=== PATIENT | female | born 1950 | race Caucasian/White ===

== ENCOUNTER → 2016-12-02 | Outpatient (CLI) | payer OTHER ==
[~2016-12-02] MED LIST: B-COTAB53 PO; DESI25TA PO; ESCI10TA17 PO; GLIM4TAB2 PO; LORA-741 PO; MILK175T PO; MULTTAB58 PO; POLYSOL4 OP; SITA50TA3 PO; SYSTANE EYE DROP OPB
== END ==
LOC: C.LABCC 08:35
PROVIDERS: ATTEND Internal Medicine
DX: M81.0 Age-related osteoporosis without current pathological fracture (principal)

== ENCOUNTER 2018-03-25 12:35 | Emergency (ER) | payer OTHER ==
[~2018-03-25] VITALS: Ht 154.9 cm; Wt 70.0 kg
[~2018-03-25 12:35] MED LIST changes: -SYSTANE EYE DROP OPB
[2018-03-25 12:38] VITALS: TEMP 36.7; Ht 154.9 cm; Wt 70.0 kg
[2018-03-25 12:55] VITALS: O2SAT 97
[2018-03-25] MEDS ORDERED: SODIUM CHLORIDE 0.9% 500ML 500 ML IV STA (12:57)
[2018-03-25] MEDS ORDERED: ALBUT/IPRATROP 3MG/0.5MG NEB 3 ML VIAL INH STA (12:57)
[2018-03-25] MEDS ORDERED: KETOROLAC TROMETHAMINE 30 MG/ML VIAL IV STA (12:57)
--- NOTE | 2018-03-25 13:02 | EMERGENCY ROOM VISIT NOTE ---
History Report prepared by Sindhu: Darinel Wong Under the Supervision of: Dr. James Linares M.D. First contact with patient: 12:52 Chief Complaint: CHEST PAIN Stated Complaint: CHEST PAIN, TIGHTNESS IN CHEST-NOT FEELING WELL History of Present Illness The patient is a 67 year old female who presents to the Emergency Room with complaints of waxing and waning chest pain that began 2 days ago. She states that the symptoms came on when she was about to go to bed and noticed tightness across her chest. She states that she ate apple slices before going to bed. She states that the symptoms do not feel similar to GERD. She states that she does not have a history of GERD. She states that she feels the chest pain right now in the ER. Patient adds that she has tightness around her throat. She adds that she has shortness of breath with exertion and coughing. Patient states that the chest pain "keeps her up her night". She states that she is not coughing right now in the ED. Patient states that she has a history of similar symptoms after falling down steps. Patient adds that she had coughing and sinus problems 2 weeks ago. Pertinent past medical history includes a stroke and a left bundle branch block. Patient states that deficits following the stroke include the left -side of her body being weaker than the right. Patient denies a history of heart attacks. She denies a history of blood clots in her legs or lungs. Patient denies taking blood thinners. She states that she does take Aspirin. Patient denies nausea and vomiting. Patient adds that she is not a smoker. Source of History: patient Onset: 2 days ago Position: chest Timing: waxes/wanes Modifying Factors (Relieving): other (None) Associated Symptoms: + SOB, No nausea, No vomiting Note: Patient has throat tightness. Review of Systems See HPI for pertinent positives and negatives. A total of ten systems were reviewed and were otherwise negative. Past Medical & Surgical Medical Problems: (1) Anxiety (2) Depression (3) Diabetes mellitus, type II (4) Dyslipidemia (5) Hepatitis C, chronic Surgical Problems: (1) H/O cataract removal with insertion of prosthetic lens (2) History of back surgery (3) History of cholecystectomy (4) History of hysterectomy (5) History of tubal ligation Family History Diabetes mellitus FH: heart disease FHx: cancer FHx: gallbladder disease Hypertension Kidney disease Kidney stones Social History Smoking Status: Never Smoker Marital Status: Occupation Status: retired Current/Historical Medications Scheduled Aspirin (Aspirin Ec), 81 MG PO DAILY B-Complex W/ Folic Acid (B Complex), 1 TAB PO DAILY Desipramine Hcl (Norpramin), 25 MG PO QPM Escitalopram (Lexapro), 30 MG PO DAILY Glimepiride (Glimepiride), 4 MG PO DAILY Lorazepam (Ativan), 1 MG PO QPM Milk Thistle (Silybum Marianum (Milk Thistle Extract), 175 MG PO MONTHLY Polyethylene Glycol-Propylene (Systane), 1 DROPS OP TID Sitagliptin (Januvia), 50 MG PO DAILY Scheduled PRN Famotidine (Pepcid), 20 MG PO BID PRN for GI Upset Allergies Coded Allergies: Clarithromycin (Verified Allergy, Mild, 03/25/18) Acetaminophen (Verified Allergy, Unknown, 03/25/18) Amitriptyline (Verified Allergy, Unknown, 03/25/18) Clavulanic Acid (Verified Allergy, Unknown, FROM AUGMENTIN, 03/25/18) Morphine (Unverified Allergy, Unknown, hives, 03/25/18) Oxycodone (Verified Allergy, Unknown, 03/25/18) Penicillins (Verified Allergy, Unknown, FROM AUGMENTIN, 03/25/18) Cephalosporins (Verified Adverse Reaction, Unknown, CEFTIN--GI UPSET, 03/25) Physical Exam Vital Signs Date Time Temp Pulse Resp B/P (MAP) Pulse Ox O2 Delivery O2 Flow Rate FiO2 03/25/18 16:38 78 15 145/57 97 03/25/18 15:28 75 18 140/72 Room Air 03/25/18 14:21 78 19 129/53 95 Room Air 03/25/18 13:34 74 18 114/60 95 Room Air 03/25/18 13:31 75 13 130/46 94 Room Air 03/25/18 12:55 97 Room Air 03/25/18 12:54 96 Room Air 03/25/18 12:54 76 03/25/18 12:51 77 18 142/53 94 Room Air 03/25/18 12:38 36.7 94 20 99/59 96 Room Air Physical Exam GENERAL: Awake, alert, fatigue-appearing, in no distress HENT: Normocephalic, atraumatic. Oropharynx unremarkable other than dry mucous membranes. EYES: Normal conjunctiva. Sclera non-icteric. NECK: Supple. No nuchal rigidity. FROM. No JVD. RESPIRATORY: Clear to auscultation. CARDIAC: Regular rate, normal rhythm. Extremities warm and well perfused. Pulses equal. ABDOMEN: Soft, non-distended. No tenderness to palpation. No rebound or guarding. No masses. RECTAL: Deferred. MUSCULOSKELETAL: Mild reproducible chest wall tenderness. The back is symmetrical on inspection without obvious abnormality. There is no CVA tenderness to palpation. No joint edema. LOWER EXTREMITIES: Calves are equal size bilaterally and non-tender. No edema. No discoloration. NEURO: Normal sensorium. No sensory or motor deficits noted. SKIN: No rash or jaundice noted. Medical Decision & Procedures ER Provider Diagnostic Interpretation: Radiology results as stated below per my review and radiologist interpretation: CHEST ONE VIEW PORTABLE HISTORY: Atypical CHEST PAIN COMPARISON: Chest 11/26/2016. FINDINGS: The lungs are clear. Cardiac silhouette is normal in size. No pleural effusions. No pneumothorax. IMPRESSION: No acute process. Electronically signed by: Eugene Antoine M.D. 03/25/2018 1:47 PM Laboratory Results 03/25/18 12:55 Red Blood Count 4.75, Mean Corpuscular Volume 83.4, Mean Corpuscular Hemoglobin 27.4, Mean Corpuscular Hemoglobin Concent 32.8, Mean Platelet Volume 9.6, Neutrophils (%) (Auto) 71.8, Lymphocytes (%) (Auto) 19.2, Monocytes (%) (Auto) 7.0, Eosinophils (%) (Auto) 1.6, Basophils (%) (Auto) 0.2, Neutrophils # (Auto) 4.54, Lymphocytes # (Auto) 1.21, Monocytes # (Auto) 0.44, Eosinophils # (Auto) 0.10, Basophils # (Auto) 0.01 03/25/18 12:55 Test 03/25/18 12:55 03/25/18 15:03 White Blood Count 6.31 K/uL (4.8-10.8) Red Blood Count 4.75 M/uL (4.2-5.4) Hemoglobin 13.0 g/dL (12.0-16.0) Hematocrit 39.6 % (37-47) Mean Corpuscular Volume 83.4 fL (80-100) Mean Corpuscular Hemoglobin 27.4 pg (25-34) Mean Corpuscular Hemoglobin Concent 32.8 g/dl (32-36) Platelet Count 175 K/uL (130-400) Mean Platelet Volume 9.6 fL (7.4-10.4) Neutrophils (%) (Auto) 71.8 % Lymphocytes (%) (Auto) 19.2 % Monocytes (%) (Auto) 7.0 % Eosinophils (%) (Auto) 1.6 % Basophils (%) (Auto) 0.2 % Neutrophils # (Auto) 4.54 K/uL (1.4-6.5) Lymphocytes # (Auto) 1.21 K/uL (1.2-3.4) Monocytes # (Auto) 0.44 K/uL (0.11-0.59) Eosinophils # (Auto) 0.10 K/uL (0-0.5) Basophils # (Auto) 0.01 K/uL (0-0.2) RDW Standard Deviation 41.4 fL (36.4-46.3) RDW Coefficient of Variation 13.7 % (11.5-14.5) Immature Granulocyte % (Auto) 0.2 % Immature Granulocyte # (Auto) 0.01 K/uL (0.00-0.02) Anion Gap 6.0 mmol/L (3-11) Est Creatinine Clear Calc Drug Dose 54.6 ml/min Estimated GFR () 78.8 Estimated GFR (Non- 68.0 BUN/Creatinine Ratio 22.7 (10-20) Calcium Level 8.8 mg/dl (8.5-10.1) Magnesium Level 2.2 mg/dl (1.8-2.4) Total Bilirubin 0.5 mg/dl (0.2-1) Direct Bilirubin 0.2 mg/dl (0-0.2) Aspartate Amino Transf (AST/SGOT) 22 U/L (15-37) Alanine Aminotransferase (ALT/SGPT) 29 U/L (12-78) Alkaline Phosphatase 82 U/L (45-117) Pro-B-Type Natriuretic Peptide 139 pg/ml (0-900) Total Protein 8.2 gm/dl (6.4-8.2) Albumin 3.9 gm/dl (3.4-5.0) Lipase 133 U/L (73-393) Troponin I < 0.015 ng/ml (0-0.045) Laboratory results reviewed by me Medications Administered Medications (Trade) Dose Ordered Sig/Edgardo Route Start Time Stop Time Status Last Admin Dose Admin Sodium Chloride 500 ml @ 999 mls/hr Q31M STAT IV 03/25/18 12:57 03/25/18 13:27 DC 03/25/18 13:08 999 MLS/HR Ketorolac Tromethamine (Toradol Inj) 15 mg NOW STAT IV 03/25/18 12:57 03/25/18 13:02 DC 03/25/18 13:09 15 MG Albuterol/ Ipratropium (Duoneb) 3 ml NOW STAT INH 03/25/18 12:57 03/25/18 13:02 DC 03/25/18 13:09 3 ML Famotidine (Pepcid Tab) 20 mg NOW ONCE PO 03/25/18 14:30 03/25/18 14:31 DC 03/25/18 14:36 20 MG Lidocaine HCl (Viscous Lidocaine 2% Soln) 20 ml STK-MED ONCE .ROUTE 03/25/18 14:33 03/25/18 14:34 DC 03/25/18 14:36 10 ML Al Hydroxide/Mg Hydroxide (Maalox Susp) 30 ml STK-MED ONCE .ROUTE 03/25/18 14:34 03/25/18 14:35 DC 03/25/18 14:36 30 ML ECG Per My Interpretation Indication: chest pain Rate (beats per minute): 83 Rhythm: normal sinus Findings: LBBB, no acute ischemic change, other (No sgarbossa present) Comparison ECG Date: 04/22/2017 Change: no significant change ED Course 1253: The patient was evaluated in room C1B. A complete history and physical exam was performed. 1423: I reassessed the patient. She states that she is feeling better. 1532: I reevaluated the patient. Discussed results and discharge instructions. She verbalized understanding and agreement. The patient is ready for discharge. Medical Decision I reviewed the patient's past medical history, medications, and the nursing notes as described above. Differential diagnosis: Etiologies such as cardiac ischemia, aortic dissection, pulmonary embolism, pneumonia, pneumothorax, musculoskeletal, infections, pericarditis, myocarditis , esophageal rupture, gastrointestinal, as well as others were entertained. The patient is a 67-year-old woman who presents emergency department with constant chest pain that gets worse slightly better over the past 2 days in the setting of cough and congestion per hpi. On arrival the patient is no acute distress, afebrile stable vital signs. EKG demonstrates the patient's chronic/ baseline left bundle branch block with no Sgarbossa criteria. Chest x-ray negative. Labs unremarkable including WBC within normal limits. Initial troponin negative in the setting of constant symptoms. However, given the patient's history of left bundle branch block for additional certainty detla 2 hour troponin was sent and was again negative. patient feeling improved after IV fluid hydration, Toradol, albuterol. However she still also reported some mild fullness in her throat which subsequently resolved after GI cocktail and Pepcid. Thus, given the patient's improvement in the setting of reassuring cardiac workup, unlikely to be cardiac etiology at this time. Symptoms possibly related to chest wall inflammation/gastritis in the setting of the patient's recent URI symptoms. Plan for PCP follow-up. Findings and plan for follow-up reviewed with patient. Patient agreeable and d/c'd per discharge instructions. Medication Reconcilliation Current Medication List: was personally reviewed by me Blood Pressure Screening Patient's blood pressure: Elevated blood pressure Blood pressure disposition: Elevated BP felt to be situational Impression Primary Impression: Substernal precordial chest pain Scribe Attestation The scribe's documentation has been prepared under my direction and personally reviewed by me in its entirety. I confirm that the note above accurately reflects all work, treatment, procedures, and medical decision making performed by me. Departure Information Dispostion Home / Self-Care Prescriptions Famotidine (PEPCID) 20 Mg Tab 20 MG PO BID Y for GI Upset for 7 Days, #14 TAB Prov: James Linares M.D. 03/25/18 Referrals Chaitanya Quinones D.O. (PCP) Forms Call Back Authorization, HOME CARE DOCUMENTATION FORM, IMPORTANT VISIT INFORMATION Patient Instructions ED Chest Pain Atypical Unkn Cause, ED Chest Pain Costochondritis, ED Gastritis, My [facility] Additional Instructions Please follow up with your primary care physician in the next 1-3 days for re- evaluation. The cause of your symptoms is unclear at this time. However, may be due to chest wall inflammation and strain as well as a possible gastritis related to your recent upper respiratory infection. Otherwise, your exam, EKG, chest xray, and lab results did not show signs of an emergent condition at this time. Acetaminophen for pain and fevers as needed. Pepcid and Tums as needed for GI upset and acid reduction. Continue your home inhaler. Drink plenty of fluids to ensure hydration. Return to the emergency department for worsening symptoms as described in the accompanying instructions.
[2018-03-25 13:07] LABS: BASO % 0.2 %; BASO ABS # 0.01 K/uL (0-0.2); EOS % 1.6 %; HEMATOCRIT 39.6 % (37-47); IG# 0.01 K/uL (0.00-0.02); LYMPH % 19.2 %; LYMPH ABS # 1.21 K/uL (1.2-3.4); MEAN CELL VOLUME 83.4 fL (80-100); MEAN CORPUSCULAR HEMOGLOBIN 27.4 pg (25-34); MEAN CORPUSCULAR HGB CONC 32.8 g/dl (32-36); MEAN PLATELET VOLUME 9.6 fL (7.4-10.4); MONO ABS # 0.44 K/uL (0.11-0.59); NEUT % 71.8 %; NEUT ABS # 4.54 K/uL (1.4-6.5); PLATELET COUNT 175 K/uL (130-400); RED CELL DISTRIBUTION WIDTH CV 13.7 % (11.5-14.5); RED CELL DISTRIBUTION WIDTH SD 41.4 fL (36.4-46.3); WHITE BLOOD COUNT 6.31 K/uL (4.8-10.8)
[2018-03-25] MEDS ORDERED: ATV/1 PO (13:15)
[2018-03-25] MEDS ORDERED: ASPI81TA28 PO (13:15)
[2018-03-25 13:25] LABS: ALBUMIN 3.9 gm/dl (3.4-5.0); ALT/SGPT 29 U/L (12-78); AST/SGOT 22 U/L (15-37); BLOOD UREA NITROGEN 20 mg/dl (7-18); CALCIUM 8.8 mg/dl (8.5-10.1); CARBON DIOXIDE 26 mmol/L (21-32); CREATININE 0.87 mg/dl (0.60-1.20); GLUCOSE 197 mg/dl (70-99); LIPASE 133 U/L (73-393); POTASSIUM 4.3 mmol/L (3.5-5.1); SODIUM 137 mmol/L (136-145)
[2018-03-25 13:30] LABS: ALKALINE PHOSPHATASE 82 U/L (45-117); TOTAL PROTEIN 8.2 gm/dl (6.4-8.2)
--- NOTE | 2018-03-25 13:48 | DIAGNOSTIC IMAGING REPORT ---
CHEST ONE VIEW PORTABLE HISTORY: Atypical CHEST PAIN COMPARISON: Chest 11/26/2016. FINDINGS: The lungs are clear. Cardiac silhouette is normal in size. No pleural effusions. No pneumothorax. IMPRESSION: No acute process. Electronically signed by: Eugene Antoine M.D. 03/25/2018 1:47 PM Dictated Date/Time: 03/25/2018 1:45 PM
[2018-03-25] MEDS ORDERED: GI COCKTAIL PO STA (14:25)
[2018-03-25] MEDS ORDERED: FAMOTIDINE 20 MG TAB PO ONE (14:30)
[2018-03-25] MEDS ORDERED: LIDOCAINE HCL 2% VISC SOLN 20 ML UDC ONE (14:33)
[2018-03-25] MEDS ORDERED: ALUMINUM/MAGNESIUM SUSP 30 ML UDC ONE (14:34)
[2018-03-25] MEDS ORDERED: FAMO20TA9 PO (16:06)
[2018-03-25 16:38] VITALS: BP 145/57; PULSE 78; O2SAT 97
== END 2018-03-25 16:35 | disposition home or self-care (01) ==
LOC: C.EDB 12:37 → C.EDC 16:35
DX: R07.2 Precordial pain (principal); F41.9 Anxiety disorder, unspecified; F32.9 Major depressive disorder, single episode, unspecified; E11.9 Type 2 diabetes mellitus without complications; E78.5 Hyperlipidemia, unspecified; B18.2 Chronic viral hepatitis C; Z79.82 Long term (current) use of aspirin; Z79.899 Other long term (current) drug therapy; Z88.5 Allergy status to narcotic agent; Z88.0 Allergy status to penicillin; Z88.1 Allergy status to other antibiotic agents; Z88.8 Allergy status to other drugs, medicaments and biological substances

== ENCOUNTER 2019-11-15 10:18 | Inpatient (IN) ==
--- OUTSIDE RECORDS SUMMARY | 2019-11-15 10:23 | External Medical Summary | Continuity of Care Document ---
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 , M .D. Start: 17-Feb-2017 Refills: 0 Desipramine HCl - 75 MG Oral Tablet; TAKE 1 TABLET DAILY DIRECTED. , M.D. Start: 17-Feb-2017 Refills: 0 Januvia 50 MG Oral Tablet , M.D. Refills: 0 Premarin 0.625 MG/GM Vaginal Cream; Appl y pea sized amount to fingertip apply to area as directed 2-3 nights per week. May use nightly for 1-2 weeks. RICH Carrizales Start: 17-Feb-2017 Quantity: 1 30 GM Tube Refills: 6 Systane 0.4-0.3 % Ophthalmic Solution; INSTILL 2 DROP Twice daily , M.D. Start: 17-Feb-2017 Refills: 0 B Complex Oral Tablet; TAKE 1 TABLET DAILY. , M.D. Start: 17-Feb-2017 Refills: 0 Milk Thistle 140 MG Oral Capsule; TAKE DIRECTED. , M.D. Start: 17-Feb-2017 Refills: 0 Glimepiride 4 MG Oral Tablet; TAKE 1 TABLET DAILY. , M.D. Start: 17-Feb-2017 Refills: 0 LORazepam 0.5 MG Oral Tablet; TAKE 1 TABLET AT BEDTIME. , M. D. Start: 17-Feb-2017 Refills: 0 Multi Vitamin Oral Tablet; TAKE 1 TABLET DAILY. , MJamesDJames Start: 17-Feb-2017 Refills: 0 Procedures History of Tubal Ligation Status: Comple madisyn History of Hysterectomy Status: Complete d History of Cholecystotomy Status: Comple madisyn History of Eye Surgery Status: Completed History of Back Surgery Status: Complete d History of Complete Colonoscopy Status: Completed History of Bladder Surgery Status: Compl eted Immunizations Immunizations not documented Family History aunt Family history of diabetes mellitus (V18.0) (Z83.3) Status: Active Brother Family history of hypertension (V17.49) (Z82.49) Status: Act yogesh Mother Family history of cardiac disorder (V17.49) (Z82.49) Status: Active Family history of rectal cancer (V16.0) (Z80.0) Status: Acti ve Social History - Smoking Status Never smoker Plan of Treatment Planned Observations Planned Goals not documented Results No Known Results Results not documented
--- NOTE | 2019-11-15 11:08 | Emergency Department Note ---
Entered by Nickolas Ulloa acting as a scribe for Ham Blake DO History of Present Illness General Chief complaint: Illness Stated complaint: ams Time Seen by Provider: 11/15/19 10:38 Source: patient History of Present Illness Provider complaint: Headache Onset (ago): hour(s) 7 Location: head Severity: similar to prior episodes Pain Consistency: + constant Maximum Pain Intensity: 5 Current Pain Intensity: 5 Relieved By: + none Associated symptoms: + nausea/vomiting (No vomiting) and + other (Visual disturbance, eye pain) The patient is a 69 year old female who presents to the Emergency Room with complaints of a constant headache that started upon waking up this morning about 7 hours ago. The patient rates the pain as a 5/10 in severity. The patient adds that shortly after waking up with the headache she started having visual disturbances which she explains as "squiggly lines". She also endorses intermittent pain to her left eye as well as left sided "shakiness" that has since resolved. The patient adds that she is slightly nauseated but denies any vomiting. The patient denies taking any medications for her headache but she did take her diabetes medication this morning. The patient has a history of TIA, per the family, and she has been having some trouble with her balance which she sees physical therapy for. The patient adds that she had a Doppler of her neck done a couple of years ago. Home Medications Home Medications Medication Instructions Recorded Confirmed Type aspirin 81 mg PO DAILY 09/06/18 11/15/19 History escitalopram oxalate 10 mg PO QAM 09/06/18 11/15/19 History escitalopram oxalate 20 mg PO QAM 09/06/18 11/15/19 History glimepiride 4 mg PO DAILY 09/06/18 11/15/19 History lorazepam 0.5 mg PO QPM 09/06/18 11/15/19 History milk thistle 175 mg PO BID 09/06/18 11/15/19 History vitamin B complex 1 tab PO DAILY 09/06/18 11/15/19 History coenzyme Q10 [CoQ-10] 100 mg PO DAILY 11/15/19 11/15/19 History linagliptin [Tradjenta] 5 mg PO DAILY 11/15/19 11/15/19 History Allergies Allergy/AdvReac Type Severity Reaction Status Date / Time clarithromycin Allergy Mild Verified 11/15/19 11:36 acetaminophen Allergy Unknown Verified 11/15/19 11:36 amitriptyline Allergy Unknown Verified 11/15/19 11:36 clavulanic acid Allergy Unknown FROM Verified 11/15/19 11:36 AUGMENTIN morphine Allergy Unknown hives Unverified 11/15/19 11:36 oxycodone Allergy Unknown Verified 11/15/19 11:36 Penicillins Allergy Unknown FROM Verified 11/15/19 11:36 AUGMENTIN Cephalosporins AdvReac Unknown CEFTIN--GI Verified 11/15/19 11:36 UPSET Past Med/Surg History Medical History Anxiety (Chronic) Depression (Chronic) Diabetes mellitus, type II (Chronic) Dyslipidemia (Chronic) Hepatitis C, chronic (Chronic) Surgical History H/O cataract removal with insertion of prosthetic lens (Resolved) History of back surgery (Resolved) History of cholecystectomy (Resolved) History of hysterectomy (Resolved) History of tubal ligation (Resolved) Social History Preferred Language: Lao Biztalk Administrator Required: No Beliefs That Will Affect Care: None Current Living Situation: Alone Other Information That Helps Us Care for You: No Feels Safe at Home: Yes Safety Concerns: Feels Safe At This Time Smoking Status: Never smoker Hx Alcohol Use: No Hx Substance Use: No Review of Systems See HPI for pertinent positives & negatives. and A total of 10 systems reviewed and were otherwise negative Physical Exam Vital Signs Vital Signs - 24 hr 11/15/19 10:25 11/15/19 11:27 11/15/19 12:31 Temperature 37.0 C Temperature Source Oral Pulse Rate 77 Pulse Rate [Apical] 73 72 Pulse Rate from SpO2 Sensor Pulse Rhythm Regular Pulse Rhythm [Apical] Regular Regular Pulse Strength Normal Respiratory Rate 17 17 17 Respiratory Effort / Characteristics Non-Labored Spontaneous Non-Labored Spontaneous Non-Labored Spontaneous Respiratory Depth Normal Normal Normal Respiratory Pattern Regular Regular Regular Blood Pressure 161/60 H Blood Pressure [Right Arm] 141/48 H 155/63 H Blood Pressure Mean 93 Blood Pressure Mean [Right Arm] 79 93 Pulse Oximetry 94 95 97 Oxygen Delivery Method Room Air Room Air Room Air Sepsis Recent Fever Within 48 Hours No Sepsis New/Unexplained Change in Mental Status No Sepsis Action Taken by Nursing No Action Required 11/15/19 13:30 11/15/19 14:00 11/15/19 14:01 Temperature Temperature Source Pulse Rate 77 73 Pulse Rate [Apical] 73 Pulse Rate from SpO2 Sensor 77 73 Pulse Rhythm Pulse Rhythm [Apical] Regular Pulse Strength Respiratory Rate 17 19 15 Respiratory Effort / Characteristics Non-Labored Spontaneous Respiratory Depth Normal Respiratory Pattern Regular Blood Pressure 123/59 L Blood Pressure [Right Arm] 131/58 L Blood Pressure Mean 81 Blood Pressure Mean [Right Arm] 82 Pulse Oximetry 94 92 94 Oxygen Delivery Method Room Air Sepsis Recent Fever Within 48 Hours Sepsis New/Unexplained Change in Mental Status Sepsis Action Taken by Nursing 11/15/19 14:30 11/15/19 14:31 11/15/19 15:00 Temperature Temperature Source Pulse Rate 78 77 75 Pulse Rate [Apical] Pulse Rate from SpO2 Sensor Pulse Rhythm Pulse Rhythm [Apical] Pulse Strength Respiratory Rate 18 14 24 Respiratory Effort / Characteristics Respiratory Depth Respiratory Pattern Blood Pressure 136/57 L 145/72 H Blood Pressure [Right Arm] Blood Pressure Mean 92 83 Blood Pressure Mean [Right Arm] Pulse Oximetry 95 Oxygen Delivery Method Sepsis Recent Fever Within 48 Hours Sepsis New/Unexplained Change in Mental Status Sepsis Action Taken by Nursing 11/15/19 15:01 Temperature Temperature Source Pulse Rate 75 Pulse Rate [Apical] Pulse Rate from SpO2 Sensor Pulse Rhythm Pulse Rhythm [Apical] Pulse Strength Respiratory Rate 17 Respiratory Effort / Characteristics Respiratory Depth Respiratory Pattern Blood Pressure Blood Pressure [Right Arm] Blood Pressure Mean Blood Pressure Mean [Right Arm] Pulse Oximetry Oxygen Delivery Method Sepsis Recent Fever Within 48 Hours Sepsis New/Unexplained Change in Mental Status Sepsis Action Taken by Nursing GENERAL: Patient is awake alert in no acute distress patient is resting comfortably and showing no signs of anxiety EYES: The conjunctivae are clear. The pupils are round and reactive. EARS, NOSE, MOUTH AND THROAT: The nose is without any evidence of any deformity. Mucous membranes are moist. Tongue is midline. NECK: The neck is nontender and supple. RESPIRATORY: Normal respiratory effort is noted there is no evidence of wheezing rhonchi or rales CARDIOVASCULAR: Regular rate and rhythm was noted to auscultation. A systolic murmur was suggested. GASTROINTESTINAL: The abdomen is soft. Abdomen is nontender. MUSCULOSKELETAL/EXTREMITIES: There is no evidence of gross deformity full range of motion is noted in the hips and shoulders. SKIN: There is no obvious evidence of any rash. There are no petechiae, pallor or cyanosis noted. NEUROLOGIC: Patient is awake alert and oriented x3 strength is symmetric patellar reflexes are 2+ bilaterally. There is no facial droop or drift. Course Course 1047: Past medical records reviewed. The patient was evaluated in room B04B, and a complete history and physical examination were performed. 1340: I reevaluated the patient and updated her on results. We discussed the treatment plan and she is agreeable. 1350: I spoke to Dr. Valerie Harris about the patient's case. He agreed to accept the patient for further evaluation. Consultations Consultation #1: I spoke to Dr. Valerie Harris about the patient's case. He agreed to accept the patient for further evaluation. Time: 13:50 Administered Medications Sodium Chloride (Nss 1000ml) 1,000 mls @ 50 mls/hr IV .Q20H STEFANO Stop: 12/15/19 10:59 Last Admin: 11/15/19 11:31 Dose: 50 mls/hr Documented by: [id number] Discontinued Medications Aspirin (Aspirin Chew) 81 mg PO ONE ONE Stop: 11/15/19 16:26 Last Admin: 11/15/19 17:03 Dose: 81 mg Documented by: [id number] Diphenhydramine HCl (Benadryl) 25 mg IV NOW STA Stop: 11/15/19 11:33 Last Admin: 11/15/19 11:36 Dose: 25 mg Documented by: [id number] Famotidine (Pepcid 20mg Iv Push) 20 mg in 5 mls @ 2.5 mls/min IV NOW STA Stop: 11/15/19 11:33 Last Admin: 11/15/19 11:36 Dose: 2.5 mls/min Documented by: [id number] Ceftriaxone Sodium (Rocephin) 1,000 mg in 50 mls @ 100 mls/hr IV NOW STA Stop: 11/15/19 12:11 Last Infusion: 11/15/19 13:51 Dose: 0 mls/hr Documented by: [id number] Admin: 11/15/19 12:25 Dose: 100 mls/hr Documented by: [id number] Ioversol (Optiray 320 125ml) 120 ml IV ONCE PRN PRN Reason: Interaction Checking Stop: 11/19/19 12:13 Last Admin: 11/15/19 12:15 Dose: 120 ml Documented by: [id number] Methylprednisolone (Solumedrol) 125 mg IV NOW STA Stop: 11/15/19 11:33 Last Admin: 11/15/19 11:36 Dose: 125 mg Documented by: [id number] Medical Decision Making Differential Diagnosis Differential Diagnosis includes but is not limited to dehydration, stroke, anemia, hypoglycemia, hyponatremia, hypernatremia, urinary tract infection, pneumonia, bronchitis, sepsis, gastroenteritis, additional abdominal pathology, metabolic abnormalities and infections. Medical Records Attestation: I reviewed the patient's medical records. Home Medications Current Medication List: was personally reviewed by me Laboratory Data Attestation: I reviewed the patient's lab results. Result diagrams: 11/15/19 11:05 11/15/19 11:05 Lab Results 11/15/19 11/15/19 11/15/19 Range/Units 11:00 11:05 11:05 WBC 8.05 (4.8-10.8) K/uL RBC 4.75 (4.2-5.4) M/uL Hgb 13.1 (12.0-16.0) g/dL Hct 40.0 (37-47) % MCV 84.2 (80-100) fL MCH 27.6 (25-34) pg MCHC 32.8 (32-36) g/dL RDW Std Deviation 43.0 (36.4-46.3) fL RDW Coeff of [place] 14.0 (11.5-14.5) % Plt Count 191 (130-400) K/uL MPV 10.4 (7.4-10.4) fL Immature Gran % (Auto) 0.1 % Neut % (Auto) 69.6 % Lymph % (Auto) 20.4 % [place] % (Auto) 8.1 % Eos % (Auto) 1.7 % Baso % (Auto) 0.1 % Immature Gran # (Auto) 0.01 (0.00-0.02) K/uL Neut # (Auto) 5.60 (1.4-6.5) K/uL Lymph # (Auto) 1.64 (1.2-3.4) K/uL [place] # (Auto) 0.65 H (0.11-0.59) K/uL Eos # (Auto) 0.14 (0-0.5) K/uL Baso # (Auto) 0.01 (0-0.2) K/uL PT 10.4 (9.0-12.0) Seconds INR 1.0 (0.9-1.1) APTT 24.1 (21.0-31.0) Seconds PTT Ratio 0.9 Sodium (136-145) mmol/L Potassium (3.5-5.1) mmol/L Chloride (98-107) mmol/L Carbon Dioxide (21-32) mmol/L Anion Gap (3-11) BUN (7-18) mg/dl Creatinine (0.6-1.2) mg/dl Est Cr Clr Drug Dosing ml/min Est GFR ( Amer) Est GFR (Non-Af Amer) BUN/Creatinine Ratio (10-20) Glucose (70-99) mg/dl POC Glucose (70-99) Calcium (8.5-10.1) mg/dl Magnesium (1.8-2.4) mg/dl Total Bilirubin (0.2-1) mg/dl AST (15-37) U/L ALT (12-78) U/L Alkaline Phosphatase (45-117) U/L Troponin I (0-0.045) ng/ml Total Protein (6.4-8.2) gm/dl Albumin (3.4-5.0) gm/dl Globulin (2.5-4.0) gm/dl Albumin/Globulin Ratio (0.9-2) Urine Color Yellow Urine Appearance Cloudy A (Clear) Urine pH 6.5 (4.5-7.5) Ur Specific [place] 1.014 (1.000-1.030) Urine Protein Negative (Negative) Urine Glucose (UA) Negative (Negative) Urine Ketones Negative (Negative) Urine Blood Negative (Negative) Urine Nitrite Negative (Negative) Urine Bilirubin Negative (Negative) Urine Urobilinogen Negative (Negative) Ur Leukocyte Esterase 1+ H (Negative) Urine WBC (Auto) >30 H (0-5) /hpf Urine RBC (Auto) 0-4 (0-4) /hpf U Hyaline Cast (Auto) 0 (0-5) /lpf U Epithel Cells (Auto) 5-10 H (0-5) /lpf Urine Bacteria (Auto) 4+ H (Negative) 11/15/19 11/15/19 Range/Units 11:05 11:17 WBC (4.8-10.8) K/uL RBC (4.2-5.4) M/uL Hgb (12.0-16.0) g/dL Hct (37-47) % MCV (80-100) fL MCH (25-34) pg MCHC (32-36) g/dL RDW Std Deviation (36.4-46.3) fL RDW Coeff of Farida (11.5-14.5) % Plt Count (130-400) K/uL MPV (7.4-10.4) fL Immature Gran % (Auto) % Neut % (Auto) % Lymph % (Auto) % [place] % (Auto) % Eos % (Auto) % Baso % (Auto) % Immature Gran # (Auto) (0.00-0.02) K/uL Neut # (Auto) (1.4-6.5) K/uL Lymph # (Auto) (1.2-3.4) K/uL [place] # (Auto) (0.11-0.59) K/uL Eos # (Auto) (0-0.5) K/uL Baso # (Auto) (0-0.2) K/uL PT (9.0-12.0) Seconds INR (0.9-1.1) APTT (21.0-31.0) Seconds PTT Ratio Sodium 138 (136-145) mmol/L Potassium 4.0 (3.5-5.1) mmol/L Chloride 107 (98-107) mmol/L Carbon Dioxide 28 (21-32) mmol/L Anion Gap 3.0 (3-11) BUN 20 H (7-18) mg/dl Creatinine 0.72 (0.6-1.2) mg/dl Est Cr Clr Drug Dosing 66.7 ml/min Est GFR ( Amer) 97.7 Est GFR (Non-Af Amer) 84.3 BUN/Creatinine Ratio 27.0 H (10-20) Glucose 137 H (70-99) mg/dl POC Glucose 129 H (70-99) Calcium 9.1 (8.5-10.1) mg/dl Magnesium 2.0 (1.8-2.4) mg/dl Total Bilirubin 0.4 (0.2-1) mg/dl AST 16 (15-37) U/L ALT 23 (12-78) U/L Alkaline Phosphatase 87 (45-117) U/L Troponin I < 0.015 (0-0.045) ng/ml Total Protein 7.8 (6.4-8.2) gm/dl Albumin 3.7 (3.4-5.0) gm/dl Globulin 4.1 H (2.5-4.0) gm/dl Albumin/Globulin Ratio 0.9 (0.9-2) Urine Color Urine Appearance (Clear) Urine pH (4.5-7.5) Ur Specific [place] (1.000-1.030) Urine Protein (Negative) Urine Glucose (UA) (Negative) Urine Ketones (Negative) Urine Blood (Negative) Urine Nitrite (Negative) Urine Bilirubin (Negative) Urine Urobilinogen (Negative) Ur Leukocyte Esterase (Negative) Urine WBC (Auto) (0-5) /hpf Urine RBC (Auto) (0-4) /hpf U Hyaline Cast (Auto) (0-5) /lpf U Epithel Cells (Auto) (0-5) /lpf Urine Bacteria (Auto) (Negative) Imaging Data Radiologist's Impression: Radiology results as stated below per my review and the radiologist's interpretation: XR chest 1V portable HISTORY: Headache. COMPARISON: Chest 03/25/2018. FINDINGS: The lungs are clear. Cardiac silhouette is normal in size. No pleural effusions. No pneumothorax. IMPRESSION: No acute process. ACT 112: Negative or not required by law. Electronically signed by: Eugene Antoine M.D. 11/15/2019 11:[address], HEAD & NECK CTA HISTORY: Stroke evaluation TECHNIQUE: Multiaxial CT images of the head were performed both before and after the intravenous administration of contrast to evaluate the major cerebral vessels. Multiaxial CT images of the neck were also performed following the intravenous administration of contrast to evaluate the major cervical vessels. Maximum intensity projection images were also obtained. A dose lowering technique was utilized adhering to the principles of ALARA. COMPARISON: Head CT 09/04/2018. FINDINGS: Head CT: There is no mass, hematoma, midline shift, or acute infarct. Periventricular white matter hypodensity favors microvascular ischemic change. This remains unchanged. The paranasal sinuses and mastoid air cells are clear. The calvarium and skull base are intact. Head CTA: Visualized intracranial internal carotid arteries, distal vertebral arteries, and basilar artery are widely patent. There is no significant stenosis, occlusion, or aneurysm seen within the bilateral ACAs, MCAs, or certified technician. The major dural venous sinuses are patent. 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 The left JOSEPH originates from the anterior communicating artery. Neck CTA: The aortic arch and proximal great vessels are widely patent. There is no significant stenosis, occlusion, or dissection identified within the bilateral common carotid, internal carotid, or vertebral arteries. Mild calcified plaque within the left common carotid artery and left carotid bifurcation without significant stenosis. IMPRESSION: 1. No acute intracranial abnormality. 2. No significant stenosis, occlusion, or aneurysm within the [place]. 3. No significant stenosis, occlusion, or dissection identified within the carotid or vertebral arteries. ACT 112: Negative or not required by law. Electronically signed by: Eugene Antoine M.D. 11/15/2019 12:35 PM ECG Data Attestation: I personally reviewed and interpreted this ECG as follows: Indication: + weakness Rate (beats per minute): 71 Rhythm: + normal sinus ECG Intervals/blocks: + Left bundle branch block ECG Findings: no PACs and no PVCs Comparison ECG Date: from (03/25/18) Change: no significant change Blood Pressure Blood Pressure Findings: Low blood pressure Blood Pressure Disposition: further management by hospitalist [facility] Narrative The patient is a 69-year-old female who presented to the emergency department with family members for neurologic symptoms. The patient complains of left- sided headache as well as left-sided shaking and weakness but also complained of visual problems with her left eye. The patient did not have any focal neurologic deficits on physical exam. Given her past medical history there was concern for a strokelike syndrome. Because of the patient's lack of physical exam findings initially she was not made a stroke alert. I discussed the patient's laboratory and radiographic studies with her. She does not appear to have any signs of large vessel occlusion or stroke on CT. Because of the patient's ongoing symptoms I did discuss her case with the on-call [facility] hospitalist group. They have agreed to evaluate the patient in the emergency department for further management and disposition. Impression & Plan Left-sided weakness, Headache, Visual disturbance, Acute UTI Discharge Plan Visit Data *Final* Discharge Date/Time: 11/15/19 15:42 Chief Complaint: Illness Stated Complaint: ams ED Provider: Ham Blake Discharge Problem: Left-sided weakness, Headache, Visual disturbance, Acute UTI Patient Disposition: Admitted As Inpatient Discharge Instructions Interventions: ED Discharge Assessment Last Done: 11/15/19 15:42 The scribe's documentation has been prepared under my direction and personally reviewed by me in its entirety. I confirm that the note above accurately reflects all work, treatment, procedures, and medical decision making performed by me.
--- NOTE | 2019-11-15 11:17 | XRay Report ---
XR chest 1V portable HISTORY: Headache. COMPARISON: Chest 03/25/2018. FINDINGS: The lungs are clear. Cardiac silhouette is normal in size. No pleural effusions. No pneumot horax. IMPRESSION: No acute process. ACT 112: Negative or not required by law. Electronically signed by: Eugene Antoine M.D. 11/15/2019 11:16 AM
[2019-11-15 11:26] LABS: Appearance Urine Cloudy (Clear); Bacteria Urine Automated 4+ (Negative); Bilirubin Urine Negative (Negative); Blood Urine Negative (Negative); Cast Urine Automated 0 /lpf (0-5); Color Urine Yellow; Glucose Urine UA Negative (Negative); Ketones Urine Negative (Negative); Leukocyte Esterase Urine 1+ (Negative); Nitrite Urine Negative (Negative); Protein Urine Negative (Negative); RBC Urine Automated 0-4 /hpf (0-4); Specific Gravity Urine 1.014 (1.000-1.030); Urobilinogen Urine Negative (Negative); WBC Urine Automated >30 /hpf (0-5); pH Urine 6.5 (4.5-7.5)
[2019-11-15 11:27] LABS: Basophils # (auto) 0.01 K/uL (0-0.2); Basophils % (auto) 0.1 %; Eosinophils # (auto) 0.14 K/uL (0-0.5); Eosinophils % (auto) 1.7 %; Hemoglobin 13.1 g/dL (12.0-16.0); Immature Granulocytes # (auto) 0.01 K/uL (0.00-0.02); Immature Granulocytes % (auto) 0.1 %; Lymphocytes # (auto) 1.64 K/uL (1.2-3.4); Lymphocytes % (auto) 20.4 %; Mean Corpuscular Hemoglobin 27.6 pg (25-34); Mean Corpuscular Hgb Conc 32.8 g/dL (32-36); Mean Corpuscular Volume 84.2 fL (80-100); Mean Platelet Volume 10.4 fL (7.4-10.4); Monocytes # (auto) 0.65 K/uL (0.11-0.59); Monocytes % (auto) 8.1 %; Neutrophils % (auto) 69.6 %; Platelet Count 191 K/uL (130-400); Red Blood Count 4.75 M/uL (4.2-5.4); White Blood Count 8.05 K/uL (4.8-10.8)
[2019-11-15] MEDS: SODIUM CHLORIDE 0.9% 1000ML 1,000 ML IV SCH (11:31)
[2019-11-15] MEDS ORDERED: methylPREDNISolone 125 MG/2 ML VIAL IV STA (11:32)
[2019-11-15] MEDS ORDERED: FAMOTIDINE 20MG IV PUSH 20 MG/5 ML SYR IV STA (11:32)
[2019-11-15] MEDS ORDERED: DiphenhydrAMINE HCL 50 MG/ML VIAL IV STA (11:32)
[2019-11-15 11:38] LABS: Partial Thromboplastin Ratio 0.9; Partial Thromboplastin Time 24.1 Seconds (21.0-31.0); Prothrombin Time 10.4 Seconds (9.0-12.0)
[2019-11-15] MEDS ORDERED: cefTRIAXone SODIUM 1,000 MG/50 ML BAG IV STA (11:42)
[2019-11-15 11:43] LABS: Alanine Aminotransferase 23 U/L (12-78); Albumin Level 3.7 gm/dl (3.4-5.0); Aspartate Aminotransferase 16 U/L (15-37); Blood Urea Nitrogen 20 mg/dl (7-18); Calcium 9.1 mg/dl (8.5-10.1); Carbon Dioxide 28 mmol/L (21-32); Chloride 107 mmol/L (98-107); Creatinine Clr Calc Pharmacy 66.7 ml/min; Est GFR (African American) 97.7; Est GFR (Non-African American) 84.3; Glucose 137 mg/dl (70-99); Sodium 138 mmol/L (136-145)
[2019-11-15 11:48] LABS: Albumin Globulin Ratio 0.9 (0.9-2); Alkaline Phosphatase 87 U/L (45-117); Bilirubin,Total 0.4 mg/dl (0.2-1); Globulin 4.1 gm/dl (2.5-4.0); Total Protein 7.8 gm/dl (6.4-8.2); Troponin I < 0.015 ng/ml (0-0.045)
[2019-11-15] MEDS ORDERED: OPTIRAY 320 125ml IV PRN (12:14)
--- NOTE | 2019-11-15 12:36 | CT Scan Report ---
NONCONTRAST HEAD CT, HEAD & NECK CTA HISTORY: Stroke evaluation TECHNIQUE: Multiaxial CT images of the head were performed both before and after the intravenous admi nistration of contrast to evaluate the major cerebral vessels. Multiaxial CT images of the neck were also performed following the intravenous administration of contrast to evaluate the major cervical ve ssels. Maximum intensity projection images were also obtained. A dose lowering technique was utilized adhering to the principles of ALARA. COMPARISON: Head CT 09/04/2018. FINDINGS: Head CT: There is no mass, hematoma, midline shift, or acute infarct. Periventricular white matter hy podensity favors microvascular ischemic change. This remains unchanged. The paranasal sinuses and mas toid air cells are clear. The calvarium and skull base are intact. Head CTA: Visualized intracranial internal carotid arteries, distal vertebral arteries, and basilar artery are widely patent. There is no significant stenosis, occlusion, or aneurysm seen within the bi lateral ACAs, MCAs, or oss architect. The major dural venous sinuses are patent. 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 The left JOSEPH originates from the anterior communicating artery. Neck CTA: The aortic arch and proximal great vessels are widely patent. There is no significant sten osis, occlusion, or dissection identified within the bilateral common carotid, internal carotid, or v ertebral arteries. Mild calcified plaque within the left common carotid artery and left carotid bifur cation without significant stenosis. IMPRESSION: 1. No acute intracranial abnormality. 2. No significant stenosis, occlusion, or aneurysm within the [place]. 3. No significant stenosis, occlusion, or dissection identified within the carotid or vertebral arter ies. ACT 112: Negative or not required by law. Electronically signed by: Eugene Antoine M.D. 11/15/2019 12:35 PM
--- NOTE | 2019-11-15 12:36 | CT Scan Report ---
NONCONTRAST HEAD CT, HEAD & NECK CTA HISTORY: Stroke evaluation TECHNIQUE: Multiaxial CT images of the head were performed both before and after the intravenous admi nistration of contrast to evaluate the major cerebral vessels. Multiaxial CT images of the neck were also performed following the intravenous administration of contrast to evaluate the major cervical ve ssels. Maximum intensity projection images were also obtained. A dose lowering technique was utilized adhering to the principles of ALARA. COMPARISON: Head CT 09/04/2018. FINDINGS: Head CT: There is no mass, hematoma, midline shift, or acute infarct. Periventricular white matter hy podensity favors microvascular ischemic change. This remains unchanged. The paranasal sinuses and mas toid air cells are clear. The calvarium and skull base are intact. Head CTA: Visualized intracranial internal carotid arteries, distal vertebral arteries, and basilar artery are widely patent. There is no significant stenosis, occlusion, or aneurysm seen within the bi lateral ACAs, MCAs, or pairing machine operator. The major dural venous sinuses are patent. 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 The left JOSEPH originates from the anterior communicating artery. Neck CTA: The aortic arch and proximal great vessels are widely patent. There is no significant sten osis, occlusion, or dissection identified within the bilateral common carotid, internal carotid, or v ertebral arteries. Mild calcified plaque within the left common carotid artery and left carotid bifur cation without significant stenosis. IMPRESSION: 1. No acute intracranial abnormality. 2. No significant stenosis, occlusion, or aneurysm within the [place]. 3. No significant stenosis, occlusion, or dissection identified within the carotid or vertebral arter ies. ACT 112: Negative or not required by law. Electronically signed by: Eugene Antoine M.D. 11/15/2019 12:35 PM
--- NOTE | 2019-11-15 12:36 | CT Scan Report ---
NONCONTRAST HEAD CT, HEAD & NECK CTA HISTORY: Stroke evaluation TECHNIQUE: Multiaxial CT images of the head were performed both before and after the intravenous admi nistration of contrast to evaluate the major cerebral vessels. Multiaxial CT images of the neck were also performed following the intravenous administration of contrast to evaluate the major cervical ve ssels. Maximum intensity projection images were also obtained. A dose lowering technique was utilized adhering to the principles of ALARA. COMPARISON: Head CT 09/04/2018. FINDINGS: Head CT: There is no mass, hematoma, midline shift, or acute infarct. Periventricular white matter hy podensity favors microvascular ischemic change. This remains unchanged. The paranasal sinuses and mas toid air cells are clear. The calvarium and skull base are intact. Head CTA: Visualized intracranial internal carotid arteries, distal vertebral arteries, and basilar artery are widely patent. There is no significant stenosis, occlusion, or aneurysm seen within the bi lateral ACAs, MCAs, or chair car attendant. The major dural venous sinuses are patent. 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 The left JOSEPH originates from the anterior communicating artery. Neck CTA: The aortic arch and proximal great vessels are widely patent. There is no significant sten osis, occlusion, or dissection identified within the bilateral common carotid, internal carotid, or v ertebral arteries. Mild calcified plaque within the left common carotid artery and left carotid bifur cation without significant stenosis. IMPRESSION: 1. No acute intracranial abnormality. 2. No significant stenosis, occlusion, or aneurysm within the [place]. 3. No significant stenosis, occlusion, or dissection identified within the carotid or vertebral arter ies. ACT 112: Negative or not required by law. Electronically signed by: Eugene Antoine M.D. 11/15/2019 12:35 PM
--- NOTE | 2019-11-15 15:19 | History & Physical Report ---
Date of Service November 15, 2019 Assessment & Plan (1) Stroke-like symptom: Headache Present on admission with left side weakness associated with vision disturbance and headache. Possible related to headache But need to r/o acute CVA CT head and CTA neck and head showed no acute intracranial abnormality. No significant stenosis, occlusion, or aneurysm within the [place]. No significant stenosis, occlusion, or dissection identified within the carotid or vertebral arteries. Will give asa 81mg Will get a MRI of the brain PT/OT eval Fall precaution Continue neuro check Will get an echo to r/o cardiac shunt Will consult neuro Abnormal UA UA positive for leukocyte and bacteria Received Rocephin 1g IV in the ER Urine cx pending Will continue IV Rocephin for now If urine cx negative, will d/c abx Anxiety Continue Lexapro and Lorazepam Type 2DM Most recent Hba1c 6.6 on 09/03 Will hold glimeperide and trajenta Will place on novolog sliding scale Will monitor BS DVT px on Lovenox subq CODE Status FULL code History of Present Illness Chief Complaint: Stroke like Symptoms Primary Care Provider: Chaitanya Quinones DO 69 years old female with past medical history of type 2 diabetes, dyslipidemia, anxiety, history of hep C treated, CVA presented to the ER with left side weakness associated with vision disturbance and headache. Patient said that symptoms started on Thursday while she has been having severe headache with vision change. Patient said she feels like there is a something floating in her Left eye. Patient said that she does have weakness in the left side due to previous stroke but in the past 2 days the weakness seems to get worse. She said that she feels weak and her gait is unsteady. Patient said that she does feel dizzy when she tries to stand. She said that she had history of vertigo in the past. She said that headache is constant and seems to get worse today. patient said th at she was supposed to be on aspirin 81mg but she has not been taking it for the past few days because it was sent to the wrong pharmacy. Both daughters at bedside said that patient has multiple episode of UTI in the past but patient said that she can tell when she does have UTI. She said that she has increased urinary frequency but no dysuria. She does not sure about the urine color because she is taking medication that changed the color of her urine. She denies any chest pain, palpitation, dizziness, fever, nausea and vomiting. CT head done in the ER showed no acute intracranial finding. Allergies Allergy/AdvReac Type Severity Reaction Status Date / Time clarithromycin Allergy Mild Verified 11/15/19 11:36 acetaminophen Allergy Unknown Verified 11/15/19 11:36 amitriptyline Allergy Unknown Verified 11/15/19 11:36 clavulanic acid Allergy Unknown FROM Verified 11/15/19 11:36 AUGMENTIN morphine Allergy Unknown hives Unverified 11/15/19 11:36 oxycodone Allergy Unknown Verified 11/15/19 11:36 Penicillins Allergy Unknown FROM Verified 11/15/19 11:36 AUGMENTIN Cephalosporins AdvReac Unknown CEFTIN--GI Verified 11/15/19 11:36 UPSET Home Medications Home Medications Medication Instructions Recorded Confirmed Type aspirin 81 mg PO DAILY 09/06/18 11/15/19 History escitalopram oxalate 10 mg PO QAM 09/06/18 11/15/19 History escitalopram oxalate 20 mg PO QAM 09/06/18 11/15/19 History glimepiride 4 mg PO DAILY 09/06/18 11/15/19 History lorazepam 0.5 mg PO QPM 09/06/18 11/15/19 History milk thistle 175 mg PO BID 09/06/18 11/15/19 History vitamin B complex 1 tab PO DAILY 09/06/18 11/15/19 History coenzyme Q10 [CoQ-10] 100 mg PO DAILY 11/15/19 11/15/19 History linagliptin [Tradjenta] 5 mg PO DAILY 11/15/19 11/15/19 History Past Med/Surg History Medical History Anxiety (Chronic) Depression (Chronic) Diabetes mellitus, type II (Chronic) Dyslipidemia (Chronic) Hepatitis C, chronic (Chronic) Surgical History H/O cataract removal with insertion of prosthetic lens (Resolved) History of back surgery (Resolved) History of cholecystectomy (Resolved) History of hysterectomy (Resolved) History of tubal ligation (Resolved) Social History Preferred Language: [place] Communication Ability: Effective Cna Instructor Required: No Beliefs That Will Affect Care: None Current Living Situation: Alone Other Information That Helps Us Care for You: No Feels Safe at Home: Yes Safety Concerns: Feels Safe At This Time Smoking Status: Never smoker Hx Alcohol Use: No Hx Substance Use: No Review of Systems Review of Systems: All systems reviewed & are unremarkable except as noted in HPI & below Physical Exam Physical Exam: General- No acute distress Head- atraumatic Eyes- PERRL, Tenderness in Left eyes during EOM to the left ENT- oropharynx clear Neck- supple, no JVD Lungs- clear to auscultation Heart- regular rhythm; +murmur Abdomen- normal bowel sounds, soft, nontender Extremities- no calf tenderness Neuro- alert, oriented x 3; PERRL, no facial palsy; no dysarthria, motor 4/5 in the left side Skin- warm & dry Results & Data Vital Signs (Past 12 Hours) Vital Signs Temp Pulse Pulse Resp BP BP Pulse Ox 11/15/19 14:31 77 14 11/15/19 14:30 78 18 136/57 L 95 11/15/19 14:01 73 15 94 11/15/19 14:00 77 19 123/59 L 92 11/15/19 13:30 73 17 131/58 L 94 11/15/19 12:31 72 17 155/63 H 97 11/15/19 11:27 73 17 141/48 H 95 11/15/19 10:25 37.0 C 77 17 161/60 H 94 Diagnostic Findings XR chest 1V portable HISTORY: Headache. COMPARISON: Chest 03/25/2018. FINDINGS: The lungs are clear. Cardiac silhouette is normal in size. No pleural effusions. No pneumothorax. IMPRESSION: No acute process. ACT 112: Negative or not required by law. Electronically signed by: Eugene Antoine M.D. 11/15/2019 11:16 AM Dictated: 11/15/19 1115 Transcribed: 11/15/[address], HEAD & NECK CTA HISTORY: Stroke evaluation TECHNIQUE: Multiaxial CT images of the head were performed both before and after the intravenous administration of contrast to evaluate the major cerebral vessels. Multiaxial CT images of the neck were also performed following the intravenous administration of contrast to evaluate the major cervical vessels. Maximum intensity projection images were also obtained. A dose lowering technique was utilized adhering to the principles of ALARA. COMPARISON: Head CT 09/04/2018. FINDINGS: Head CT: There is no mass, hematoma, midline shift, or acute infarct. Periventricular white matter hypodensity favors microvascular ischemic change. This remains unchanged. The paranasal sinuses and mastoid air cells are clear. The calvarium and skull base are intact. Head CTA: Visualized intracranial internal carotid arteries, distal vertebral arteries, and basilar artery are widely patent. There is no significant s tenosis, occlusion, or aneurysm seen within the bilateral ACAs, MCAs, or line helper. The major dural venous sinuses are patent. 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 The left JOSEPH originates from the anterior communicating artery. Neck CTA: The aortic arch and proximal great vessels are widely patent. There is no significant stenosis, occlusion, or dissection identified within the bilateral common carotid, internal carotid, or vertebral arteries. Mild calcified plaque within the left common carotid artery and left carotid bifurcation without significant stenosis. IMPRESSION: 1. No acute intracranial abnormality. 2. No significant stenosis, occlusion, or aneurysm within the [place]. 3. No significant stenosis, occlusion, or dissection identified within the carotid or vertebral arteries. ACT 112: Negative or not required by law. Electronically signed by: Eugene Antoine M.D. 11/15/2019 12:35 PM Dictated: 11/15/19 1226 Transcribed: 11/15/[address], HEAD & NECK CTA HISTORY: Stroke evaluation TECHNIQUE: Multiaxial CT images of the head were performed both before and after the intravenous administration of contrast to evaluate the major cerebral vessels. Multiaxial CT images of the neck were also performed following the intravenous administration of contrast to evaluate the major cervical vessels. Maximum intensity projection images were also obtained. A dose lowering technique was utilized adhering to the principles of ALARA. COMPARISON: Head CT 09/04/2018. FINDINGS: Head CT: There is no mass, hematoma, midline shift, or acute infarct. Periventricular white matter hypodensity favors microvascular ischemic change. This remains unchanged. The paranasal sinuses and mastoid air cells are clear. The calvarium and skull base are intact. Head CTA: Visualized intracranial internal carotid arteries, distal vertebral arteries, and basilar artery are widely patent. There is no significant stenosis, occlusion, or aneurysm seen within the bilateral ACAs, MCAs, or line helper. The major dural venous sinuses are patent. 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 The left JOSEHP originates from the anterior communicating artery. Neck CTA: The aortic arch and proximal great vessels are widely patent. There is no significant stenosis, occlusion, or dissection identified within the bilateral common carotid, internal carotid, or vertebral arteries. Mild calcified plaque within the left common carotid artery and left carotid bifurcation without significant stenosis. IMPRESSION: 1. No acute intracranial abnormality. 2. No significant stenosis, occlusion, or aneurysm within the [place]. 3. No significant stenosis, occlusion, or dissection identified within the carotid or vertebral arteries. ACT 112: Negative or not required by law. Electronically signed by: Eugene Antoine M.D. 11/15/2019 12:35 PM Dictated: 11/15/19 1226 Transcribed: 11/15/[address], HEAD & NECK CTA HISTORY: Stroke evaluation TECHNIQUE: Multiaxial CT images of the head were performed both before and after the intravenous administration of contrast to evaluate the major cerebral v essels. Multiaxial CT images of the neck were also performed following the intravenous administration of contrast to evaluate the major cervical vessels. Maximum intensity projection images were also obtained. A dose lowering technique was utilized adhering to the principles of ALARA. COMPARISON: Head CT 09/04/2018. FINDINGS: Head CT: There is no mass, hematoma, midline shift, or acute infarct. Periventricular white matter hypodensity favors microvascular ischemic change. This remains unchanged. The paranasal sinuses and mastoid air cells are clear. The calvarium and skull base are intact. Head CTA: Visualized intracranial internal carotid arteries, distal vertebral arteries, and basilar artery are widely patent. There is no significant stenosis, occlusion, or aneurysm seen within the bilateral ACAs, MCAs, or line helper. The major dural venous sinuses are patent. 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 The left JOSEPH originates from the anterior communicating artery. Neck CTA: The aortic arch and proximal great vessels are widely patent. There is no significant stenosis, occlusion, or dissection identified within the bilateral common carotid, internal carotid, or vertebral arteries. Mild calcified plaque within the left common carotid artery and left carotid bifurcation without significant stenosis.
[2019-11-15] MEDS ORDERED: PHARMACIST DISCHARGE MED REC CONSULT PRN (16:00)
[2019-11-15] MEDS ORDERED: ASPIRIN 81 MG CHEW PO ONE (16:25)
[2019-11-15] MEDS ORDERED: DEXTROSE 50% 50 ML SYRINGE IV PRN (16:30)
[2019-11-15] MEDS ORDERED: GLUCOSE 40% GEL 15 GM TUBE PO PRN (16:30)
[2019-11-15] MEDS ORDERED: GLUCOSE 10 TABS/TUBE PO PRN (16:30)
[2019-11-15] MEDS ORDERED: GLUCAGON FOR INJ 1 MG VIAL SQ PRN (16:30)
[2019-11-15] MEDS ORDERED: CARBOHYDRATES FOR HYPOGLYCEMIA PO PRN (16:30)
--- NOTE | 2019-11-15 17:58 | Magnetic Resonance Report ---
MR brain wo con HISTORY: 69 years-old Female stroke like symptoms acute headache with strokelike symptoms COMPARISON: CT head, CTA head neck of same day, brain MRI 04/15/2016 TECHNIQUE: Multiplanar multisequence MRI of the brain was obtained without the use of IV contrast. FINDINGS: Tool And Gauge Inspector localizer images demonstrate no gross extracranial abnormality. There is no restricted diffusio n to suggest acute or subacute infarction. Midline structures including the corpus callosum, brainste m, optic chiasm, pituitary and pineal glands appear unremarkable on the sagittal T1 series. No cerebe llar tonsillar herniation. Degenerative changes are noted about the imaged cervical spine. Heterogene ous appearance of the calvarial bone marrow suggests underlying bony demineralization. Mild age-relat ed involutional changes. Moderate scattered T2/FLAIR hyperintensities about the white matter are sugg estive of chronic microvascular ischemic disease, stable from the 2016 exam. No acute intracranial he morrhage, midline shift, abnormal extra axial collection, hydrocephalus or intracranial mass identifi ed. Major flow voids at the level of the skull base appear patent. Mastoid air cells are clear. 9 mm focu s of polypoid mucosal thickening involves the medial wall left maxillary sinus. Mild mucosal thickeni ng of the nasal turbinates and ethmoid air cells with bilateral kevin bullosa. Prior bilateral catar act repair. The soft tissues are unremarkable. IMPRESSION: 1. No acute intracranial abnormality, specifically there is no acute or subacute infarct. 2. Mild age-related involutional changes with moderate T2/FLAIR hyperintensities about the white [place] er suggestive of chronic microvascular ischemic disease. ACT 112: Negative or not required by law. The above report was generated using voice recognition software. It may contain grammatical, syntax o r spelling errors. Electronically signed by: Donald Cooney M.D. 11/15/2019 5:57 PM
[2019-11-15] MEDS: INSULIN ASPART 100 UNITS/ML 3 ML PEN SC SCH ×3 (18:43→22:01)
[2019-11-15] MEDS: LORazepam 0.5 MG TAB PO SCH (21:27)
[2019-11-15] MEDS ORDERED: INSULIN GLARGINE SOLOSTAR 100 UNITS/ML 3 ML PEN SC STA (21:43)
[2019-11-16] MEDS ORDERED: IBUPROFEN 200 MG TAB PO STA (00:31)
[2019-11-16 06:25] LABS: Basophils # (auto) 0.01 K/uL (0-0.2); Basophils % (auto) 0.1 %; Hematocrit (blood only) 36.7 % (37-47); Hemoglobin 12.1 g/dL (12.0-16.0); Immature Granulocytes # (auto) 0.02 K/uL (0.00-0.02); Immature Granulocytes % (auto) 0.2 %; Lymphocytes # (auto) 1.37 K/uL (1.2-3.4); Lymphocytes % (auto) 14.1 %; Mean Corpuscular Hemoglobin 27.3 pg (25-34); Mean Corpuscular Volume 82.8 fL (80-100); Mean Platelet Volume 10.8 fL (7.4-10.4); Monocytes # (auto) 0.68 K/uL (0.11-0.59); Neutrophils # (auto) 7.62 K/uL (1.4-6.5); Neutrophils % (auto) 78.6 %; Platelet Count 170 K/uL (130-400); RDW Coefficient of Variation 13.8 % (11.5-14.5); RDW Standard Deviation 41.8 fL (36.4-46.3); Red Blood Count 4.43 M/uL (4.2-5.4)
[2019-11-16] MEDS: SODIUM CHLORIDE 0.9% 1000ML 1,000 ML IV SCH (06:25)
[2019-11-16 06:58] LABS: BUN Creatinine Ratio 22.5 (10-20); Calcium 9.1 mg/dl (8.5-10.1); Creatinine Clr Calc Pharmacy 63.5 ml/min; Est GFR (African American) 92.9; Est GFR (Non-African American) 80.2; Potassium 4.3 mmol/L (3.5-5.1)
[2019-11-16] MEDS: ESCITALOPRAM OXALATE 20 MG TAB PO SCH (07:34)
[2019-11-16] MEDS: ESCITALOPRAM OXALATE 10 MG TAB PO SCH (07:34)
[2019-11-16] MEDS: ENOXAPARIN INJ 40 MG/0.4 ML SYR SQ SCH (07:34)
[2019-11-16] MEDS: INSULIN ASPART 100 UNITS/ML 3 ML PEN SC SCH ×4 (07:36→21:03)
--- NOTE | 2019-11-16 08:26 | Hospitalist Progress Note ---
Date of Service November 16, 2019 Assessment & Plan (1) Weakness: L sided weakness which is a known deficit from prior stroke, now made worse from acute infection in urine. Somewhat improved today. Cont PT/OT. No evidence of stroke on brain MRI, CTA head/neck or CT head. Echo pending. PT/OT evaluation pending. (2) UTI (urinary tract infection): Rocephin empirically pending culture results. (3) Headache around the eyes: associated with visual phenomena. No h/o migraines. She does have a h/o macular degeneration and had an eye surgery for this. May need to see an photographic aide regarding visual phenomena. Supportive care for frontal headache. (4) Diabetes mellitus, type II: Novolog/glargine. Glucose at goal. (5) Depression: Cont home Lexapro (6) DVT prophylaxis: Lovenox Full Code Dispo-plan for home when medically stable. Pending PT/OT evaluation. Izzy Oates DO 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 Review of Systems Review of Systems: All systems reviewed & are unremarkable except as noted in HPI & below Physical Exam Physical Exam: CONSTITUTIONAL: WNWD, vitals as above, generally well- appearing EYES: EOMI bilaterally, PERRL, normal conjunctivae, no scleral icterus ENT: MMM RESPIRATORY: clear to auscultation bilaterally, no crackles, rales or wheezes, normal respiratory effort CARDIOVASCULAR: regular rate and rhythm, S1 and 2 heard without murmurs, gallops or rubs, no JVD, no peripheral edema GASTROINTESTINAL: normal bowel sounds, soft, nontender, nondistended MUSCULOSKELETAL: strength 5/5 throughout, head is normocephalic and atraumatic SKIN: warm and dry NEUROLOGIC: CN 2-12 intact, no sensory deficit, normal cognition, normal speech, some noted tremor in left hand and leg with movement. PSYCHIATRIC: alert cooperative and oriented to person, place and time. Results & Data Vital Signs (Past 12 Hours) Vital Signs Temp Pulse Resp BP BP Pulse Ox 11/16/19 03:34 36.7 C 74 16 112/46 L 95 11/15/19 23:09 36.9 C 77 16 129/44 L 95 Laboratory Results Short CBC 11/15/19 11/16/19 Range/Units 11:05 05:59 WBC 8.05 9.70 (4.8-10.8) K/uL Hgb 13.1 12.1 (12.0-16.0) g/dL Hct 40.0 36.7 L (37-47) % Plt Count 191 170 (130-400) K/uL BMP 11/15/19 11/16/19 11:05 05:59 Sodium 138 140 Potassium 4.0 4.3 Chloride 107 107 Carbon Dioxide 28 28 BUN 20 H 17 Creatinine 0.72 0.75 Glucose 137 H 198 H Calcium 9.1 9.1 Cardiac Enzymes 11/15/19 Range/Units 11:05 Troponin I < 0.015 (0-0.045) ng/ml Liver Function 11/15/19 Range/Units 11:05 Total Bilirubin 0.4 (0.2-1) mg/dl AST 16 (15-37) U/L ALT 23 (12-78) U/L Alkaline Phosphatase 87 (45-117) U/L Albumin 3.7 (3.4-5.0) gm/dl Urine 11/15/19 Range/Units 11:00 Urine Color Yellow Urine Appearance Cloudy A (Clear) Urine pH 6.5 (4.5-7.5) Ur Specific [place] 1.014 (1.000-1.030) Urine Protein Negative (Negative) Urine Glucose (UA) Negative (Negative) Medications Administered Current Inpatient Medications Aspirin (Ecotrin Ectab) 81 mg PO DAILY [facility] Stop: 12/16/19 08:59 Dextrose (Dextrose 50%) 25 - 50 ml IV UD PRN; Protocol PRN Reason: Hypoglycemia Protocol Stop: 12/15/19 16:29 Enoxaparin Sodium (Lovenox) 40 mg SQ QAM STEFANO Stop: 12/16/19 08:59 Last Admin: 11/16/19 07:34 Dose: 40 mg Documented by: Escitalopram Oxalate (Lexapro Tab) 10 mg PO QAM STEFANO Stop: 12/16/19 08:59 Last Admin: 11/16/19 07:34 Dose: 10 mg Documented by: Escitalopram Oxalate (Lexapro Tab) 20 mg PO QAM [facility] Stop: 12/16/19 08:59 Last Admin: 11/16/19 07:34 Dose: 20 mg Documented by: Glucagon (Glucagen) 1 mg SQ UD PRN; Protocol PRN Reason: Hypoglycemia Protocol Stop: 12/15/19 16:29 Glucose (Dex4 Glucose) 4 - 8 tabs PO UD PRN; Protocol PRN Reason: Hypoglycemia Protocol Stop: 12/15/19 16:29 Glucose (Glucose 40%) 15 - 30 gm PO UD PRN; Protocol PRN Reason: Hypoglycemia Protocol Stop: 12/15/19 16:29 Sodium Chloride (Nss 1000ml) 1,000 mls @ 50 mls/hr IV .Q20H STEFANO Stop: 12/15/19 10:59 Last Admin: 11/16/19 06:25 Dose: 50 mls/hr Documented by: Ceftriaxone Sodium 1,000 mg/ (Dextrose) 50 mls @ 100 mls/hr IV Q24H STEFANO; Protocol Stop: 11/21/19 11:59 Insulin Aspart (Novolog Flexpen) 0 units SC ACHS STEFANO Stop: 12/15/19 21:59 Last Admin: 11/16/19 07:36 Dose: 6 units Documented by: Insulin Glargine (Lantus Solostar Pen) 10 units SQ HS STEFANO Stop: 12/16/19 20:59 Lorazepam (Ativan) 0.5 mg PO QPM STEFANO Stop: 12/15/19 20:59 Last Admin: 11/15/19 21:27 Dose: 0.5 mg Documented by: Miscellaneous (Carbohydrates For Hypoglycemia) 15 - 30 gm PO UD PRN PRN Reason: Hypoglycemia Protocol Stop: 12/15/19 16:29 Miscellaneous Information (Pharmacist Discharge Med Rec Consult) 1 ea N/A UD PRN PRN Reason: Consult Stop: 12/15/19 15:59
[2019-11-16] MEDS ORDERED: NON-FORMULARY MEDICATION (Coenzyme Q10 [Coq-10] 100 MG) PO SCH (09:00)
[2019-11-16] MEDS: ASPIRIN 81 MG ECTAB PO SCH (09:55)
[2019-11-16] MEDS ORDERED: cefTRIAXone SODIUM 1,000 MG in DEXTROSE 5% 50 ML IV SCH (12:00)
--- NOTE | 2019-11-16 14:30 | Communication Note ---
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
[2019-11-16] MEDS ORDERED: INSULIN GLARGINE SOLOSTAR 100 UNITS/ML 3 ML PEN SQ SCH (21:00)
[2019-11-16] MEDS: LORazepam 0.5 MG TAB PO SCH (21:06)
[2019-11-17 05:51] LABS: Basophils # (auto) 0.01 K/uL (0-0.2); Basophils % (auto) 0.2 %; Eosinophils # (auto) 0.17 K/uL (0-0.5); Eosinophils % (auto) 2.9 %; Hematocrit (blood only) 37.4 % (37-47); Hemoglobin 12.2 g/dL (12.0-16.0); Immature Granulocytes # (auto) 0.01 K/uL (0.00-0.02); Immature Granulocytes % (auto) 0.2 %; Lymphocytes # (auto) 1.66 K/uL (1.2-3.4); Lymphocytes % (auto) 28.4 %; Mean Corpuscular Hemoglobin 27.1 pg (25-34); Mean Corpuscular Hgb Conc 32.6 g/dL (32-36); Mean Corpuscular Volume 83.1 fL (80-100); Mean Platelet Volume 10.3 fL (7.4-10.4); Monocytes % (auto) 10.3 %; Platelet Count 156 K/uL (130-400); RDW Coefficient of Variation 14.1 % (11.5-14.5); RDW Standard Deviation 42.9 fL (36.4-46.3); White Blood Count 5.85 K/uL (4.8-10.8)
[2019-11-17 05:53] LABS: Estimated Average Glucose 157 mg/dl; Hemoglobin A1C 7.1 % (4.5-5.6)
[2019-11-17 06:17] LABS: BUN Creatinine Ratio 33.8 (10-20); Calcium 8.8 mg/dl (8.5-10.1); Creatinine Clr Calc Pharmacy 62.8 ml/min; Est GFR (African American) 91.5; Est GFR (Non-African American) 78.9; Potassium 4.3 mmol/L (3.5-5.1)
--- NOTE | 2019-11-17 07:59 | Consultation Report ---
DATE OF CONSULTATION: 11/16/2019 CONSULTATION FOR: Dr. Oates. HISTORY OF PRESENT ILLNESS: Abigail is 69 years old who is a patient of Dr. 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 She over the past several months has had an overall decline in her status. The [id number] left-sided weakness and tremulousness seemingly according to family members has gotten progressively worse and she has had more episodes of confusion, and has had, according to her, episodic visual phenomenon of positive type characterized as "wavy lines" in her vision that occur, last about an hour or two, perhaps several hours, and then clear up and the frequency is hard to really establish. She usually gets some head pain with these, but denies ever having migraines in the past nor does there apparently a strong family history for migraines either. Yesterday, she had a head pressure/pain syndrome associated with the wavy lines, but on this occasion, her left face became a little heavier, the left arm got weaker and there may have been some paresthesias. She was brought into the hospital where a CT of the head and CTA of the head and neck showed nothing acute, and a subsequent MRI scan had shown only the old small vessel changes consistent with prior small CVAs and nothing acute has been seen. She has had an echocardiogram, but the result is not yet available and in the course of the workup was found to have an abnormal urinalysis and has received some antibiotics and overall now feels better. The headaches are gone. The visual issues have ceased and the left-sided heaviness is getting close to her old baseline, but she still has intermittent tremulousness of the hand when outstretched and occasionally the leg. It is hard to know how long these have been present, how frequently they occur, but she really denies that they last very long and has never had any involvement of her face or alteration of consciousness during these periods of time when the left arm and leg are "shaking." She does suffer from chronic anxiety, is on Lexapro and lorazepam, and apparently was recently seen by Dr. Quinones, was told that some of her symptoms were reminiscent of prolonged menopause. Other problems include type 2 diabetes mellitus with elevated hemoglobin A1c. She has been switched over to a sliding scale insulin during this hospitalization. She otherwise has had fairly good health allowing for her general frailty, the old left hemiparesis, the diabetes and the problems that her family has noted with cognitive impairment over the past several months seemingly getting worse. ALLERGIES: SHE HAS ALLERGIES TO CLARITHROMYCIN, ACETAMINOPHEN, AMITRIPTYLINE, CLAVULANIC ACID, MORPHINE, OXYCODONE,AND CEPHALOSPORINS. HOME MEDICATIONS: Include 81 mg of aspirin, Celexa, glimepiride, lorazepam, milk thistle, vitamin B complex, Coenzyme Q10 and Tradjenta. PAST SURGICAL HISTORY: She has no significant surgical history. SOCIAL HISTORY: Reveals her to be a nonsmoker, nonconsumer of ethanol. She currently lives alone. I believe, she is . REVIEW OF SYSTEMS: Systems review from the patient indicates generalized malaise and left-sided tremor, but from the family indicates some cognitive decline of uncertain duration, probably over the past 6 months to a year, which is beginning to be concerning to them. She has also had some issues with macular degeneration and sees ophthalmology. She attributes some of these visual flashes to issues with her retina, but many of the aspects of them sound almost migrainous. She denies a history of headaches prior to several months ago when the headaches and visual disturbances came on. She denies any other issues referable to head, eyes, ears, nose, and throat, cardiovascular, pulmonary, gastrointestinal, genitourinary, musculoskeletal, dermatologic, hematologic or endocrinologic systems. PHYSICAL EXAMINATION: VITAL SIGNS: On admission revealed a blood pressure of 136/57, respirations 18, pulse was 78 and she was afebrile. GENERAL: She was a frail-appearing woman who was alert and cooperative and did not appear to be in any acute distress. HEENT: There were no abnormal findings on examination of head, eyes, ears, nose and throat. NECK: Supple. There were no carotid bruits. Thyroid was of normal size and consistency. LUNGS: Clear. HEART: Had a regular rhythm. No murmurs were appreciated. ABDOMEN: Soft and nontender. EXTREMITIES: Revealed no clubbing, cyanosis or edema and good peripheral pulses. NEUROLOGIC: Today, neurologically she is alert, largely cooperative, a little difficult as a historian, has no overt memory deficits, but I really did not go in for a formal mini-mental status exam today. She appeared to be a little anxious. Eye movements were full. Visual pena were full. Facial motility and strength were normal. Facial sensation was normal. There was a slight repetitive tremor of the left hand and leg when eyes were closed and the arms were extended and there may have been a minor drift to the left arm, slightly diminished facility of rapid repetitive motions with the left arm and left leg and reflex testing showed some increased reflex activity on the left with an equivocal an toe sign on the left whereas reflexes were normal on the right and no toe signs or Inez signs were seen. Strength testing was actually reasonably good allowing for little upper motor neuron fatigable weakness. Sensory examination was intact to vibration, light touch, and temperature. Imaging studies again have not shown very much other than some white matter changes in the hemispheres, none of which appear to be acute in nature, nothing on diffusion imaging to suggest a recent infarct and there is really very little obvious brain atrophy or nothing that is out of keeping for a woman of her age, which might correlate with the cognitive impairments that the family describes. Angiographic studies have been unremarkable and an echocardiogram is pending. Frankly, I think some of this sounds like migraine activity but she really denies vehemently ever having had migraines and she does have a history of vascular disease in the past with left hemiparesis. She does apparently have a urinary tract infection and treatment thus far with ceftriaxone has seemingly helped her overall symptoms and the headache is gone, so I wonder if this was not a toxic headache and some mild exacerbation of her underlying old left hemiparesis due to the effects of the urinary tract infection. I am not sure we are ever going to really know what is going on here. While I doubt that the movements represent seizure activity, we are going to get an EEG tomorrow to be sure there is no intermittent slowing or spike activity overlying the right hemisphere and I think she is probably going to be discharged on antibiotics and we will take a look at her in the clinic in about a month, have her keep a record of her headaches, and consider doing some more formal neuropsychological assessment as the family is quite concerned about her cognitive decline and we really do not have the facilities to adequately test this in depth in the hospital. I discussed these plans with Dr. Oates and will be back tomorrow to take a look at her and review the echocardiogram and anything else it might have developed overnight. I would be curious to see how she does with a night in the hospital. If she does demonstrate "sundowning behavior," then we may have evidence that there is more significant underlying cognitive impairment at baseline and it is obvious too on my exam today. INGRID
[2019-11-17] MEDS ORDERED: SULFAMETHOXAZOLE/TRIMETHOPRIM DS 800/160MG TAB PO SCH (09:00)
[2019-11-17] MEDS: ESCITALOPRAM OXALATE 10 MG TAB PO SCH (09:38)
[2019-11-17] MEDS: ESCITALOPRAM OXALATE 20 MG TAB PO SCH (09:38)
[2019-11-17] MEDS: ASPIRIN 81 MG ECTAB PO SCH (09:38)
[2019-11-17] MEDS: INSULIN ASPART 100 UNITS/ML 3 ML PEN SC SCH ×2 (09:39→11:46)
[2019-11-17] MEDS: ENOXAPARIN INJ 40 MG/0.4 ML SYR SQ SCH (14:41)
--- NOTE | 2019-11-17 14:55 | Electroencephalogram ---
EEG Procedure Note Date of Service November 17, 2019 Start / End Times Start Time: 39 End Time: 0759 Referring Physician Sohail Nunez MD History Periodic abnormal involuntary movements left arm and leg question seizures Home Medication List Home Medications Medication Instructions Recorded Confirmed Type aspirin 81 mg PO DAILY 09/06/18 11/15/19 History escitalopram oxalate 10 mg PO QAM 09/06/18 11/15/19 History escitalopram oxalate 20 mg PO QAM 09/06/18 11/15/19 History glimepiride 4 mg PO DAILY 09/06/18 11/15/19 History lorazepam 0.5 mg PO QPM 09/06/18 11/15/19 History milk thistle 175 mg PO BID 09/06/18 11/15/19 History vitamin B complex 1 tab PO DAILY 09/06/18 11/15/19 History coenzyme Q10 [CoQ-10] 100 mg PO DAILY 11/15/19 11/15/19 History linagliptin [Tradjenta] 5 mg PO DAILY 11/15/19 11/15/19 History Inpatient Medication List Aspirin (Ecotrin Ectab) 81 mg PO DAILY [facility] Stop: 12/16/19 08:59 Last Admin: 11/17/19 09:38 Dose: 81 mg Documented by: [id number] Admin: 11/16/19 09:55 Dose: 81 mg Documented by: [id number] Enoxaparin Sodium (Lovenox) 40 mg SQ QAM [facility] Stop: 12/16/19 08:59 Last Admin: 11/17/19 14:41 Dose: Not Given Documented by: [id number] Admin: 11/16/19 07:34 Dose: 40 mg Documented by: [id number] Escitalopram [facility] ([facility]ro Tab) [facility] Stop: 12/16/19 08:59 Last Admin: 11/17/19 09:38 Dose: 10 mg Documented by: [id number] Admin: 11/16/19 07:34 Dose: 10 mg Documented by: [id number] Escitalopram Oxalate (Lexapro Tab) 20 mg PO QAM [facility] Stop: 12/16/19 08:59 Last Admin: 11/17/19 09:38 Dose: 20 mg Documented by: [id number] Admin: 11/16/19 07:34 Dose: 20 mg Documented by: [id number] Insulin Aspart (Novolog Flexpen) 0 units SC [facility] Stop: 12/15/19 21:59 Last Admin: 11/17/19 11:46 Dose: 6 units Documented by: [id number] Cosigned by: [id number] Admin: 11/17/19 09:39 Dose: 4 units Documented by: [id number] Cosigned by: [id number] Admin: 11/16/19 21:03 Dose: Not Given Documented by: [id number] Cosigned by: [id number] Admin: 11/16/19 17:12 Dose: 3 units Documented by: [id number] Cosigned by: [id number] Admin: 11/16/19 13:20 Dose: 1 units Documented by: [id number] Cosigned by: [id number] Admin: 11/16/19 07:36 Dose: 6 units Documented by: [id number] Cosigned by: [id number] Admin: 11/15/19 22:01 Dose: 4 units Documented by: [id number] Cosigned by: [id number] Insulin Glargine (Lantus Solostar Pen) 10 units SQ HS [facility] Stop: 12/16/19 20:59 Last Admin: 11/16/19 21:02 Dose: 10 units Documented by: [id number] Cosigned by: [id number] Lorazepam (Ativan) 0.5 mg PO QPM [facility] Stop: 12/15/19 20:59 Last Admin: 11/16/19 21:06 Dose: 0.5 mg Documented by: [id number] Admin: 11/15/19 21:27 Dose: 0.5 mg Documented by: [id number] Trimethoprim/Sulfamethoxazole (Septra Ds 800/160mg Tab) 1 tab PO Q12 [facility] Stop: 11/20/19 08:59 Last Admin: 11/17/19 09:38 Dose: 1 tab Documented by: [id number] Discontinued Medications Aspirin (Aspirin Chew) 81 mg PO ONE ONE Stop: 11/15/19 16:26 Last Admin: 11/15/19 17:03 Dose: 81 mg Documented by: [id number] Diphenhydramine HCl (Benadryl) 25 mg IV NOW STA Stop: 11/15/19 11:33 Last Admin: 11/15/19 11:36 Dose: 25 mg Documented by: [id number] Sodium Chloride (Nss 1000ml) 1,000 mls @ 50 mls/hr IV .Q20H [facility] Stop: 12/15/19 10:59 Last Infusion: 11/16/19 13:35 Dose: 0 mls/hr Documented by: [id number] Admin: 11/16/19 06:25 Dose: 50 mls/hr Documented by: [id number] Infusion: 11/16/19 06:25 Dose: 50 mls/hr Documented by: [id number] Admin: 11/15/19 11:31 Dose: 50 mls/hr Documented by: [id number] Famotidine (Pepcid 20mg Iv Push) 20 mg in 5 mls @ 2.5 mls/min IV NOW STA Stop: 11/15/19 11:33 Last Admin: 11/15/19 11:36 Dose: 2.5 mls/min Documented by: [id number] Ceftriaxone Sodium (Rocephin) 1,000 mg in 50 mls @ 100 mls/hr IV NOW STA Stop: 11/15/19 12:11 Last Infusion: 11/15/19 13:51 Dose: 0 mls/hr Documented by: [id number] Admin: 11/15/19 12:25 Dose: 100 mls/hr Documented by: [id number] Ceftriaxone Sodium 1,000 mg/ (Dextrose) 50 mls @ 100 mls/hr IV Q24H [facility]; Protocol Stop: 11/21/19 11:59 Last Infusion: 11/16/19 13:49 Dose: 0 mls/hr Documented by: [id number] Admin: 11/16/19 13:19 Dose: 100 mls/hr Documented by: [id number] Ibuprofen (Advil) 200 mg PO NOW STA Stop: 11/16/19 00:32 Last Admin: 11/16/19 01:08 Dose: 200 mg Documented by: [id number] Insulin Aspart (Novolog Flexpen) 0 units SC [facility] Stop: 12/15/19 16:29 Last Admin: 11/15/19 21:25 Dose: 3 units Documented by: [id number] Cosigned by: [id number] Admin: 11/15/19 18:43 Dose: 3 units Documented by: [id number] Cosigned by: [id number] Insulin Glargine (Lantus Solostar Pen) 20 units SC NOW STA Stop: 11/15/19 21:44 Last Admin: 11/15/19 22:01 Dose: 20 units Documented by: [id number] Cosigned by: [id number] Ioversol (Optiray 320 125ml) 120 ml IV ONCE PRN PRN Reason: Interaction Checking Stop: 11/19/19 12:13 Last Admin: 11/15/19 12:15 Dose: 120 ml Documented by: [id number] Methylprednisolone (Solumedrol) 125 mg IV NOW STA Stop: 11/15/19 11:33 Last Admin: 11/15/19 11:36 Dose: 125 mg Documented by: [id number] Description This is a 21 electrode EEG with a single channel dedicated to limited EKG. The electrodes were placed in accordance with the International 10-20 system. This EEG was done as a bedside recording is of excellent technical quality with fewer no muscle movement artifacts. Photic stimulation is performed. A video analysis of patient movement and behavior is obtained. Drowsiness and light sleep were not recorded During wakefulness there is evidence for normal-appearing background rhythm in the alpha range of up to 9 to 10 Hz and maximum frequency of up to 30 V a maximum amplitude. This is maximum posterior head regions and bilaterally symmetrical. Modest amplitude mid frequency theta activity is seen in a symmetrical fashion over the central regions. Beta activity is seen bifrontally. Photic stimulation provokes a modest driving response without a photo myogenic and photoparoxysmal component. At no time during waking tracing is evidence for potentially epileptogenic activity in the form polyspike and spike-wave burst, focal sharp waves or focal spikes Interpretation Is a normal EEG during wakefulness without evidence for a focal or generalized encephalopathy without evidence for potentially epileptogenic activity Clinical Correlation This is a normal study does not indicate evidence for a focal or generalized encephalopathy or potentially epileptogenic activity but the absence of the latter does not absolutely exclude a seizure disorder and clinical correlation is required Sohail Nunez MD
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
--- NOTE | 2019-11-17 16:35 | Communication Note ---
Date of Service: November 17, 2019 Abigail looks remarkably better today she is active alert oriented pleasant has a minimal left hemiparesis occasional tremor the left arm and leg and her e chocardiographic study and EEG are both normal She denies any cognitive impairment issues and 1 of her associates is in the room is now back tracking a little bit on how long the cognitive impairment may have been present and thinks it is more of an acute process perhaps correlating with the underlying urinary tract infection rather than a pre-existing or slowly progressive issue that was implied on my first interview yesterday I think she could be seen in our office in about a month and we can review that and how long the potential cognitive issues have been present and decide then whether or not to proceed with neuropsych testing or to simply follow her along on a yearly basis. She was being seen by RICH Rainey and I saw her only to do an EMG several years ago which showed evidence for an old S1 radiculopathy and it looks as though she was never in the hospital for the strokelike symptoms and that the diagnosis was made on the basis of a delayed MRI performed well after the onset of symptoms and showing small vessel changes deep in the basal ganglia and thalamic areas 1 of which could have caused the left [id number] and episodic abnormal involuntary movements We certainly have nothing to suggest cortical involvement and nothing on EEG to suggest a focal seizure disorder and I certainly would not recommend anti- convulsant therapy in this setting I reviewed this with Izzy Oates and the patient is going to be discharged today on appropriate antibiotics with follow-up with her primary care and with us as outlined above Sohail Nunez MD
== END 2019-11-17 17:36 | disposition home health service (06) | DRG 690 ==
LOC: ED 10:18 → 2S 10:18 → SUATTDRO 15:17 → 2S 15:42 → 2E 18:11

== ENCOUNTER 2020-08-09 14:39 | Inpatient (IN) ==
--- NOTE | 2020-08-09 14:55 | Emergency Department Note ---
Impression & Plan TIA (transient ischemic attack), Anxiety ED Provider Note NAME: BISI JETER AGE: 69 SEX: F : 1950 ARRIVES VIA: Walk-In INFORMANT: Patient, ED PROVIDER(S): Henrik Hinds MD Chief Complaint: Weakness HPI: Patient does present with concern for some weakness on the left side. The patient states that this started around 1 PM. The patient states and describes it as a heaviness. Patient denies any fevers, chills. The patient has had some mild shortness of breath with exertion. Patient does complain of worsening anxiety. There is a lot of family stress additionally as the patient had been told that she may or may not be able to make decisions for herself and may need to be placed in a fpc. Patient does not use any alcohol or tobacco. The patient denies any cough, abdominal pain, nausea vomiting. The patient has had decreased appetite and sleep. Patient states that her symptoms have been persistent but may be slightly improved compared to when they began. The patient did take her morning medications. The patient does take such take Ativan at nighttime for sleep which does take the edge off. ROS: See HPI for pertinent positives and negatives. A total of 10 systems were revi ewed and otherwise negative. Past medical history: See below Surgical history: See below Social history: See below Physical Exam: GENERAL: Mild distress, anxious in appearance. EYE EXAM: Normal conjunctiva. PERRL, no anisocoria and EOM's grossly intact w/o pain. NECK: Supple, no nuchal rigidity, no adenopathy, non-tender. No signs of meningismus. LUNGS: Clear to auscultation. Normal chest wall mechanics. HEART: NSR, no MRG. ABDOMEN: Abdomen soft, non-tender, normo-active bowel sounds, no masses, no rebound or guarding. BACK: No CVA TTP. SKIN: No rashes and no bruising. UPPER EXTREMITIES: Upper extremities are grossly normal. LOWER EXTREMITIES: Grossly normal, no edema. NEURO EXAM: A&O x3, cranial nerves II-XII grossly intact, normal speech, moves all 4 extremities on command w/o issue. Good [id number] possible left upper extremity drift compared to the right, no sensory deficits. Differential diagnoses: Infection, dehydration, metabolic abnormality, hypo/hyperglycemia, electrolyte disturbance, anemia, hypoxia, cardiac sources, intracerebral event, toxicologic, neurologic, as well as other pathologies. Course: Patient was seen and evaluated the bedside. Full history physical exam was performed. EKG: Indication: Weakness Normal sinus rhythm, rate of 93, wide QRS axis, normal axis, left frontal branch block pattern. Imaging Studies: Radiology results as stated below per my review in the radiologist's interpretation: HEAD & NECK CTA HISTORY: Stroke symptoms. Stroke evaluation TECHNIQUE: Multiaxial CT images of the head were performed following the intrave nous administration of contrast to evaluate the major cerebral vessels. Multiaxial CT images of the neck were also performed following the intravenous administration of contrast to evaluate the major cervical vessels. Maximum intensity projection images were also obtained. A dose lowering technique was utilized adhering to the principles of ALARA. COMPARISON: Head and neck CTA 11/15/2019. FINDINGS: There is no mass, hematoma, midline shift, or acute infarct. Visualized intracranial internal carotid arteries, distal vertebral arteries, and basilar artery are widely patent. There is no significant stenosis, occlusion, or aneurysm seen within the bilateral ACAs, MCAs, or shagger. 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 This remains unchanged. The left JOSEPH originates from the anterior trachea artery. The aortic arch and proximal great vessels are widely patent. There is no significant stenosis, occlusion, or dissection identified within the bilateral common carotid, internal carotid, or vertebral arteries. Mild calcified plaque within the left common carotid artery and left carotid bifurcation. IMPRESSION: 1. No significant stenosis, occlusion, or aneurysm within the [place]. 2. No significant stenosis, occlusion, or dissection identified within the carotid or vertebral arteries. ACT 112: Negative or not required by law. Electronically signed by: Eugene Antoine M.D. 08/09/2020 4:29 PM Dictated: 08/09/20 1622 Transcribed: 08/09/[address] head/brain wo con CLINICAL HISTORY: 69 years-old Female with Stroke evaluation . Acute strokelike symptoms TECHNIQUE: Multiple axial CT images of the head were obtained without contrast. A dose lowering technique was utilized adhering to the principles of ALARA. CT DOSE: 1016.50 mGy.cm COMPARISON: CTA head neck of same day, head CT] MRI 11/15/2019 FINDINGS: No acute intracranial hemorrhage, midline shift, intracranial mass, hydrocephalus, territorial ischemia or abnormal extra-axial collection. Mild age-related involutional changes. Patchy white matter hypodensities suggest chronic microvascular ischemic disease. The calvarium is intact. Trace mastoid effusions. Rightward bowing and spurring of the nasal septum. Hyperostosis frontalis internal. The soft tissues and orbits are unremarkable. IMPRESSION: No acute intracranial abnormality. ACT 112: Negative or not required by law. The above report was generated using voice recognition software. It may contain grammatical, syntax or spelling errors. Electronically signed by: Donald Cooney M.D. 08/09/2020 4:27 PM Dictated: 08/09/201624 Transcribed: 08/09/201624 Cardiac monitoring: An order was placed for continuous cardiac monitoring. The monitor shows a rate of 100 with sinus rhythm. MDM: Patient was seen due to concern for some left-sided heaviness and some difficulty with speech. The patient did have blood work which is unremarkable. Patient does have mild low bicarb and slight anion gap but this is likely due to the patient's hyperventilation and anxiety. Troponin is not detectable. Patient CT angiography's of the head and neck unremarkable with negative CT of the head. I did speak the on-call hospitalist the patient was ordered to the rest of the full dose aspirin provided the patient passed dysphagia screen. Patient was admitted to the medicine service under Dr. Alvarez. MRI was ordered. Past Med/Surg History Medical History (Updated 08/09/20 @ 19:07 by RICH Edgar) Anxiety Depression Diabetes mellitus, type II Dyslipidemia Hepatitis C, chronic History of CVA (cerebrovascular accident) Surgical History H/O cataract removal with insertion of prosthetic lens History of back surgery History of cholecystectomy History of hysterectomy History of tubal ligation Family History Father Pancreatic cancer Social History Smoking Status: Never smoker Hx Alcohol Use: No Hx Substance Use: No Preferred Language: Estonian Communication Ability: Effective Quality Compliance Manager Required: No Beliefs That Will Affect Care: None Current Living Situation: Alone Feels Safe at Home: Yes Safety Concerns: Feels Safe At This Time Assistive Devices: Denture - Upper, Glasses and Walker Allergies Allergies Allergy/AdvReac Type Severity Reaction Status Date / Time Iodinated Contrast Media Allergy Severe HEAD TO Verified 08/09/20 16:06 TOE HIVES morphine Allergy Severe hives Verified 08/09/20 16:02 oxycodone Allergy Intermediate Hives Verified 08/09/20 16:02 clavulanic acid Allergy Unknown FROM Verified 08/09/20 16:02 AUGMENTIN Penicillins Allergy Unknown FROM Verified 08/09/20 16:02 AUGMENTIN amitriptyline AdvReac Severe INCREASES Verified 08/09/20 16:02 HEART RATE clarithromycin AdvReac Intermediate LIGHT Verified 08/09/20 16:02 HEADED, FAINTY FEELING acetaminophen AdvReac Unknown NOT ABLE Verified 08/09/20 16:02 TO TAKE DUE TO HX HEPATITIS Cephalosporins AdvReac Unknown CEFTIN--GI Verified 08/09/20 16:02 UPSET Home Meds Home Medications Medication Instructions Recorded Confirmed aspirin 81 mg PO DAILY 09/06/18 08/09/20 escitalopram oxalate 5 mg PO QAM 09/06/18 08/09/20 escitalopram oxalate 20 mg PO QAM 09/06/18 08/09/20 glimepiride 4 mg PO DAILY 09/06/18 08/09/20 lorazepam 0.5 mg PO QPM PRN 09/06/18 08/09/20 milk thistle 175 mg PO 3XWK 09/06/18 08/09/20 vitamin B complex 1 tab PO .OCCASIONALLY 09/06/18 08/09/20 Tradjenta 5 mg PO DAILY 11/15/19 08/09/20 coenzyme Q10 [CoQ-10] 100 mg PO DAILY 11/15/19 08/09/20 naproxen sodium [Aleve] 220 mg PO DIRECTED PRN 08/09/20 08/09/20 polyethylene glycol 3350 [Miralax] 17 g PO DAILY 08/09/20 08/09/20 Results & Data (ED) Vital Signs Vital Signs - 24 hr 08/09/20 14:42 08/09/20 16:21 08/09/20 17:04 Temperature 36.4 C L Temperature Source Oral Pulse Rate 100 H Pulse Rate [Apical] 76 72 Pulse Rhythm [Apical] Regular Regular Pulse Strength [Apical] Normal Normal Respiratory Rate 16 20 20 Respiratory Effort / Characteristics Non-Labored Spontaneous Non-Labored Spontaneous Respiratory Depth Normal Normal Respiratory Pattern Regular Regular Blood Pressure 147/68 H Blood Pressure [Right Arm] 140/59 L 129/58 L Blood Pressure Mean 94 Blood Pressure Mean [Right Arm] 86 81 Blood Pressure Position [Right Arm] Lying Lying Pulse Oximetry 96 97 97 Oxygen Delivery Method Room Air Nasal Cannula Nasal Cannula Oxygen Flow Rate 2 2 Sepsis Recent Fever Within 48 Hours No Sepsis New/Unexplained Change in Mental Status N/A Sepsis Action Taken by Nursing No Action Required Home Medications Current Medication List: was personally reviewed by me Laboratory Data Attestation: I reviewed the patient's lab results. Result diagrams: 08/09/20 15:14 08/09/20 15:14 Lab Results 08/09/20 08/09/20 08/09/20 Range/Units 15:14 15:14 15:14 WBC 7.12 (4.8-10.8) K/uL RBC 4.97 (4.2-5.4) M/uL Hgb 13.8 (12.0-16.0) g/dL Hct 40.2 (37-47) % MCV 80.9 (80-100) fL MCH 27.8 (25-34) pg MCHC 34.3 (32-36) g/dL RDW Std Deviation 39.9 (36.4-46.3) fL RDW Coeff of [place] 13.4 (11.5-14.5) % Plt Count 206 (130-400) K/uL MPV 10.4 (7.4-10.4) fL Immature Gran % (Auto) 0.1 % Neut % (Auto) 65.0 % Lymph % (Auto) 25.8 % [place] % (Auto) 7.6 % Eos % (Auto) 1.4 % Baso % (Auto) 0.1 % Neut # (Auto) 4.62 (1.4-6.5) K/uL Lymph # (Auto) 1.84 (1.2-3.4) K/uL [place] # (Auto) 0.54 (0.11-0.59) K/uL Eos # (Auto) 0.10 (0-0.5) K/uL Baso # (Auto) 0.01 (0-0.2) K/uL Immature Gran # (Auto) 0.01 (0.00-0.02) K/uL PT 11.0 (9.0-12.0) Seconds INR 1.0 (0.9-1.1) APTT 24.9 (21.0-31.0) Seconds PTT Ratio 0.9 Sodium 139 (136-145) mmol/L Potassium 3.7 (3.5-5.1) mmol/L Chloride 106 (98-107) mmol/L Carbon Dioxide 20 L (21-32) mmol/L Anion Gap 13.0 H (3-11) BUN 19 H (7-18) mg/dl Creatinine 0.97 (0.6-1.2) mg/dl Est Cr Clr Drug Dosing 45.9 ml/min Est GFR ( Amer) 68.1 Est GFR (Non-Af Amer) 58.8 BUN/Creatinine Ratio 19.3 (10-20) Glucose 173 H (70-99) mg/dl Calcium 10.0 (8.5-10.1) mg/dl Magnesium 2.1 (1.8-2.4) mg/dl Total Bilirubin 0.6 (0.2-1) mg/dl AST 25 (15-37) U/L ALT 34 (12-78) U/L Alkaline Phosphatase 77 (45-117) U/L Troponin I < 0.015 (0-0.045) ng/ml Total Protein 8.2 (6.4-8.2) gm/dl Albumin 3.9 (3.4-5.0) gm/dl Globulin 4.3 H (2.5-4.0) gm/dl Albumin/Globulin Ratio 0.9 (0.9-2) Administered Medications Discontinued Medications Aspirin (Aspirin Chew 324 Mg) 243 mg PO NOW STA Stop: 08/09/20 17:24 Last Admin: 08/09/20 18:14 Dose: 243 mg Documented by: [id number] Diphenhydramine HCl (Diphenhydramine Hcl 50 Mg/Ml Vial) 12.5 mg IV NOW STA Stop: 08/09/20 15:46 Last Admin: 08/09/20 15:51 Dose: 12.5 mg Documented by: [id number] Lorazepam (Ativan) 1 mg in 2 mls @ 2 mls/min IV NOW STA Stop: 08/09/20 15:21 Last Admin: 08/09/20 15:27 Dose: 2 mls/min Documented by: [id number] Ioversol (Optiray 320 125ml) 119 ml IV ONCE ONE Stop: 08/09/20 16:10 Last Admin: 08/09/20 16:10 Dose: 119 ml Documented by: [id number] Methylprednisolone (Methylprednisolone 40 Mg/Ml Vial) 40 mg IV NOW STA Stop: 08/09/20 15:45 Last Admin: 08/09/20 15:50 Dose: 40 mg Documented by: [id number] Discharge Plan Visit Data Chief Complaint: Stroke/CVA Symptoms Stated Complaint: STROKE LIKE SYMPTOMS, HX HEART PROBLEMS ED Provider: Henrik Hinds Discharge Problem: TIA (transient ischemic attack), Anxiety Patient Disposition: Admitted As Inpatient Discharge Instructions Interventions: ED Discharge Assessment Last Done: 08/09/20 18:50
[2020-08-09] MEDS ORDERED: LORazepam 1 MG/2 ML VIAL IV STA (15:20)
[2020-08-09 15:39] LABS: Alanine Aminotransferase 34 U/L (12-78); Albumin Level 3.9 gm/dl (3.4-5.0); Aspartate Aminotransferase 25 U/L (15-37); BUN Creatinine Ratio 19.3 (10-20); Blood Urea Nitrogen 19 mg/dl (7-18); Carbon Dioxide 20 mmol/L (21-32); Chloride 106 mmol/L (98-107); Creatinine Clr Calc Pharmacy 45.9 ml/min; Est GFR (African American) 68.1; Est GFR (Non-African American) 58.8; Glucose 173 mg/dl (70-99); Magnesium 2.1 mg/dl (1.8-2.4); Potassium 3.7 mmol/L (3.5-5.1); Sodium 139 mmol/L (136-145)
[2020-08-09 15:42] LABS: Basophils # (auto) 0.01 K/uL (0-0.2); Basophils % (auto) 0.1 %; Eosinophils % (auto) 1.4 %; Hematocrit (blood only) 40.2 % (37-47); Hemoglobin 13.8 g/dL (12.0-16.0); Immature Granulocytes # (auto) 0.01 K/uL (0.00-0.02); Immature Granulocytes % (auto) 0.1 %; Lymphocytes # (auto) 1.84 K/uL (1.2-3.4); Lymphocytes % (auto) 25.8 %; Mean Corpuscular Hemoglobin 27.8 pg (25-34); Mean Corpuscular Hgb Conc 34.3 g/dL (32-36); Mean Corpuscular Volume 80.9 fL (80-100); Mean Platelet Volume 10.4 fL (7.4-10.4); Monocytes # (auto) 0.54 K/uL (0.11-0.59); Monocytes % (auto) 7.6 %; Neutrophils # (auto) 4.62 K/uL (1.4-6.5); Partial Thromboplastin Ratio 0.9; Partial Thromboplastin Time 24.9 Seconds (21.0-31.0); Platelet Count 206 K/uL (130-400); RDW Coefficient of Variation 13.4 % (11.5-14.5); RDW Standard Deviation 39.9 fL (36.4-46.3); Red Blood Count 4.97 M/uL (4.2-5.4); White Blood Count 7.12 K/uL (4.8-10.8)
[2020-08-09 15:44] LABS: Albumin Globulin Ratio 0.9 (0.9-2); Alkaline Phosphatase 77 U/L (45-117); Bilirubin,Total 0.6 mg/dl (0.2-1); Globulin 4.3 gm/dl (2.5-4.0); Total Protein 8.2 gm/dl (6.4-8.2); Troponin I < 0.015 ng/ml (0-0.045)
[2020-08-09] MEDS ORDERED: DiphenhydrAMINE HCL 50 MG/ML VIAL IV STA (15:45)
[2020-08-09] MEDS ORDERED: OPTIRAY 320 125ml IV ONE (16:09)
--- NOTE | 2020-08-09 16:28 | CT Scan Report ---
CT head/brain wo con CLINICAL HISTORY: 69 years-old Female with Stroke evaluation . Acute strokelike symptoms TECHNIQUE: Multiple axial CT images of the head were obtained without contrast. A dose lowering tech nique was utilized adhering to the principles of ALARA. CT DOSE: 1016.50 mGy.cm COMPARISON: CTA head neck of same day, head CT] MRI 11/15/2019 FINDINGS: No acute intracranial hemorrhage, midline shift, intracranial mass, hydrocephalus, territorial ischem ia or abnormal extra-axial collection. Mild age-related involutional changes. Patchy white matter hyp odensities suggest chronic microvascular ischemic disease. The calvarium is intact. Trace mastoid effusions. Rightward bowing and spurring of the nasal septum. Hyperostosis frontalis internal. The soft tissues and orbits are unremarkable. IMPRESSION: No acute intracranial abnormality. ACT 112: Negative or not required by law. The above report was generated using voice recognition software. It may contain grammatical, syntax o r spelling errors. Electronically signed by: Donald Cooney M.D. 08/09/2020 4:27 PM
--- NOTE | 2020-08-09 16:30 | CT Scan Report ---
HEAD & NECK CTA HISTORY: Stroke symptoms. Stroke evaluation TECHNIQUE: Multiaxial CT images of the head were performed following the intravenous administration o f contrast to evaluate the major cerebral vessels. Multiaxial CT images of the neck were also perform ed following the intravenous administration of contrast to evaluate the major cervical vessels. Maxim um intensity projection images were also obtained. A dose lowering technique was utilized adhering to the principles of ALARA. COMPARISON: Head and neck CTA 11/15/2019. FINDINGS: There is no mass, hematoma, midline shift, or acute infarct. Visualized intracranial internal carotid arteries, distal vertebral arteries, and basilar artery are widely patent. There is no significant s tenosis, occlusion, or aneurysm seen within the bilateral ACAs, MCAs, or resident athletic trainer. 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 This remains unchanged. The left JOSEPH originates from the anteri or trachea artery. The aortic arch and proximal great vessels are widely patent. There is no significant stenosis, occ lusion, or dissection identified within the bilateral common carotid, internal carotid, or vertebral arteries. Mild calcified plaque within the left common carotid artery and left carotid bifurcation. IMPRESSION: 1. No significant stenosis, occlusion, or aneurysm within the [place]. 2. No significant stenosis, occlusion, or dissection identified within the carotid or vertebral arter ies. ACT 112: Negative or not required by law. Electronically signed by: Eugene Antoine M.D. 08/09/2020 4:29 PM
--- NOTE | 2020-08-09 16:30 | CT Scan Report ---
HEAD & NECK CTA HISTORY: Stroke symptoms. Stroke evaluation TECHNIQUE: Multiaxial CT images of the head were performed following the intravenous administration o f contrast to evaluate the major cerebral vessels. Multiaxial CT images of the neck were also perform ed following the intravenous administration of contrast to evaluate the major cervical vessels. Maxim um intensity projection images were also obtained. A dose lowering technique was utilized adhering to the principles of ALARA. COMPARISON: Head and neck CTA 11/15/2019. FINDINGS: There is no mass, hematoma, midline shift, or acute infarct. Visualized intracranial internal carotid arteries, distal vertebral arteries, and basilar artery are widely patent. There is no significant s tenosis, occlusion, or aneurysm seen within the bilateral ACAs, MCAs, or radio frequency engineer. 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 This remains unchanged. The left JOSEPH originates from the anteri or trachea artery. The aortic arch and proximal great vessels are widely patent. There is no significant stenosis, occ lusion, or dissection identified within the bilateral common carotid, internal carotid, or vertebral arteries. Mild calcified plaque within the left common carotid artery and left carotid bifurcation. IMPRESSION: 1. No significant stenosis, occlusion, or aneurysm within the [place]. 2. No significant stenosis, occlusion, or dissection identified within the carotid or vertebral arter ies. ACT 112: Negative or not required by law. Electronically signed by: Eugene Antoine M.D. 08/09/2020 4:29 PM
[2020-08-09] MEDS ORDERED: ASPIRIN CHEW 324 MG PO STA (17:23)
--- NOTE | 2020-08-09 18:04 | History & Physical Report ---
Date of Service August 09, 2020 Assessment & Plan (1) Left-sided weakness: (2) History of CVA (cerebrovascular accident): -Admit to [facility] with telemetry -Patient presenting from home with reports of shortness of breath, jaw pain, left-sided weakness/heaviness -History of prior CVA with residual mild left-sided weakness -In the ED, head CT, head CTA, neck CTA all unremarkable -Patient currently reporting left-sided heaviness however exam unremarkable -Received aspirin 243 mg since patient already took 81 mg at home this morning -Neurochecks -Brain MRI -Neurology consult, input appreciated (3) Shortness of breath: (4) Jaw pain: -Shortness of breath resolved after receiving IV lorazepam in the ED -Further jaw pain -EKG shows an unchanged left bundle branch block, initial troponin negative -Continue cycle cardiac enzymes, check resting echo -? If symptoms are anxiety induced (5) Diabetes mellitus, type II: -Hgb A1c 6.07/2020 -Hold oral agents and utilize NovoLog per protocol while hospitalized (6) Anxiety: -Continue escitalopram -Patient reports difficulty setting up an appointment with outpatient psychiatrist. Will consult psychiatry for further recommendations/establishment of care. (7) DVT prophylaxis: SQ Lovenox History of Present Illness Chief Complaint: left arm and leg heaviness Primary Care Provider: Chaitanya Quinones DO 69 year old female with PMH CVA w/ chronic left sided weakness, HCV S/P treatment, DM type II, and other problems listed below who presents the ED for evaluation of left-sided weakness and heaviness. This morning, patient's caregiver noted that patient was very short of breath with exertion, which is unusual for her. She was then taken to a routine GI appointment. While walking into the building, patient reported that her left side felt very heavy and she began dragging her left leg. She also had left jaw pain, decreased responsiveness, and some slurred speech. Caregiver reports that the symptoms were still present after the appointment, so patient was brought to the ED for further evaluation. Patient notes being under a large amount of stress recently due to a recent move and family problems. Patient reports she otherwise been feeling well recently. Denies any other recent illness, fevers, chills. Reports she has been struggling with constipation and started taking MiraLAX yesterday. No abdominal pain, nausea, vomiting, diarrhea. Denies lightheadedness, dizziness, diaphoresis, syncopal events. Denies urinary symptoms. In the ED, head CT, head and neck CTAs are unremarkable. Labs are unremarkable as well. Patient is hemodynamically stable. She received aspirin 243 mg (patient took 81 mg this morning). Allergies Allergy/AdvReac Type Severity Reaction Status Date / Time Iodinated Contrast Media Allergy Severe HEAD TO Verified 08/09/20 16:06 TOE HIVES morphine Allergy Severe hives Verified 08/09/20 16:02 oxycodone Allergy Intermediate Hives Verified 08/09/20 16:02 clavulanic acid Allergy Unknown FROM Verified 08/09/20 16:02 AUGMENTIN Penicillins Allergy Unknown FROM Verified 08/09/20 16:02 AUGMENTIN amitriptyline AdvReac Severe INCREASES Verified 08/09/20 16:02 HEART RATE clarithromycin AdvReac Intermediate LIGHT Verified 08/09/20 16:02 HEADED, FAINTY FEELING acetaminophen AdvReac Unknown NOT ABLE Verified 08/09/20 16:02 TO TAKE DUE TO HX HEPATITIS Cephalosporins AdvReac Unknown CEFTIN--GI Verified 08/09/20 16:02 UPSET Home Medications Home Medications Medication Instructions Recorded Confirmed Type aspirin 81 mg PO DAILY 09/06/18 08/09/20 History escitalopram oxalate 5 mg PO QAM 09/06/18 08/09/20 History escitalopram oxalate 20 mg PO QAM 09/06/18 08/09/20 History glimepiride 4 mg PO DAILY 09/06/18 08/09/20 History lorazepam 0.5 mg PO QPM PRN 09/06/18 08/09/20 History milk thistle 175 mg PO 3XWK 09/06/18 08/09/20 History vitamin B complex 1 tab PO .OCCASIONALLY 09/06/18 08/09/20 History Tradjenta 5 mg PO DAILY 11/15/19 08/09/20 History coenzyme Q10 [CoQ-10] 100 mg PO DAILY 11/15/19 08/09/20 History naproxen sodium [Aleve] 220 mg PO DIRECTED PRN 08/09/20 08/09/20 History polyethylene glycol 3350 [Miralax] 17 g PO DAILY 08/09/20 08/09/20 History Past Med/Surg History Medical History (Updated 08/09/20 @ 19:07 by RICH Edgar) Anxiety Depression Diabetes mellitus, type II Dyslipidemia Hepatitis C, chronic History of CVA (cerebrovascular accident) Surgical History H/O cataract removal with insertion of prosthetic lens History of back surgery History of cholecystectomy History of hysterectomy History of tubal ligation Family History Father Pancreatic cancer Social History Smoking Status: Never smoker Hx Alcohol Use: No Hx Substance Use: No Preferred Language: Senegalese Communication Ability: Effective Territory Service Representative Required: No Beliefs That Will Affect Care: None Current Living Situation: Alone Feels Safe at Home: Yes Safety Concerns: Feels Safe At This Time Assistive Devices: Denture - Upper, Glasses and Walker Review of Systems Review of Systems: ROS per HPI, all other systems reviewed and negative Physical Exam Physical Exam: Please refer to Dr. Alvarez's addendum for physical exam. Results & Data Results & Data ([facility]) Vital Signs (Past 12 Hours) Vital Signs Temp Pulse Pulse Resp BP BP Pulse Ox 08/09/20 17:04 72 20 129/58 L 97 08/09/20 16:21 76 20 140/59 L 97 08/09/20 14:42 36.4 C L 100 H 16 147/68 H 96 Laboratory Results Short CBC 08/09/20 Range/Units 15:14 WBC 7.12 (4.8-10.8) K/uL Hgb 13.8 (12.0-16.0) g/dL Hct 40.2 (37-47) % Plt Count 206 (130-400) K/uL BMP 08/09/20 15:14 Sodium 139 Potassium 3.7 Chloride 106 Carbon Dioxide 20 L BUN 19 H Creatinine 0.97 Glucose 173 H Calcium 10.0 Cardiac Enzymes 08/09/20 Range/Units 15:14 Troponin I < 0.015 (0-0.045) ng/ml Liver Function 08/09/20 Range/Units 15:14 Total Bilirubin 0.6 (0.2-1) mg/dl AST 25 (15-37) U/L ALT 34 (12-78) U/L Alkaline Phosphatase 77 (45-117) U/L Albumin 3.9 (3.4-5.0) gm/dl Diagnostic Findings HEAD CT IMPRESSION: No acute intracranial abnormality. HEAD AND NECK CTA IMPRESSION: 1. No significant stenosis, occlusion, or aneurysm within the [place]. 2. No significant stenosis, occlusion, or dissection identified within the carotid or vertebral arteries. Code Status & VTE Plan Code Status Patient is a full code as per my discussion with her. VTE Prophylaxis Plan VTE Prophylaxis will be ordered: Yes Supervising Physician Co-Signing Physician Notes Patient was seen and examined by me, care coordinated with Jaclyn Moses PA-C. Please see her note above for further details. 69-year-old female with history of diabetes mellitus, dyslipidemia, hep C, anxiety/depression, who presents with left arm and leg weakness, and left jaw discomfort. Patient presents with her caregiver Daisy and her daughter. Per patient and caregiver, patient was doing quite well, this morning she was walking with a walker and did not have any issues however she then went for her GI appointment and reportedly was dragging her leg. Then again after her appointment she was more weak, had weakness in her left side and also was short of breath, and so she came to the ED for further evaluation of possible stroke. Caregiver and daughter also report that patient has been under a lot of stress, especially due to her family and recent move of the patient. They report that patient has been trying to work with psychiatrist however she is only able to get a prescription but not psychotherapy. They do not have means to do telemedicine and are inquiring about psychotherapy near her home. Currently patient is lying in bed in no acute distress. She denies any fevers chills, chest pain, shortness of breath, abdominal pain, nausea or vomiting. She reports having heaviness in her left leg and left arm, jaw is currently not bothering her. However on physical exam she has full strength in all her extremities/in all major muscle groups. She has no sensory loss. Her speech is fluent. Lungs are clear to auscultation bilaterally, without any wheezing rhonchi or crackles. EOMI, PERRL, no facial asymmetry noted. Heart sounds regular, there is soft murmur noted. Abdomen is soft, nontender nondistended, with positive bowel sounds. Gait was not assessed. Skin is warm dry, well- perfused, no significant lesions or rashes noted. In the ED CT head, CTA head and neck was obtained and unremarkable. EKG showed left bundle branch, unchanged from previous. Urine sample was obtained however urine analysis is still pending. Will obtain MRI brain, and will consult with neurology. Will await urinalysis/urine culture. Will monitor on telemetry. Will repeat troponin. Will consult with psychiatry for anxiety/depression and psychotherapy needs. MD Di
[2020-08-09] MEDS ORDERED: INFLUENZA ADMINISTRATION CHARGE ONE (18:36)
[2020-08-09] MEDS ORDERED: INFLUENZA VACCINE HIGH DOSE 65+ 0.5 ML SYR IM ONE (18:36)
--- NOTE | 2020-08-09 19:13 | Magnetic Resonance Report ---
MR brain wo con HISTORY: 69 years-old Female L sided heaviness acute strokelike symptoms COMPARISON: CTA head neck of same day, brain MRI 11/15/2019 TECHNIQUE: Multiplanar multisequence MRI of the brain was obtained without the use of IV contrast. FINDINGS: Social Work Administrator localizer images demonstrate no gross extracranial abnormality. No restricted diffusion to sugg est acute or subacute infarct. The midline structures including the corpus callosum, brainstem, optic chiasm, pituitary and pineal glands appear unremarkable on the sagittal T1 series. No cerebellar ton sillar herniation. Degenerative changes of the imaged cervical spine. Age-related involutional changes. Moderate T2/FLAIR hyperintensities throughout the white matter rede monstrated. Study is mildly motion degraded. No acute intracranial hemorrhage, midline shift, abnorma l extra-axial collection, hydrocephalus or intracranial mass. Prior bilateral lens replacement. Bilat eral kevin bullosa. Mild polypoid mucosal thickening of the left maxillary sinus. Clear mastoid air cells. Cerebral venous sinuses and major arterial flow voids appear patent. IMPRESSION: 1. No acute intracranial abnormality, specifically there is no evidence of acute or subacute infarct. 2. Age-related involutional changes with moderate chronic microvascular ischemic disease. ACT 112: Negative or not required by law. The above report was generated using voice recognition software. It may contain grammatical, syntax o r spelling errors. Electronically signed by: Donald Cooney M.D. 08/09/2020 7:12 PM
[2020-08-09] MEDS ORDERED: GLUCOSE 10 TABS/TUBE PO PRN (19:32)
[2020-08-09] MEDS ORDERED: PHARMACIST DISCHARGE MED REC CONSULT PRN (19:32)
[2020-08-09] MEDS ORDERED: DEXTROSE 50% 50 ML SYRINGE IV PRN (19:32)
[2020-08-09] MEDS ORDERED: CARBOHYDRATES FOR HYPOGLYCEMIA PO PRN (19:32)
[2020-08-09] MEDS ORDERED: GLUCAGON FOR INJ 1 MG VIAL SQ PRN (19:32)
[2020-08-09] MEDS ORDERED: GLUCOSE 40% GEL 15 GM TUBE PO PRN (19:32)
[2020-08-09 19:53] LABS: Appearance Urine Cloudy (Clear); Bacteria Urine Automated 4+ (Negative); Bilirubin Urine Negative (Negative); Blood Urine Negative (Negative); Color Urine Yellow; Epithelial Cell Urine Auto >30 /lpf (0-5); Glucose Urine UA Negative (Negative); Ketones Urine Trace (Negative); Leukocyte Esterase Urine 3+ (Negative); Nitrite Urine Positive (Negative); Protein Urine Negative (Negative); RBC Urine Automated 0-4 /hpf (0-4); Specific Gravity Urine 1.012 (1.000-1.030); Urobilinogen Urine Negative (Negative); WBC Urine Automated >30 /hpf (0-5)
[2020-08-09] MEDS: ENOXAPARIN INJ 40 MG/0.4 ML SYR SQ SCH (20:30)
[2020-08-09] MEDS: INSULIN ASPART 100 UNITS/ML 3 ML PEN SC SCH (20:32)
[2020-08-09] MEDS: cefTRIAXone SODIUM 1,000 MG in DEXTROSE 5% 50 ML IV SCH (22:13)
[2020-08-10 03:03] LABS: Eosinophils # (auto) 0.01 K/uL (0-0.5); Eosinophils % (auto) 0.1 %; Hematocrit (blood only) 39.9 % (37-47); Hemoglobin 12.6 g/dL (12.0-16.0); Immature Granulocytes # (auto) 0.01 K/uL (0.00-0.02); Immature Granulocytes % (auto) 0.1 %; Lymphocytes # (auto) 1.18 K/uL (1.2-3.4); Lymphocytes % (auto) 16.9 %; Mean Corpuscular Hemoglobin 26.1 pg (25-34); Mean Corpuscular Hgb Conc 31.6 g/dL (32-36); Mean Corpuscular Volume 82.8 fL (80-100); Mean Platelet Volume 11.1 fL (7.4-10.4); Monocytes # (auto) 0.36 K/uL (0.11-0.59); Monocytes % (auto) 5.2 %; Neutrophils # (auto) 5.41 K/uL (1.4-6.5); Neutrophils % (auto) 77.7 %; Platelet Count 169 K/uL (130-400); RDW Coefficient of Variation 13.5 % (11.5-14.5); RDW Standard Deviation 40.8 fL (36.4-46.3); Red Blood Count 4.82 M/uL (4.2-5.4); White Blood Count 6.97 K/uL (4.8-10.8)
[2020-08-10 03:26] LABS: BUN Creatinine Ratio 26.1 (10-20); Blood Urea Nitrogen 19 mg/dl (7-18); Calcium 9.3 mg/dl (8.5-10.1); Carbon Dioxide 30 mmol/L (21-32); Chloride 107 mmol/L (98-107); Chol HDL Ratio 4; Cholesterol 167 mg/dl (0-200); Creatinine Clr Calc Pharmacy 60.8 ml/min; Est GFR (African American) 94.5; Est GFR (Non-African American) 81.5; Glucose 152 mg/dl (70-99); HDL Cholesterol 44 mg/dl; LDL Cholesterol Calculated 105 mg/dl; Potassium 4.4 mmol/L (3.5-5.1); Sodium 140 mmol/L (136-145); Triglycerides 90 mg/dl (0-150); Troponin I < 0.015 ng/ml (0-0.045); VLDL Cholesterol 18 mg/dl
[2020-08-10] MEDS: LORazepam 0.5 MG TAB PO PRN ×3 (04:51→22:52)
[2020-08-10 05:58] LABS: Estimated Average Glucose 151 mg/dl; Hemoglobin A1C 6.9 % (4.5-5.6)
[2020-08-10] MEDS: ASPIRIN 81 MG ECTAB PO SCH (07:57)
[2020-08-10] MEDS: ESCITALOPRAM OXALATE 10 MG TAB PO SCH (07:57)
[2020-08-10] MEDS: ESCITALOPRAM OXALATE 20 MG TAB PO SCH (07:58)
[2020-08-10] MEDS: POLYETHYLENE (MIRALAX) 17 GM PACK PO SCH (07:58)
[2020-08-10] MEDS: INSULIN ASPART 100 UNITS/ML 3 ML PEN SC SCH ×4 (08:00→21:09)
--- NOTE | 2020-08-10 12:59 | Electrocardiogram Report ---
Test Reason : Blood Pressure : / mmHG Vent. Rate : 093 BPM Atrial Rate : 093 BPM P-R Int : 146 ms QRS Dur : 122 ms QT Int : 410 ms P-R-T Axes : 025 009 099 degrees QTc Int : 509 ms Poor data quality, interpretation may be adversely affected Normal sinus rhythm Left bundle branch block Abnormal ECG When compared with ECG of 15-NOV-2019 11:18, No significant change was found Confirmed by Steven Vences ([id number]) on 08/10/2020 12:59:02 PM Referred By: REFERRED SELF Confirmed By:Steven Vences
[2020-08-10] MEDS: ATORVASTATIN 40 MG TAB PO SCH (14:33)
--- NOTE | 2020-08-10 16:29 | Hospitalist Progress Note ---
Date of Service August 10, 2020 Assessment & Plan (1) Left-sided weakness: (2) History of CVA (cerebrovascular accident): Stroke like symptoms DD: TIA H/O CVA --MRI Brain:No acute intracranial abnormality, specifically there is no evidence of acute or subacute infarct. Age-related involutional changes with moderate chronic microvascular ischemic disease. --Neck CTA:No significant stenosis, occlusion, or aneurysm within the [place]. No significant stenosis, occlusion, or dissection identified within the carotid or vertebral arteries. --Head CTA: No significant stenosis, occlusion, or aneurysm within the [place]. No significant stenosis, occlusion, or dissection identified within the carotid or vertebral arteries. --ECHO: Left ventricle cavity small. Moderate concentric LVH. Septal motion consistent with conduction abnormality. No regional wall motion abnormality. EF 60 to 65%. Grade 1 diastolic dysfunction. Mild aortic valve sclerosis. Trace aortic regurgitation. Trace tricuspid regurgitation. No evidence of ASD on echo done in November 2019. --Continue aspirin, Lipitor --Consult neurology --PT OT, speech eval --Continue Neuro Checks Urinary tract infection Urine culture: Gram-negative bacilli Continue Rocephin Day #2 (3) Shortness of breath: (4) Jaw pain: Shortness of breath resolved after receiving IV lorazepam in the ED Symptoms likely due to anxiety issues Cardiac Enzymes X 2: Negative ECHO showed no wall motion abnormality EKG: Nonspecific T wave abnormality, LBBB--chronic (5) Diabetes mellitus, type II: Hgb A1c 6.07/2020 Hold oral agents and utilize NovoLog per protocol while hospitalized (6) Anxiety: Continue escitalopram Remotely was consulted with Primary Psychiatry over phone (7) DVT prophylaxis: SQ Lovenox Admission and Anticipated Discharge Date Admission Date: August 10, 2020 Subjective Patient is seen and examined at bedside Left-sided weakness resolved States feeling anxious due to family issues Denies any new focal weakness Denies change in vision, speech problems, swallowing issues Also denies chest pain, shortness of breath, dysuria, hematuria Reports mild headache Family at bedside Offers no other complaints Review of Systems Review of Systems: All systems reviewed & are unremarkable except as noted in HPI & below Physical Exam Physical Exam: Physical Exam: Vitals signs as noted above General Appearance:Moderately built and nourished, no apparent distress Head: normocephalic, Atraumatic Eyes: normal inspection, EOMI Neck: supple, Trachea midline Respiratory/Chest: Normal breath sounds, CTA Cardiovascular: S1, S2, + murmur Abdomen/GI:Soft, Non tender, Bowel sounds present Extremities/Musculoskelatal:normal inspection, no edema Neurologic/Psych:AAOX3, grossly no focal neurological deficits Skin: normal color, warm Results & Data Results & Data ([facility]) Vital Signs (Past 12 Hours) Vital Signs Temp Pulse Pulse Resp BP Pulse Ox 08/10/20 15:16 36.4 C L 73 20 106/58 L 97 08/10/20 11:31 36.3 C L 64 18 152/63 H 99 08/10/20 08:02 36.5 C 70 19 126/66 99 08/10/20 08:00 65 08/10/20 04:37 36.4 C L 68 18 118/52 L 97 Laboratory Results Short CBC 08/10/20 Range/Units 02:53 WBC 6.97 (4.8-10.8) K/uL Hgb 12.6 (12.0-16.0) g/dL Hct 39.9 (37-47) % Plt Count 169 (130-400) K/uL BMP 08/10/20 02:53 Sodium 140 Potassium 4.4 D Chloride 107 Carbon Dioxide 30 BUN 19 H Creatinine 0.74 Glucose 152 H Calcium 9.3 Cardiac Enzymes 08/09/20 08/10/20 Range/Units 20:56 02:53 Troponin I < 0.015 < 0.015 (0-0.045) ng/ml Urine 08/09/20 Range/Units 16:02 Urine Color Yellow Urine Appearance Cloudy A (Clear) Urine pH 8.0 H (4.5-7.5) Ur Specific [place] 1.012 (1.000-1.030) Urine Protein Negative (Negative) Urine Glucose (UA) Negative (Negative)
--- NOTE | 2020-08-10 16:30 | Communication Note ---
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 She does have a history of diabetes depression anxiety dyslipidemia chronic hepatitis C back surgery, cholecystectomy and hysterectomy tubal ligation is a cataract removal bilaterally and has had no cerebrovascular disease. 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 I do not hear any bruits over the carotids and I do not hear any cardiac irregularities or hear a murmur. Extremities are free of peripheral edema and good peripheral pulses and there may be a minimal drift of the left upper extremity which I think is baseline for her some slight clumsiness left upper extremity and lower extremity rapid repetitive movements which according to both she and her caregiver are at baseline and I really do not see any clear-cut pathologic reflexes other than an equivocal toe sign on the left and strength in all muscle groups is normal and sensations intact to primary modalities with exception of little vibratory loss distally of her lower extremities Her systems review indicates no real new symptoms other than some anxiety shortness of breath and jaw pain yesterday and she has had no recent infections or at least is not aware of any fever sweats or chills she denies any dysuria frequency her only cardiovascular issues for potentially the jaw pain and shortness of breath and she has no other significant abdominal complaints musculoskeletal complaints or neurologic issues At this point I suspect this was an anxiety related event perhaps exacerbated by the effects of an underlying urinary tract infection with emergence or reemergence of old neurologic deficits All symptoms have cleared imaging studies are normal and I do not think we need to add any additional antiplatelet therapy at this time apparently she did not receive some more treatment for the bladder infection and if she does well I think she could be discharged home tomorrow with follow-up with her primary care physician I do not think neurology needs to see her on a regular basis at this point as we have no evidence that this was a completed stroke and certainly marginal evidence that this was even a TIA I am going to sign off the case at this point but will be happy to take another look at her tomorrow if things change overnight Sohail Nunez MD
[2020-08-10] MEDS: ENOXAPARIN INJ 40 MG/0.4 ML SYR SQ SCH (21:09)
[2020-08-10] MEDS: cefTRIAXone SODIUM 1,000 MG in DEXTROSE 5% 50 ML IV SCH (22:11)
[2020-08-11 06:17] LABS: Basophils # (auto) 0.01 K/uL (0-0.2); Basophils % (auto) 0.1 %; Eosinophils % (auto) 2.9 %; Hematocrit (blood only) 38.6 % (37-47); Hemoglobin 12.5 g/dL (12.0-16.0); Immature Granulocytes # (auto) 0.01 K/uL (0.00-0.02); Immature Granulocytes % (auto) 0.1 %; Lymphocytes # (auto) 2.12 K/uL (1.2-3.4); Lymphocytes % (auto) 30.6 %; Mean Corpuscular Hemoglobin 27.1 pg (25-34); Mean Corpuscular Hgb Conc 32.4 g/dL (32-36); Mean Corpuscular Volume 83.7 fL (80-100); Mean Platelet Volume 10.7 fL (7.4-10.4); Monocytes % (auto) 8.7 %; Neutrophils # (auto) 3.99 K/uL (1.4-6.5); Neutrophils % (auto) 57.6 %; Platelet Count 166 K/uL (130-400); RDW Coefficient of Variation 13.6 % (11.5-14.5); RDW Standard Deviation 41.5 fL (36.4-46.3); Red Blood Count 4.61 M/uL (4.2-5.4); White Blood Count 6.93 K/uL (4.8-10.8)
[2020-08-11 06:52] LABS: BUN Creatinine Ratio 28.9 (10-20); Creatinine Clr Calc Pharmacy 55.7 ml/min; Est GFR (Non-African American) 74.2; Potassium 4.2 mmol/L (3.5-5.1)
[2020-08-11] MEDS: ATORVASTATIN 40 MG TAB PO SCH (08:38)
[2020-08-11] MEDS: ESCITALOPRAM OXALATE 10 MG TAB PO SCH (08:38)
[2020-08-11] MEDS: ASPIRIN 81 MG ECTAB PO SCH (08:38)
[2020-08-11] MEDS: ESCITALOPRAM OXALATE 20 MG TAB PO SCH (08:40)
[2020-08-11] MEDS: INSULIN ASPART 100 UNITS/ML 3 ML PEN SC SCH ×4 (08:44→20:11)
[2020-08-11] MEDS: POLYETHYLENE (MIRALAX) 17 GM PACK PO SCH (08:45)
--- NOTE | 2020-08-11 16:18 | Hospitalist Progress Note ---
Date of Service August 11, 2020 Assessment & Plan (1) Left-sided weakness: (2) History of CVA (cerebrovascular accident): Stroke like symptoms Can not R/O TIA DD: Due to Anxiety/Infection H/O CVA --MRI Brain:No acute intracranial abnormality, specifically there is no evidence of acute or subacute infarct. Age-related involutional changes with moderate chronic microvascular ischemic disease. --Neck CTA:No significant stenosis, occlusion, or aneurysm within the [place]. No significant stenosis, occlusion, or dissection identified within the carotid or vertebral arteries. --Head CTA: No significant stenosis, occlusion, or aneurysm within the [place]. No significant stenosis, occlusion, or dissection identified within the carotid or vertebral arteries. --ECHO: Left ventricle cavity small. Moderate concentric LVH. Septal motion consistent with conduction abnormality. No regional wall motion abnormality. EF 60 to 65%. Grade 1 diastolic dysfunction. Mild aortic valve sclerosis. Trace aortic regurgitation. Trace tricuspid regurgitation. No evidence of ASD on echo done in November 2019. --Continue aspirin, Lipitor --Appreciate Neurology Input --PT OT, speech eval --Needs SNF placement --Plan to discharge to rehab facility when accepted Urinary tract infection Urine culture:E.Coli Continue Rocephin Day #3 (3) Shortness of breath: (4) Jaw pain: Shortness of breath resolved after receiving IV lorazepam in the ED Symptoms likely due to anxiety issues Cardiac Enzymes X 2: Negative ECHO showed no wall motion abnormality EKG: Nonspecific T wave abnormality, LBBB--chronic Resolved (5) Diabetes mellitus, type II: Hgb A1c 6.07/2020 Hold oral agents Utilize NovoLog per protocol while hospitalized (6) Anxiety: Continue escitalopram Remotely was consulted with Primary Psychiatry over phone Needs follow-up with psychiatry upon discharge (7) DVT prophylaxis: SQ Lovenox Disposition SNF when accepted Admission and Anticipated Discharge Date Admission Date: August 10, 2020 Subjective Patient is seen and examined at bedside States feeling better today Reports being anxious intermittently No recurrence of focal weakness Denies chest pain, shortness of breath, dysuria, hematuria Family at bedside Offers no other complaints Review of Systems Review of Systems: All systems reviewed & are unremarkable except as noted in HPI & below Physical Exam Physical Exam: Physical Exam: Vitals signs as noted above General Appearance:Moderately built and nourished, no apparent distress Head: normocephalic, Atraumatic Eyes: normal inspection, EOMI Neck: supple, Trachea midline Respiratory/Chest: Normal breath sounds, CTA Cardiovascular: S1, S2, + murmur Abdomen/GI:Soft, Non tender, Bowel sounds present Extremities/Musculoskelatal:normal inspection, no edema Neurologic/Psych:AAOX3, grossly no focal neurological deficits Skin: normal color, warm Results & Data Results & Data ([facility]) Vital Signs (Past 12 Hours) Vital Signs Temp Pulse Pulse Resp BP Pulse Ox 08/11/20 15:21 36.6 C 75 18 117/60 96 08/11/20 15:14 72 08/11/20 11:14 36.7 C 80 18 114/66 95 08/11/20 07:29 36.5 C 74 18 118/63 96 08/11/20 07:08 86 Laboratory Results Short CBC 08/11/20 Range/Units 06:02 WBC 6.93 (4.8-10.8) K/uL Hgb 12.5 (12.0-16.0) g/dL Hct 38.6 (37-47) % Plt Count 166 (130-400) K/uL BMP 08/11/20 06:02 Sodium 142 Potassium 4.2 Chloride 107 Carbon Dioxide 31 BUN 23 H Creatinine 0.80 Glucose 136 H Calcium 9.0
[2020-08-11] MEDS: ENOXAPARIN INJ 40 MG/0.4 ML SYR SQ SCH (20:11)
[2020-08-11] MEDS: cefTRIAXone SODIUM 1,000 MG in DEXTROSE 5% 50 ML IV SCH (21:20)
[2020-08-11] MEDS: LORazepam 0.5 MG TAB PO PRN (21:24)
--- NOTE | 2020-08-12 07:37 | Electrocardiogram Report ---
Test Reason : Blood Pressure : / mmHG Vent. Rate : 071 BPM Atrial Rate : 071 BPM P-R Int : 196 ms QRS Dur : 136 ms QT Int : 476 ms P-R-T Axes : 059 032 096 degrees QTc Int : 517 ms Normal sinus rhythm Left bundle branch block Abnormal ECG When compared with ECG of 09-AUG-2020 15:07, (unconfirmed) No significant change was found Confirmed by Steven Vences ([id number]) on 08/12/2020 7:37:27 AM Referred By: REFERRED SELF Confirmed By:Steven Vences
[2020-08-12 07:44] LABS: Basophils # (auto) 0.02 K/uL (0-0.2); Basophils % (auto) 0.3 %; Eosinophils # (auto) 0.25 K/uL (0-0.5); Eosinophils % (auto) 3.7 %; Hemoglobin 12.8 g/dL (12.0-16.0); Immature Granulocytes # (auto) 0.01 K/uL (0.00-0.02); Immature Granulocytes % (auto) 0.1 %; Lymphocytes # (auto) 1.98 K/uL (1.2-3.4); Lymphocytes % (auto) 29.1 %; Mean Corpuscular Hemoglobin 26.7 pg (25-34); Mean Corpuscular Hgb Conc 31.2 g/dL (32-36); Mean Corpuscular Volume 85.4 fL (80-100); Mean Platelet Volume 10.8 fL (7.4-10.4); Monocytes # (auto) 0.52 K/uL (0.11-0.59); Monocytes % (auto) 7.6 %; Neutrophils # (auto) 4.03 K/uL (1.4-6.5); Neutrophils % (auto) 59.2 %; Platelet Count 181 K/uL (130-400); RDW Coefficient of Variation 13.8 % (11.5-14.5); White Blood Count 6.81 K/uL (4.8-10.8)
[2020-08-12] MEDS: POLYETHYLENE (MIRALAX) 17 GM PACK PO SCH (07:59)
[2020-08-12 08:15] LABS: BUN Creatinine Ratio 25.9 (10-20); Calcium 9.8 mg/dl (8.5-10.1); Creatinine Clr Calc Pharmacy 62.9 ml/min; Est GFR (African American) 99.3; Est GFR (Non-African American) 85.7; Potassium 4.7 mmol/L (3.5-5.1)
--- NOTE | 2020-08-12 08:36 | Electrocardiogram Report ---
Test Reason : Blood Pressure : / mmHG Vent. Rate : 072 BPM Atrial Rate : 072 BPM P-R Int : 182 ms QRS Dur : 130 ms QT Int : 440 ms P-R-T Axes : 052 000 085 degrees QTc Int : 481 ms Normal sinus rhythm Left bundle branch block Abnormal ECG When compared with ECG of 10-AUG-2020 06:42, (unconfirmed) No significant change was found Confirmed by Steven Vences ([id number]) on 08/12/2020 8:35:55 AM Referred By: REFERRED SELF Confirmed By:Steven Vences
[2020-08-12] MEDS: INSULIN ASPART 100 UNITS/ML 3 ML PEN SC SCH ×4 (09:09→21:06)
[2020-08-12] MEDS: ESCITALOPRAM OXALATE 20 MG TAB PO SCH (09:10)
[2020-08-12] MEDS: ASPIRIN 81 MG ECTAB PO SCH (09:10)
[2020-08-12] MEDS: ESCITALOPRAM OXALATE 10 MG TAB PO SCH (09:11)
[2020-08-12] MEDS: ATORVASTATIN 40 MG TAB PO SCH (09:13)
[2020-08-12] MEDS: DOCUSATE SODIUM 100 MG CAP PO SCH ×2 (17:15→20:29)
--- NOTE | 2020-08-12 17:27 | Hospitalist Progress Note ---
Date of Service August 12, 2020 Assessment & Plan (1) Left-sided weakness: (2) History of CVA (cerebrovascular accident): Stroke like symptoms Can not R/O TIA DD: Due to Anxiety/Infection H/O CVA --MRI Brain:No acute intracranial abnormality, specifically there is no evidence of acute or subacute infarct. Age-related involutional changes with moderate chronic microvascular ischemic disease. --Neck CTA:No significant stenosis, occlusion, or aneurysm within the [place]. No significant stenosis, occlusion, or dissection identified within the carotid or vertebral arteries. --Head CTA: No significant stenosis, occlusion, or aneurysm within the [place]. No significant stenosis, occlusion, or dissection identified within the carotid or vertebral arteries. --ECHO: Left ventricle cavity small. Moderate concentric LVH. Septal motion consistent with conduction abnormality. No regional wall motion abnormality. EF 60 to 65%. Grade 1 diastolic dysfunction. Mild aortic valve sclerosis. Trace aortic regurgitation. Trace tricuspid regurgitation. No evidence of ASD on echo done in November 2019. --Continue aspirin, Lipitor --Appreciate Neurology Input --PT OT, speech eval --Waiting for Rehab placement Urinary tract infection Urine culture:E.Coli Continue Rocephin Day #4/5 (3) Shortness of breath: (4) Jaw pain: Shortness of breath resolved after receiving IV lorazepam in the ED Symptoms likely due to anxiety issues Cardiac Enzymes X 2: Negative ECHO showed no wall motion abnormality EKG: Nonspecific T wave abnormality, LBBB--chronic Resolved (5) Diabetes mellitus, type II: Hgb A1c 6.07/2020 Hold oral agents Continue ISS while hospitalized (6) Anxiety: Continue escitalopram Remotely was consulted with Primary Psychiatry over phone Needs follow-up with psychiatry upon discharge Mood is stable (7) DVT prophylaxis: SQ Lovenox Disposition Rehab when accepted Admission and Anticipated Discharge Date Admission Date: August 10, 2020 Subjective Patient is seen and examined at bedside Reports "I am moving better today " No new complaints Denies chest pain, shortness of breath, dysuria, hematuria Family at bedside Waiting for rehab placement Review of Systems Review of Systems: All systems reviewed & are unremarkable except as noted in HPI & below Physical Exam Physical Exam: Physical Exam: Vitals signs as noted above General Appearance:Moderately built and nourished, no apparent distress Head: normocephalic, Atraumatic Eyes: normal inspection, EOMI Neck: supple, Trachea midline Respiratory/Chest: Normal breath sounds, CTA Cardiovascular: S1, S2, + murmur Abdomen/GI:Soft, Non tender, Bowel sounds present Extremities/Musculoskelatal:normal inspection, no edema Neurologic/Psych:AAOX3, grossly no focal neurological deficits Skin: normal color, warm Results & Data Results & Data ([facility]) Vital Signs (Past 12 Hours) Vital Signs Temp Pulse Pulse Resp BP Pulse Ox 08/12/20 15:51 70 08/12/20 14:53 36.7 C 78 18 106/56 L 96 08/12/20 11:20 36.7 C 71 18 127/60 98 08/12/20 07:53 36.5 C 84 18 129/67 96 Laboratory Results Short CBC 08/12/20 Range/Units 06:58 WBC 6.81 (4.8-10.8) K/uL Hgb 12.8 (12.0-16.0) g/dL Hct 41.0 (37-47) % Plt Count 181 (130-400) K/uL BMP 08/12/20 06:58 Sodium 141 Potassium 4.7 Chloride 105 Carbon Dioxide 28 BUN 18 Creatinine 0.71 Glucose 136 H Calcium 9.8
[2020-08-12] MEDS: ENOXAPARIN INJ 40 MG/0.4 ML SYR SQ SCH (20:29)
[2020-08-12] MEDS: LORazepam 0.5 MG TAB PO PRN (20:29)
[2020-08-12] MEDS: cefTRIAXone SODIUM 1,000 MG in DEXTROSE 5% 50 ML IV SCH (21:07)
[2020-08-12] MEDS ORDERED: MELATONIN 3 MG TAB PO PRN (22:03)
[2020-08-13] MEDS: ASPIRIN 81 MG ECTAB PO SCH (08:19)
[2020-08-13] MEDS: ESCITALOPRAM OXALATE 20 MG TAB PO SCH (08:19)
[2020-08-13] MEDS: DOCUSATE SODIUM 100 MG CAP PO SCH (08:19)
[2020-08-13] MEDS: ESCITALOPRAM OXALATE 10 MG TAB PO SCH (08:19)
[2020-08-13] MEDS: ATORVASTATIN 40 MG TAB PO SCH (08:19)
[2020-08-13] MEDS: INSULIN ASPART 100 UNITS/ML 3 ML PEN SC SCH ×2 (08:21→11:57)
[2020-08-13] MEDS: POLYETHYLENE (MIRALAX) 17 GM PACK PO SCH (08:22)
[2020-08-13] MEDS ORDERED: cefTRIAXone SODIUM 1,000 MG in DEXTROSE 5% 50 ML IV SCH (11:00)
--- NOTE | 2020-08-13 13:36 | Hospitalist Progress Note ---
Date of Service August 13, 2020 Assessment & Plan (1) Left-sided weakness: (2) History of CVA (cerebrovascular accident): Stroke like symptoms Can not R/O TIA DD: Due to Anxiety/Infection H/O CVA --MRI Brain:No acute intracranial abnormality, specifically there is no evidence of acute or subacute infarct. Age-related involutional changes with moderate chronic microvascular ischemic disease. --Neck CTA:No significant stenosis, occlusion, or aneurysm within the [place]. No significant stenosis, occlusion, or dissection identified within the carotid or vertebral arteries. --Head CTA: No significant stenosis, occlusion, or aneurysm within the [place]. No significant stenosis, occlusion, or dissection identified within the carotid or vertebral arteries. --ECHO: Left ventricle cavity small. Moderate concentric LVH. Septal motion consistent with conduction abnormality. No regional wall motion abnormality. EF 60 to 65%. Grade 1 diastolic dysfunction. Mild aortic valve sclerosis. Trace aortic regurgitation. Trace tricuspid regurgitation. No evidence of ASD on echo done in November 2019. --Continue aspirin, Lipitor --Appreciate Neurology Input --PT OT, speech eval --Refuses Rehab placement --Prefers to be discharged home with home health services --Resolved Urinary tract infection Urine culture:E.Coli Continue Rocephin Day #5/ (3) Shortness of breath: (4) Jaw pain: Shortness of breath resolved after receiving IV lorazepam in the ED Symptoms likely due to anxiety issues Cardiac Enzymes X 2: Negative ECHO showed no wall motion abnormality EKG: Nonspecific T wave abnormality, LBBB--chronic Resolved (5) Diabetes mellitus, type II: Hgb A1c 6.07/2020 Hold oral agents Continue ISS while hospitalized (6) Anxiety: Continue escitalopram Remotely was consulted with Primary Psychiatry over phone Needs follow-up with psychiatry upon discharge Mood is stable (7) DVT prophylaxis: SQ Lovenox Disposition Home with Home Health Admission and Anticipated Discharge Date Admission Date: August 10, 2020 Subjective Patient is seen and examined at bedside Doing much better today Refuses to go to rehab facility Prefers to be discharged home with home health services No new complaints Family at bedside Denies chest pain, shortness of breath, dysuria, hematuria Review of Systems Review of Systems: All systems reviewed & are unremarkable except as noted in HPI & below Physical Exam Physical Exam: Physical Exam: Vitals signs as noted above General Appearance:Moderately built and nourished, no apparent distress Head: normocephalic, Atraumatic Eyes: normal inspection, EOMI Neck: supple, Trachea midline Respiratory/Chest: Normal breath sounds, CTA Cardiovascular: S1, S2, + murmur Abdomen/GI:Soft, Non tender, Bowel sounds present Extremities/Musculoskelatal:normal inspection, no edema Neurologic/Psych:AAOX3, grossly no focal neurological deficits Skin: normal color, warm Results & Data Results & Data ([facility]) Vital Signs (Past 12 Hours) Vital Signs Temp Pulse Pulse Resp BP Pulse Ox 08/13/20 11:26 36.6 C 75 20 127/70 95 08/13/20 08:08 36.4 C L 80 16 114/56 L 96 08/13/20 07:30 70 08/13/20 04:00 36.7 C 75 18 124/67 95
[2020-08-13] MEDS ORDERED: STROKE PATIENT DISCHARGE STA (13:44)
--- NOTE | 2020-08-13 13:45 | Discharge Summary ---
Date of Service August 13, 2020 Admission HPI Per Admitting Provider 69 year old female with PMH CVA w/ chronic left sided weakness, HCV S/P treatment, DM type II, and other problems listed below who presents the ED for evaluation of left-sided weakness and heaviness. This morning, patient's caregiver noted that patient was very short of breath with exertion, which is unusual for her. She was then taken to a routine GI appointment. While walking into the building, patient reported that her left side felt very heavy and she began dragging her left leg. She also had left jaw pain, decreased responsiveness, and some slurred speech. Caregiver reports that the symptoms were still present after the appointment, so patient was brought to the ED for further evaluation. Patient notes being under a large amount of stress recently due to a recent move and family problems. Patient reports she otherwise been feeling well recently. Denies any other recent illness, fevers, chills. Reports she has been struggling with constipation and started taking MiraLAX yesterday. No abdominal pain, nausea, vomiting, diarrhea. Denies lightheadedness, dizziness, diaphoresis, syncopal events. Denies urinary symptoms. In the ED, head CT, head and neck CTAs are unremarkable. Labs are unremarkable as well. Patient is hemodynamically stable. She received aspirin 243 mg (patient took 81 mg this morning). Admission Exam Per Admitting Provider physical exam she has full strength in all her extremities/in all major muscle groups. She has no sensory loss. Her speech is fluent. Lungs are clear to auscultation bilaterally, without any wheezing rhonchi or crackles. EOMI, PERRL, no facial asymmetry noted. Heart sounds regular, there is soft murmur noted. Abdomen is soft, nontender nondistended, with positive bowel sounds. Gait was not assessed. Skin is warm dry, well-perfused, no significant lesions or rashes noted. Principal Diagnosis Urinary tract infection Stroke like symptoms Discharge Data Allergies Allergy/AdvReac Type Severity Reaction Status Date / Time Iodinated Contrast Media Allergy Severe HEAD TO Verified 08/09/20 16:06 TOE HIVES morphine Allergy Severe hives Verified 08/09/20 16:02 oxycodone Allergy Intermediate Hives Verified 08/09/20 16:02 clavulanic acid Allergy Unknown FROM Verified 08/09/20 16:02 AUGMENTIN Penicillins Allergy Unknown FROM Verified 08/09/20 16:02 AUGMENTIN amitriptyline AdvReac Severe INCREASES Verified 08/09/20 16:02 HEART RATE clarithromycin AdvReac Intermediate LIGHT Verified 08/09/20 16:02 HEADED, FAINTY FEELING acetaminophen AdvReac Unknown NOT ABLE Verified 08/09/20 16:02 TO TAKE DUE TO HX HEPATITIS Cephalosporins AdvReac Unknown CEFTIN--GI Verified 08/09/20 16:02 UPSET Consultations 08/09/20 17:23 ED Decision to Admit Stat 08/09/20 19:32 Consult Case Management - Discharge Planning Routine Consult Neurology Routine Procedures Performed --MRI Brain:No acute intracranial abnormality, specifically there is no evidence of acute or subacute infarct. Age-related involutional changes with moderate chronic microvascular ischemic disease. --Neck CTA:No significant stenosis, occlusion, or aneurysm within the [place]. No significant stenosis, occlusion, or dissection identified within the carotid or vertebral arteries. --Head CTA: No significant stenosis, occlusion, or aneurysm within the [place]. No significant stenosis, occlusion, or dissection identified within the carotid or vertebral arteries. --ECHO: Left ventricle cavity small. Moderate concentric LVH. Septal motion consistent with conduction abnormality. No regional wall motion abnormality. EF 60 to 65%. Grade 1 diastolic dysfunction. Mild aortic valve sclerosis. Trace aortic regurgitation. Trace tricuspid regurgitation. No evidence of ASD on echo done in November 2019. Ordered Studies 08/09/20 15:21 CT angio head w con Stat CT angio neck with con Stat CT head/brain wo con Stat 08/09/20 17:23 MR brain wo con Stat Hospital Course (1) Left-sided weakness: (2) History of CVA (cerebrovascular accident): Stroke like symptoms Can not R/O TIA DD: Due to Anxiety/Infection H/O CVA --MRI Brain:No acute intracranial abnormality, specifically there is no evidence of acute or subacute infarct. Age-related involutional changes with moderate chronic microvascular ischemic disease. --Neck CTA:No significant stenosis, occlusion, or aneurysm within the [place]. No significant stenosis, occlusion, or dissection identified within the carotid or vertebral arteries. --Head CTA: No significant stenosis, occlusion, or aneurysm within the [place]. No significant stenosis, occlusion, or dissection identified within the carotid or vertebral arteries. --ECHO: Left ventricle cavity small. Moderate concentric LVH. Septal motion consistent with conduction abnormality. No regional wall motion abnormality. EF 60 to 65%. Grade 1 diastolic dysfunction. Mild aortic valve sclerosis. Trace aortic regurgitation. Trace tricuspid regurgitation. No evidence of ASD on echo done in November 2019. --Continue aspirin, Lipitor --Appreciate Neurology Input --PT OT, speech eval --Refuses Rehab placement --Prefers to be discharged home with home health services --Resolved Urinary tract infection Urine culture:E.Coli Continue Rocephin Day #5 (3) Shortness of breath: (4) Jaw pain: Shortness of breath resolved after receiving IV lorazepam in the ED Symptoms likely due to anxiety issues Cardiac Enzymes X 2: Negative ECHO showed no wall motion abnormality EKG: Nonspecific T wave abnormality, LBBB--chronic Resolved (5) Diabetes mellitus, type II: Hgb A1c 6.07/2020 Hold oral agents Continue ISS while hospitalized (6) Anxiety: Continue escitalopram Remotely was consulted with Primary Psychiatry over phone Needs follow-up with psychiatry upon discharge Mood is stable (7) DVT prophylaxis: SQ Lovenox Disposition Home with Home Health Total Time Total Time Spent Total Time Spent (In Minutes): 38 minutes Total Time Includes: Examination of the Patient, Discharge Planning, Medication Reconciliation, Communication With Other Providers and Other Discharge Plan Discharge Items Patient Disposition: Home - Home Health Services Reason For Visit: LEFT ARM WEAKNESS Discharge Diagnosis: Urinary tract infection Stroke like symptoms Activity: Resume your previous activity Exercise/Sports: Gradually increase as tolerated Non-emergency contact: Primary Care Provider Call non-emergency contact if: you have any medication questions, your symptoms worsen, your pain is not controlled, your pain is worsening, your pain is unusua l for you, your pain is concerning for you and you have a fever Follow-up/Referrals: Chaitanya Quinones DO [Primary Care Provider] - 08/20/20 11:20 am (Date & Time 08/20/2020 11:20 AM Provider Chaitanya Quinones DO Department General Internal Medicine [facility] ) Diet: Carb Consistent or DM2 and Heart Healthy Addtl Attending Provider Instructions: Follow up with your Primary Care Physician Dr. Quinones on 08/20/20 at 11:20 Am Seek immediate medical attention if your symptoms reoccur or worsen Risk Factors for Stroke: You can reduce your chances of stroke by working with your medical provider to adopt a healthy lifestyle. Some specific ways to lower your chance of stroke are: * If you are a smoker, now is the time to stop smoking cigarettes * If you are diabetic, improve the control of your blood sugars * Avoid excessive amounts of alcohol * Control high blood pressure * Lose weight if you are overweight * Be sure to lead an active lifestyle * Eat a healthy diet low in salt, cholesterol and fat You should know about other risk factors for stroke that you are unable to cont rol. These include: * Age 55 years or older * Male gender * Certain racial groups: , or / * Family History of Stroke, Mini stroke or Heart Attack * Sickle Cell Disease Follow Up: It is important for you to keep your follow up appointments with your medical provider. Who to Call and When: Medical Emergencies: Call 911 immediately if you experience any of the following warning signs and symptoms of Stroke: * Sudden numbness or weakness of the face, arm or leg, especially on one side of the body * Sudden confusion, trouble speaking or understanding * Sudden trouble seeing in one or both eyes * Sudden trouble walking, dizziness, loss of balance or coordination * Sudden severe headache with no cause Do not delay calling 911 if you experience any warning signs or symptoms of a stroke. Delay in seeking medical attention may affect what treatments can be given to you. . Pending Studies at Discharge: No Stand-Alone Forms: My [facility], Smoking Cessation Medications and DC Order Prescriptions: New atorvastatin 40 mg Tablet 40 mg PO QAM Qty: 30 RF: 0 docusate sodium 100 mg Capsule 100 mg PO BID PRN (Reason: Constipation) Qty: 60 RF: 0 Continued lorazepam 0.5 mg tablet 0.5 mg PO QPM PRN (Reason: Anxiety) RF: 0 glimepiride 4 mg tablet 4 mg PO DAILY RF: 0 escitalopram oxalate 10 mg tablet 5 mg PO QAM RF: 0 escitalopram oxalate 20 mg tablet 20 mg PO QAM RF: 0 milk thistle 175 mg Tablet 175 mg PO 3XWK RF: 0 aspirin 81 mg Tablet,Delayed Release (Dr/Ec) 81 mg PO DAILY RF: 0 vitamin B complex Tablet 1 tab PO .OCCASIONALLY RF: 0 naproxen sodium [Aleve] 220 mg Tablet 220 mg PO DIRECTED PRN (Reason: Pain) RF: 0 polyethylene glycol 3350 [Miralax] 17 gram Powder In Packet 17 g PO DAILY RF: 0 coenzyme Q10 [CoQ-10] 100 mg Capsule 100 mg PO DAILY RF: 0 Tradjenta 5 mg Tablet 5 mg PO DAILY RF: 0 Discharge Orders: Discharge Order (Routine); Ordered 08/13/20 Ordered By: Carter Parker Admission Data Admit Date/Time: 08/10/20 08:11 Attending Provider: Carter Parker Admit Provider: Benny Alvarez Primary Care Provider: Chaitanya Quinones Other Providers: Benny Alvarez ; Katherin García ; [facility] ; [facility] ; [facility] Other Interventions: Discharge Summary Assessment (RN) Last Done: 08/13/20 14:14
== END 2020-08-13 15:07 | disposition home health service (06) | DRG 69 ==
LOC: 2N 14:39 → ED 14:39 → SUATTDRO 17:42 → 2N 18:50

== ENCOUNTER 2020-11-02 11:32 | Inpatient (IN) ==
--- NOTE | 2020-11-02 11:29 | Emergency Department Note ---
Impression & Plan Stroke-like symptoms, Acute UTI ED Provider Note NAME: BISI JETER AGE: 70 SEX: F : 1950 ARRIVES VIA: Ambulance INFORMANT: Patient, ED PROVIDER(S): ED TEMP Chief Complaint: Strokelike symptoms HPI: Patient does present with concern for left sided deficits. The patient does have a prior history of TIA and stroke with similar symptoms in the past most recently being seen for the symptoms toward the end of July the patient did have a negative CT and CTA of the head and the neck. The patient di d have an MRI with chronic but no acute or subacute changes. The patient 45 minutes prior to a stroke alert initiation the patient did have worsening left- sided deficits which is appreciable for EMS. Reportedly the patient did have a fall with a head strike. The patient does take a baby aspirin but no LOC or vomiting. BSG was in the 130s with a heart rate of 110 and 96% on room air and no droop or speech issues. ROS: See HPI for pertinent positives and negatives. A total of 10 systems were reviewed and otherwise negative. Past medical history: See below Surgical history: See below Social history: See below Physical Exam: GENERAL: A mask. NAD, non-toxic. EYE EXAM: Normal conjunctiva. PERRL, no anisocoria and EOM's grossly intact w/o pain. NECK: Supple, no nuchal rigidity, no adenopathy, non-tender. No signs of meningismus. LUNGS: Clear to auscultation. Normal chest wall mechanics. HEART: NSR, no MRG. ABDOMEN: Abdomen soft, non-tender, normo-active bowel sounds, no masses, no rebound or guarding. BACK: No CVA TTP. SKIN: No rashes and no bruising. UPPER EXTREMITIES: Upper extremities are grossly normal. LOWER EXTREMITIES: Grossly normal, no edema. NEURO EXAM: A&O x3, cranial nerves II-XII grossly intact, normal speech, moves all 4 extremities with 4-5 strength in left upper and left lower extremity with 5 out of 5 strength in the right upper and right lower extremity. Differential diagnoses: Infection, dehydration, metabolic abnormality, hypo/hyperglycemia, electrolyte disturbance, anemia, hypoxia, cardiac sources, intracerebral event, toxicologic, neurologic, as well as other pathologies. Course: Patient was seen and evaluated the bedside. Full history physical exam was performed. EKG: Indication: Weakness Sinus with occasional PVCs, rate of 91, wide QRS, left bundle branch block pattern, T wave inversions high lateral leads, no obvious sgarbossa criteria. Imaging Studies: Radiology results as stated below per my review in the radiologist's interp retation: CT SCAN OF THE BRAIN WITHOUT IV CONTRAST CLINICAL HISTORY: Strokelike symptoms. Left-sided weakness. COMPARISON STUDY: CT of the brain dated 09/26/2020. TECHNIQUE: Unenhanced axial CT scan of the brain is performed from the vertex to the skull base. A dose lowering technique was utilized adhering to the principles of ALARA. CT DOSE: 537.48 mGy.cm FINDINGS: Brain parenchyma: There are age-related involutional changes noting mild to moderate subcortical and periventricular microangiopathic change. There is no hemorrhage, mass effect, or evidence of acute territorial ischemia by CT criteria. Chronic lacunar infarcts are present in the thalami. Anne-white matter differentiation is preserved. No extra-axial fluid collection is seen. Ventricles, sulci, cisterns: Prominent secondary to involutional change. Intracranial vasculature: There is atherosclerotic calcification of the cavernous carotid arteries. Calvarium: Unremarkable. Sinuses and mastoids: The visualized paranasal sinuses are clear. The mastoid air cells are well pneumatized. Orbits: The bony orbits are grossly intact. There are bilateral ocular lens implants. IMPRESSION: There is no hemorrhage, mass effect, or evidence of acute territorial ischemia by CT criteria. ACT 112: Negative or not required by law. Electronically signed by: Paulino May M.D. 11/02/2020 11:41 AM Dictated: 11/02/20 1138 Transcribed: 11/02/[address] ANGIOGRAM OF THE BRAIN; CT ANGIOGRAM OF THE NECK CLINICAL HISTORY: Left-sided weakness. COMPARISON STUDY: CT angiogram of the head and neck dated 08/09/2020. TECHNIQUE: Following the IV administration of 120 of Optiray 320, CT angiogram of the head and neck was performed from the aortic arch to the vertex. Images are reviewed in the axial, sagittal, and coronal planes. 3-D MIPS images are created and assessed. IV contrast was administered without complication. All measurements were calculated based on NASCET criteria. A dose lowering technique was utilized adhering to the principles of ALARA. CT DOSE: 450.07 mGy.cm FINDINGS: Brain parenchyma: The brain parenchyma is normal in appearance. There is no hemorrhage, mass effect, or evidence of acute territorial ischemia by CT criteria. There is no evidence of enhancing mass lesion on the angiogram phase images. The ventricles, sulci, and cisterns are normal in configuration. Anne- white matter differentiation is preserved. No extra-axial fluid collection is seen. Thoracic aorta: Visualized portions of the thoracic aorta are normal in caliber. The aortic arch demonstrates standard 3-vessel anatomy. Right carotid arterial system: The right common carotid artery is widely patent, as are the right internal and external carotid arteries. Minimal plaque seen in the carotid bulb. Left carotid arterial system: The left common carotid artery is widely patent, as are the left internal and external carotid arteries. Calcified plaque is noted in the carotid bulb. Vertebral arteries: The vertebral arteries are widely patent bilaterally and codominant. Subclavian arteries: Widely patent bilaterally. Intracranial vasculature: The internal carotid arteries are patent at the skull base, as are the anterior and middle cerebral arteries bilaterally. The left A1 segment is atretic. The vertebrobasilar system and posterior cerebral arteries are widely patent. The vertebral arteries are codominant. There is no aneurysm, high-grade stenosis, or focal vessel cut off seen throughout the intracranial circulation. Jugular veins: Patent bilaterally. Dural sinuses: Patent. Lung apices: Partially visualized upper lobe lung parenchyma appears clear. Soft tissues: The visualized pharyngeal soft tissues are normal in appearance noting angiographic phase technique. The oropharyngeal airway appears widely patent. The salivary and thyroid glands are normal in appearance. No cervical lymphadenopathy is seen. Skeletal structures: The skeletal structures are osteopenic. The calvarium appears intact. The cervical spine is maintained noting mild multilevel spondylosis. No lytic or blastic lesion is seen. Orbits: The bony orbits are intact. Orbital contents are normal as visualized noting bilateral ocular lens implants. Sinuses and mastoids: The paranasal sinuses are clear. The mastoid air cells are well pneumatized. IMPRESSION: 1. There is no hemorrhage, mass effect, or evidence of acute territorial ischemia by CT criteria noting angiographic phase technique. 2. Unremarkable CT angiograms of the head and neck. No change from recent prior studies. ACT 112: Negative or not required by law. Electronically signed by: Paulino May M.D. 11/02/2020 12:06 PM Dictated: 11/02/20 1154 Transcribed: 11/02/20 1154 Brain MRI WITHOUT CONTRAST HISTORY: Left-sided weakness. TECHNIQUE: Multiplanar multisequence MRI of the brain was performed without the use of contrast. COMPARISON STUDY: Head CT 11/02/2020. Brain MRI 08/09/2020. FINDINGS: There is no mass, hematoma, midline shift, or acute infarct. Small retention cyst within the left maxillary sinus, unchanged. The mastoid air cells are clear. The ventricles and sulci demonstrate mild age-related involutional changes. Scattered foci of T2 hyperintensity seen within the periventricular and subcortical white matter are nonspecific but suggestive of mild microvascular ischemic changes. The major vascular flow voids at the skull base are well- maintained. IMPRESSION: No significant change compared to the prior study. No acute intracranial abnormality. ACT 112: Negative or not required by law. Electronically signed by: Eugene Antoine M.D. 11/02/2020 2:01 PM Dictated: 11/02/20 1355 Transcribed: 11/02/20 135 Cardiac monitoring: An order was placed for continuous cardiac monitoring. The monitor shows a rate of 99 with sinus rhythm. MDM: Patient did present with strokelike symptoms. Code stroke was initiated and I did speak with Dr. Pham of telestroke at [facility]. Blood work is obtained along with CT the head and CT angiography of the head neck. Patient has normal white count H&H and platelet count. Patient's kidney function is unremarkable. Patient troponin is not detectable. Rapid Covid negative. Patient CT and CT angiography is negative. I did speak with Dr. Pham again he stated that she found it more difficult to find the true last known well and without she was actually having a change in symptoms. Given this no TPA at this time. She did recommend adding Plavix to her aspirin and a repeat MRI of the brain. This was ordered. The patient did pass her dysphagia screen and was ordered aspirin and Plavix. I did speak the on-call hospitalist and the patient was admitted to Dr. Padilla with [facility]. Urinalysis does show positive for bacteria whites leuks and nitrites. Antibiotics were ordered by the inpatient team. Critical Care: I have personally spent 37 minutes of critical care time in direct management of this patient. This includes bedside care, interpretation of diagnostic studies, and testing, discussion with consultants, patient, and family members, and other require inpatient management activities. This 37 minutes is in excess of all separately billable procedures. Past Med/Surg History Medical History Anxiety Depression Diabetes mellitus, type II Dyslipidemia Hepatitis C, chronic History of CVA (cerebrovascular accident) Surgical History H/O cataract removal with insertion of prosthetic lens History of back surgery History of cholecystectomy History of hysterectomy History of tubal ligation Family History Father Pancreatic cancer Social History Smoking Status: Never smoker Second Hand Exposure: No; Do You Dip or Chew Tobacco: No; Tobacco Cessation Education Requested by Patient: No Hx Alcohol Use: No Hx Substance Use: Yes Preferred Language: Malay Communication Ability: Effective Finished Goods Inspector Required: No Beliefs That Will Affect Care: None Current Living Situation: Alone Current Living Situation Comment: [facility] THE [facility] Other Information That Helps Us Care for You: No Feels Safe at Home: No Is there a partner from a previous relationship who is making you feel unsafe now?: No Any Concerns about Your Family Situation: No Would You Like to Speak to Someone About Your Situation: No Safety Concerns: Afraid for Self Assistive Devices: Denture - Upper, Glasses and Walker Allergies Allergies Allergy/AdvReac Type Severity Reaction Status Date / Time Iodinated Contrast Media Allergy Severe HEAD TO Verified 08/23/20 23:37 TOE HIVES morphine Allergy Severe hives Verified 08/23/20 23:37 oxycodone Allergy Intermediate Hives Verified 08/23/20 23:37 clavulanic acid Allergy Unknown FROM Verified 08/23/20 23:37 AUGMENTIN Penicillins Allergy Unknown FROM Verified 08/23/20 23:37 AUGMENTIN amitriptyline AdvReac Severe INCREASES Verified 08/23/20 23:37 HEART RATE clarithromycin AdvReac Intermediate LIGHT Verified 08/23/20 23:37 HEADED, FAINTY FEELING acetaminophen AdvReac Unknown NOT ABLE Verified 08/23/20 23:37 TO TAKE DUE TO HX HEPATITIS Cephalosporins AdvReac Unknown CEFTIN--GI Verified 08/23/20 23:37 UPSET Home Meds Home Medications Medication Instructions Recorded Confirmed aspirin 81 mg PO DAILY 09/06/18 11/02/20 lorazepam 0.5 mg PO BID 09/06/18 11/02/20 milk thistle 175 mg PO 3XWK 09/06/18 11/02/20 vitamin B complex 1 tab PO .OCCASIONALLY 09/06/18 11/02/20 Tradjenta 5 mg PO DAILY 11/15/19 11/02/20 coenzyme Q10 [CoQ-10] 100 mg PO DAILY 11/15/19 11/02/20 glipizide 10 mg PO DAILY 11/02/20 11/02/20 trazodone 50 mg PO HS 11/02/20 11/02/20 venlafaxine [Effexor XR] 75 mg PO DAILY 11/02/20 11/02/20 Previous Rx's Medication Instructions Recorded atorvastatin 40 mg PO QAM #30 tab 08/13/20 docusate sodium 100 mg PO BID PRN #60 cap 08/13/20 Results & Data (ED) Vital Signs Vital Signs - 24 hr 11/02/20 11:24 11/02/20 12:11 Temperature 36.8 C Temperature Source Oral Pulse Rate 96 H Respiratory Rate 20 Respiratory Effort / Characteristics Non-Labored Spontaneous Respiratory Depth Normal Respiratory Pattern Regular Blood Pressure 138/63 Blood Pressure Mean 88 Blood Pressure Position Lying Pulse Oximetry 98 98 Oxygen Delivery Method Room Air Room Air Sepsis Recent Fever Within 48 Hours No Sepsis New/Unexplained Change in Mental Status N/A Sepsis Action Taken by Nursing No Action Required Home Medications Current Medication List: was personally reviewed by me Laboratory Data Attestation: I reviewed the patient's lab results. Result diagrams: 11/02/20 11:54 11/02/20 11:54 Lab Results 11/02/20 11/02/20 11/02/20 Range/Units 11:54 11:54 11:54 WBC 6.19 (4.8-10.8) K/uL RBC 5.03 (4.2-5.4) M/uL Hgb 13.8 (12.0-16.0) g/dL Hct 41.9 (37-47) % MCV 83.3 (80-100) fL MCH 27.4 (25-34) pg MCHC 32.9 (32-36) g/dL RDW Std Deviation 41.3 (36.4-46.3) fL RDW Coeff of Farida 13.7 (11.5-14.5) % Plt Count 189 (130-400) K/uL MPV 10.5 H (7.4-10.4) fL Immature Gran % (Auto) 0.2 % Neut % (Auto) 72.8 % Lymph % (Auto) 18.4 % [place] % (Auto) 7.4 % Eos % (Auto) 1.0 % Baso % (Auto) 0.2 % Neut # (Auto) 4.51 (1.4-6.5) K/uL Lymph # (Auto) 1.14 L (1.2-3.4) K/uL [place] # (Auto) 0.46 (0.11-0.59) K/uL Eos # (Auto) 0.06 (0-0.5) K/uL Baso # (Auto) 0.01 (0-0.2) K/uL Immature Gran # (Auto) 0.01 (0.00-0.02) K/uL PT 11.7 (9.0-12.0) Seconds INR 1.1 (0.9-1.1) APTT 24.5 (21.0-31.0) Seconds PTT Ratio 0.9 Sodium 136 (136-145) mmol/L Potassium 3.8 (3.5-5.1) mmol/L Chloride 102 (98-107) mmol/L Carbon Dioxide 27 (21-32) mmol/L Anion Gap 6.0 (3-11) BUN 24 H (7-18) mg/dl Creatinine 0.73 (0.6-1.2) mg/dl Est Cr Clr Drug Dosing 60.8 ml/min Est GFR ( Amer) 95.4 Est GFR (Non-Af Amer) 82.3 BUN/Creatinine Ratio 32.2 H (10-20) Glucose 171 H (70-99) mg/dl Calcium 9.2 (8.5-10.1) mg/dl Magnesium 2.0 (1.8-2.4) mg/dl Total Bilirubin 0.6 (0.2-1) mg/dl AST 29 (15-37) U/L ALT 38 (12-78) U/L Alkaline Phosphatase 85 (45-117) U/L Troponin I < 0.015 (0-0.045) ng/ml Total Protein 7.6 (6.4-8.2) gm/dl Albumin 3.8 (3.4-5.0) gm/dl Globulin 3.8 (2.5-4.0) gm/dl Albumin/Globulin Ratio 1.0 (0.9-2) Urine Color Urine Appearance (Clear) Urine pH (4.5-7.5) Ur Specific [place] (1.000-1.030) Urine Protein (Negative) Urine Glucose (UA) (Negative) Urine Ketones (Negative) Urine Blood (Negative) Urine Nitrite (Negative) Urine Bilirubin (Negative) Urine Urobilinogen (Negative) Ur Leukocyte Esterase (Negative) Urine WBC (Auto) (0-5) /hpf Urine RBC (Auto) (0-4) /hpf U Hyaline Cast (Auto) (0-5) /lpf U Epithel Cells (Auto) (0-5) /lpf Urine Bacteria (Auto) (Negative) SARS-CoV-2 Ag (Rapid) (Negative) 11/02/20 11/02/20 Range/Units 12:30 13:02 WBC (4.8-10.8) K/uL RBC (4.2-5.4) M/uL Hgb (12.0-16.0) g/dL Hct (37-47) % MCV (80-100) fL MCH (25-34) pg MCHC (32-36) g/dL RDW Std Deviation (36.4-46.3) fL RDW Coeff of Farida (11.5-14.5) % Plt Count (130-400) K/uL MPV (7.4-10.4) fL Immature Gran % (Auto) % Neut % (Auto) % Lymph % (Auto) % [place] % (Auto) % Eos % (Auto) % Baso % (Auto) % Neut # (Auto) (1.4-6.5) K/uL Lymph # (Auto) (1.2-3.4) K/uL [place] # (Auto) (0.11-0.59) K/uL Eos # (Auto) (0-0.5) K/uL Baso # (Auto) (0-0.2) K/uL Immature Gran # (Auto) (0.00-0.02) K/uL PT (9.0-12.0) Seconds INR (0.9-1.1) APTT (21.0-31.0) Seconds PTT Ratio Sodium (136-145) mmol/L Potassium (3.5-5.1) mmol/L Chloride (98-107) mmol/L Carbon Dioxide (21-32) mmol/L Anion Gap (3-11) BUN (7-18) mg/dl Creatinine (0.6-1.2) mg/dl Est Cr Clr Drug Dosing ml/min Est GFR ( Amer) Est GFR (Non-Af Amer) BUN/Creatinine Ratio (10-20) Glucose (70-99) mg/dl Calcium (8.5-10.1) mg/dl Magnesium (1.8-2.4) mg/dl Total Bilirubin (0.2-1) mg/dl AST (15-37) U/L ALT (12-78) U/L Alkaline Phosphatase (45-117) U/L Troponin I (0-0.045) ng/ml Total Protein (6.4-8.2) gm/dl Albumin (3.4-5.0) gm/dl Globulin (2.5-4.0) gm/dl Albumin/Globulin Ratio (0.9-2) Urine Color Yellow Urine Appearance Cloudy A (Clear) Urine pH 7.0 (4.5-7.5) Ur Specific [place] > 1.045 H (1.000-1.030) Urine Protein Trace H (Negative) Urine Glucose (UA) Negative (Negative) Urine Ketones Trace H (Negative) Urine Blood Negative (Negative) Urine Nitrite Positive A (Negative) Urine Bilirubin Negative (Negative) Urine Urobilinogen Negative (Negative) Ur Leukocyte Esterase 2+ H (Negative) Urine WBC (Auto) >30 H (0-5) /hpf Urine RBC (Auto) 0-4 (0-4) /hpf U Hyaline Cast (Auto) 1-5 (0-5) /lpf U Epithel Cells (Auto) >30 H (0-5) /lpf Urine Bacteria (Auto) 4+ H (Negative) SARS-CoV-2 Ag (Rapid) Negative (Negative) Administered Medications Discontinued Medications Aspirin (Aspirin Chew 324 Mg) 81 mg PO NOW STA Stop: 11/02/20 12:25 Last Admin: 11/02/20 12:50 Dose: 81 mg Documented by: [id number] Clopidogrel Bisulfate (Clopidogrel Bisulfate 75 Mg Tab) 75 mg PO NOW ONE Stop: 11/02/20 12:25 Last Admin: 11/02/20 12:50 Dose: 75 mg Documented by: [id number] Diphenhydramine HCl (Diphenhydramine 50 Mg/Ml Vial) 25 mg IV NOW STA Stop: 11/02/20 11:36 Last Admin: 11/02/20 11:37 Dose: 25 mg Documented by: [id number] Ioversol (Optiray 320 125ml) 120 ml IV ONCE ONE Stop: 11/02/20 11:40 Last Admin: 11/02/20 11:40 Dose: 120 ml Documented by: [id number] Methylprednisolone (Methylprednisolone 125 Mg/2 Ml Vial) 60 mg IV NOW STA Stop: 11/02/20 11:36 Last Admin: 11/02/20 11:37 Dose: 60 mg Documented by: [id number] Discharge Plan Visit Data Chief Complaint: Stroke/CVA Symptoms ED Provider: Henrik Hinds Discharge Problem: Stroke-like symptoms, Acute UTI Patient Disposition: Admitted As Inpatient Discharge Instructions Interventions: ED Discharge Assessment Last Done: 11/02/20 14:57
[2020-11-02] MEDS ORDERED: diphenhydrAMINE 50 MG/ML VIAL IV STA (11:35)
[2020-11-02] MEDS ORDERED: methylPREDNISolone 125 MG/2 ML VIAL IV STA (11:35)
[2020-11-02] MEDS ORDERED: OPTIRAY 320 125ml IV ONE (11:39)
--- NOTE | 2020-11-02 11:42 | CT Scan Report ---
CT SCAN OF THE BRAIN WITHOUT IV CONTRAST CLINICAL HISTORY: Strokelike symptoms. Left-sided weakness. COMPARISON STUDY: CT of the brain dated 09/26/2020. TECHNIQUE: Unenhanced axial CT scan of the brain is performed from the vertex to the skull base. A do se lowering technique was utilized adhering to the principles of ALARA. CT DOSE: 537.48 mGy.cm FINDINGS: Brain parenchyma: There are age-related involutional changes noting mild to moderate subcortical and periventricular microangiopathic change. There is no hemorrhage, mass effect, or evidence of acute t erritorial ischemia by CT criteria. Chronic lacunar infarcts are present in the thalami. Anne-white m atter differentiation is preserved. No extra-axial fluid collection is seen. Ventricles, sulci, cisterns: Prominent secondary to involutional change. Intracranial vasculature: There is atherosclerotic calcification of the cavernous carotid arteries. Calvarium: Unremarkable. Sinuses and mastoids: The visualized paranasal sinuses are clear. The mastoid air cells are well pneu matized. Orbits: The bony orbits are grossly intact. There are bilateral ocular lens implants. IMPRESSION: There is no hemorrhage, mass effect, or evidence of acute territorial ischemia by CT flores byers. ACT 112: Negative or not required by law. Electronically signed by: Paulino May M.D. 11/02/2020 11:41 AM
--- NOTE | 2020-11-02 12:08 | CT Scan Report ---
CT ANGIOGRAM OF THE BRAIN; CT ANGIOGRAM OF THE NECK CLINICAL HISTORY: Left-sided weakness. COMPARISON STUDY: CT angiogram of the head and neck dated 08/09/2020. TECHNIQUE: Following the IV administration of 120 of Optiray 320, CT angiogram of the head and neck w as performed from the aortic arch to the vertex. Images are reviewed in the axial, sagittal, and natacha nal planes. 3-D MIPS images are created and assessed. IV contrast was administered without complicati on. All measurements were calculated based on NASCET criteria. A dose lowering technique was utilize d adhering to the principles of ALARA. CT DOSE: 450.07 mGy.cm FINDINGS: Brain parenchyma: The brain parenchyma is normal in appearance. There is no hemorrhage, mass effect, or evidence of acute territorial ischemia by CT criteria. There is no evidence of enhancing mass lesi on on the angiogram phase images. The ventricles, sulci, and cisterns are normal in configuration. Gr ay-white matter differentiation is preserved. No extra-axial fluid collection is seen. Thoracic aorta: Visualized portions of the thoracic aorta are normal in caliber. The aortic arch demo nstrates standard 3-vessel anatomy. Right carotid arterial system: The right common carotid artery is widely patent, as are the right int ernal and external carotid arteries. Minimal plaque seen in the carotid bulb. Left carotid arterial system: The left common carotid artery is widely patent, as are the left campus recruiting intern al and external carotid arteries. Calcified plaque is noted in the carotid bulb. Vertebral arteries: The vertebral arteries are widely patent bilaterally and codominant. Subclavian arteries: Widely patent bilaterally. Intracranial vasculature: The internal carotid arteries are patent at the skull base, as are the ante rior and middle cerebral arteries bilaterally. The left A1 segment is atretic. The vertebrobasilar sy stem and posterior cerebral arteries are widely patent. The vertebral arteries are codominant. There is no aneurysm, high-grade stenosis, or focal vessel cut off seen throughout the intracranial circula tion. Jugular veins: Patent bilaterally. Dural sinuses: Patent. Lung apices: Partially visualized upper lobe lung parenchyma appears clear. Soft tissues: The visualized pharyngeal soft tissues are normal in appearance noting angiographic pha se technique. The oropharyngeal airway appears widely patent. The salivary and thyroid glands are nor mal in appearance. No cervical lymphadenopathy is seen. Skeletal structures: The skeletal structures are osteopenic. The calvarium appears intact. The cervic al spine is maintained noting mild multilevel spondylosis. No lytic or blastic lesion is seen. Orbits: The bony orbits are intact. Orbital contents are normal as visualized noting bilateral ocular lens implants. Sinuses and mastoids: The paranasal sinuses are clear. The mastoid air cells are well pneumatized. IMPRESSION: 1. There is no hemorrhage, mass effect, or evidence of acute territorial ischemia by CT criteria noti ng angiographic phase technique. 2. Unremarkable CT angiograms of the head and neck. No change from recent prior studies. ACT 112: Negative or not required by law. Electronically signed by: Paulino May M.D. 11/02/2020 12:06 PM
[2020-11-02 12:09] LABS: Basophils # (auto) 0.01 K/uL (0-0.2); Basophils % (auto) 0.2 %; Eosinophils # (auto) 0.06 K/uL (0-0.5); Hematocrit (blood only) 41.9 % (37-47); Hemoglobin 13.8 g/dL (12.0-16.0); Immature Granulocytes # (auto) 0.01 K/uL (0.00-0.02); Immature Granulocytes % (auto) 0.2 %; Lymphocytes # (auto) 1.14 K/uL (1.2-3.4); Lymphocytes % (auto) 18.4 %; Mean Corpuscular Hemoglobin 27.4 pg (25-34); Mean Corpuscular Hgb Conc 32.9 g/dL (32-36); Mean Corpuscular Volume 83.3 fL (80-100); Mean Platelet Volume 10.5 fL (7.4-10.4); Monocytes # (auto) 0.46 K/uL (0.11-0.59); Monocytes % (auto) 7.4 %; Neutrophils # (auto) 4.51 K/uL (1.4-6.5); Neutrophils % (auto) 72.8 %; Platelet Count 189 K/uL (130-400); RDW Coefficient of Variation 13.7 % (11.5-14.5); RDW Standard Deviation 41.3 fL (36.4-46.3); Red Blood Count 5.03 M/uL (4.2-5.4); White Blood Count 6.19 K/uL (4.8-10.8)
[2020-11-02 12:20] LABS: INR 1.1 (0.9-1.1); Partial Thromboplastin Ratio 0.9; Partial Thromboplastin Time 24.5 Seconds (21.0-31.0); Prothrombin Time 11.7 Seconds (9.0-12.0)
[2020-11-02] MEDS ORDERED: CLOPIDOGREL BISULFATE 75 MG TAB PO ONE (12:24)
[2020-11-02] MEDS ORDERED: ASPIRIN CHEW 324 MG PO STA (12:24)
[2020-11-02 12:30] LABS: Alanine Aminotransferase 38 U/L (12-78); Albumin Level 3.8 gm/dl (3.4-5.0); Aspartate Aminotransferase 29 U/L (15-37); BUN Creatinine Ratio 32.2 (10-20); Blood Urea Nitrogen 24 mg/dl (7-18); Calcium 9.2 mg/dl (8.5-10.1); Carbon Dioxide 27 mmol/L (21-32); Chloride 102 mmol/L (98-107); Creatinine Clr Calc Pharmacy 60.8 ml/min; Est GFR (African American) 95.4; Est GFR (Non-African American) 82.3; Glucose 171 mg/dl (70-99); Potassium 3.8 mmol/L (3.5-5.1); Sodium 136 mmol/L (136-145)
[2020-11-02 12:34] LABS: Alkaline Phosphatase 85 U/L (45-117); Bilirubin,Total 0.6 mg/dl (0.2-1); Globulin 3.8 gm/dl (2.5-4.0); Total Protein 7.6 gm/dl (6.4-8.2); Troponin I < 0.015 ng/ml (0-0.045)
[2020-11-02 13:11] LABS: Appearance Urine Cloudy (Clear); Bacteria Urine Automated 4+ (Negative); Bilirubin Urine Negative (Negative); Blood Urine Negative (Negative); Color Urine Yellow; Epithelial Cell Urine Auto >30 /lpf (0-5); Glucose Urine UA Negative (Negative); Ketones Urine Trace (Negative); Leukocyte Esterase Urine 2+ (Negative); Nitrite Urine Positive (Negative); Protein Urine Trace (Negative); RBC Urine Automated 0-4 /hpf (0-4); Specific Gravity Urine > 1.045 (1.000-1.030); Urobilinogen Urine Negative (Negative); WBC Urine Automated >30 /hpf (0-5)
--- NOTE | 2020-11-02 14:02 | Magnetic Resonance Report ---
Brain MRI WITHOUT CONTRAST HISTORY: Left-sided weakness. TECHNIQUE: Multiplanar multisequence MRI of the brain was performed without the use of contrast. COMPARISON STUDY: Head CT 11/02/2020. Brain MRI 08/09/2020. FINDINGS: There is no mass, hematoma, midline shift, or acute infarct. Small retention cyst within th e left maxillary sinus, unchanged. The mastoid air cells are clear. The ventricles and sulci demonstr ate mild age-related involutional changes. Scattered foci of T2 hyperintensity seen within the perive ntricular and subcortical white matter are nonspecific but suggestive of mild microvascular ischemic changes. The major vascular flow voids at the skull base are well-maintained. IMPRESSION: No significant change compared to the prior study. No acute intracranial abnormality. ACT 112: Negative or not required by law. Electronically signed by: Eugene Antoine M.D. 11/02/2020 2:01 PM
[2020-11-02] MEDS ORDERED: PHARMACIST DISCHARGE MED REC CONSULT PRN (15:22)
[2020-11-02] MEDS ORDERED: GLUCOSE 40% GEL 15 GM TUBE PO PRN (15:22)
[2020-11-02] MEDS ORDERED: GLUCOSE 10 TABS/TUBE PO PRN (15:22)
[2020-11-02] MEDS ORDERED: DEXTROSE 50% 50 ML SYRINGE IV PRN (15:22)
[2020-11-02] MEDS ORDERED: CARBOHYDRATES FOR HYPOGLYCEMIA PO PRN (15:22)
[2020-11-02] MEDS ORDERED: GLUCAGON FOR INJ 1 MG VIAL SQ PRN (15:22)
--- NOTE | 2020-11-02 15:41 | Neurology Consultation ---
Date of Consultation November 02, 2020 Assessment & Plan (1) TIA (transient ischemic attack): 1. MRI with no evidence of stroke 2. UTI - culture pending -treat to culture 3. trazodone - should be decreased to 25 mg x 2 days and then stop- may be increasing tremor 4. may need psychiatry involved for assistance 5. melatonin may be an option for night time sleep issues 6. once UTI is cleared and off trazodone- may try a low dose Sinemet to help with tremor 7. continue aspirin 81 mg no need to add Plavix at this time 8. will continue to follow Supervising Physician Co-Signing Physician Notes I have seen and discussed above patient with Dr Sohail Nunez, neurology I have seen Abigail in the past specifically almost a year ago when she presented to the hospital with migrainous-like event and was noted to have tremor of the left arm and leg and a mild left hemiparesis and prior to that she had been seen in our office by RICH Rainey for cognitive issues and for a left hemiparesis and intermittent tremor She has some depression anxiety and insomnia and was recently in a psychiatric institution where many of her chronic medications were changed. Her longstanding benzodiazepines were reduced, her serotonin reuptake inhibitors were changed and trazodone was added for sleep She states that after about a week on the trazodone her tremor of the left arm and leg became more evident and that since that time there has been various manipulation of the medications without any change in the tremor of the left arm and leg and in fact a neurologic consultation was requested though she is not sure where this was going to be obtained She is now in the hospital for increasing tremor confusion has a urinary tract infection and examination frankly looks a little like a left hemiparkinsonism with a mixed intentional and resting 4 to 6 cps tremor, increased tone in the left arm and to a lesser degree left leg with some cogwheeling yet she has pretty normal facial expressions and at most a mild bradykinetic appearance MRI scans are shown no evidence for a new CVA and only the old white matter changes and she does have a history of having a deep right basal ganglia event and at 1 point I wondered if she did not have a vascular parkinsonism At this point we will go suggest the trazodone be stopped or least tapered off as the history suggests this agent was responsible for increasing the tremor although the mechanism would be a little difficult to explain, treat urinary tract infection and to reassess her neurologic status. Her primary complaint is insomnia and is not clear to me whether she just cannot sleep or the tremor is keeping her awake. We may end up treating this woman with some dopamine but would like to see what happens once we stop the trazodone and treat the bladder infection as the last time the her bladder infection was treated in November her entire demeanor improved almost overnight and the tremor became minimal to the point that on an outpatient visit with Katherin Pritchard PA-C the tremor was a minor issue Admittedly this could have increased over the course of the year but without a history we really can only make this assumption like to take a look at her again tomorrow we will follow her through the weekend Sohail Nunez MD History of Present Illness Reason for Consultation: TIA symptoms Requesting Physician: José Miguel Padilla MD Attending Physician: José Miguel Padilla MD History of Present Illness She presents to ED with caregiver due to concern for increasing anxiety. She had some recent changes to her Lexapro going from 30-25 now back up to 30 in the last week. She is now having issues with decreased sleep and poor appetite. In the ED she voice she wanted to but has no prior history of self-harm does not any access to guns or weapons and the patient denies a current plan. She is afraid to live on her own and recently move to a new apartment. She had issues with standing and was falling to the right. She was seen in our office in the past for the tremor in the left arm and leg. It has been unclear if this tremor is parkinson's tremor. denies CP, SOB, abdominal pain, one sided weakness, numbness tingling Allergies Allergy/AdvReac Type Severity Reaction Status Date / Time Iodinated Contrast Media Allergy Severe HEAD TO Verified 08/23/20 23:37 TOE HIVES morphine Allergy Severe hives Verified 08/23/20 23:37 oxycodone Allergy Intermediate Hives Verified 08/23/20 23:37 clavulanic acid Allergy Unknown FROM Verified 08/23/20 23:37 AUGMENTIN Penicillins Allergy Unknown FROM Verified 08/23/20 23:37 AUGMENTIN amitriptyline AdvReac Severe INCREASES Verified 08/23/20 23:37 HEART RATE clarithromycin AdvReac Intermediate LIGHT Verified 08/23/20 23:37 HEADED, FAINTY FEELING acetaminophen AdvReac Unknown NOT ABLE Verified 08/23/20 23:37 TO TAKE DUE TO HX HEPATITIS Cephalosporins AdvReac Unknown CEFTIN--GI Verified 08/23/20 23:37 UPSET Home Medications Medication Instructions Recorded Confirmed Type aspirin 81 mg PO DAILY 09/06/18 11/02/20 History lorazepam 0.5 mg PO BID 09/06/18 11/02/20 History milk thistle 175 mg PO 3XWK 09/06/18 11/02/20 History vitamin B complex 1 tab PO .OCCASIONALLY 09/06/18 11/02/20 History Tradjenta 5 mg PO DAILY 11/15/19 11/02/20 History coenzyme Q10 [CoQ-10] 100 mg PO DAILY 11/15/19 11/02/20 History atorvastatin 40 mg PO QAM #30 tab 08/13/20 11/02/20 Rx docusate sodium 100 mg PO BID PRN #60 cap 08/13/20 11/02/20 Rx glipizide 10 mg PO DAILY 11/02/20 11/02/20 History trazodone 50 mg PO HS 11/02/20 11/02/20 History venlafaxine [Effexor XR] 75 mg PO DAILY 11/02/20 11/02/20 History Patient History Medical History Anxiety Depression Diabetes mellitus, type II Dyslipidemia Hepatitis C, chronic History of CVA (cerebrovascular accident) Surgical History H/O cataract removal with insertion of prosthetic lens History of back surgery History of cholecystectomy History of hysterectomy History of tubal ligation Family History Father Pancreatic cancer Social History Smoking Status: Never smoker Second Hand Exposure: No; Do You Dip or Chew Tobacco: No; Tobacco Cessation Education Requested by Patient: No Hx Alcohol Use: No Hx Substance Use: Yes Preferred Language: Malagasy Communication Ability: Effective Residence Supervisor Required: No Beliefs That Will Affect Care: None Current Living Situation: Alone Current Living Situation Comment: [facility] Other Information That Helps Us Care for You: No Feels Safe at Home: No Is there a partner from a previous relationship who is making you feel unsafe now?: No Any Concerns about Your Family Situation: No Wou ld You Like to Speak to Someone About Your Situation: No Safety Concerns: Afraid for Self Assistive Devices: Denture - Upper, Glasses and Walker Review of Systems Review of Systems: All systems reviewed & are unremarkable except as noted in HPI & below and All systems reviewed & are unremarkable except as noted in Subjective Physical Exam Physical Exam: Physical Exam: Constitutional: appearance nourished, healthy and normal Ears, Nose, Mouth and Throat: mucous membranes moist, no injection and skin normal, eyes normal Cardiovascular: normal S-1 and S-2 and regular rate and rhythm Respiratory: clear to auscultation (CTA) and no rales, rhonchi or wheeze Musculoskeletal: no peripheral edema and good distal pulses Skin: no stigmata of neurocutaneous disease noted and normal and intact Eyes: extraocular muscles intact (EOMI) , good eye blink NEUROLOGIC EXAMINATION: Mental status: Alert and interactive Oriented to full date and location Oriented to person Speech fluent with no evidence of aphasia Cranial Nerves facial symmetry Reflexes: Deep tendon reflexes were symmetrical and graded 2/5. Sensory: light cool touch Gait/Stance: Posture lying in bed Motor: Negative for pronator drift of out stretched arms with eyes closed. left sided reaching and resting tremor, of left arm and leg, left hand/arm rigidity Strength: hand sap fico architect biceps triceps 5/5 bilaterally hip flex plantar flex ext 5/5 bilaterally Results & Data ([facility]) Vital Signs (Past 12 Hours) Vital Signs Temp Pulse Resp BP Pulse Ox 11/02/20 12:11 36.8 C 96 H 20 138/63 98 11/02/20 11:24 98 Laboratory Results Abnormal lab results 11/02/20 11/02/20 11/02/20 Range/Units 11:54 11:54 12:30 MPV 10.5 H (7.4-10.4) fL Lymph # (Auto) 1.14 L (1.2-3.4) K/uL BUN 24 H (7-18) mg/dl BUN/Creatinine Ratio 32.2 H (10-20) Glucose 171 H (70-99) mg/dl Urine Appearance Cloudy A (Clear) Ur Specific [place] > 1.045 H (1.000-1.030) Urine Protein Trace H (Negative) Urine Ketones Trace H (Negative) Urine Nitrite Positive A (Negative) Ur Leukocyte Esterase 2+ H (Negative) Urine WBC (Auto) >30 H (0-5) /hpf U Epithel Cells (Auto) >30 H (0-5) /lpf Urine Bacteria (Auto) 4+ H (Negative) Diagnostic Findings CT head/neck-here is no hemorrhage, mass effect, or evidence of acute territorial ischemia by CT criteria noting angiographic phase technique. Unremarkable CT angiograms of the head and neck. No change from recent prior studies. MRI brain-No significant change compared to the prior study. No acute intracranial abnormality.
[2020-11-02] MEDS: cefTRIAXone SODIUM 1,000 MG in DEXTROSE 5% 50 ML IV SCH (17:19)
[2020-11-02] MEDS: ENOXAPARIN INJ 40 MG/0.4 ML SYR SQ SCH (17:25)
[2020-11-02] MEDS: INSULIN ASPART 100 UNITS/ML 3 ML PEN SC SCH ×2 (17:27→20:39)
--- NOTE | 2020-11-02 20:23 | History & Physical Report ---
Date of Service November 02, 2020 Assessment & Plan (1) Tremor: -Admit to telemetry -Patient presenting from home after fall and increased left-sided weakness. Also has had increasing left-sided tremor over the past couple of weeks. -Patient was recently admitted to inpatient psychiatric unit at [facility] for worsening depression and anxiety. Lexapro and Ativan were discontinued, Effexor was titrated to 75 mg, and trazodone was increased to 50 mg HS. Ativan resumed on 10/24 however patient reports minimal improvement in tremor. -Stroke alert called in the ED. Tele neuro recommends DAPT. Head CT, head and neck CTA, brain MRI unremarkable for acute findings. -Symptoms likely secondary to multiple recent psychiatric medication changes and/or UTI -Neurology consulted -does not recommend Plavix at this time, continue aspirin. Titrate trazodone to 25 mg nightly x 2 days, then d/c. Consider adding Sinemet once UTI treated and trazodone discontinued. -PT/OT -Recommend close follow-up with outpatient psychiatrist Dr. Harvey (2) Acute UTI: -UA suggest UTI -Not appear septic -Start ceftriaxone based upon previous sensitivities (3) Diabetes mellitus, type II: -Hgb A1c 6.8 09/2020 -Hold oral agents -NovoLog per protocol while hospitalized (4) Anxiety: (5) Depression: -Recent medication changes as above -Will need close outpatient follow-up with Dr. Harvey (6) History of CVA (cerebrovascular accident): -Chronic left-sided weakness -Continue aspirin and statin (7) DVT prophylaxis: -SQ Lovenox Admission and Anticipated Discharge Date Admission Date: November 02, 2020 History of Present Illness Chief Complaint: Fall, left-sided weakness Primary Care Provider: Chaitanya Quinones DO 70-year-old female with PMH DM type II, history of CVA, anxiety, depression, and other problems listed below who presents the ED for evaluation of left-sided weakness and fall. Patient reports that she was sitting in her chair when someone was knocking on her door. When she went to stand up, patient reports that her left leg felt very weak and she subsequently fell to the ground. No loss of consciousness. She then pressed her heart alert button for help. Patient was recently admitted to inpatient psychiatric unit at [facility] for worsening depression and anxiety. Lexapro and Ativan were discontinued, Effexor was titrated to 75 mg, and trazodone was increased to 50 mg HS. Since being home, patient notes increased tremors over the past couple of weeks. Ativan was resumed on 10/24 however patient reports minimal improvement in tremor. Patient denies lightheadedness, dizziness, diaphoresis, syncopal event. No chest pain or shortness of breath. No abdominal pain, nausea, vomiting, diarrhea. Denies fevers and chills. No urinary symptoms, however patient reports completing a home urine test that was positive. When asked why the patient completed this test, she states " because I get urine infections often without symptoms". In the ED, stroke alert was called. Telemetry neuro recommended DAPT. Head CT, head and neck CTA unremarkable for acute findings. UA suggest UTI. Patient was given Plavix 75 mg in the ED. Patient is hemodynamically stable. Allergies Allergy/AdvReac Type Severity Reaction Status Date / Time Iodinated Contrast Media Allergy Severe HEAD TO Verified 08/23/20 23:37 TOE HIVES morphine Allergy Severe hives Verified 08/23/20 23:37 oxycodone Allergy Intermediate Hives Verified 08/23/20 23:37 clavulanic acid Allergy Unknown FROM Verified 08/23/20 23:37 AUGMENTIN Penicillins Allergy Unknown FROM Verified 08/23/20 23:37 AUGMENTIN amitriptyline AdvReac Severe INCREASES Verified 08/23/20 23:37 HEART RATE clarithromycin AdvReac Intermediate LIGHT Verified 08/23/20 23:37 HEADED, FAINTY FEELING acetaminophen AdvReac Unknown NOT ABLE Verified 08/23/20 23:37 TO TAKE DUE TO HX HEPATITIS Cephalosporins AdvReac Unknown CEFTIN--GI Verified 08/23/20 23:37 UPSET Home Medications Medication Instructions Recorded Confirmed Type aspirin 81 mg PO DAILY 09/06/18 11/02/20 History lorazepam 0.5 mg PO BID 09/06/18 11/02/20 History milk thistle 175 mg PO 3XWK 09/06/18 11/02/20 History vitamin B complex 1 tab PO .OCCASIONALLY 09/06/18 11/02/20 History Tradjenta 5 mg PO DAILY 11/15/19 11/02/20 History coenzyme Q10 [CoQ-10] 100 mg PO DAILY 11/15/19 11/02/20 History atorvastatin 40 mg PO QAM #30 tab 08/13/20 11/02/20 Rx docusate sodium 100 mg PO BID PRN #60 cap 08/13/20 11/02/20 Rx glipizide 10 mg PO DAILY 11/02/20 11/02/20 History trazodone 50 mg PO HS 11/02/20 11/02/20 History venlafaxine [Effexor XR] 75 mg PO DAILY 11/02/20 11/02/20 History Past Med/Surg History Medical History (Updated 11/02/20 @ 20:33 by RICH Edgar) Anxiety Depression Diabetes mellitus, type II Dyslipidemia Hepatitis C, chronic History of CVA (cerebrovascular accident) LBBB (left bundle branch block) Surgical History H/O cataract removal with insertion of prosthetic lens History of back surgery History of cholecystectomy History of hysterectomy History of tubal ligation Family History Father Pancreatic cancer Social History Smoking Status: Never smoker Second Hand Exposure: No; Do You Dip or Chew Tobacco: No; Tobacco Cessation Education Requested by Patient: No Hx Alcohol Use: No Hx Substance Use: Yes Preferred Language: Danish Communication Ability: Effective Yarn Dry Room Worker Required: No Beliefs That Will Affect Care: None marital status: Current Living Situation: Alone Current Living Situation Comment: [facility] THE DAY Other Information That Helps Us Care for You: No Feels Safe at Home: No Is there a partner from a previous relationship who is making you feel unsafe now?: No Any Concerns about Your Family Situation: No Would You Like to Speak to Someone About Your Situation: No Safety Concerns: Afraid for Self Assistive Devices: Glasses Review of Systems Review of Systems: ROS per HPI, all other systems reviewed and negative Physical Exam Constitutional: WD/WN, vitals as above Eyes: PERRL, conjunctivae normal, anicteric sclerae ENMT: external ear and nose normal, oropharynx normal Respiratory: normal respiratory effort, lungs clear to auscultation Cardiovascular: Rate/Rhythm: regular rate and regular rhythm Vessels: normal peripheral pulses Extremities: no edema Gastrointestinal (Abdomen): normal bowel sounds, soft, nontender, no hepatosplenomegaly Musculoskeletal: Extremities: no cyanosis and no clubbing Left-sided weakness 3-4/5 Skin: no rashes, warm and dry Neurologic: PERRL, EOMI, accommodation nl, no face palsy, no dysarthria Motor/Sensory: + tremor (left sided) Coordination: + abnormal [id number] test (some difficulty on left secondary to tremor) and + abnormal yfgs-uc-inpy test (some difficulty on left secondary to tremor) Psychiatric: A+Ox3, euthymic affect Results & Data Results & Data ([facility]) Vital Signs (Past 12 Hours) Vital Signs Temp Pulse Pulse Resp BP BP Pulse Ox 11/02/20 15:57 36.7 C 99 H 18 137/67 95 11/02/20 15:28 36.8 C 103 H 20 143/78 H 97 11/02/20 12:11 36.8 C 96 H 20 138/63 98 11/02/20 11:24 98 Laboratory Results Short CBC 11/02/20 Range/Units 11:54 WBC 6.19 (4.8-10.8) K/uL Hgb 13.8 (12.0-16.0) g/dL Hct 41.9 (37-47) % Plt Count 189 (130-400) K/uL BMP 11/02/20 11:54 Sodium 136 Potassium 3.8 Chloride 102 Carbon Dioxide 27 BUN 24 H Creatinine 0.73 Glucose 171 H Calcium 9.2 Cardiac Enzymes 11/02/20 Range/Units 11:54 Troponin I < 0.015 (0-0.045) ng/ml Liver Function 11/02/20 Range/Units 11:54 Total Bilirubin 0.6 (0.2-1) mg/dl AST 29 (15-37) U/L ALT 38 (12-78) U/L Alkaline Phosphatase 85 (45-117) U/L Albumin 3.8 (3.4-5.0) gm/dl Urine 11/02/20 Range/Units 12:30 Urine Color Yellow Urine Appearance Cloudy A (Clear) Urine pH 7.0 (4.5-7.5) Ur Specific [place] > 1.045 H (1.000-1.030) Urine Protein Trace H (Negative) Urine Glucose (UA) Negative (Negative) Diagnostic Findings BRAIN MRI IMPRESSION: No significant change compared to the prior study. No acute intracranial abnormality. HEAD AND NECK CTA IMPRESSION: 1. There is no hemorrhage, mass effect, or evidence of acute territorial ischemia by CT criteria noting angiographic phase technique. 2. Unremarkable CT angiograms of the head and neck. No change from recent prior studies. HEAD CT IMPRESSION: There is no hemorrhage, mass effect, or evidence of acute territorial ischemia by CT criteria. Code Status & VTE Plan Code Status Patient is a full code as per my discussion with her. VTE Prophylaxis Plan VTE Prophylaxis will be ordered: Yes Supervising Physician Co-Signing Physician Notes Pt was seen and examined. Agreed with Jaclyn VILLANUEVA exam, assessment and plan. 70-year-old female with PMH DM type II, history of CVA, anxiety, depression presented to the ER with Left sided weakness and fall. Pt said that today while standing up to walk to answer her door, her left leg felt very weak and she fell to the ground. She said that she did not lose consciousness because she was aware of her surrounding. Pt was recently discharged from inpatient psych for depression and anxiety. She said that she has been having alot of tremors as well. Patient denies lightheadedness, dizziness, diaphoresis, syncopal event, chest pain or shortness of breath. Stroke alert was called and no TAP was administered since her symptoms improved. CT head showed no acute intracranial abnormality. MRI done showed No significant change compared to the prior study. No acute intracranial abnormality. Her stroke like symptoms migh be related to UTI vs psych medication. Neuro consulted and recommended to decrease Trazodone and possible discontinue due to worsening tremors. Case discussed with neuro that recommended to continue asa and statin for now and no need for plavix. UA positive for nitrite, Leukocytes and bacteria. Will start on IV Rocephin. Follow up urine cx. Fall precaution. Continue monitor closely in tele. MD Valerie (1) Depression Depression Type: unspecified Qualified Code(s): F32.9 - Major depressive disorder, single episode, unspecified
[2020-11-02] MEDS: traZODone HCL 50 MG TAB PO SCH (20:39)
[2020-11-02] MEDS: LORazepam 0.5 MG TAB PO SCH (20:39)
[2020-11-02] MEDS ORDERED: traZODone HCL 50 MG TAB PO SCH (21:00)
[2020-11-03] MEDS: MELATONIN 3 MG TAB PO PRN ×2 (00:52→23:35)
--- NOTE | 2020-11-03 06:25 | Electrocardiogram Report ---
Test Reason : Blood Pressure : / mmHG Vent. Rate : 091 BPM Atrial Rate : 091 BPM P-R Int : 144 ms QRS Dur : 132 ms QT Int : 420 ms P-R-T Axes : 022 -12 099 degrees QTc Int : 516 ms Sinus rhythm with occasional Premature ventricular complexes Left bundle branch block Abnormal ECG When compared with ECG of 23-AUG-2020 23:40, Premature ventricular complexes are now Present Confirmed by Mikhail Alcazar ([id number]) on 11/03/2020 6:24:44 AM Referred By: REFERRED SELF Confirmed By:Mikhail Alcazar
[2020-11-03 08:07] LABS: Basophils # (auto) 0.01 K/uL (0-0.2); Basophils % (auto) 0.1 %; Eosinophils # (auto) 0.07 K/uL (0-0.5); Eosinophils % (auto) 0.6 %; Hematocrit (blood only) 44.2 % (37-47); Hemoglobin 14.4 g/dL (12.0-16.0); Immature Granulocytes # (auto) 0.02 K/uL (0.00-0.02); Immature Granulocytes % (auto) 0.2 %; Lymphocytes # (auto) 2.97 K/uL (1.2-3.4); Lymphocytes % (auto) 25.8 %; Mean Corpuscular Hemoglobin 27.2 pg (25-34); Mean Corpuscular Hgb Conc 32.6 g/dL (32-36); Mean Corpuscular Volume 83.6 fL (80-100); Mean Platelet Volume 10.7 fL (7.4-10.4); Monocytes % (auto) 9.6 %; Neutrophils # (auto) 7.32 K/uL (1.4-6.5); Neutrophils % (auto) 63.7 %; Platelet Count 214 K/uL (130-400); RDW Coefficient of Variation 13.5 % (11.5-14.5); RDW Standard Deviation 40.5 fL (36.4-46.3); Red Blood Count 5.29 M/uL (4.2-5.4); White Blood Count 11.49 K/uL (4.8-10.8)
[2020-11-03 08:35] LABS: BUN Creatinine Ratio 35.1 (10-20); Calcium 9.5 mg/dl (8.5-10.1); Est GFR (African American) 102.8; Est GFR (Non-African American) 88.7; Potassium 4.2 mmol/L (3.5-5.1)
[2020-11-03] MEDS ORDERED: CLOPIDOGREL BISULFATE 75 MG TAB PO SCH (09:00)
[2020-11-03] MEDS: INSULIN ASPART 100 UNITS/ML 3 ML PEN SC SCH ×4 (09:09→20:51)
[2020-11-03] MEDS: LORazepam 0.5 MG TAB PO SCH ×2 (09:09→20:51)
[2020-11-03] MEDS: VENLAFAXINE HCL XR 75 MG CAPXR PO SCH (09:11)
[2020-11-03] MEDS: ASPIRIN 81 MG ECTAB PO SCH (09:11)
[2020-11-03] MEDS: ATORVASTATIN 40 MG TAB PO SCH (09:12)
[2020-11-03 10:31] LABS: Estimated Average Glucose 157 mg/dl; Hemoglobin A1C 7.1 % (4.5-5.6)
--- NOTE | 2020-11-03 13:05 | Communication Note ---
Date of Service: November 03, 2020 Abiagil looks somewhat improved today but still has the resting and intentional pill-rolling tremor of the left hand and leg and still has a little cogwheeling but is improved from yesterday now that her trazodone dose was reduced and her bladder infection is being treated. 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 She insists it was not present until recently but frankly we saw this a year ago and office notes from Fide Quintanilla do document a left sided hemiparesis with tremulousness so I suspect this is been coming on for some time I do not think she had a TIA yesterday. I think she had a toxic induced worsening of her underlying movement disorder and hemiparesis and I do not think were justified in adding Plavix to her aspirin so we stopped this and certainly the MRI does not reveal any new areas of infarction and there is no clear source of emboli My recommendations would be to stop the trazodone, try some melatonin to induce sleep, and continue obviously treating a urinary tract infection. I am going to check back with her tomorrow. I am still considering initiating some low-dose Sinemet here if she gets back to a normal baseline with minimal tremor and is not functionally incapacitated I will hold off on starting Sinemet and see her on an outpatient basis You might want to have psychiatry review her medications and make any recommendations they have regarding treating her ongoing anxiety and depression. While some of this may have been related to the trazodone I think she also had a reduction in her chronic benzodiazepines and some of the sleep reemerging tremulousness may reflect their absence Sohail Nunez MD
[2020-11-03] MEDS: cefTRIAXone SODIUM 1,000 MG in DEXTROSE 5% 50 ML IV SCH (17:15)
[2020-11-03] MEDS: ENOXAPARIN INJ 40 MG/0.4 ML SYR SQ SCH (17:17)
--- NOTE | 2020-11-03 19:50 | Hospitalist Progress Note ---
Date of Service November 03, 2020 Assessment & Plan (1) Tremor: Brain MRI: No CVA Evaluated by neurologist Trazodone decreased to 25 mg x 2 days then stop PT and OT evaluation Follow-up with neurologist as an outpatient (2) Acute UTI: Recurrent -UA suggest UTI -Not appear septic Urine culture pending Continue ceftriaxone day #2 Family requesting outpatient follow-up with [facility] group urology service (3) Diabetes mellitus, type II: -Hgb A1c 6.8 09/2020 -Hold oral agents -NovoLog per protocol while hospitalized (4) Anxiety: (5) Depression: Mood stable -Will need close outpatient follow-up with Dr. Harvey (6) History of CVA (cerebrovascular accident): -Chronic left-sided weakness -Continue aspirin and statin (7) DVT prophylaxis: -SQ Lovenox Admission and Anticipated Discharge Date Admission Date: November 02, 2020 Subjective Follow-up for status post fall, left lower extremity weakness, left upper extremity tremors, etc. Seen sitting up in bed, having lunch Oriented X3 Not in distress Comfortable States left upper extremity tremors improving States left lower extremity weakness also improving Has mild suprapubic discomfort but no dysuria, denies incontinence, no fevers or chills No other symptoms Review of Systems Review of Systems: All systems reviewed & are unremarkable except as noted in Subjective Physical Exam Physical Exam: General- oriented x 3, not in distress, speaks in sentences with no effort or accessory muscle use Head- atraumatic Eyes- PERRL, EOMI, anicteric ENT- oropharynx clear Neck- supple, no JVD, no adenopathy, no thyromegaly; carotids +2/2, no bruits appreciated Lungs- clear to auscultation bilaterally, no rales/wheezes Heart- normal rate, regular rhythm; no murmur, no gallop, no rub appreciated Abdomen- normal bowel sounds, nondistended, soft, nontender, no masses or hepatosplenomegaly Extremities- no pretibial edema, no calf tenderness; peripheral pulses intact Neuro- alert, oriented x 3; CN 2-12 grossly intact; motor 5/5 bilaterally except left lower extremity 4/5;sensation 100% on all extremities; no other gross focal neurologic deficits Left upper extremity-mild tremors noted Skin- warm & dry Results & Data Results & Data ([facility]) Vital Signs (Past 12 Hours) Vital Signs Temp Pulse Pulse Resp BP Pulse Ox 11/03/20 16:00 89 11/03/20 12:00 36.8 C 74 16 142/60 H 94 11/03/20 08:31 36.8 C 74 18 140/69 99 11/03/20 08:00 80 Laboratory Results Laboratory Results - last 24 hr 11/03/20 11/03/20 11/03/20 07:15 07:15 07:15 WBC 11.49 H RBC 5.29 Hgb 14.4 Hct 44.2 MCV 83.6 MCH 27.2 MCHC 32.6 RDW Std Deviation 40.5 RDW Coeff of Farida 13.5 Plt Count 214 MPV 10.7 H Immature Gran % (Auto) 0.2 Neut % (Auto) 63.7 Lymph % (Auto) 25.8 [place] % (Auto) 9.6 Eos % (Auto) 0.6 Baso % (Auto) 0.1 Neut # (Auto) 7.32 H Lymph # (Auto) 2.97 [place] # (Auto) 1.10 H Eos # (Auto) 0.07 Baso # (Auto) 0.01 Immature Gran # (Auto) 0.02 Sodium 139 Potassium 4.2 Chloride 104 Carbon Dioxide 29 Anion Gap 6.0 BUN 23 H Creatinine 0.65 Est Cr Clr Drug Dosing 66.0 Est GFR ( Amer) 102.8 Est GFR (Non-Af Amer) 88.7 BUN/Creatinine Ratio 35.1 H Glucose 121 H POC Glucose Estimat Average Glucose 157 Hemoglobin A1c 7.1 H Calcium 9.5 Triglycerides 58 Cholesterol 89 LDL Cholesterol, Calc 40 VLDL Cholesterol, Calc 12 HDL Cholesterol 37 Cholesterol/HDL Ratio 2 11/03/20 11/03/20 11/03/20 07:50 12:01 16:43 WBC RBC Hgb Hct MCV MCH MCHC RDW Std Deviation RDW Coeff of Farida Plt Count MPV Immature Gran % (Auto) Neut % (Auto) Lymph % (Auto) [place] % (Auto) Eos % (Auto) Baso % (Auto) Neut # (Auto) Lymph # (Auto) [place] # (Auto) Eos # (Auto) Baso # (Auto) Immature Gran # (Auto) Sodium Potassium Chloride Carbon Dioxide Anion Gap BUN Creatinine Est Cr Clr Drug Dosing Est GFR ( Amer) Est GFR (Non-Af Amer) BUN/Creatinine Ratio Glucose POC Glucose 141 H 222 H 159 H Estimat Average Glucose Hemoglobin A1c Calcium Triglycerides Cholesterol LDL Cholesterol, Calc VLDL Cholesterol, Calc HDL Cholesterol Cholesterol/HDL Ratio (1) Depression Depression Type: unspecified Qualified Code(s): F32.9 - Major depressive disorder, single episode, unspecified
[2020-11-03] MEDS: traZODone HCL 50 MG TAB PO SCH (19:55)
[2020-11-04 06:47] LABS: Basophils # (auto) 0.02 K/uL (0-0.2); Basophils % (auto) 0.3 %; Eosinophils # (auto) 0.21 K/uL (0-0.5); Eosinophils % (auto) 2.8 %; Hematocrit (blood only) 39.7 % (37-47); Hemoglobin 13.1 g/dL (12.0-16.0); Immature Granulocytes # (auto) 0.01 K/uL (0.00-0.02); Immature Granulocytes % (auto) 0.1 %; Lymphocytes # (auto) 2.11 K/uL (1.2-3.4); Lymphocytes % (auto) 28.1 %; Mean Corpuscular Hemoglobin 27.6 pg (25-34); Mean Corpuscular Volume 83.6 fL (80-100); Monocytes # (auto) 0.76 K/uL (0.11-0.59); Monocytes % (auto) 10.1 %; Neutrophils # (auto) 4.41 K/uL (1.4-6.5); Neutrophils % (auto) 58.6 %; Platelet Count 203 K/uL (130-400); RDW Coefficient of Variation 13.7 % (11.5-14.5); RDW Standard Deviation 41.9 fL (36.4-46.3); Red Blood Count 4.75 M/uL (4.2-5.4); White Blood Count 7.52 K/uL (4.8-10.8)
[2020-11-04 07:28] LABS: BUN Creatinine Ratio 43.8 (10-20); Calcium 9.3 mg/dl (8.5-10.1); Creatinine Clr Calc Pharmacy 71.9 ml/min; Est GFR (African American) 106.1; Est GFR (Non-African American) 91.6; Potassium 3.9 mmol/L (3.5-5.1)
[2020-11-04] MEDS: INSULIN ASPART 100 UNITS/ML 3 ML PEN SC SCH ×4 (07:57→21:42)
[2020-11-04] MEDS: ASPIRIN 81 MG ECTAB PO SCH (08:00)
[2020-11-04] MEDS: VENLAFAXINE HCL XR 75 MG CAPXR PO SCH (08:00)
[2020-11-04] MEDS: ATORVASTATIN 40 MG TAB PO SCH (08:00)
[2020-11-04] MEDS: LORazepam 0.5 MG TAB PO SCH ×2 (08:01→21:42)
[2020-11-04] MEDS: POLYETHYLENE (MIRALAX) 17 GM PACK PO PRN (08:05)
--- NOTE | 2020-11-04 13:15 | Communication Note ---
Date of Service: November 04, 2020 Abigail has been transferred out of the unit to the regular floor, looks well, feels better, slept all night, and the tremor of the left arm and leg is reduced to what I think is probably his baseline but still has some parkinsonian features, the cogwheeling and rigidity seems less and apparently there is plans to potentially transfer to rehabilitation She is going to be off the trazodone and urinary tract infection is responding to treatment. She is going to be followed by psychiatry on an outpatient basis The exam still shows what I think is a mild hemiparkinsonism that could be vascular and may or may not respond to Sinemet and at this point not sure she really needs any medication and she is functioning close to her old baseline I am going to sign off the case but will suggest that she come back and see us in follow-up in about 4 to 6 weeks. She has seen Katherin Pritchard and myself in the past so I would suggest that we reevaluate her and decide about potentially an outpatient trial of very low-dose Sinemet Sohail Nunez MD
[2020-11-04] MEDS: ENOXAPARIN INJ 40 MG/0.4 ML SYR SQ SCH (16:54)
[2020-11-04] MEDS: cefTRIAXone SODIUM 1,000 MG in DEXTROSE 5% 50 ML IV SCH (16:54)
--- NOTE | 2020-11-04 20:29 | Hospitalist Progress Note ---
Date of Service November 04, 2020 Assessment & Plan (1) Tremor: Brain MRI: No CVA Evaluated by neurologist Trazodone decreased to 25 mg x 2 days then stop, d/c tomorrow PT and OT evaluation Follow-up with neurologist as an outpatient (2) Acute UTI: Recurrent -UA suggest UTI -Not appear septic Urine culture E coli Continue ceftriaxone day #3 Family requesting outpatient follow-up with [facility] urology service (3) Diabetes mellitus, type II: -Hgb A1c 6.8 09/2020 -Hold oral agents -NovoLog per protocol while hospitalized (4) Anxiety: (5) Depression: Mood stable -Will need close outpatient follow-up with Dr. Harvey (6) History of CVA (cerebrovascular accident): -Chronic left-sided weakness -Continue aspirin and statin (7) DVT prophylaxis: -SQ Lovenox Admission and Anticipated Discharge Date Admission Date: November 04, 2020 Subjective ff up for tremors, UTI seen resting in bed, comfortable states LUE tremors continues to improve leg weakness improving able to ambulate this AM with minimal LLE tremor no dysuria, chills, nausea no other symptoms Review of Systems Review of Systems: All systems reviewed & are unremarkable except as noted in Subjective Physical Exam Physical Exam: General- oriented x 3, not in distress, speaks in sentences with no effort or accessory muscle use Eyes- anicteric Neck- no JVD Lungs- clear BS BL Heart- normal rate, regular rhythm; no murmurs Abdomen- normal bowel sounds, nondistended, soft, nontender Extremities- RUE very mild tremors no pretibial edema, no calf tenderness Neuro- alert, oriented x 3; no new gross focal neurologic deficits Skin- warm & dry Results & Data Results & Data ([facility]) Vital Signs (Past 12 Hours) Vital Signs Temp Pulse Resp BP Pulse Ox 11/04/20 15:35 36.8 C 99 H 20 136/76 92 11/04/20 10:35 37.0 C 106 H 20 106/65 94 11/04/20 09:14 36.7 C 102 H 18 104/58 L 96 Laboratory Results Speech Therapy Interventions [facility] (Inpt) - Evaluation* Start: 11/02/20 15:22 Freq: ONCE Status: Active Protocol: Document 11/03/20 09:28 LAURI (Rec: 11/03/20 09:[id number]) [facility] - Evaluation Type of Evaluation Evaluation Completed Yes Rehab Assessment Type Speech/Language Eval [facility] Evaluation Type Productivity Report Report Orders received as part of stroke set. EMR reviewed. Pt . currently has no neurological deficits and passed the dysphagia screening . She is tolerating a regular diet. Neurology screen, [place], and NHISS are 0. Pt s chest x-ray, MRI and Head CT were negative. There is no indication that pt. would benefit from formal [facility] assessment. Pt. has been screened by Speech therapy 2 other times this year 11/16/2019 , and 08/10/2020 with the same symptoms. Plan/Recommendation Will Follow-up No Recommendations none at this time (1) Depression Depression Type: unspecified Qualified Code(s): F32.9 - Major depressive disorder, single episode, unspecified
[2020-11-04] MEDS: MELATONIN 3 MG TAB PO PRN (23:33)
[2020-11-05 07:43] LABS: Basophils # (auto) 0.01 K/uL (0-0.2); Basophils % (auto) 0.1 %; Eosinophils # (auto) 0.25 K/uL (0-0.5); Eosinophils % (auto) 2.8 %; Hematocrit (blood only) 41.3 % (37-47); Hemoglobin 13.4 g/dL (12.0-16.0); Immature Granulocytes # (auto) 0.02 K/uL (0.00-0.02); Immature Granulocytes % (auto) 0.2 %; Lymphocytes # (auto) 1.93 K/uL (1.2-3.4); Lymphocytes % (auto) 21.7 %; Mean Corpuscular Hemoglobin 27.3 pg (25-34); Mean Corpuscular Hgb Conc 32.4 g/dL (32-36); Mean Corpuscular Volume 84.1 fL (80-100); Mean Platelet Volume 11.3 fL (7.4-10.4); Monocytes % (auto) 10.1 %; Neutrophils % (auto) 65.1 %; Platelet Count 196 K/uL (130-400); RDW Coefficient of Variation 13.7 % (11.5-14.5); RDW Standard Deviation 41.9 fL (36.4-46.3); Red Blood Count 4.91 M/uL (4.2-5.4); White Blood Count 8.91 K/uL (4.8-10.8)
[2020-11-05] MEDS: POLYETHYLENE (MIRALAX) 17 GM PACK PO PRN (08:25)
[2020-11-05] MEDS: INSULIN ASPART 100 UNITS/ML 3 ML PEN SC SCH ×4 (08:27→20:48)
[2020-11-05] MEDS: LORazepam 0.5 MG TAB PO SCH ×2 (08:28→20:47)
[2020-11-05] MEDS: VENLAFAXINE HCL XR 75 MG CAPXR PO SCH (08:28)
[2020-11-05] MEDS: ATORVASTATIN 40 MG TAB PO SCH (08:28)
[2020-11-05] MEDS: ASPIRIN 81 MG ECTAB PO SCH (08:28)
[2020-11-05 08:35] LABS: BUN Creatinine Ratio 37.5 (10-20); Calcium 9.4 mg/dl (8.5-10.1); Creatinine Clr Calc Pharmacy 62.4 ml/min; Est GFR (African American) 101.3; Est GFR (Non-African American) 87.4; Potassium 4.6 mmol/L (3.5-5.1)
[2020-11-05] MEDS: ENOXAPARIN INJ 40 MG/0.4 ML SYR SQ SCH (15:59)
[2020-11-05] MEDS: cefTRIAXone SODIUM 1,000 MG in DEXTROSE 5% 50 ML IV SCH (15:59)
--- NOTE | 2020-11-05 18:02 | Hospitalist Progress Note ---
Date of Service November 05, 2020 Assessment & Plan (1) Tremor: Brain MRI: No CVA Evaluated by neurologist Trazodone decreased to 25 mg x 2 days then discontinued PT and OT evaluation: Recommending inpatient rehab Trazodone and Depakote level tomorrow per neurology recommendations Follow-up with neurologist as an outpatient (2) Acute UTI: Recurrent Urine culture E coli Continue ceftriaxone day #4 Family requesting outpatient follow-up with [facility] urology service (3) Diabetes mellitus, type II: -Hgb A1c 6.8 09/2020 -Hold oral agents -NovoLog per protocol while hospitalized (4) Anxiety: (5) Depression: Mood stable Continue Effexor -Will need close outpatient follow-up with Dr. Harvey (6) History of CVA (cerebrovascular accident): -Chronic left-sided weakness -Continue aspirin and statin (7) DVT prophylaxis: -SQ Lovenox Disposition Awaiting acceptance to [facility] Care discussed with patient and her daughter over the phone in detail and at length All questions were answered They understand, agreeable, comfortable with the plan of care Admission and Anticipated Discharge Date Admission Date: November 04, 2020 Subjective Follow-up for tremors, TIA, etc. Seen resting in bed, comfortable, no distress, sitting up Oriented x3, calm and cooperative, pleasant States she feels improving overall Still has some mild left upper extremity tremor [place] some mild weakness and tremor of the left lower extremity this morning when going to the commode Denies abdominal pain, nausea vomiting, dysuria, fevers or chills No other symptom She would like to transition to rehab to get stronger Review of Systems Review of Systems: All systems reviewed & are unremarkable except as noted in Subjective Physical Exam Physical Exam: General- oriented x 3, not in distress, speaks in sentences with no effort or accessory muscle use Eyes- anicteric Neck- no JVD Lungs- clear breath sounds bilaterally, no rales/wheezes Heart- normal rate, regular rhythm; no murmurs Abdomen- normal bowel sounds, nondistended, soft, nontender Extremities- no pretibial edema, no calf tenderness Mild right upper extremity tremor Neuro- alert, oriented x 3; no gross focal neurologic deficits Skin- warm & dry Results & Data Results & Data ([facility]) Vital Signs (Past 12 Hours) Vital Signs Temp Pulse Resp BP Pulse Ox 11/05/20 15:54 36.8 C 99 H 18 110/54 L 93 11/05/20 08:18 36.2 C L 105 H 14 147/77 H 94 Laboratory Results Laboratory Results - last 24 hr 11/04/20 11/05/20 11/05/20 20:03 07:20 07:20 WBC 8.91 RBC 4.91 Hgb 13.4 Hct 41.3 MCV 84.1 MCH 27.3 MCHC 32.4 RDW Std Deviation 41.9 RDW Coeff of Farida 13.7 Plt Count 196 MPV 11.3 H Immature Gran % (Auto) 0.2 Neut % (Auto) 65.1 Lymph % (Auto) 21.7 [place] % (Auto) 10.1 Eos % (Auto) 2.8 Baso % (Auto) 0.1 Neut # (Auto) 5.80 Lymph # (Auto) 1.93 [place] # (Auto) 0.90 H Eos # (Auto) 0.25 Baso # (Auto) 0.01 Immature Gran # (Auto) 0.02 Sodium 140 Potassium 4.6 D Chloride 105 Carbon Dioxide 30 Anion Gap 5.0 BUN 25 H Creatinine 0.68 Est Cr Clr Drug Dosing 62.4 Est GFR ( Amer) 101.3 Est GFR (Non-Af Amer) 87.4 BUN/Creatinine Ratio 37.5 H Glucose 159 H POC Glucose 163 H Calcium 9.4 11/05/20 11/05/20 11/05/20 08:13 12:24 17:30 WBC RBC Hgb Hct MCV MCH MCHC RDW Std Deviation RDW Coeff of Farida Plt Count MPV Immature Gran % (Auto) Neut % (Auto) Lymph % (Auto) [place] % (Auto) Eos % (Auto) Baso % (Auto) Neut # (Auto) Lymph # (Auto) [place] # (Auto) Eos # (Auto) Baso # (Auto) Immature Gran # (Auto) Sodium Potassium Chloride Carbon Dioxide Anion Gap BUN Creatinine Est Cr Clr Drug Dosing Est GFR ( Amer) Est GFR (Non-Af Amer) BUN/Creatinine Ratio Glucose POC Glucose 237 H 173 H 150 H Calcium (1) Depression Depression Type: unspecified Qualified Code(s): F32.9 - Major depressive disorder, single episode, unspecified
[2020-11-05] MEDS ORDERED: XOPENEX/ATROVENT 1.25mg/0.5MG NEB COMBO NEB PRN (21:54)
[2020-11-05] MEDS ORDERED: LEVALBUTEROL 1.25MG/0.5ML NEB INH PRN (22:00)
[2020-11-05] MEDS ORDERED: IPRATROPIUM BROMIDE NEB SOLN 0.02% 2.5 ML VIAL INH PRN (22:00)
[2020-11-06] MEDS: LORazepam 0.5 MG TAB PO SCH ×2 (08:01→20:50)
[2020-11-06] MEDS: POLYETHYLENE (MIRALAX) 17 GM PACK PO PRN (08:01)
[2020-11-06] MEDS: ATORVASTATIN 40 MG TAB PO SCH (08:02)
[2020-11-06] MEDS: VENLAFAXINE HCL XR 75 MG CAPXR PO SCH (08:02)
[2020-11-06] MEDS: ASPIRIN 81 MG ECTAB PO SCH (08:02)
--- NOTE | 2020-11-06 08:09 | XRay Report ---
XR chest 1V portable CLINICAL HISTORY: wheeze COMPARISON STUDY: 09/26/2020 FINDINGS: The cardiac and mediastinal contours are normal. There is no evidence of focal pulmonary co nsolidation. There is no evidence of failure. No pleural effusions are visualized.[ IMPRESSION: No active disease in the chest. ACT 112: Negative or not required by law. Electronically signed by: Juan Nj M.D. 11/06/2020 8:08 AM
[2020-11-06] MEDS: INSULIN ASPART 100 UNITS/ML 3 ML PEN SC SCH ×4 (08:50→20:50)
[2020-11-06] MEDS: ADVANCED PROBIOTIC 1250 MG CAPSULE PO SCH (10:36)
--- NOTE | 2020-11-06 13:11 | Hospitalist Progress Note ---
Date of Service November 06, 2020 Assessment & Plan (1) Tremor: Brain MRI: No CVA Evaluated by neurologist, and was felt to be secondary to trazodone Trazodone decreased to 25 mg x 2 days then discontinued PT and OT evaluation: Recommending inpatient rehab Trazodone and Depakote level tomorrow per neurology recommendations Follow-up with neurologist as an outpatient (2) Acute UTI: Recurrent Has had at least 4 UTI episodes in the past year per patient's daughter Urine culture E coli Continue ceftriaxone day #5, recommend to complete total of 10-day course of antibiotic for E. coli UTI, transition to cefdinir upon discharge Family requesting to set up outpatient follow-up with [facility] urology service soon (3) Diabetes mellitus, type II: -Hgb A1c 6.8 09/2020 -Hold oral agents -NovoLog per protocol while hospitalized (4) Anxiety: (5) Depression: Mood stable Continue Effexor, Ativan -Will need close outpatient follow-up with Dr. Harvey (6) History of CVA (cerebrovascular accident): -Chronic left-sided weakness -Continue aspirin and statin (7) DVT prophylaxis: -SQ Lovenox [facility] Care discussed with patient and her daughter over the phone in detail and at length All questions were answered They understand, agreeable, comfortable with the plan of care Admission and Anticipated Discharge Date Admission Date: November 04, 2020 Subjective Follow-up for tremors, UTI, etc. Seen resting in bed, comfortable, watching video in her smart phone Oriented x3, calm, cooperative, pleasant States she feels fine overall Minimal left upper extremity tremor Minimal weakness in the left lower extremity Denies abdominal pain, fevers or chills, nausea vomiting, dysuria No other symptom Review of Systems Review of Systems: All systems reviewed & are unremarkable except as noted in Subjective Physical Exam Physical Exam: General- oriented x 3, not in distress, speaks in sentences with no effort or accessory muscle use Eyes- anicteric Neck- no JVD Lungs- clear breath sounds bilaterally Heart- normal rate, regular rhythm; no murmurs Abdomen- normal bowel sounds, nondistended, soft, nontender Extremities- no pretibial edema, no calf tenderness Left upper extremity: Minimal tremor Left lower extremity: Essentially Neuro- alert, oriented x 3; no gross focal neurologic deficits Skin- warm & dry Results & Data Results & Data ([facility]) Vital Signs (Past 12 Hours) Vital Signs Temp Pulse Resp BP Pulse Ox 11/06/20 07:20 36.5 C 100 H 18 114/65 98 (1) Depression Depression Type: unspecified Qualified Code(s): F32.9 - Major depressive disorder, single episode, unspecified
[2020-11-06] MEDS: cefTRIAXone SODIUM 1,000 MG in DEXTROSE 5% 50 ML IV SCH (15:11)
[2020-11-06] MEDS: ENOXAPARIN INJ 40 MG/0.4 ML SYR SQ SCH (15:11)
[2020-11-06] MEDS: MELATONIN 3 MG TAB PO PRN (20:50)
[2020-11-07] MEDS: ADVANCED PROBIOTIC 1250 MG CAPSULE PO SCH (09:04)
[2020-11-07] MEDS: LORazepam 0.5 MG TAB PO SCH ×2 (09:04→21:54)
[2020-11-07] MEDS: VENLAFAXINE HCL XR 75 MG CAPXR PO SCH (09:05)
[2020-11-07] MEDS: ATORVASTATIN 40 MG TAB PO SCH (09:05)
[2020-11-07] MEDS: ASPIRIN 81 MG ECTAB PO SCH (09:05)
[2020-11-07] MEDS: INSULIN ASPART 100 UNITS/ML 3 ML PEN SC SCH ×4 (09:06→21:56)
[2020-11-07] MEDS: POLYETHYLENE (MIRALAX) 17 GM PACK PO PRN (15:19)
[2020-11-07] MEDS: ENOXAPARIN INJ 40 MG/0.4 ML SYR SQ SCH (15:32)
--- NOTE | 2020-11-07 17:02 | Hospitalist Progress Note ---
Date of Service November 07, 2020 Assessment & Plan (1) Tremor: ANXIETY ATTACK /PANIC DISORDER : symptoms are worse recently as she thinks her anxiety medications were changed at [facility] her tremor gets worse with anxiety -to the point she can not walk . on scheduled dose of Ativan 0.5 mg BID will order PRN Vistaril was on Trazodone -which is weaned off due to tremor Psych consult requested for medication adjustment pt follows with Dr Rivera in clinic Tremors : Possible medication induced-trazodone( Trazodone decreased to 25 mg x 2 days then discontinued ) /essential tremor symptoms worsened due to anxiety attacks ordered for PO Propranolol Appreciate input from neurology No evidence of stroke Brain MRI: No CVA PT and OT evaluation appreciated: Recommending inpatient rehab Follow-up with neurologist as an outpatient in 4-6 weeks (2) Acute UTI: Recurrent Has had at least 4 UTI episodes in the past year per patient's daughter Urine culture E coli changed to PO Abx outpatient follow-up with [facility] group urology service -on discharge (3) Diabetes mellitus, type II: -Hgb A1c 6.8 09/2020 -Hold oral agents -NovoLog per protocol while hospitalized (4) Anxiety: worsening of symptoms discussion as above (5) Depression: pt is anxious and glittery now on Effexor, Ativan-Psych consult requested Trazodone discontinued as outlined above -Will need close outpatient follow-up with Dr. Harvey (6) History of CVA (cerebrovascular accident): -Chronic left-sided weakness-parietal of brain, no evidence of any new ischemia or stroke -Continue aspirin and statin (7) DVT prophylaxis: -SQ Lovenox Disposition , insurance denial for acute rehab/[facility] health Referral made for skilled rehab Plan of care updated to Patient and Patient's daughter Lindsey over phone comfortable with Treatment plan , all questions answered Admission and Anticipated Discharge Date Admission Date: November 04, 2020 Subjective Follow-up for tremors, anxiety attack : pt reports of feeling very anxious , having panic attacks causing her tremors to get worse , which making her more anxious . she has been struggling with anxiety attacks and depression for long time was admitted at [facility] denies of any weakness or paresthesia , no difficulty in speech no headache or visual symptoms was talking on phone as i walked in worried about not able to function at home due to her anxiety and tremors Review of Systems Review of Systems: All systems reviewed & are unremarkable except as noted in HPI & below Constitutional: no fever and no chills Neurologic: + tremor(s); no gait abnormality, no unsteadiness, no numbness, no dizziness, no headache(s), no abnormal speech and no confusion Psychiatric: + anxiety and + panic attacks Physical Exam Constitutional: WD/WN, vitals as above Eyes: PERRL, conjunctivae normal, anicteric sclerae ENMT: external ear and nose normal, oropharynx normal Neck: trachea midline, no thyromegaly Respiratory: normal respiratory effort, lungs clear to auscultation Cardiovascular: RRR, no murmur, no edema Gastrointestinal (Abdomen): normal bowel sounds, soft, nontender, no hepatosplenomegaly Musculoskeletal: no cyanosis or clubbing, extremities motor strength 5/5 Skin: no rashes, warm and dry Neurologic: PERRL, EOMI, accommodation nl, no face palsy, no dysarthria Psychiatric: Orientation: alert and oriented x 3 Motor Behavior: + tremor Speech: normal rate/rhythm/volume of speech Affect: + anxious affect Mood: + anxious mood Thought Process: goal directed thought process Suicidal Thoughts: denies suicidal thoughts Homicidal Thoughts: denies homicidal thoughts Insight: good insight Judgement: good judgement Results & Data Results & Data ([facility]) Vital Signs (Past 12 Hours) Vital Signs Temp Pulse Resp BP Pulse Ox 11/07/20 15:30 36.7 C 100 H 16 125/66 95 11/07/20 07:30 36.3 C L 95 H 18 126/65 96 (1) Depression Depression Type: unspecified Qualified Code(s): F32.9 - Major depressive disorder, single episode, unspecified
[2020-11-07] MEDS ORDERED: LORazepam 0.5 MG TAB PO PRN (19:10)
[2020-11-07] MEDS: PROPRANOLOL HCL 10 MG TAB PO SCH (21:54)
[2020-11-07] MEDS: CEFDINIR 300 MG CAP PO SCH (21:54)
[2020-11-07] MEDS: MELATONIN 3 MG TAB PO PRN (23:36)
[2020-11-08] MEDS: LORazepam 0.5 MG TAB PO SCH (08:50)
[2020-11-08] MEDS: INSULIN ASPART 100 UNITS/ML 3 ML PEN SC SCH ×4 (08:50→21:17)
[2020-11-08] MEDS: CEFDINIR 300 MG CAP PO SCH ×2 (08:51→20:40)
[2020-11-08] MEDS: PROPRANOLOL HCL 10 MG TAB PO SCH ×2 (08:51→20:40)
[2020-11-08] MEDS: ATORVASTATIN 40 MG TAB PO SCH (08:52)
[2020-11-08] MEDS: ASPIRIN 81 MG ECTAB PO SCH (08:52)
[2020-11-08] MEDS: VENLAFAXINE HCL XR 75 MG CAPXR PO SCH (08:52)
[2020-11-08] MEDS: ADVANCED PROBIOTIC 1250 MG CAPSULE PO SCH (08:52)
--- NOTE | 2020-11-08 09:06 | Psychiatric Consultation ---
Date of Consultation November 08, 2020 Impression / Recommendations Impression Dr. Gregoria Snow was directly involved in review and discussion of the patient's case and participated in medical decision making regarding treatment recommendations. RECOMMENDATIONS: 11/08 - Psychiatric consultation requested to evaluate patient for anxiety/panic attacks. Case management documentation also suggests patient will require [employer] for referral to rehab facilities due to recent psychiatric hospitalization at [facility]. Pt does provide what seems to be a reliable history of recent medication adjustments. - Records requested and reviewed from [facility] (admitted 09/26/2020 - 10/04/2020); we have also requested records from her outpatient psychiatrist, Dr. Harvey, as it does appear she has had recent medication adjustments which will need clarified. Pt states she sees a counselor through [facility], but has been looking for a more consistent outpatient therapist. Depending on the holiday and timeline of discharge, we can attempt to assist with referrals for this if possible. - PDMP queried: pt last filled #40 tablets (20 day supply) of 0.5mg lorazepam on 10/24/2020. Refills of the medication had been consistent each month, though no clear indication of misuse/abuse, though use appears to be chronic and patient may not tolerate abrupt discontinuation of the medication. Would, however, consider converting lorazepam to longer-acting clonazepam 0.25mg BID scheduled to target anxiety and assist with interrupted sleep patterns. If 0.25mg dose is insufficient for anxiety titration could be considered; however, consideration should be taken for risk of falls, confusion, sedation, and abuse/misuse potential. Ideally, this medication would be tapered to discontinuation but based on patient's long history of use it would be recommended that these steps to be taken gradually on an outpatient basis. - Pt can be continued to venlafaxine 75mg daily. It does seem that she may have been more activated on 150mg dosing, but states this improved somewhat when dose was reduced back to 75mg. If acute anxiety, activation, or sleep concerns continue - would encourage consideration of switching to duloxetine as primary m edication to target mood and anxiety (hopefully with less activating properties and therefore less contribution to worsen anxiety). Pt to follow-up with Dr. Harvey for continued outpatient psychiatric medication management, and we can fax our consult documentation for coordination of care. - Based on today's assessment patient appears psychiatrically appropriate for management in the inpatient rehab/SNF/PCH setting. She is denying SI/HI, SIB, hallucinations, or other acute psychiatric symptoms. No indication at this time that inpatient psychiatric treatment is necessary. We appreciate the opportunity to participate in the care of this patient. Please reach out to our service with any additional questions or updates. Risk Factors Assessment Do You Have Access To A Gun?: No Psych History Identifying Data 70-year-old female admitted medically on 11/02/2020 after presenting to the ED with recent fall and left-sided weakness. Neurology consulted due to stroke- alert in ED; however no evidence of acute CVA. There was reported concern for UTI as well as recent psychiatric medication adjustments. Psychiatric consultation was requested to evaluate patient for anxiety. Chief Complaint "Well, my [id number] was helping me out for a while, but I lost my evening science and operations officer. Now I'm really worried about being alone at night." History of Present Illness 70-year-old female admitted medically on 11/02/2020 after presenting to the ED with recent fall and left-sided weakness. Neurology consulted due to stroke- alert in ED. Symptoms felt to be related to either TIA, UTI, or recent psychiatric medication adjustments. Neurology recommended taper and discontinuation of trazodone and consideration of Sinemet once trazodone was discontinued and UTI had cleared. Psychiatric consultation was requested by our hospitalist team at this point in the pateint's stay due to acute anxiety and panic attacks. Case management documentation also suggests the patient will be a [employer] for referrals to rehab/SNF/PCH facility due to recent admission to [facility] for psychiatric treatment from 09/26/2020 - 10/04/2020. Pt was cooperative with psychiatric assessment. She admits that she had been struggling with many stressors since 07/2020, including: moving into a new apartment, [id number] no longer able to assist with care, isolation related to COVID-19, and political stressors. Pt states her anxiety is heightened in the evenings, when her caregiver leaves and she is at home alone. Pt reports a fear of falling and being alone, which is likely also contributing to difficulty sleeping. Pt states that she recalls struggling with anxiety as a child, but reports "July was the first time in over 20 years that the anxiety came back." Pt denies symptoms of panic attacks, but rather consistently elevated anxiety level in the evenings. The patient does seem to be a somewhat reliable historian with regard to recent medication adjustments. She states she was discharged from [facility] on 15mg of Lexapro and 75mg of Effexor, as well as Ativan as needed for anxiety. The patient states she continued to notice improvements after leaving the psychiatric facility, but changes that were made in the outpatient setting reportedly were not tolerated. Pt states that her Effexor was increased to 150mg and "my Ativan was taken away altogether." She reports a marked increase in anxiety at that time. It does appear that her Effexor was again reduced to 75mg. Pt admits to intermittent hopelessness as well as feeling as though she is a burden on her family. Pt states "my supports are losing patience with me and don't want to help, but I'm scared to take care of myself." Pt states she would ultimately like to return home to her handicap- accessible apartment, but feels she will require additional supports in order to feel safe with that discharge plan. Pt denies any safety issues outside of this concern. She denies SI/HI, hallucinations, or other acute mood symptoms. She does wish to establish services with a regular therapist, but states she has been having phone calls with a counselor through [facility]. Pt also recently started seeing Dr. Harvey after her discharge from [facility]. Pt denied other needs or concerns at this time. Records were requested and discharge summary was received from [facility], summarized below: Admission date - 09/26/2020; Discharge date - 10/04/2020 Discharge Diagnoses: - Major depressive disorder, recurrent, severe, without psychotic features - Generalized anxiety disorder - Posttraumatic stress disorder, in remission - Urinary tract infection, resolved - Multiple medical problems: CVA, hepatitis C in remission, hx of TIA, spinal stenosis, s/p multiple surgeries Psychotropic medications on discharge: - Trazodone 50mg tab - 0.5 tabs qHS for insomnia - Effexor 75mg cap - 1 cap PO daily - Lexapro 10mg tab - 1.5mg tab daily - to be tapered by outpatient psychiatrist - Lorazepam 0.5mg tab - 2 tab PO TID prn anxiety x 7 days - Lorazepam 0.5mg tab - 1 ttab PO BID prn anxiety x 30 days - Melatonin 3mg tab - 0.5mg qHS prn insomnia Treatment Summary: Pt was admitted voluntarily on a 201 for worsening depression and anxiety, brought to [facility] ED by daughter after making "suicidal statements and passive wishes." Pt recently had a CVA requiring her to quit her job, receive waiver services, and require 24-7 in-home caregivers. She also reported increased tension with family supports and feeling she is a burden to her family. At admission, patient was prescribed escitalopram 30mg daily, lorazepam 0.5mg qHS, and melatonin 5.5mg qHS prn insomnia. She was also di agnosed with a UTI. Pt's escitalopram was tapered to dose of 15mg and venlafaxine was initiated as a cross-taper, titrated to 75mg by time of discharge. Pt was ordered additional doses of lorazepam to target acute anxiety as needed, as it was reported she was having breakthrough anxiety and was unable to perform her ADLs. Significant improvement was reported with these medication adjustments, but sleep issues continued. Pt was started on 25mg of trazodone at for these concerns. OT/PT evals and follow-ups were completed to address left-sided weakness after CVA. Aftercare was set up with Dr. Harvey for follow up after discharge. Pt had reported improvement in anxiety and depression at time of discharge. Past Psychiatric History Current Psychiatric Diagnosis: reported diagnoses of depression and anxiety Outpatient Services: Psychiatrist - Dr. Harvey - [facility] (Pt had previously been working with Dr. Hartley; there are also prescriptions sent as recently as 08/2020 by [facility] psychiatrist, Dr. Rebollar.) [facility] (patient states she has been looking for a regular therapist) Previous Psych Admissions: [facility]: 09/26/2020 - 10/04/2020 for worsening depression and anxiety. Pt states she was hospitalized medically at age 16 for "a nervous breakdown", but states "before [facility] I was never institutionalized" Do You Have Access To A Gun?: No History of Previous Suicide Attempt: No Past Medication Trials: 1. Lexapro 2. Ativan 3. Effexor 4. Trazodone 5. Melatonin Allergies Allergy/AdvReac Type Severity Reaction Status Date / Time Iodinated Contrast Media Allergy Severe HEAD TO Verified 08/23/20 23:37 TOE HIVES morphine Allergy Severe hives Verified 08/23/20 23:37 oxycodone Allergy Intermediate Hives Verified 08/23/20 23:37 clavulanic acid Allergy Unknown FROM Verified 08/23/20 23:37 AUGMENTIN Penicillins Allergy Unknown FROM Verified 08/23/20 23:37 AUGMENTIN amitriptyline AdvReac Severe INCREASES Verified 08/23/20 23:37 HEART RATE clarithromycin AdvReac Intermediate LIGHT Verified 08/23/20 23:37 HEADED, FAINTY FEELING acetaminophen AdvReac Unknown NOT ABLE Verified 08/23/20 23:37 TO TAKE DUE TO HX HEPATITIS Cephalosporins AdvReac Unknown CEFTIN--GI Verified 08/23/20 23:37 UPSET Home Medications Medication Instructions Recorded Confirmed Type aspirin 81 mg PO DAILY 09/06/18 11/02/20 History lorazepam 0.5 mg PO BID PRN 09/06/18 11/02/20 History milk thistle 175 mg PO [id number] 09/06/18 11/02/20 History vitamin B complex 1 tab PO .OCCASIONALLY 09/06/18 11/02/20 History Tradjenta 5 mg PO DAILY 11/15/19 11/02/20 History coenzyme Q10 [CoQ-10] 100 mg PO DAILY 11/15/19 11/02/20 History atorvastatin 40 mg PO QAM #30 tab 08/13/20 11/02/20 Rx docusate sodium 100 mg PO BID PRN #60 cap 08/13/20 11/02/20 Rx glipizide 10 mg PO DAILY 11/02/20 11/02/20 History trazodone 50 mg PO HS 11/02/20 11/02/20 History venlafaxine [Effexor XR] 75 mg PO DAILY 11/02/20 11/02/20 History Family History Pt reports daughter with depression, and sister/nieces with anxiety. Pt states alcoholism is prevalent on her mother's side of the family. She also acknowledges that her brother attempted suicide. Substance Abuse History Denies significant alcohol or tobacco use. Denies use of illicit substances. Personal History Living Arrangements: Apartment (handicap accessible appartment, with support from family ) Highest Grade Completed: High School Graduate Employment Status: Retired Marital Status: Number Of Children: 3 adult children Beliefs That Will Affect Care: Yazidi (Sikh) History of Legal Problems: Denied Psychological Trauma History Comment: Denied; though [facility] records report a diagnosis of "Posttraumatic stress disorder, in remission" Patient History Medical History Anxiety Depression Diabetes mellitus, type II Dyslipidemia Hepatitis C, chronic History of CVA (cerebrovascular accident) LBBB (left bundle branch block) Surgical History H/O cataract removal with insertion of prosthetic lens History of back surgery History of cholecystectomy History of hysterectomy History of tubal ligation Family History Father Pancreatic cancer Social History Smoking Status: Never smoker Second Hand Exposure: No; Do You Dip or Chew Tobacco: No; Tobacco Cessation Education Requested by Patient: No Hx Alcohol Use: No Hx Substance Use: Yes Preferred Language: Telugu Communication Ability: Effective Nuclear Radiation Engineer Required: No Beliefs That Will Affect Care: Yazidi (Sikh) marital status: Current Living Situation: Alone Current Living Situation Comment: [facility]UR[facility] THE DAY Other Information That Helps Us Care for You: No Feels Safe at Home: No Is there a partner from a previous relationship who is making you feel unsafe now?: No Any Concerns about Your Family Situation: No Would You Like to Speak to Someone About Your Situation: No Safety Concerns: Afraid for Self Assistive Devices: Walker Physical Exam Psychiatric: Orientation: alert, oriented x 3 and cooperative (pleasant, and seems to be a decent historian) Apperance: appropriately dressed, appropriately groomed and appeared stated age Thin-appearing elderly female, laying in bed appearing anxious but in no acute distress. The patient is appropriately dressed for setting, wearing a hospital gown. She appears appropriately groomed, with curly cespedes hair only mildly unkempt from laying in bed. Pt wears corrective lenses. Level of hygiene appears adequate. Eye Contact: good eye contact Motor Behavior: + tremor patient observed while laying in bed Speech: normal rate/rhythm/volume of speech Affect: + depressed affect, + anxious affect and mood congruent with affect Mood: + dep ressed mood and + anxious mood Thought Process: goal directed thought process and clear/coherent thought process Thought Content: reality based without delusions, + hopelessness (intermittently, states this is situational) and + loneliness; no worthlessness Suicidal Thoughts: denies suicidal thoughts, denies suicidal plan and denies suicidal intent Homicidal Thoughts: denies homicidal thoughts Hallucinations: no auditory hallucinations and no visual hallucinations Cognition: recent memory grossly intact, attention grossly intact and language grossly intact Estimated Intelligence: consistent with education level Insight: + fair insight Judgement: + fair judgement Vital Signs (Past 24 Hours): Last Vital Signs Temp 36.5 C 11/08/20 07:41 Pulse 92 H 11/08/20 07:41 Resp 16 11/08/20 07:41 BP 118/60 11/08/20 07:41 Pulse Ox 95 11/08/20 07:41 Review of Systems Constitutional: reported dizziness this morning, now resolved Cardiovascular: denied Respiratory: denied Gastrointestinal: reported nausea this morning, now resolved Neurological: denied Psychiatric: denies symptoms other than stated above Total of at least 10 systems reviewed, pertinent positives as above and in HPI. Results & Data (PSY) Medications Administered Aspirin (Aspirin 81 Mg Ectab) 81 mg PO DAILY STEFANO Stop: 12/03/20 08:59 Last Admin: 11/07/20 09:05 Dose: 81 mg Documented by: [id number] Admin: 11/06/20 08:02 Dose: 81 mg Documented by: [id number] Admin: 11/05/20 08:28 Dose: 81 mg Documented by: [id number] Admin: 11/04/20 08:00 Dose: 81 mg Documented by: [id number] Admin: 11/03/20 09:11 Dose: 81 mg Documented by: [id number] Atorvastatin Calcium (Atorvastatin 40 Mg Tab) 40 mg PO QAM STEFANO Stop: 12/03/20 08:59 Last Admin: 11/07/20 09:05 Dose: 40 mg Documented by: [id number] Admin: 11/06/20 08:02 Dose: 40 mg Documented by: [id number] Admin: 11/05/20 08:28 Dose: 40 mg Documented by: [id number] Admin: 11/04/20 08:00 Dose: 40 mg Documented by: [id number] Admin: 11/03/20 09:12 Dose: 40 mg Documented by: [id number] Cefdinir (Cefdinir 300 Mg Cap) 300 mg PO BID STEFANO Stop: 11/17/20 20:59 Last Admin: 11/07/20 21:54 Dose: 300 mg Documented by: [id number] Enoxaparin Sodium (Enoxaparin Inj 40 Mg/0.4 Ml Syr) 40 mg SQ Q24H [facility] Stop: 12/02/20 15:59 Last Admin: 11/07/20 15:32 Dose: 40 mg Documented by: [id number] Admin: 11/06/20 15:11 Dose: 40 mg Documented by: [id number] Admin: 11/05/20 15:59 Dose: 40 mg Documented by: [id number] Admin: 11/04/20 16:54 Dose: 40 mg Documented by: [id number] Admin: 11/03/20 17:17 Dose: 40 mg Documented by: [id number] Admin: 11/02/20 17:25 Dose: 40 mg Documented by: [id number] Insulin Aspart (Insulin Aspart 100 Units/Ml 3 Ml Pen) 0 units SC ACHS STEFANO Stop: 12/02/20 16:29 Last Admin: 11/07/20 21:56 Dose: 3 units Documented by: [id number] Cosigned by: [id number] Admin: 11/07/20 17:56 Dose: 3 units Documented by: [id number] Cosigned by: [id number] Admin: 11/07/20 13:05 Dose: 4 units Documented by: [id number] Cosigned by: [id number] Admin: 11/07/20 09:06 Dose: 5 units Documented by: [id number] Cosigned by: [id number] Admin: 11/06/20 20:50 Dose: 2 units Documented by: [id number] Cosigned by: [id number] Admin: 11/06/20 18:18 Dose: 6 units Documented by: [id number] Cosigned by: [id number] Admin: 11/06/20 12:54 Dose: 7 units Documented by: [id number] Cosigned by: [id number] Admin: 11/06/20 08:50 Dose: 4 units Documented by: [id number] Cosigned by: [id number] Admin: 11/05/20 20:48 Dose: 4 units Documented by: [id number] Cosigned by: [id number] Admin: 11/05/20 18:04 Dose: 4 units Documented by: [id number] Cosigned by: [id number] Admin: 11/05/20 12:43 Dose: 4 units Documented by: [id number] Cosigned by: [id number] Admin: 11/05/20 08:27 Dose: 6 units Documented by: [id number] Cosigned by: [id number] Admin: 11/04/20 21:42 Dose: 1 units Documented by: [id number] Cosigned by: [id number] Admin: 11/04/20 16:54 Dose: 9 units Documented by: [id number] Cosigned by: [id number] Admin: 11/04/20 11:49 Dose: 7 units Documented by: [id number] Cosigned by: [id number] Admin: 11/04/20 07:57 Dose: 4 units Documented by: [id number] Cosigned by: [id number] Admin: 11/03/20 20:51 Dose: 3 units Documented by: [id number] Cosigned by: [id number] Admin: 11/03/20 17:15 Dose: 5 units Documented by: [id number] Cosigned by: [id number] Admin: 11/03/20 12:24 Dose: 5 units Documented by: [id number] Cosigned by: [id number] Admin: 11/03/20 09:09 Dose: 2 units Documented by: [id number] Cosigned by: [id number] Admin: 11/02/20 20:39 Dose: 4 units Documented by: [id number] Cosigned by: [id number] Admin: 11/02/20 17:27 Dose: 3 units Documented by: [id number] Cosigned by: [id number] Lactobacillus Acidoph/Casei/Rhamnos (Advanced Probiotic 1250 Mg Capsule) 2 cap PO DAILY STEFANO Stop: 12/06/20 09:59 Last Admin: 11/07/20 09:04 Dose: 2 cap Documented by: [id number] Admin: 11/06/20 10:36 Dose: 2 cap Documented by: [id number] Lorazepam (Lorazepam 0.5 Mg Tab) 0.5 mg PO BID STEFANO Stop: 12/02/20 20:59 Last Admin: 11/07/20 21:54 Dose: 0.5 mg Documented by: [id number] Admin: 11/07/20 09:04 Dose: 0.5 mg Documented by: [id number] Admin: 11/06/20 20:50 Dose: 0.5 mg Documented by: [id number] Admin: 11/06/20 08:01 Dose: 0.5 mg Documented by: [id number] Admin: 11/05/20 20:47 Dose: 0.5 mg Documented by: [id number] Admin: 11/05/20 08:28 Dose: 0.5 mg Documented by: [id number] Admin: 11/04/20 21:42 Dose: 0.5 mg Documented by: [id number] Admin: 11/04/20 08:01 Dose: 0.5 mg Documented by: [id number] Admin: 11/03/20 20:51 Dose: 0.5 mg Documented by: [id number] Admin: 11/03/20 09:09 Dose: 0.5 mg Documented by: [id number] Admin: 11/02/20 20:39 Dose: 0.5 mg Documented by: [id number] Melatonin (Melatonin 3 Mg Tab) 3 mg PO HS PRN; Protocol PRN Reason: Sleep Stop: 12/03/20 00:43 Last Admin: 11/07/20 23:36 Dose: 3 mg Documented by: [id number] Polyethylene Glycol (Polyethylene (Miralax) 17 Gm Pack) 17 gm PO DAILY PRN PRN Reason: Constipation Stop: 12/03/20 18:40 Last Admin: 11/07/20 15:19 Dose: 17 gm Documented by: [id number] Admin: 11/06/20 08:01 Dose: 17 gm Documented by: [id number] Admin: 11/05/20 08:25 Dose: 17 gm Documented by: [id number] Admin: 11/04/20 08:05 Dose: 17 gm Documented by: [id number] Propranolol HCl (Propranolol Hcl 10 Mg Tab) 10 mg PO BID STEFANO Stop: 12/07/20 20:59 Last Admin: 11/07/20 21:54 Dose: 10 mg Documented by: [id number] Venlafaxine HCl (Venlafaxine Hcl Xr 75 Mg Capxr) 75 mg PO DAILY STEFANO Stop: 12/03/20 08:59 Last Admin: 11/07/20 09:05 Dose: 75 mg Documented by: [id number] Admin: 11/06/20 08:02 Dose: 75 mg Documented by: [id number] Admin: 11/05/20 08:28 Dose: 75 mg Documented by: [id number] Admin: 11/04/20 08:00 Dose: 75 mg Documented by: [id number] Admin: 11/03/20 09:11 Dose: 75 mg Documented by: [id number] Coding Level of Care Code 83409 U Intl Hosp Care Lvl 3
[2020-11-08] MEDS: ENOXAPARIN INJ 40 MG/0.4 ML SYR SQ SCH (15:51)
--- NOTE | 2020-11-08 18:09 | Hospitalist Progress Note ---
Date of Service November 08, 2020 Assessment & Plan (1) Tremor: ANXIETY ATTACK /PANIC DISORDER : symptoms are worse recently as she thinks her anxiety medications were changed at [facility] her tremor gets worse with anxiety -to the point she can not walk . on scheduled dose of Ativan 0.5 mg BID was on Trazodone -which is weaned off due to tremor Psych consult requested for medication adjustment -appreciate input. pt follows with Dr Rivera in clinic Tremors : Possible medication induced-trazodone( Trazodone decreased to 25 mg x 2 days then discontinued ) /essential tremor symptoms worsened due to anxiety attacks ordered for PO Propranolol -tremor has improved somewhat Appreciate input from neurology No evidence of stroke Brain MRI: No CVA PT and OT evaluation appreciated: Recommending inpatient rehab Follow-up with neurologist as an outpatient in 4-6 weeks (2) Acute UTI: Recurrent Has had at least 4 UTI episodes in the past year per patient's daughter Urine culture E coli changed to PO Abx outpatient follow-up with [facility] urology service -on discharge (3) Diabetes mellitus, type II: -Hgb A1c 6.8 09/2020 -Hold oral agents -NovoLog per protocol while hospitalized (4) Anxiety: worsening of symptoms discussion as above (5) Depression: pt is anxious and glittery now on Effexor, Ativan-Psych consult requested Trazodone discontinued as outlined above -Will need close outpatient follow-up with Dr. Harvey (6) History of CVA (cerebrovascular accident): -Chronic left-sided weakness-parietal of brain, no evidence of any new ischemia or stroke -Continue aspirin and statin (7) DVT prophylaxis: -SQ Lovenox Disposition , insurance denial for acute rehab/[facility] Referral made for skilled rehab Admission and Anticipated Discharge Date Admission Date: November 04, 2020 Subjective Follow-up for tremors, anxiety attack : Patient reports tremors has improved somewhat Still feels very anxious Feels much comfortable after discussing with her psychiatrist regarding her medication. No fever or chills, no headache no visual symptoms No cough no shortness of breath no dyspnea on exertion Review of Systems Review of Systems: All systems reviewed & are unremarkable except as noted in HPI & below Psychiatric: + anxiety Physical Exam Constitutional: WD/WN, vitals as above Eyes: PERRL, conjunctivae normal, anicteric sclerae ENMT: external ear and nose normal, oropharynx normal Neck: trachea midline, no thyromegaly Respiratory: normal respiratory effort, lungs clear to auscultation Cardiovascular: RRR, no murmur, no edema Gastrointestinal (Abdomen): normal bowel sounds, soft, nontender, no hepatosplenomegaly Musculoskeletal: no cyanosis or clubbing, extremities motor strength 5/5 Skin: no rashes, warm and dry Neurologic: PERRL, EOMI, accommodation nl, no face palsy, no dysarthria Psychiatric: Orientation: alert and oriented x 3 Motor Behavior: + tremor Speech: normal rate/rhythm/volume of speech Affect: + anxious affect Mood: + anxious mood Thought Process: goal directed thought process Suicidal Thoughts: denies suicidal thoughts Homicidal Thoughts: denies homicidal thoughts Insight: good insight Judgement: good judgement Results & Data Results & Data ([facility]) Vital Signs (Past 12 Hours) Vital Signs Temp Pulse Resp BP Pulse Ox 11/08/20 15:13 36.8 C 84 17 121/55 L 94 11/08/20 07:41 36.5 C 92 H 16 118/60 95 (1) Depression Depression Type: unspecified Qualified Code(s): F32.9 - Major depressive disorder, single episode, unspecified
[2020-11-08] MEDS: clonazePAM 0.25 MG TAB PO SCH (22:11)
[2020-11-08] MEDS: MELATONIN 3 MG TAB PO PRN (22:11)
[2020-11-09] MEDS: clonazePAM 0.25 MG TAB PO SCH ×2 (07:55→22:21)
[2020-11-09] MEDS: ADVANCED PROBIOTIC 1250 MG CAPSULE PO SCH (08:28)
[2020-11-09] MEDS: VENLAFAXINE HCL XR 75 MG CAPXR PO SCH (08:28)
[2020-11-09] MEDS: CEFDINIR 300 MG CAP PO SCH ×2 (08:28→20:46)
[2020-11-09] MEDS: ASPIRIN 81 MG ECTAB PO SCH (08:28)
[2020-11-09] MEDS: ATORVASTATIN 40 MG TAB PO SCH (08:28)
[2020-11-09] MEDS: PROPRANOLOL HCL 10 MG TAB PO SCH ×2 (08:29→20:46)
[2020-11-09] MEDS: INSULIN ASPART 100 UNITS/ML 3 ML PEN SC SCH ×4 (09:10→21:20)
[2020-11-09] MEDS ORDERED: LORazepam 0.5 MG TAB PO STA (11:13)
[2020-11-09] MEDS: ENOXAPARIN INJ 40 MG/0.4 ML SYR SQ SCH (16:24)
--- NOTE | 2020-11-09 17:25 | Hospitalist Progress Note ---
Date of Service November 09, 2020 Assessment & Plan (1) Tremor: ANXIETY ATTACK /PANIC DISORDER : pt follows with Dr Rivera in clinic Psychiatry consulted, appreciate input, guarded on a scheduled dose of clonazepam, Extra dose of Ativan 0.5 mg given this morning for panic attack. Continue on Effexor, Patient will continue to follow-up with her psychiatry in the clinic on discharge Tremors : Symptom has markedly improved Possible medication induced-trazodone( Trazodone decreased to 25 mg x 2 days then discontinued ) /essential tremor -symptoms worsened due to anxiety attacks Management of an anxiety disorder/panic attack attack as outlined above Started on the propanolol for essential tremor Appreciate input from neurology No evidence of stroke Brain MRI: No CVA Outpatient follow-up with neurologist in 4 to 6 weeks (2) Acute UTI: Recurrent Has had at least 4 UTI episodes in the past year per patient's daughter Urine culture E coli changed to PO Abx cefdinir outpatient follow-up with [facility] group urology service -on discharge (3) Diabetes mellitus, type II: -Hgb A1c 6.8 09/2020 -Hold oral agents be resumed on discharge -NovoLog per protocol while hospitalized (4) Anxiety: management as outlined above (5) Depression: On Effexor discontinued Appreciate input from psychiatry (6) History of CVA (cerebrovascular accident): -Chronic left-sided weakness-parietal of brain, no evidence of any new ischemia or stroke -Continue aspirin and statin (7) DVT prophylaxis: -SQ Lovenox Pain is encouraged to ambulate Disposition Active to be discharged home when medically stable And of care discussed with patient in detail, all questions answered Admission and Anticipated Discharge Date Admission Date: November 04, 2020 Subjective Follow-up for tremors, anxiety attack : Still having anxiety/panic attacks usually in the morning and in the evenings. Hand tremor has improved Patient reports of able to sleep through the night, Does not feel that she is back to her baseline yet. Review of Systems Review of Systems: All systems reviewed & are unremarkable except as noted in HPI & below Neurologic: no tremor(s) Physical Exam Constitutional: WD/WN, vitals as above Eyes: PERRL, conjunctivae normal, anicteric sclerae ENMT: external ear and nose normal, oropharynx normal Neck: trachea midline, no thyromegaly Respiratory: normal respiratory effort, lungs clear to auscultation Cardiovascular: RRR, no murmur, no edema Gastrointestinal (Abdomen): normal bowel sounds, soft, nontender, no hepatosplenomegaly Musculoskeletal: no cyanosis or clubbing, extremities motor strength 5/5 Skin: no rashes, warm and dry Neurologic: PERRL, EOMI, accommodation nl, no face palsy, no dysarthria Psychiatric: Orientation: alert and oriented x 3 Speech: normal rate/rhythm/volume of speech Results & Data [facility] Vital Signs (Past 12 Hours) Vital Signs Temp Pulse Resp BP Pulse Ox 11/09/20 15:07 36.7 C 80 16 112/64 98 11/09/20 06:49 37 C 75 16 125/55 L 96 (1) Depression Depression Type: unspecified Qualified Code(s): F32.9 - Major depressive disorder, single episode, unspecified
[2020-11-09] MEDS: MELATONIN 3 MG TAB PO PRN (22:21)
[2020-11-10] MEDS: PROPRANOLOL HCL 10 MG TAB PO SCH ×2 (09:12→20:26)
[2020-11-10] MEDS: VENLAFAXINE HCL XR 75 MG CAPXR PO SCH (09:12)
[2020-11-10] MEDS: CEFDINIR 300 MG CAP PO SCH ×2 (09:12→20:26)
[2020-11-10] MEDS: ATORVASTATIN 40 MG TAB PO SCH (09:13)
[2020-11-10] MEDS: ADVANCED PROBIOTIC 1250 MG CAPSULE PO SCH (09:13)
[2020-11-10] MEDS: ASPIRIN 81 MG ECTAB PO SCH (09:13)
[2020-11-10] MEDS: INSULIN ASPART 100 UNITS/ML 3 ML PEN SC SCH ×4 (09:17→21:11)
[2020-11-10] MEDS: clonazePAM 0.25 MG TAB PO SCH (09:20)
[2020-11-10] MEDS: LORazepam 0.5 MG TAB PO PRN ×2 (13:06→21:12)
[2020-11-10] MEDS: ENOXAPARIN INJ 40 MG/0.4 ML SYR SQ SCH (15:50)
--- NOTE | 2020-11-10 16:14 | Communication Note ---
Date of Service: November 10, 2020 Attending note: Patient continues to have panic attacks, anxiety episode in the morning. Given Ativan 0.5 mg Ordered scheduled 0.25 mg clonazepam twice daily by psychiatry Increase the dose to 0.5 mg twice daily Asked psychiatry to reevaluate patient for persistent anxiety attacks. Patient will stay in hospital till Thursday for refractory symptoms Irma Barros MD
--- NOTE | 2020-11-10 18:43 | Hospitalist Progress Note ---
Date of Service November 10, 2020 Assessment & Plan (1) Tremor: ANXIETY ATTACK /PANIC DISORDER : pt follows with Dr Rivera in clinic Psychiatry consulted, appreciate input, guarded on a scheduled dose of clonazepam, dose increased to 0.5 mg BId for ongoing anxiety /panic attack Continue on Effexor, Patient will continue to follow-up with her psychiatry in the clinic on discharge Tremors : Symptom has markedly improved Possible medication induced-trazodone( Trazodone decreased to 25 mg x 2 days then discontinued ) /essential tremor -symptoms worsened due to anxiety attacks Management of an anxiety disorder/panic attack attack as outlined above Started on the propanolol for essential tremor Appreciate input from neurology No evidence of stroke Brain MRI: No CVA Outpatient follow-up with neurologist in 4 to 6 weeks (2) Acute UTI: Recurrent Has had at least 4 UTI episodes in the past year per patient's daughter Urine culture E coli changed to PO Abx cefdinir outpatient follow-up with [facility] urology service -on discharge (3) Diabetes mellitus, type II: -Hgb A1c 6.8 09/2020 -Hold oral agents be resumed on discharge -NovoLog per protocol while hospitalized (4) Anxiety: management as outlined above (5) Depression: On Effexor discontinued Appreciate input from psychiatry (6) History of CVA (cerebrovascular accident): -Chronic left-sided weakness-parietal of brain, no evidence of any new ischemia or stroke -Continue aspirin and statin (7) DVT prophylaxis: -SQ Lovenox Pain is encouraged to ambulate Disposition to be determined PT eval in am to assess gait stability pt is very fearful about returning home alone she is approved for 08/06 care service , but has not got any caregivers yet if pt is denied for rehab , discussed option for personal senior living pt prefers to return back to her own home with care nurse rn support social service following And of care discussed with patient and her daughter Lindsey in detail, all questions answered Admission and Anticipated Discharge Date Admission Date: November 04, 2020 Subjective Follow-up for tremors, anxiety attack : having anxiety/panic attacks usually in the morning and in the evenings. Hand tremor has improved klonopin dose increased pt feels that she not back to her baseline yet. very tearful and anxious about returning back to home alone does not feel she will able to take care of her self and deal with panic attacks Review of Systems Psychiatric: as per Subjective / HPI and + anxiety Physical Exam Constitutional: WD/WN, vitals as above Eyes: PERRL, conjunctivae normal, anicteric sclerae ENMT: external ear and nose normal, oropharynx normal Neck: trachea midline, no thyromegaly Respiratory: normal respiratory effort, lungs clear to auscultation Cardiovascular: RRR, no murmur, no edema Gastrointestinal (Abdomen): normal bowel sounds, soft, nontender, no hepatosplenomegaly Musculoskeletal: no cyanosis or clubbing, extremities motor strength 5/5 Skin: no rashes, warm and dry Neurologic: PERRL, EOMI, accommodation nl, no face palsy, no dysarthria Psychiatric: Orientation: alert and oriented x 3 Motor Behavior: + tremor Speech: normal rate/rhythm/volume of speech Affect: + anxious affect Mood: + anxious mood Thought Process: goal directed thought process Suicidal Thoughts: denies suicidal thoughts Homicidal Thoughts: denies homicidal thoughts Insight: good insight Judgement: good judgement Results & Data Results & Data ([facility]) Vital Signs (Past 12 Hours) Vital Signs Temp Pulse Resp BP Pulse Ox 11/10/20 15:38 36.7 C 81 22 124/68 96 11/10/20 08:39 36.5 C 83 16 123/59 L 98 (1) Depression Depression Type: unspecified Qualified Code(s): F32.9 - Major depressive disorder, single episode, unspecified
[2020-11-10] MEDS: MELATONIN 3 MG TAB PO SCH (20:26)
[2020-11-10] MEDS: clonazePAM 0.5 MG TAB PO SCH (20:26)
[2020-11-11] MEDS: ADVANCED PROBIOTIC 1250 MG CAPSULE PO SCH (09:25)
[2020-11-11] MEDS: clonazePAM 0.5 MG TAB PO SCH ×2 (09:25→20:09)
[2020-11-11] MEDS: CEFDINIR 300 MG CAP PO SCH ×2 (09:26→20:09)
[2020-11-11] MEDS: VENLAFAXINE HCL XR 75 MG CAPXR PO SCH (09:26)
[2020-11-11] MEDS: PROPRANOLOL HCL 10 MG TAB PO SCH ×2 (09:26→20:09)
[2020-11-11] MEDS: ASPIRIN 81 MG ECTAB PO SCH (09:26)
[2020-11-11] MEDS: ATORVASTATIN 40 MG TAB PO SCH (09:26)
[2020-11-11] MEDS: INSULIN ASPART 100 UNITS/ML 3 ML PEN SC SCH ×4 (09:28→20:59)
[2020-11-11] MEDS ORDERED: IBUPROFEN 200 MG TAB PO PRN (09:57)
[2020-11-11] MEDS: LORazepam 0.5 MG TAB PO PRN ×2 (14:29→20:56)
[2020-11-11] MEDS: ENOXAPARIN INJ 40 MG/0.4 ML SYR SQ SCH (16:01)
--- NOTE | 2020-11-11 18:47 | Hospitalist Progress Note ---
Date of Service November 11, 2020 Assessment & Plan (1) Tremor: ANXIETY ATTACK /PANIC DISORDER : pt follows with Dr Rivera in clinic Psychiatry consulted, appreciate input, guarded on a scheduled dose of clonazepam, dose increased to 0.5 mg BId for ongoing anxiety /panic attack Continue on Effexor, Patient will continue to follow-up with her psychiatry in the clinic on discharge Tremors : Symptom has markedly improved Possible medication induced-trazodone( Trazodone decreased to 25 mg x 2 days then discontinued ) /essential tremor -symptoms worsened due to anxiety attacks Management of an anxiety disorder/panic attack attack as outlined above Started on the propanolol for essential tremor Appreciate input from neurology No evidence of stroke Brain MRI: No CVA Outpatient follow-up with neurologist in 4 to 6 weeks (2) Acute UTI: Recurrent Has had at least 4 UTI episodes in the past year per patient's daughter Urine culture E coli changed to PO Abx cefdinir outpatient follow-up with [facility] urology service -on discharge (3) Diabetes mellitus, type II: -Hgb A1c 6.8 09/2020 -Hold oral agents be resumed on discharge -NovoLog per protocol while hospitalized (4) Anxiety: management as outlined above (5) Depression: On Effexor discontinued Appreciate input from psychiatry (6) History of CVA (cerebrovascular accident): -Chronic left-sided weakness-parietal of brain, no evidence of any new ischemia or stroke -Continue aspirin and statin (7) DVT prophylaxis: -SQ Lovenox Pain is encouraged to ambulate Disposition to be determined PT eval in am to assess gait stability pt is very fearful about returning home alone she is approved for 08/06 care service , but has not got any caregivers yet if pt is denied for rehab , discussed option for personal long-term pt prefers to return back to her own home with critical care registered nurse support social service following And of care discussed with patient and her daughter Lindsey in detail, all questions answered Admission and Anticipated Discharge Date Admission Date: November 04, 2020 Subjective Follow-up for tremors, anxiety attack : cont anxiety/panic attacks usually in the morning and in the evenings. klonopin dose increased pt feels that she not back to her baseline yet. very tearful and anxious about returning back to home alone does not feel she will able to take care of her self and deal with panic attacks Physical Exam Constitutional: WD/WN, vitals as above Eyes: PERRL, conjunctivae normal, anicteric sclerae ENMT: external ear and nose normal, oropharynx normal Neck: trachea midline, no thyromegaly Respiratory: normal respiratory effort, lungs clear to auscultation Cardiovascular: RRR, no murmur, no edema Gastrointestinal (Abdomen): normal bowel sounds, soft, nontender, no hepatosplenomegaly Musculoskeletal: no cyanosis or clubbing, extremities motor strength 5/5 Skin: no rashes, warm and dry Neurologic: PERRL, EOMI, accommodation nl, no face palsy, no dysarthria Psychiatric: Orientation: alert and oriented x 3 Motor Behavior: + tremor Speech: normal rate/rhythm/volume of speech Affect: + anxious affect Mood: + anxious mood Thought Process: goal directed thought process Suicidal Thoughts: denies suicidal thoughts Homicidal Thoughts: denies homicidal thoughts Insight: good insight Judgement: good judgement Results & Data [facility] Vital Signs (Past 12 Hours) Vital Signs Temp Pulse Resp BP Pulse Ox 11/11/20 15:51 36.4 C L 73 16 121/71 11/11/20 07:42 36.5 C 77 16 116/71 95 (1) Depression Depression Type: unspecified Qualified Code(s): F32.9 - Major depressive disorder, single episode, unspecified
[2020-11-11] MEDS: MELATONIN 3 MG TAB PO SCH (20:09)
[2020-11-12] MEDS: ASPIRIN 81 MG ECTAB PO SCH (08:55)
[2020-11-12] MEDS: ADVANCED PROBIOTIC 1250 MG CAPSULE PO SCH (08:55)
[2020-11-12] MEDS: ATORVASTATIN 40 MG TAB PO SCH (08:56)
[2020-11-12] MEDS: CEFDINIR 300 MG CAP PO SCH ×2 (08:56→20:32)
[2020-11-12] MEDS: VENLAFAXINE HCL XR 75 MG CAPXR PO SCH (08:56)
[2020-11-12] MEDS: PROPRANOLOL HCL 10 MG TAB PO SCH ×2 (08:56→20:32)
[2020-11-12] MEDS: INSULIN ASPART 100 UNITS/ML 3 ML PEN SC SCH ×4 (08:58→21:28)
[2020-11-12] MEDS: clonazePAM 0.5 MG TAB PO SCH (09:04)
[2020-11-12] MEDS: LORazepam 0.5 MG TAB PO PRN (09:07)
[2020-11-12] MEDS ORDERED: NALOXONE HCL 0.4 MG/1 ML VIAL/CARP IV STA (11:58)
[2020-11-12] MEDS: ENOXAPARIN INJ 40 MG/0.4 ML SYR SQ SCH (16:24)
--- NOTE | 2020-11-12 18:34 | Hospitalist Progress Note ---
Date of Service November 12, 2020 Assessment & Plan (1) Tremor: ANXIETY ATTACK /PANIC DISORDER : noted to be over sedated today wakes up to voice , no distress ambulated to bathroom with walker and nursing assistance , no gait disturbance noted pt has been getting scheduled dose of Klonopin and in between PRN Lorazepam for panic attack d/ce PRN ativan Klonopin dose reduced to 0.25 mg BID pt follows with Dr Rivera in clinic Psychiatry consulted, appreciate input, Continue on Effexor, Patient will continue to follow-up with her psychiatry in the clinic on discharge Tremors : resolved , possible anxiety attack and medication induced - was on -trazodone( Trazodone decreased to 25 mg x 2 days then discontinued ) /essential tremor -symptoms worsened due to anxiety attacks Management of an anxiety disorder/panic attack attack as outlined above Started on the Propranolol for essential tremor Appreciate input from neurology No evidence of stroke Brain MRI: No CVA Outpatient follow-up with neurologist in 4 to 6 weeks (2) Acute UTI: Recurrent Has had at least 4 UTI episodes in the past year per patient's daughter Urine culture E coli changed to PO Abx cefdinir complete total 10 days tx outpatient follow-up with [facility] group urology service -on discharge (3) Diabetes mellitus, type II: -Hgb A1c 6.8 09/2020 -Hold oral agents be resumed on discharge -NovoLog per protocol while hospitalized (4) Anxiety: management as outlined above (5) Depression: On Effexor discontinued Appreciate input from psychiatry (6) History of CVA (cerebrovascular accident): -Chronic left-sided weakness-parietal of brain, no evidence of any new ischemia or stroke -Continue aspirin and statin (7) DVT prophylaxis: -SQ Lovenox Pain is encouraged to ambulate Disposition to be determined PT eval in am to assess gait stability pt is very fearful about returning home alone social service following -may need rehab pt was denied to go to [facility] /acute rehab by Her insurance approved for SNF plan of care discussed with patient and her daughter in detail, all questions answered Admission and Anticipated Discharge Date Admission Date: November 04, 2020 Subjective Follow-up for tremors, anxiety attack : pt was found very groggy today says she is having hard time to keep her eyes open no respiratory distress ordered to D/c Lorazepam Klonopin dose reduced to 0.25 mg BID , to hold if pt appears to be sedated no cough ,no SOB no fever or chills Review of Systems Review of Systems: All systems reviewed & are unremarkable except as noted in HPI & below sedated today Physical Exam Constitutional: WD/WN, vitals as above Eyes: PERRL, conjunctivae normal, anicteric sclerae ENMT: external ear and nose normal, oropharynx normal Neck: trachea midline, no thyromegaly Respiratory: normal respiratory effort, lungs clear to auscultation Cardiovascular: RRR, no murmur, no edema Gastrointestinal (Abdomen): normal bowel sounds, soft, nontender, no hepatosplenomegaly Musculoskeletal: no cyanosis or clubbing, extremities motor strength 5/5 Skin: no rashes, warm and dry Neurologic: PERRL, EOMI, accommodation nl, no face palsy, no dysarthria Psychiatric: Orientation: alert and oriented x 3 (groggy /) Results & Data Results & Data ([facility]) Vital Signs (Past 12 Hours) Vital Signs Temp Pulse Resp BP BP Pulse Ox 11/12/20 15:25 36.3 C L 68 16 106/51 L 94 11/12/20 07:22 36.5 C 75 16 108/51 L 94 (1) Depression Depression Type: unspecified Qualified Code(s): F32.9 - Major depressive disorder, single episode, unspecified
[2020-11-12] MEDS: MELATONIN 3 MG TAB PO SCH (20:32)
[2020-11-12] MEDS ORDERED: LORazepam 0.5 MG TAB PO STA (23:49)
[2020-11-13] MEDS: ATORVASTATIN 40 MG TAB PO SCH (09:07)
[2020-11-13] MEDS: ASPIRIN 81 MG ECTAB PO SCH (09:07)
[2020-11-13] MEDS: ADVANCED PROBIOTIC 1250 MG CAPSULE PO SCH (09:07)
[2020-11-13] MEDS: CEFDINIR 300 MG CAP PO SCH ×2 (09:08→22:03)
[2020-11-13] MEDS: VENLAFAXINE HCL XR 75 MG CAPXR PO SCH (09:08)
[2020-11-13] MEDS: PROPRANOLOL HCL 10 MG TAB PO SCH ×2 (09:08→22:04)
[2020-11-13] MEDS: INSULIN ASPART 100 UNITS/ML 3 ML PEN SC SCH ×4 (09:09→22:04)
[2020-11-13] MEDS: ENOXAPARIN INJ 40 MG/0.4 ML SYR SQ SCH (16:27)
--- NOTE | 2020-11-13 17:35 | Hospitalist Progress Note ---
Date of Service November 13, 2020 Assessment & Plan (1) Tremor: ANXIETY ATTACK /PANIC DISORDER : symptoms seems to be better controlled now no panic attack today , resumed Klonopin dose reduced to 0.25 mg BID to prevent oversedation pt follows with Dr Rivera in clinic Psychiatry consulted, appreciate input, Continue on Effexor, Patient will continue to follow-up with her psychiatry in the clinic on discharge Tremors : resolved , possible anxiety attack and medication induced - was on -trazodone( Trazodone decreased to 25 mg x 2 days then discontinued ) /essential tremor -symptoms worsened due to anxiety attacks Management of an anxiety disorder/panic attack attack as outlined above Started on the Propranolol for essential tremor Appreciate input from neurology No evidence of stroke Brain MRI: No CVA Outpatient follow-up with neurologist in 4 to 6 weeks (2) Acute UTI: Recurrent Has had at least 4 UTI episodes in the past year per patient's daughter Urine culture E coli changed to PO Abx cefdinir complete total 10 days tx outpatient follow-up with [facility] group urology service -on discharge (3) Diabetes mellitus, type II: -Hgb A1c 6.8 09/2020 -Hold oral agents be resumed on discharge -NovoLog per protocol while hospitalized (4) Anxiety: management as outlined above (5) Depression: On Effexor discontinued Appreciate input from psychiatry (6) History of CVA (cerebrovascular accident): -Chronic left-sided weakness-parietal of brain, no evidence of any new ischemia or stroke -Continue aspirin and statin (7) DVT prophylaxis: -SQ Lovenox Pain is encouraged to ambulate Disposition social service following -may need rehab pt was denied to go to [facility] /acute rehab by Her insurance approved for SNF -willing to go to [facility] for rehab plan of care discussed with patient and her daughter in detail, all questions answered Admission and Anticipated Discharge Date Admission Date: November 04, 2020 Subjective Follow-up for tremors, anxiety attack : awake and alert offers no complain wiling to go to [facility] for rehab Physical Exam Constitutional: WD/WN, vitals as above Eyes: PERRL, conjunctivae normal, anicteric sclerae ENMT: external ear and nose normal, oropharynx normal Neck: trachea midline, no thyromegaly Respiratory: normal respiratory effort, lungs clear to auscultation Cardiovascular: RRR, no murmur, no edema Gastrointestinal (Abdomen): normal bowel sounds, soft, nontender, no hepatosplenomegaly Musculoskeletal: no cyanosis or clubbing, extremities motor strength 5/5 Skin: no rashes, warm and dry Neurologic: PERRL, EOMI, accommodation nl, no face palsy, no dysarthria Psychiatric: Orientation: alert and oriented x 3 (groggy /) Motor Behavior: + tremor Speech: normal rate/rhythm/volume of speech Affect: + anxious affect Mood: + anxious mood Thought Process: goal directed thought process Suicidal Thoughts: denies suicidal thoughts Homicidal Thoughts: denies homicidal thoughts Insight: good insight Judgement: good judgement Results & Data Results & Data ([facility]) Vital Signs (Past 12 Hours) Vital Signs Temp Pulse Resp BP BP Pulse Ox 11/13/20 16:13 36.7 C 75 16 129/66 95 11/13/20 08:16 36.4 C L 79 16 117/62 97 (1) Depression Depression Type: unspecified Qualified Code(s): F32.9 - Major depressive disorder, single episode, unspecified
[2020-11-13] MEDS: MELATONIN 3 MG TAB PO SCH (22:03)
[2020-11-13] MEDS: clonazePAM 0.25 MG TAB PO SCH (22:03)
[2020-11-14] MEDS: ASPIRIN 81 MG ECTAB PO SCH ×2 (09:16→09:17)
[2020-11-14] MEDS: ADVANCED PROBIOTIC 1250 MG CAPSULE PO SCH (09:18)
[2020-11-14] MEDS: ATORVASTATIN 40 MG TAB PO SCH (09:18)
[2020-11-14] MEDS: VENLAFAXINE HCL XR 75 MG CAPXR PO SCH (09:18)
[2020-11-14] MEDS: PROPRANOLOL HCL 10 MG TAB PO SCH ×2 (09:18→22:26)
[2020-11-14] MEDS: CEFDINIR 300 MG CAP PO SCH ×2 (09:18→21:49)
[2020-11-14] MEDS: INSULIN ASPART 100 UNITS/ML 3 ML PEN SC SCH ×4 (09:20→21:47)
[2020-11-14] MEDS: clonazePAM 0.25 MG TAB PO SCH ×2 (09:24→21:48)
[2020-11-14] MEDS: ENOXAPARIN INJ 40 MG/0.4 ML SYR SQ SCH (17:52)
--- NOTE | 2020-11-14 18:41 | Hospitalist Progress Note ---
Date of Service November 14, 2020 Assessment & Plan (1) Tremor: Brain MRI: No CVA Evaluated by neurologist, and was felt to be secondary to trazodone Trazodone decreased to 25 mg x 2 days then discontinued Continue Propranolol PT and OT evaluation: Recommending inpatient rehab Follow-up with neurologist as an outpatient in 4 to 6 weeks (2) Acute UTI: Hx of Recurrent UTI Has had at least 4 UTI episodes in the past year per patient's daughter Urine culture E coli received IV rocephinx 5days, then was transition to Cefdinir on 11/08 Will d/c abx since pt complete more than 10 days course Outpatient follow-up with [facility] urology service -on discharge (3) Diabetes mellitus, type II: -Hgb A1c 6.8 09/2020 -Hold oral agents be resumed on discharge -NovoLog per protocol while hospitalized (4) Anxiety: (5) Depression: Continue Klonopin 0.25 mg BID and Effexor Ativan discontinued Follows with Dr Rivera in clinic Patient will continue to follow-up with her psychiatry in the clinic on discharge (6) History of CVA (cerebrovascular accident): -Chronic left-sided weakness-parietal of brain, no evidence of any new ischemia or stroke -Continue aspirin and statin (7) DVT prophylaxis: -SQ Lovenox Pain is encouraged to ambulate Disposition Waiting for placement Admission and Anticipated Discharge Date Admission Date: November 04, 2020 Subjective Pt was seen and examined Lying in bed with no distress Pt said that she continues to have a difficulty to sleep Denies any chest pain, palpitation, dizziness and SOB Physical Exam Physical Exam: Constitutional: WD/WN, vitals as above Eyes: PERRL, conjunctivae normal, anicteric sclerae ENMT: external ear and nose normal, oropharynx normal Neck: trachea midline, no thyromegaly Respiratory: normal respiratory effort, lungs clear to auscultation Cardiovascular: RRR, no murmur, no edema Gastrointestinal: normal bowel sounds, soft, nontender, no hepatosplenomegaly Musculoskeletal: no cyanosis or clubbing, extremities motor strength 5/5 Skin: no rashes, warm and dry Neurologic: PERRL, EOMI, accommodation nl, no face palsy, no dysarthria Psychiatric: Orientation: alert and oriented x 3, +anxious Results & Data Results & Data ([place]) Vital Signs (Past 12 Hours) Vital Signs Temp Pulse Resp BP BP Pulse Ox 11/14/20 14:59 36.5 C 80 16 105/54 L 95 11/14/20 07:28 36.5 C 72 18 117/70 98 (1) Depression Depression Type: unspecified Qualified Code(s): F32.9 - Major depressive disorder, single episode, unspecified
[2020-11-14] MEDS: MELATONIN 3 MG TAB PO SCH (21:48)
[2020-11-15] MEDS: PROPRANOLOL HCL 10 MG TAB PO SCH (08:26)
[2020-11-15] MEDS: CEFDINIR 300 MG CAP PO SCH (08:26)
[2020-11-15] MEDS: ATORVASTATIN 40 MG TAB PO SCH (08:27)
[2020-11-15] MEDS: ADVANCED PROBIOTIC 1250 MG CAPSULE PO SCH (08:27)
[2020-11-15] MEDS: VENLAFAXINE HCL XR 75 MG CAPXR PO SCH (08:27)
[2020-11-15] MEDS: clonazePAM 0.25 MG TAB PO SCH (08:30)
[2020-11-15] MEDS: INSULIN ASPART 100 UNITS/ML 3 ML PEN SC SCH ×2 (08:52→13:05)
[2020-11-15] MEDS: ENOXAPARIN INJ 40 MG/0.4 ML SYR SQ SCH (15:58)
--- NOTE | 2020-11-16 09:26 | Discharge Summary ---
Date of Service November 15, 2021 Admission HPI Per Admitting Provider 70-year-old female with PMH DM type II, history of CVA, anxiety, depression, and other problems listed below who presents the ED for evaluation of left-sided weakness and fall. Patient reports that she was sitting in her chair when someone was knocking on her door. When she went to stand up, patient reports that her left leg felt very weak and she subsequently fell to the ground. No loss of consciousness. She then pressed her heart alert button for help. Patient was recently admitted to inpatient psychiatric unit at [facility] for worsening depression and anxiety. Lexapro and Ativan were discontinued, Effexor was titrated to 75 mg, and trazodone was increased to 50 mg HS. Since being home, patient notes increased tremors over the past couple of weeks. Ativan was resumed on 10/24 however patient reports minimal improvement in tremor. Patient denies lightheadedness, dizziness, diaphoresis, syncopal event. No chest pain or shortness of breath. No abdominal pain, nausea, vomiting, diarrhea. Denies fevers and chills. No urinary symptoms, however patient reports completing a home urine test that was positive. When asked why the patient completed this test, she states " because I get urine infections often without symptoms". In the ED, stroke alert was called. Telemetry neuro recommended DAPT. Head CT, head and neck CTA unremarkable for acute findings. UA suggest UTI. Patient was given Plavix 75 mg in the ED. Patient is hemodynamically stable. Admission Exam Per Admitting Provider Constitutional: WD/WN, vitals as above Eyes: PERRL, conjunctivae normal, anicteric sclerae ENMT: external ear and nose normal, oropharynx normal Respiratory: normal respiratory effort, lungs clear to auscultation Cardiovascular: regular rate and regular rhythm Vessels: normal peripheral pulses Extremities: no edema Gastrointestinal: normal bowel sounds, soft, nontender, no hepatosplenomegaly EXT: no cyanosis and no clubbing Left-sided weakness 3-4/5 Skin: no rashes, warm and dry Neurologic: PERRL, EOMI, accommodation nl, no face palsy, no dysarthria Motor/Sensory: + tremor (left sided) Coordination: + abnormal [id number] test (some difficulty on left secondary to tremor) and + abnormal ecgz-[id number] test (some difficulty on left secondary to tremor) Psychiatric: A+Ox3, euthymic affect Principal Diagnosis Tremor Acute UTI: Diabetes mellitus, type II: Anxiety: Depression: History of CVA (cerebrovascular accident): Discharge Exam Constitutional: WD/WN, vitals as above Eyes: PERRL, conjunctivae normal, anicteric sclerae ENMT: external ear and nose normal, oropharynx normal Neck: trachea midline, no thyromegaly Respiratory: normal respiratory effort, lungs clear to auscultation Cardiovascular: RRR, no murmur, no edema Gastrointestinal: normal bowel sounds, soft, nontender, no hepatosplenomegaly Musculoskeletal: no cyanosis or clubbing, extremities motor strength 5/5 Skin: no rashes, warm and dry Neurologic: PERRL, EOMI, accommodation nl, no face palsy, no dysarthria Psychiatric: Orientation: alert and oriented x 3, +anxious Discharge Data Allergies Allergy/AdvReac Type Severity Reaction Status Date / Time Iodinated Contrast Media Allergy Severe HEAD TO Verified 08/23/20 23:37 TOE HIVES morphine Allergy Severe hives Verified 08/23/20 23:37 oxycodone Allergy Intermediate Hives Verified 08/23/20 23:37 clavulanic acid Allergy Unknown FROM Verified 08/23/20 23:37 AUGMENTIN Penicillins Allergy Unknown FROM Verified 08/23/20 23:37 AUGMENTIN amitriptyline AdvReac Severe INCREASES Verified 08/23/20 23:37 HEART RATE clarithromycin AdvReac Intermediate LIGHT Verified 08/23/20 23:37 HEADED, FAINTY FEELING acetaminophen AdvReac Unknown NOT ABLE Verified 08/23/20 23:37 TO TAKE DUE TO HX HEPATITIS Cephalosporins AdvReac Unknown CEFTIN--GI Verified 08/23/20 23:37 UPSET Consultations 11/02/20 12:36 ED Decision to Admit Stat 11/07/20 00:37 Consult Case Management - Discharge Planning Routine 11/07/20 01:55 Consult Neurology Routine 11/07/20 19:09 Consult Psychiatry Routine Ordered Studies 11/02/20 11:27 CT angio head w con Stat CT angio neck with con Stat CT head/brain wo con Stat 11/02/20 13:14 MR brain wo con Routine XR chest 1V portable CLINICAL HISTORY: wheeze COMPARISON STUDY: 09/26/2020 FINDINGS: The cardiac and mediastinal contours are normal. There is no evidence of focal pulmonary consolidation. There is no evidence of failure. No pleural effusions are visualized.[ IMPRESSION: No active disease in the chest. ACT 112: Negative or not required by law. Electronically signed by: Juan Nj M.D. 11/06/2020 8:08 AM Dictated: 11/06/20 0808Transcribed: 11/06/20 0808 Brain MRI WITHOUT CONTRAST HISTORY: Left-sided weakness. TECHNIQUE: Multiplanar multisequence MRI of the brain was performed without the use of contrast. COMPARISON STUDY: Head CT 11/02/2020. Brain MRI 08/09/2020. FINDINGS: There is no mass, hematoma, midline shift, or acute infarct. Small retention cyst within the left maxillary sinus, unchanged. The mastoid air cells are clear. The ventricles and sulci demonstrate mild age-related involutional changes. Scattered foci of T2 hyperintensity seen within the periventricular and subcortical white matter are nonspecific but suggestive of mild microvascular ischemic changes. The major vascular flow voids at the skull base are well- maintained. IMPRESSION: No significant change compared to the prior study. No acute intracranial abnormality. ACT 112: Negative or not required by law. Electronically signed by: Eugene Antoine M.D. 11/02/2020 2:01 PM Dictated: 11/02/20 1355Transcribed: 11/02/[address] ANGIOGRAM OF THE BRAIN; CT ANGIOGRAM OF THE NECK CLINICAL HISTORY: Left-sided weakness. COMPARISON STUDY: CT angiogram of the head and neck dated 08/09/2020. TECHNIQUE: Following the IV administration of 120 of Optiray 320, CT angiogram of the head and neck was performed from the aortic arch to the vertex. Images are reviewed in the axial, sagittal, and coronal planes. 3-D MIPS images are created and assessed. IV contrast was administered without complication. All measurements were calculated based on NASCET criteria. A dose lowering technique was utilized adhering to the principles of ALARA. CT DOSE: 450.07 mGy.cm FINDINGS: Brain parenchyma: The brain parenchyma is normal in appearance. There is no hemorrhage, mass effect, or evidence of acute territorial ischemia by CT criteria. There is no evidence of enhancing mass lesion on the angiogram phase images. The ventricles, sulci, and cisterns are normal in configuration. Anne- white matter differentiation is preserved. No extra-axial fluid collection is seen. Thoracic aorta: Visualized portions of the thoracic aorta are normal in caliber. The aortic arch demonstrates standard 3-vessel anatomy. Right carotid arterial system: The right common carotid artery is widely patent, as are the right internal and external carotid arteries. Minimal plaque seen in the carotid bulb. Left carotid arterial system: The left common carotid artery is widely patent, as are the left internal and external carotid arteries. Calcified plaque is noted in the carotid bulb. Vertebral arteries: The vertebral arteries are widely patent bilaterally and codominant. Subclavian arteries: Widely patent bilaterally. Intracranial vasculature: The internal carotid arteries are patent at the skull base, as are the anterior and middle cerebral arteries bilaterally. The left A1 segment is atretic. The vertebrobasilar system and posterior cerebral arteries are widely patent. The vertebral arteries are codominant. There is no aneurysm, high-grade stenosis, or focal vessel cut off seen throughout the intracranial ci rculation. Jugular veins: Patent bilaterally. Dural sinuses: Patent. Lung apices: Partially visualized upper lobe lung parenchyma appears clear. Soft tissues: The visualized pharyngeal soft tissues are normal in appearance noting angiographic phase technique. The oropharyngeal airway appears widely patent. The salivary and thyroid glands are normal in appearance. No cervical lymphadenopathy is seen. Skeletal structures: The skeletal structures are osteopenic. The calvarium appears intact. The cervical spine is maintained noting mild multilevel spondylosis. No lytic or blastic lesion is seen. Orbits: The bony orbits are intact. Orbital contents are normal as visualized noting bilateral ocular lens implants. Sinuses and mastoids: The paranasal sinuses are clear. The mastoid air cells are well pneumatized. IMPRESSION: 1. There is no hemorrhage, mass effect, or evidence of acute territorial ischemia by CT criteria noting angiographic phase technique. 2. Unremarkable CT angiograms of the head and neck. No change from recent prior studies. ACT 112: Negative or not required by law. Electronically signed by: Paulino May M.D. 11/02/2020 12:06 PM Dictated: 11/02/20 1154Transcribed: 11/02/[address] ANGIOGRAM OF THE BRAIN; CT ANGIOGRAM OF THE NECK CLINICAL HISTORY: Left-sided weakness. COMPARISON STUDY: CT angiogram of the head and neck dated 08/09/2020. TECHNIQUE: Following the IV administration of 120 of Optiray 320, CT angiogram of the head and neck was performed from the aortic arch to the vertex. Images are reviewed in the axial, sagittal, and coronal planes. 3-D MIPS images are created and assessed. IV contrast was administered without complication. All measurements were calculated based on NASCET criteria. A dose lowering technique was utilized adhering to the principles of ALARA. CT DOSE: 450.07 mGy.cm FINDINGS: Brain parenchyma: The brain parenchyma is normal in appearance. There is no hemorrhage, mass effect, or evidence of acute territorial ischemia by CT criteria. There is no evidence of enhancing mass lesion on the angiogram phase images. The ventricles, sulci, and cisterns are normal in configuration. Anne- white matter differentiation is preserved. No extra-axial fluid collection is seen. Thoracic aorta: Visualized portions of the thoracic aorta are normal in caliber. The aortic arch demonstrates standard 3-vessel anatomy. Right carotid arterial system: The right common carotid artery is widely patent, as are the right internal and external carotid arteries. Minimal plaque seen in the carotid bulb. Left carotid arterial system: The left common carotid artery is widely patent, as are the left internal and external carotid arteries. Calcified plaque is noted in the carotid bulb. Vertebral arteries: The vertebral arteries are widely patent bilaterally and codominant. Subclavian arteries: Widely patent bilaterally. Intracranial vasculature: The internal carotid arteries are patent at the skull base, as are the anterior and middle cerebral arteries bilaterally. The left A1 segment is atretic. The vertebrobasilar system and posterior cerebral arteries are widely patent. The vertebral arteries are codominant. There is no aneurysm, high-grade stenosis, or focal vessel cut off seen throughout the intracranial circulation. Jugular veins: Patent bilaterally. Dural sinuses: Patent. Lung apices: Partially visualized upper lobe lung parenchyma appears clear. Soft tissues: The visualized pharyngeal soft tissues are normal in appearance noting angiographic phase technique. The oropharyngeal airway appears widely patent. The salivary and thyroid glands are normal in appearance. No cervical lymphadenopathy is seen. Skeletal structures: The skeletal structures are osteopenic. The calvarium appears intact. The cervical spine is maintained noting mild multilevel spondylosis. No lytic or blastic lesion is seen. Orbits: The bony orbits are intact. Orbital contents are normal as visualized noting bilateral ocular lens implants. Sinuses and mastoids: The paranasal sinuses are clear. The mastoid air cells are well pneumatized. IMPRESSION: 1. There is no hemorrhage, mass effect, or evidence of acute territorial ischemia by CT criteria noting angiographic phase technique. 2. Unremarkable CT angiograms of the head and neck. No change from recent prior studies. ACT 112: Negative or not required by law. Electronically signed by: Paulino May M.D. 11/02/2020 12:06 PM Dictated: 11/02/20 1154Transcribed: 11/02/[address] SCAN OF THE BRAIN WITHOUT IV CONTRAST CLINICAL HISTORY: Strokelike symptoms. Left-sided weakness. COMPARISON STUDY: CT of the brain dated 09/26/2020. TECHNIQUE: Unenhanced axial CT scan of the brain is performed from the vertex to the skull base. A dose lowering technique was utilized adhering to the principles of ALARA. CT DOSE: 537.48 mGy.cm FINDINGS: Brain parenchyma: There are age-related involutional changes noting mild to moderate subcortical and periventricular microangiopathic change. There is no hemorrhage, mass effect, or evidence of acute territorial ischemia by CT criteria. Chronic lacunar infarcts are present in the thalami. Anne-white matter differentiation is preserved. No extra-axial fluid collection is seen. Ventricles, sulci, cisterns: Prominent secondary to involutional change. Intracranial vasculature: There is atherosclerotic calcification of the cavernous carotid arteries. Calvarium: Unremarkable. Sinuses and mastoids: The visualized paranasal sinuses are clear. The mastoid air cells are well pneumatized. Orbits: The bony orbits are grossly intact. There are bilateral ocular lens implants. IMPRESSION: There is no hemorrhage, mass effect, or evidence of acute territorial ischemia by CT criteria. ACT 112: Negative or not required by law. Electronically signed by: Paulino May M.D. 11/02/2020 11:41 AM Dictated: 11/02/20 1138Transcribed: 11/02/20 1138 Hospital Course (1) Tremor: Brain MRI: No CVA Evaluated by neurologist, and was felt to be secondary to trazodone Trazodone decreased to 25 mg x 2 days then discontinued Continue Propranolol PT and OT evaluation: Recommending inpatient rehab Follow-up with neurologist as an outpatient in 4 to 6 weeks (2) Acute UTI: Hx of Recurrent UTI Has had at least 4 UTI episodes in the past year per patient's daughter Urine culture E coli received IV rocephinx 5days, then was transition to Cefdinir on 11/08 Will d/c abx since pt complete more than 10 days course Outpatient follow-up with [facility] physicians group urology service -on discharge (3) Diabetes mellitus, type II: -Hgb A1c 6.8 09/2020 -Hold oral agents be resumed on discharge -NovoLog per protocol while hospitalized (4) Anxiety: management as outlined above (5) Depression: Continue Klonopin 0.25 mg BID and Effexor Ativan discontinued Follows with Dr Rivera in clinic Patient will continue to follow-up with her psychiatry in the clinic on discharge (6) History of CVA (cerebrovascular accident): -Chronic left-sided weakness-parietal of brain, no evidence of any new ischemia or stroke -Continue aspirin and statin (7) DVT prophylaxis: -SQ Lovenox Pain is encouraged to ambulate Disposition Waiting for placement Total Time Total Time Spent Total Time Spent (In Minutes): 35 minutes Total Time Includes: Examination of the Patient, Discharge Planning, Medication Reconciliation, Communication With Other Providers and Other Discharge Plan Discharge Items Patient Disposition: Transfer [facility] Reason For Visit: TIA Discharge Diagnosis: Tremor Acute UTI: Diabetes mellitus, type II: Anxiety: Depression: History of CVA (cerebrovascular accident): Activity: Resume your previous activity Non-emergency contact: Primary Care Provider Call non-emergency contact if: you have any medication questions Follow-up/Referrals: Chaitanya Quinones DO [Primary Care Provider] - ( ) Diet: Carb Consistent or DM2 Addtl Attending Provider Instructions: Follow up with your primary care provider once discharge from [facility] Continue physical and occupational therapy Follow up with psychiatry Follow up with neurology in 4 to 6 weeks fall precaution Continue monitor your blood sugar and follow a healthy diabetes diet Pending Studies at Discharge: No Stand-Alone Forms: My [employer] Skilled Items Patient informed of condition?: Yes DNR: No Discharge Level of Care: Skilled Communicable Disease: Yes Discharge Prognosis: Stable Lines: None Urinary Catheter: No Medications and DC Order Prescriptions: New clonazepam 0.5 mg Tablet 0.25 mg PO BID Qty: 20 RF: 0 melatonin 3 mg Tablet 3 mg PO HS Qty: 30 RF: 0 propranolol 10 mg Tablet 10 mg PO BID 30 Days Qty: 60 RF: 0 polyethylene glycol 3350 [Miralax] 17 gram Powder In Packet 17 g PO DAILY PRN (Reason: constipation) Qty: 30 RF: 0 Continued milk thistle 175 mg Tablet 175 mg PO 3XWK RF: 0 aspirin 81 mg Tablet,Delayed Release (Dr/Ec) 81 mg PO DAILY RF: 0 vitamin B complex Tablet 1 tab PO .OCCASIONALLY RF: 0 atorvastatin 40 mg Tablet 40 mg PO QAM Qty: 30 RF: 0 docusate sodium 100 mg Capsule 100 mg PO BID PRN (Reason: Constipation) Qty: 60 RF: 0 venlafaxine [Effexor XR] 75 mg capsule,extended release 24hr 75 mg PO DAILY RF: 0 glipizide 10 mg tablet extended release 24hr 10 mg PO DAILY RF: 0 coenzyme Q10 [CoQ-10] 100 mg Capsule 100 mg PO DAILY RF: 0 Tradjenta 5 mg Tablet 5 mg PO DAILY RF: 0 Discontinued lorazepam 0.5 mg tablet 0.5 mg PO BID PRN (Reason: Anxiety) RF: 0 trazodone 50 mg tablet 50 mg PO HS RF: 0 Discharge Orders: Discharge Order (Routine); Ordered 11/15/20 Ordered By: José Miguel Miranda/Other Patient Handouts: Managing Type 2 Diabetes, 5 Steps for Eating Healthier Admission Data Admit Date/Time: 11/04/20 08:15 Attending Provider: José Miguel Padilla Admit Provider: José Miguel Padilla Primary Care Provider: Chaitanya Quinones Other Providers: [facility],Home Healthcare ; José Miguel Padilla ; [facility] ; Sohail Nunez ; Eliazar Asif ; [facility] ; Ana Lomeli ; Irma Barros Other Interventions: Discharge Summary Assessment (RN) Last Done: 11/15/20 16:01
== END 2020-11-15 16:24 | DRG 92 ==
LOC: 2S 11:32 → ED 11:32 → SUATTDRO 13:14 → 2S 14:57 → SUATTDRO 11-04 08:15 → 2N 11-04 10:27 → 3N 11-05 08:07

== ENCOUNTER 2020-11-27 12:48 | Inpatient (IN) ==
[2020-11-27] MEDS ORDERED: SODIUM CHLORIDE 0.9% 500 ML IV SCH (13:15)
--- NOTE | 2020-11-27 13:18 | Emergency Department Note ---
Impression & Plan Chest pain, Abdominal pain, Vomiting, Headache ED Provider Note NAME: BISI JETER AGE: 70 SEX: F : 1950 ARRIVES VIA: Ambulance INFORMANT: Patient, ED PROVIDER(S): Ham Blake DO CHIEF COMPLAINT: Altered mental status HPI: The patient is a 70-year-old female who presented to the emergency department with her family member for an evaluation of altered mental status. The patient was seen in our facility in the third week of October. At that time she was diagnosed with a urinary tract infection. She was treated with a proper course of antibiotics. At that time she also had a complete stroke work- up including neuro imaging. The patient was sent to a personal half-way for inpatient treatment prior to being discharged to home. She was discharged to home only within the last few days. Apparently today she had an episode where she started complaining of pain. She complained of chest pain lower abdominal pain difficulty urinating headache and appeared to be confused according to the family member. The symptoms appear to be waxing and waning. The patient does have some degree of underlying dementia however what ever was going on today appears to be significantly different from her baseline. According to the family member she has been very compliant with all of her outpatient medications. She had an EKG prior to arrival. She was not seen by her primary care physician recently. The patient has had no falls according to the family member. ROS: See above HPI for pertinent positives & negatives. A total of 10 systems reviewed and were otherwise negative. PAST MEDICAL HISTORY: See Below PAST SURGICAL HISTORY: See Below FAMILY HISTORY: See Below SOCIAL HISTORY: See Below HOME MEDICATIONS: See Below ALLERGIES: See Below VITALS: See Below PHYSICAL EXAMINATION: GENERAL: The patient is awake and alert. She is somewhat anxious appearing. EYES: The conjunctivae are clear. The pupils are round and reactive. EARS, NOSE, MOUTH AND THROAT: The nose is without any evidence of any deformity. NECK: The neck is nontender and supple. RESPIRATORY: Normal respiratory effort is noted there is no evidence of wheezing rhonchi or rales CARDIOVASCULAR: Regular rate and rhythm noted there no murmurs rubs or gallops normal S1 normal S2. GASTROINTESTINAL: The abdomen is soft and nondistended. There is significant suprapubic tenderness to palpation but no guarding rigidity. MUSCULOSKELETAL/EXTREMITIES: There is no evidence of gross deformity full range of motion is noted in the hips and shoulders. SKIN: Trace pedal edema was noted bilaterally. Skin was warm and dry. NEUROLOGIC: Patient is awake alert and oriented to person place and situation. The patient was confused of time. She was able to recognize her family member but it took significant time before she could remember the family members name. Strength was symmetric. There is no facial droop. MEDICAL DECISION MAKING: The patient is a 70-year-old female who has some underlying dementia who presented to the emergency department for an evaluation of multiple complaints. The patient appeared to have a headache and was also complaining of chest pain. She was also complaining of nausea and vomiting. She had some lower abdominal pain but her physical exam was not consistent with an acute surgical abdomen. I discussed the patient's laboratory and radiographic studies with her and her family. Given her underlying dementia it is very difficult to completely evaluate the patient. For this reason I [facility] have agreed to evaluate the patient in the emergency department for further management and disposition. Triage Nursing notes reviewed. Prior medical records reviewed Vital Signs: reviewed and remarkable low diastolic blood pressure. Differential diagnosis: Infection, hypoglycemia, electrolyte abnormalities, overdose, toxicologic, cardiac sources, intracerebral event, neurologic, trauma, as well as other pathologies. ER treatment provided: See below Diagnostics interpreted by me: ECG: EKG was obtained in the emergency department. My interpretation is normal sinus rhythm at 83 bpm. Frequent PVCs were noted. Left bundle branch block pattern was noted. There was lateral ST depressions appreciated. This was compared to a tracing from November 022019. No significant changes were noted. Cardiac Monitoring: An order was placed for continuous cardiac monitoring. The monitor shows a rate of 87 bpm with sinus rhythm. Laboratory studies: As stated above and show below. Imaging studies: See below Consultation(s): 1525: I discussed this case with Mariana who [facility] They will evaluate the patient in the emergency department. Past Med/Surg History Medical History Anxiety Depression Diabetes mellitus, type II Dyslipidemia Hepatitis C, chronic History of CVA (cerebrovascular accident) LBBB (left bundle branch block) Surgical History H/O cataract removal with insertion of prosthetic lens History of back surgery History of cholecystectomy History of hysterectomy History of tubal ligation Family History Father Pancreatic cancer Social History Smoking Status: Never smoker Second Hand Exposure: No; Hx Alcohol Use: No Hx Substance Use: Yes Preferred Language: Greenlandic Communication Ability: Effective Creative Guru Required: No Beliefs That Will Affect Care: Lutheran (U[employer]) marital status: Current Living Situation: Alone Current Living Situation Comment: [facility]UR[facility] THE DAY Feels Safe at Home: Yes Assistive Devices: Walker Allergies Allergies Allergy/AdvReac Type Severity Reaction Status Date / Time Iodinated Contrast Media Allergy Severe HEAD TO Verified 11/27/20 16:52 TOE HIVES morphine Allergy Severe hives Verified 11/27/20 16:52 oxycodone Allergy Intermediate Hives Verified 11/27/20 16:52 clavulanic acid Allergy Unknown FROM Verified 11/27/20 16:52 AUGMENTIN Penicillins Allergy Unknown FROM Verified 11/27/20 16:52 AUGMENTIN amitriptyline AdvReac Severe INCREASES Verified 11/27/20 16:52 HEART RATE clarithromycin AdvReac Intermediate LIGHT Verified 11/27/20 16:52 HEADED, FAINTY FEELING acetaminophen AdvReac Unknown NOT ABLE Verified 11/27/20 16:52 TO TAKE DUE TO HX HEPATITIS Cephalosporins AdvReac Unknown CEFTIN--GI Verified 11/27/20 16:52 UPSET Home Meds Home Medications Medication Instructions Recorded Confirmed aspirin 81 mg PO DAILY 09/06/18 11/27/20 milk thistle 175 mg PO 2XWK 09/06/18 11/27/20 vitamin B complex 1 tab PO .OCCASIONALLY 09/06/18 11/27/20 Tradjenta 5 mg PO DAILY 11/15/19 11/27/20 coenzyme Q10 [CoQ-10] 100 mg PO DAILY 11/15/19 11/27/20 glipizide 10 mg PO DAILY 11/02/20 11/27/20 venlafaxine [Effexor XR] 75 mg PO DAILY 11/02/20 11/27/20 atorvastatin 40 mg PO QPM 11/27/20 11/27/20 buspirone 5 mg PO BID 11/27/20 11/27/20 cholecalciferol (vitamin D3) 50 mcg PO Q OTHER DAY 11/27/20 11/27/20 [Vitamin D3] cranberry 400 mg PO Q OTHER DAY 11/27/20 11/27/20 lorazepam [Ativan] 0.5 mg PO BID PRN 11/27/20 11/27/20 venlafaxine [Effexor XR] 37.5 mg PO DAILY 11/27/20 11/27/20 Previous Rx's Medication Instructions Recorded docusate sodium 100 mg PO BID PRN #60 cap 08/13/20 melatonin 3 mg PO HS #30 tab 11/15/20 polyethylene glycol 3350 [Miralax] 17 g PO DAILY PRN #30 ea 11/15/20 propranolol 10 mg PO BID 30 Days #60 tab 11/15/20 Results & Data (ED) Vital Signs Vital Signs - 24 hr 11/27/20 13:00 11/27/20 13:04 11/27/20 13:42 Temperature 36.8 C Temperature Source Oral Pulse Rate 94 H 87 Pulse Rate from SpO2 Sensor 82 Respiratory Rate 18 15 Blood Pressure 148/87 H Blood Pressure Mean 107 Pulse Oximetry 95 94 98 Oxygen Delivery Method Room Air Room Air Sepsis Recent Fever Within 48 Hours No Sepsis New/Unexplained Change in Mental Status No Sepsis Action Taken by Nursing No Action Required 11/27/20 14:00 11/27/20 14:01 Temperature Temperature Source Pulse Rate 84 87 Pulse Rate from SpO2 Sensor 82 Respiratory Rate 20 22 Blood Pressure 132/53 L Blood Pressure Mean 88 Pulse Oximetry 96 Oxygen Delivery Method Sepsis Recent Fever Within 48 Hours Sepsis New/Unexplained Change in Mental Status Sepsis Action Taken by [facility] Medications Current Medication List: was personally reviewed by me Laboratory Data Attestation: I reviewed the patient's lab results. Result diagrams: 11/27/20 13:10 11/27/20 13:10 Lab Results 11/27/20 11/27/20 11/27/20 Range/Units 13:10 13:10 13:10 WBC 6.59 (4.8-10.8) K/uL RBC 4.64 (4.2-5.4) M/uL Hgb 12.9 (12.0-16.0) g/dL Hct 38.4 (37-47) % MCV 82.8 (80-100) fL MCH 27.8 (25-34) pg MCHC 33.6 (32-36) g/dL RDW Std Deviation 41.5 (36.4-46.3) fL RDW Coeff of Farida 13.7 (11.5-14.5) % Plt Count 185 (130-400) K/uL MPV 11.0 H (7.4-10.4) fL Immature Gran % (Auto) 0.2 % Neut % (Auto) 63.7 % Lymph % (Auto) 23.4 % Graham % (Auto) 10.8 % Eos % (Auto) 1.7 % Baso % (Auto) 0.2 % Neut # (Auto) 4.21 (1.4-6.5) K/uL Lymph # (Auto) 1.54 (1.2-3.4) K/uL Graham # (Auto) 0.71 H (0.11-0.59) K/uL Eos # (Auto) 0.11 (0-0.5) K/uL Baso # (Auto) 0.01 (0-0.2) K/uL Immature Gran # (Auto) 0.01 (0.00-0.02) K/uL ESR 11 (0-21) mm/hr PT 11.6 (9.0-12.0) Seconds INR 1.1 (0.9-1.1) APTT 23.1 (21.0-31.0) Seconds PTT Ratio 0.8 Sodium (136-145) mmol/L Potassium (3.5-5.1) mmol/L Chloride (98-107) mmol/L Carbon Dioxide (21-32) mmol/L Anion Gap (3-11) BUN (7-18) mg/dl Creatinine (0.6-1.2) mg/dl Est Cr Clr Drug Dosing ml/min Est GFR ( Amer) Est GFR (Non-Af Amer) BUN/Creatinine Ratio (10-20) Glucose (70-99) mg/dl Calcium (8.5-10.1) mg/dl Magnesium (1.8-2.4) mg/dl Total Bilirubin (0.2-1) mg/dl AST (15-37) U/L ALT (12-78) U/L Alkaline Phosphatase (45-117) U/L Troponin I (0-0.045) ng/ml C-Reactive Protein (0-0.29) mg/dl Total Protein (6.4-8.2) gm/dl Albumin (3.4-5.0) gm/dl Globulin (2.5-4.0) gm/dl Albumin/Globulin Ratio (0.9-2) TSH (0.300-4.500) uIu/ml Urine Color Urine Appearance (Clear) Urine pH (4.5-7.5) Ur Specific [place] (1.000-1.030) Urine Protein (Negative) Urine Glucose (UA) (Negative) Urine Ketones (Negative) Urine Blood (Negative) Urine Nitrite (Negative) Urine Bilirubin (Negative) Urine Urobilinogen (Negative) Ur Leukocyte Esterase (Negative) COVID-19 Eval Order SARS-CoV-2, RNA, NAAT (NEGATIVE) 11/27/20 11/27/20 11/27/20 Range/Units 13:10 14:00 15:42 WBC (4.8-10.8) K/uL RBC (4.2-5.4) M/uL Hgb (12.0-16.0) g/dL Hct (37-47) % MCV (80-100) fL MCH (25-34) pg MCHC (32-36) g/dL RDW Std Deviation (36.4-46.3) fL RDW Coeff of Farida (11.5-14.5) % Plt Count (130-400) K/uL MPV (7.4-10.4) fL Immature Gran % (Auto) % Neut % (Auto) % Lymph % (Auto) % Graham % (Auto) % Eos % (Auto) % Baso % (Auto) % Neut # (Auto) (1.4-6.5) K/uL Lymph # (Auto) (1.2-3.4) K/uL Graham # (Auto) (0.11-0.59) K/uL Eos # (Auto) (0-0.5) K/uL Baso # (Auto) (0-0.2) K/uL Immature Gran # (Auto) (0.00-0.02) K/uL ESR (0-21) mm/hr PT (9.0-12.0) Seconds INR (0.9-1.1) APTT (21.0-31.0) Seconds PTT Ratio Sodium 141 (136-145) mmol/L Potassium 4.2 (3.5-5.1) mmol/L Chloride 109 H (98-107) mmol/L Carbon Dioxide 26 (21-32) mmol/L Anion Gap 6.0 (3-11) BUN 16 (7-18) mg/dl Creatinine 0.50 L (0.6-1.2) mg/dl Est Cr Clr Drug Dosing 88.7 ml/min Est GFR ( Amer) 112.1 Est GFR (Non-Af Amer) 96.7 BUN/Creatinine Ratio 30.8 H (10-20) Glucose 166 H (70-99) mg/dl Calcium 9.5 (8.5-10.1) mg/dl Magnesium 2.0 (1.8-2.4) mg/dl Total Bilirubin 0.7 (0.2-1) mg/dl AST 26 (15-37) U/L ALT 44 (12-78) U/L Alkaline Phosphatase 86 (45-117) U/L Troponin I < 0.015 (0-0.045) ng/ml C-Reactive Protein < 0.29 (0-0.29) mg/dl Total Protein 6.9 (6.4-8.2) gm/dl Albumin 3.5 (3.4-5.0) gm/dl Globulin 3.4 (2.5-4.0) gm/dl Albumin/Globulin Ratio 1.0 (0.9-2) TSH 1.120 (0.300-4.500) uIu/ml Urine Color Yellow Urine Appearance Clear (Clear) Urine pH 6.5 (4.5-7.5) Ur Specific [place] 1.015 (1.000-1.030) Urine Protein Negative (Negative) Urine Glucose (UA) Negative (Negative) Urine Ketones Trace H (Negative) Urine Blood Negative (Negative) Urine Nitrite Negative (Negative) Urine Bilirubin Negative (Negative) Urine Urobilinogen Negative (Negative) Ur Leukocyte Esterase Negative (Negative) COVID-19 Eval Order Covid19 IDNow atMLAC SARS-CoV-2, RNA, NAAT (NEGATIVE) 11/27/20 Range/Units 15:42 WBC (4.8-10.8) K/uL RBC (4.2-5.4) M/uL Hgb (12.0-16.0) g/dL Hct (37-47) % MCV (80-100) fL MCH (25-34) pg MCHC (32-36) g/dL RDW Std Deviation (36.4-46.3) fL RDW Coeff of Farida (11.5-14.5) % Plt Count (130-400) K/uL MPV (7.4-10.4) fL Immature Gran % (Auto) % Neut % (Auto) % Lymph % (Auto) % Graham % (Auto) % Eos % (Auto) % Baso % (Auto) % Neut # (Auto) (1.4-6.5) K/uL Lymph # (Auto) (1.2-3.4) K/uL Graham # (Auto) (0.11-0.59) K/uL Eos # (Auto) (0-0.5) K/uL Baso # (Auto) (0-0.2) K/uL Immature Gran # (Auto) (0.00-0.02) K/uL ESR (0-21) mm/hr PT (9.0-12.0) Seconds INR (0.9-1.1) APTT (21.0-31.0) Seconds PTT Ratio Sodium (136-145) mmol/L Potassium (3.5-5.1) mmol/L Chloride (98-107) mmol/L Carbon Dioxide (21-32) mmol/L Anion Gap (3-11) BUN (7-18) mg/dl Creatinine (0.6-1.2) mg/dl Est Cr Clr Drug Dosing ml/min Est GFR ( Amer) Est GFR (Non-Af Amer) BUN/Creatinine Ratio (10-20) Glucose (70-99) mg/dl Calcium (8.5-10.1) mg/dl Magnesium (1.8-2.4) mg/dl Total Bilirubin (0.2-1) mg/dl AST (15-37) U/L ALT (12-78) U/L Alkaline Phosphatase (45-117) U/L Troponin I (0-0.045) ng/ml C-Reactive Protein (0-0.29) mg/dl Total Protein (6.4-8.2) gm/dl Albumin (3.4-5.0) gm/dl Globulin (2.5-4.0) gm/dl Albumin/Globulin Ratio (0.9-2) TSH (0.300-4.500) uIu/ml Urine Color Urine Appearance (Clear) Urine pH (4.5-7.5) Ur Specific [place] (1.000-1.030) Urine Protein (Negative) Urine Glucose (UA) (Negative) Urine Ketones (Negative) Urine Blood (Negative) Urine Nitrite (Negative) Urine Bilirubin (Negative) Urine Urobilinogen (Negative) Ur Leukocyte Esterase (Negative) COVID-19 Eval Order SARS-CoV-2, RNA, NAAT NEGATIVE (NEGATIVE) Administered Medications Discontinued Medications Sodium Chloride (Nss) 500 mls @ 999 mls/hr IV .Q31M STEFANO Stop: 11/27/20 13:45 Last Infusion: 11/27/20 14:11 Dose: 0 mls/hr Documented by: [id number] Admin: 11/27/20 13:40 Dose: 999 mls/hr Documented by: [id number] Promethazine HCl (Phenergan) 6.25 mg in 50.25 mls @ 201 mls/hr IV NOW STA Stop: 11/27/20 15:31 Last Infusion: 11/27/20 20:03 Dose: 0 mls/hr Documented by: [id number] Admin: 11/27/20 15:38 Dose: 201 mls/hr Documented by: [id number] Ketorolac Tromethamine (Ketorolac Tromethamine 10 Mg Tablet) 10 mg PO NOW STA Stop: 11/27/20 15:18 Last Admin: 11/27/20 15:38 Dose: 10 mg Documented by: [id number] Ondansetron HCl (Ondansetron Inj 2 Mg/Ml 2 Ml Vial) 4 mg IV NOW STA Stop: 11/27/20 14:51 Last Admin: 11/27/20 14:56 Dose: 4 mg Documented by: [id number] Imaging Data Radiologist's Impression: Patient: BISI JETER Admit Date: 11/27/20 MR#: [id number] Address1: [address] [place] [address] Acct ID:[id number] Address2: Date: 1950 [facility] Zip: [place] [address] Age: 70 Location: ED Sex: F Room/Bed: Att Phy: Diagnosis: ABDOMINAL PAIN Ella Phy: Chaitanya Quinones DO Service Date: 11/27/20 [facility] Phy: Interpreting Phy: Johnny Elizondo MD Admit Phy: Ordering Phy: Ham Blake DO cc: ~ CT OF THE HEAD WITHOUT CONTRAST CLINICAL HISTORY: Altered mental status. COMPARISON STUDY: Head CT, CTA of the head and MRI of the brain November 02, 2020. CT DOSE: 537.48 mGy.cm TECHNIQUE: Helical axial images of the head were obtained without IV contrast. Automated exposure control was utilized for the study. A dose lowering technique was utilized adhering to the principles of ALARA. FINDINGS: No acute intracranial hemorrhage, midline shift or mass effect is present. The ventricular system is unremarkable. White matter hypodensities are unchanged and suggest small vessel disease. The basal cisterns are patent. No extra-axial collections are present. There are no findings to suggest acute dural sinus thrombosis or acute territorial infarct. No significant calvarial abnormalities are present. Visualized portions of the sinuses and mastoid air cells are clear. IMPRESSION: No acute intracranial findings. ACT 112: Negative or not required by law. Electronically signed by: Johnny Elizondo M.D. 11/27/2020 1:42 PM Dictated: 11/27/201338 Transcribed: 11/27/201338 Patient: BISI JETER Admit Date: 11/27/20 MR#: [id number] Address1: [address] [place] [address] Acct ID:[id number] Address2: Date: 1950 [facility] Zip: [place] [address] Age: 70 Location: ED Sex: F Room/Bed: Att Phy: Diagnosis: ABDOMINAL PAIN Ella Phy: Chaitanya Quinones DO Service Date: 11/27/20 [facility] Phy: Interpreting Phy: Redd Cooney Admit Phy: Ordering Phy: Ham Blake DO cc: ~ XR chest 1V portable HISTORY: 70 years-old Female weakness acute weakness COMPARISON: Chest radiograph 11/05/2020 TECHNIQUE: Portable upright AP view of the chest FINDINGS: Cardiomediastinal and hilar silhouettes are within normal limits. Mild right hemidiaphragmatic elevation. No pneumothorax, pleural effusion, airspace consolidation or overt pulmonary edema. Bones of the chest appear grossly intact. IMPRESSION: No acute process. ACT 112: Negative or not required by law. The above report was generated using voice recognition software. It may contain grammatical, syntax or spelling errors. Electronically signed by: Donald Cooney M.D. 11/27/2020 1:50 PM Dictated: 11/27/20 1349 Transcribed: 11/27/20 1349 Patient: BISI JETER Admit Date: 11/27/20 MR#: [id number] Address1: [address] [place] [address] Acct ID:[id number] Address2: Date: 1950 [facility] Zip: [place] [address] Age: 70 Location: ED Sex: F Room/Bed: Att Phy: Diagnosis: ABDOMINAL PAIN Ella Phy: Chaitanya Quinones DO Service Date: 11/27/20 Fam Phy: Interpreting Phy: Johnny Elizondo MD Admit Phy: Ordering Phy: Ham Blake DO cc: ~ CT OF THE ABDOMEN AND PELVIS WITHOUT CONTRAST CLINICAL HISTORY: Lower abdominal pain. COMPARISON STUDY: CT of the abdomen and pelvis April 22, 2017. TECHNIQUE: Axial images of the abdomen and pelvis were obtained without IV contrast. Images were reviewed in the axial, sagittal, and coronal planes. Automated exposure control was utilized for the study. A dose lowering technique was utilized adhering to the principles of ALARA. FINDINGS: Lung bases are unremarkable. This exam is compromised by lack of con trast and motion artifact. No pneumatosis, free air or portal venous gas is present. The liver is cirrhotic. No hepatic lesions are identified on this unenhanced examination. There is no significant biliary ductal dilatation status post cholecystectomy. The size of the spleen is normal. Unenhanced images of the adrenal glands, left kidney and pancreas are unremarkable. There is no peripancreatic infiltration. A water attenuation 5.4 cm right renal lesion is suboptimally assessed on this unenhanced exam but favors a cyst. No renal, ureteral or bladder calculi are identified. There is no hydronephrosis or hydroureter. There is no evidence for a bowel obstruction. The appendix is not visualized but there is no right lower quadrant inflammation. There is sigmoid diverticulosis without evidence for acute diverticulitis. No lymphadenopathy or ascites is present. There are postoperative findings within the spine. No acute fracture or suspicious lesion is identified within the visualized skeletal structures. IMPRESSION: 1. No urinary calculi or hydronephrosis. 2. No acute process within the abdomen or pelvis. However, exam compromised given lack of contrast and motion artifact. 2. No bowel obstruction. 4. Cirrhosis. ACT 112: Negative or not required by law. Electronically signed by: Johnny Elizondo M.D. 11/27/2020 1:52 PM Dictated: 11/27/20 1344 Transcribed: 11/27/20 1344 Blood Pressure Blood Pressure Findings: Normal blood pressure Discharge Plan Visit Data Chief Complaint: Abdominal Pain ED Provider: Ham Blake Discharge Problem: Chest pain, Abdominal pain, Vomiting, Headache Patient Disposition: Admitted As Inpatient Condition: Good Discharge Instructions Interventions: ED Discharge Assessment Last Done: 11/27/20 18:42 Discharge Problem: Chest pain Qualifiers: Chest pain type: unspecified Qualified Code(s): R07.9 - Chest pain, unspecified Abdominal pain Qualifiers: Abdominal location: lower abdomen, unspecified Qualified Code(s): R10.30 - Lower abdominal pain, unspecified Vomiting Qualifiers: Vomiting type: unspecified Vomiting Intractability: non-intractable Nausea presence: with nausea Qualified Code(s): R11.2 - Nausea with vomiting, unsp ecified Headache Qualifiers: Headache type: unspecified Headache chronicity pattern: unspecified pattern Intractability: not intractable Qualified Code(s): R51.9 - Headache, unspecified
[2020-11-27 13:20] LABS: Basophils # (auto) 0.01 K/uL (0-0.2); Basophils % (auto) 0.2 %; Eosinophils # (auto) 0.11 K/uL (0-0.5); Eosinophils % (auto) 1.7 %; Hematocrit (blood only) 38.4 % (37-47); Hemoglobin 12.9 g/dL (12.0-16.0); Immature Granulocytes # (auto) 0.01 K/uL (0.00-0.02); Immature Granulocytes % (auto) 0.2 %; Lymphocytes # (auto) 1.54 K/uL (1.2-3.4); Lymphocytes % (auto) 23.4 %; Mean Corpuscular Hemoglobin 27.8 pg (25-34); Mean Corpuscular Hgb Conc 33.6 g/dL (32-36); Mean Corpuscular Volume 82.8 fL (80-100); Monocytes # (auto) 0.71 K/uL (0.11-0.59); Monocytes % (auto) 10.8 %; Neutrophils # (auto) 4.21 K/uL (1.4-6.5); Neutrophils % (auto) 63.7 %; Platelet Count 185 K/uL (130-400); RDW Coefficient of Variation 13.7 % (11.5-14.5); RDW Standard Deviation 41.5 fL (36.4-46.3); Red Blood Count 4.64 M/uL (4.2-5.4); White Blood Count 6.59 K/uL (4.8-10.8)
[2020-11-27 13:38] LABS: Alanine Aminotransferase 44 U/L (12-78); Albumin Level 3.5 gm/dl (3.4-5.0); Aspartate Aminotransferase 26 U/L (15-37); BUN Creatinine Ratio 30.8 (10-20); Blood Urea Nitrogen 16 mg/dl (7-18); C Reactive Protein < 0.29 mg/dl (0-0.29); Calcium 9.5 mg/dl (8.5-10.1); Carbon Dioxide 26 mmol/L (21-32); Chloride 109 mmol/L (98-107); Creatinine Clr Calc Pharmacy 88.7 ml/min; Est GFR (African American) 112.1; Est GFR (Non-African American) 96.7; Glucose 166 mg/dl (70-99); Potassium 4.2 mmol/L (3.5-5.1); Sodium 141 mmol/L (136-145)
[2020-11-27 13:42] LABS: INR 1.1 (0.9-1.1); Partial Thromboplastin Ratio 0.8; Partial Thromboplastin Time 23.1 Seconds (21.0-31.0); Prothrombin Time 11.6 Seconds (9.0-12.0)
--- NOTE | 2020-11-27 13:43 | CT Scan Report ---
CT OF THE HEAD WITHOUT CONTRAST CLINICAL HISTORY: Altered mental status. COMPARISON STUDY: Head CT, CTA of the head and MRI of the brain November 02, 2020. CT DOSE: 537.48 mGy.cm TECHNIQUE: Helical axial images of the head were obtained without IV contrast. Automated exposure con trol was utilized for the study. A dose lowering technique was utilized adhering to the principles o f ALARA. FINDINGS: No acute intracranial hemorrhage, midline shift or mass effect is present. The ventricular system is unremarkable. White matter hypodensities are unchanged and suggest small vessel disease. Th e basal cisterns are patent. No extra-axial collections are present. There are no findings to suggest acute dural sinus thrombosis or acute territorial infarct. No significant calvarial abnormalities ar e present. Visualized portions of the sinuses and mastoid air cells are clear. IMPRESSION: No acute intracranial findings. ACT 112: Negative or not required by law. Electronically signed by: Johnny Elizondo M.D. 11/27/2020 1:42 PM
[2020-11-27 13:48] LABS: Alkaline Phosphatase 86 U/L (45-117); Bilirubin,Total 0.7 mg/dl (0.2-1); Globulin 3.4 gm/dl (2.5-4.0); Total Protein 6.9 gm/dl (6.4-8.2); Troponin I < 0.015 ng/ml (0-0.045)
--- NOTE | 2020-11-27 13:51 | XRay Report ---
XR chest 1V portable HISTORY: 70 years-old Female weakness acute weakness COMPARISON: Chest radiograph 11/05/2020 TECHNIQUE: Portable upright AP view of the chest FINDINGS: Cardiomediastinal and hilar silhouettes are within normal limits. Mild right hemidiaphragmatic elevat ion. No pneumothorax, pleural effusion, airspace consolidation or overt pulmonary edema. Bones of the chest appear grossly intact. IMPRESSION: No acute process. ACT 112: Negative or not required by law. The above report was generated using voice recognition software. It may contain grammatical, syntax o r spelling errors. Electronically signed by: Donald Cooney M.D. 11/27/2020 1:50 PM
--- NOTE | 2020-11-27 13:54 | CT Scan Report ---
CT OF THE ABDOMEN AND PELVIS WITHOUT CONTRAST CLINICAL HISTORY: Lower abdominal pain. COMPARISON STUDY: CT of the abdomen and pelvis April 22, 2017. TECHNIQUE: Axial images of the abdomen and pelvis were obtained without IV contrast. Images were revi ewed in the axial, sagittal, and coronal planes. Automated exposure control was utilized for the yuridia dy. A dose lowering technique was utilized adhering to the principles of ALARA. FINDINGS: Lung bases are unremarkable. This exam is compromised by lack of contrast and motion artifa ct. No pneumatosis, free air or portal venous gas is present. The liver is cirrhotic. No hepatic lesi ons are identified on this unenhanced examination. There is no significant biliary ductal dilatation status post cholecystectomy. The size of the spleen is normal. Unenhanced images of the adrenal gland s, left kidney and pancreas are unremarkable. There is no peripancreatic infiltration. A water attenu ation 5.4 cm right renal lesion is suboptimally assessed on this unenhanced exam but favors a cyst. N o renal, ureteral or bladder calculi are identified. There is no hydronephrosis or hydroureter. There is no evidence for a bowel obstruction. The appendix is not visualized but there is no right lower q uadrant inflammation. There is sigmoid diverticulosis without evidence for acute diverticulitis. No l ymphadenopathy or ascites is present. There are postoperative findings within the spine. No acute fra cture or suspicious lesion is identified within the visualized skeletal structures. IMPRESSION: 1. No urinary calculi or hydronephrosis. 2. No acute process within the abdomen or pelvis. However, exam compromised given lack of contrast an d motion artifact. 2. No bowel obstruction. 4. Cirrhosis. ACT 112: Negative or not required by law. Electronically signed by: Johnny Elizondo M.D. 11/27/2020 1:52 PM
[2020-11-27 14:34] LABS: Appearance Urine Clear (Clear); Bilirubin Urine Negative (Negative); Blood Urine Negative (Negative); Color Urine Yellow; Glucose Urine UA Negative (Negative); Ketones Urine Trace (Negative); Leukocyte Esterase Urine Negative (Negative); Nitrite Urine Negative (Negative); Protein Urine Negative (Negative); Specific Gravity Urine 1.015 (1.000-1.030); Urobilinogen Urine Negative (Negative); pH Urine 6.5 (4.5-7.5)
[2020-11-27] MEDS ORDERED: ONDANSETRON INJ 2 MG/ML 2 ML VIAL IV STA (14:50)
[2020-11-27] MEDS ORDERED: KETOROLAC TROMETHAMINE 10 MG TABLET PO STA (15:17)
[2020-11-27] MEDS ORDERED: PROMETHAZINE 6.25 MG/50.25 ML BAG IV STA (15:17)
--- NOTE | 2020-11-27 15:32 | Electrocardiogram Report ---
Test Reason : Blood Pressure : / mmHG Vent. Rate : 083 BPM Atrial Rate : 083 BPM P-R Int : 178 ms QRS Dur : 116 ms QT Int : 468 ms P-R-T Axes : 012 -19 094 degrees QTc Int : 549 ms Poor data quality, interpretation may be adversely affected Sinus rhythm with occasional Premature ventricular complexes Left bundle branch block Prolonged QT Abnormal ECG When compared with ECG of 02-NOV-2020 12:22, No significant change Confirmed by Masood Krishna ([id number]) on 11/27/2020 3:31:55 PM Referred By: [id number] Confirmed By:Masood Krishna
--- NOTE | 2020-11-27 16:34 | History & Physical Report ---
Date of Service November 27, 2020 Assessment & Plan (1) Headache: (2) Diplopia: (3) Abdominal pain: This is a 70-year-old female who has a significant past medical history of T2DM, history of CVA with residual left-sided weakness, essential tremor/mild hemiparkinsonism, depression with anxiety, history of HCV, HLD, stress incontinence, recurrent UTI, R breast mass who presents to ED secondary to acute episode of confusion x40 minutes; headache and nausea x1 day. Patient with recent hospitalization 11/04 to 11/15/2020 for E. coli UTI, stroke work-up and adjustment of psychiatric medications. Transition to rehab on 11/15 to 11/23/2020 at [facility]. Had recent adjustment of psychiatric medications today with increase of Effexor to 112 mg daily, BuSpar was added on recent admission 5 mg twice daily and as needed lorazepam. Returns today secondary to multiple generalized complaints but specifically acute episode of altered mental status, right-sided frontal headache, bilateral diplopia headache nausea and suprapubic abdominal pain. Work-up and imaging unrevealing in ED. Does not appear to be infectious. ?if abd pain in setting of urinary retention Admit to med telemetry for further observation History of cirrhosis obtain NH 3 due to report of confusion although appears back at baseline currently -ammonia level normal Obtain visual acuity Had significant improvement of symptoms with migraine cocktail including IV Toradol, Phenergan and IVF Report of poor intake, received 500 mL IVF in ED. give additional [address] Tariq catheter to see if improves suprapubic discomfort -possibly in setting of retention Consult PT/OT (4) History of CVA (cerebrovascular accident): With residual left-sided weakness Continue ASA and statin (5) Diabetes mellitus, type II: Last A1c 7.1 11/03/2020 Hold glipizide and Tradjenta Lantus/NovoLog per protocol Monitor (6) Depression: (7) Anxiety: pt follows Dr. Rivera psych with [facility] recently had hospitalization at [facility] Recent med adjustments include increase of Effexor to 112 mg daily, addition of BuSpar 5 mg twice daily and she continues on as needed lorazepam Monitor closely - qtc 549ms today (8) Dyslipidemia: continue statin (9) Prolonged Q-T interval on ECG: avoid qtc prolonging agents monitor ecg (10) DVT prophylaxis: SQ lovenox Disposition: admit to med tele Follow up: PCP Dr. Quinones upon discharge; Per summary from [facility] pt does have R breast mass on Outpt mammo and needs follow up with general surg for biopsy Pt was seen and examined in collaboration with Dr. Oates, please see addendum History of Present Illness Chief Complaint: Acute episode of confusion [id number]; headache and nausea x1 day. Primary Care Provider: Chaitanya Quinones, This is a 70-year-old female who has a significant past medical history of T2DM, history of CVA with residual left-sided weakness, essential tremor/mild hemiparkinsonism, depression with anxiety, history of HCV, HLD, stress incontinence, recurrent UTI, R breast mass who presents to ED secondary to acute episode of confusion x40 minutes; headache and nausea x1 day. Caregiver is at bedside. Of significance patient recently hospitalized 11/04 to 11/15/2020 secondary to left-sided weakness and fall. She was treated for E. coli UTI with IV Rocephin and transition to oral cefdinir. She was also seen and evaluated by neurology and had a stroke work-up due to concern for weakness. Symptoms were felt to be secondary to recent addition of trazodone and this was therefore discontinued. Per neurology she is felt to have a mild hemiparkinsonism. She was [facility] and was discharged on 11/23/2019. Since being home she had been doing okay until today. She woke up with a significant right-sided frontal headache which radiated to the base of her neck, would come and go, associated with diplopia and photosensitivity. She has never experienced this in the past. Caregiver at bedside was concerned because for approximately 40 minutes prior to EMS arrival she was having difficulty remembering name or who she was. When EMS arrived discontinued but slowly resolved. She also complained of nausea and suprapubic abdominal pain. There was concern maybe she had additional UTI. Since being home she had overall poor p.o. intake and appetite. She has not been eating or drinking well. Denies fever, chills, sweats, lightheadedness, syncope, shortness of breath, cough, hemoptysis, emesis, diarrhea, melena, hematochezia. Her last BM was yesterday. She feels slightly constipated. She has been having significant difficulty urinating and has appointment to see urology in January. Caregiver at bedside is very concerned and feels too long. She was told she had prolapse of bladder and this is the reason for frequent UTIs. In ED she underwent thorough with head CT, chest x-ray and CT abdomen pelvis. No acute abnormalities identified. No signs or symptoms of acute infection. She was treated in ED with migraine cocktail which has resolved headache but continues to have mild suprapubic pressure. Also of note patient does suffer from depression with anxiety and has had recent medication adjustments. Prior to her hospitalization in October she was hospitalized at [facility] for psychiatric care. She did see her psychiatrist at [facility] yesterday, Dr. Rivera. Her Effexor was increased to 112.5 mg daily. BuSpar was also added while she was in rehab, 5 mg twice daily. Allergies Allergy/AdvReac Type Severity Reaction Status Date / Time Iodinated Contrast Media Allergy Severe HEAD TO Verified 11/27/20 16:52 TOE HIVES morphine Allergy Severe hives Verified 11/27/20 16:52 oxycodone Allergy Intermediate Hives Verified 11/27/20 16:52 clavulanic acid Allergy Unknown FROM Verified 11/27/20 16:52 AUGMENTIN Penicillins Allergy Unknown FROM Verified 11/27/20 16:52 AUGMENTIN amitriptyline AdvReac Severe INCREASES Verified 11/27/20 16:52 HEART RATE clarithromycin AdvReac Intermediate LIGHT Verified 11/27/20 16:52 HEADED, FAINTY FEELING acetaminophen AdvReac Unknown NOT ABLE Verified 11/27/20 16:52 TO TAKE DUE TO HX HEPATITIS Cephalosporins AdvReac Unknown CEFTIN--GI Verified 11/27/20 16:52 UPSET Home Medications Medication Instructions Recorded Confirmed Type aspirin 81 mg PO DAILY 09/06/18 11/27/20 History milk thistle 175 mg PO 2XWK 09/06/18 11/27/20 History vitamin B complex 1 tab PO .OCCASIONALLY 09/06/18 11/27/20 History Tradjenta 5 mg PO DAILY 11/15/19 11/27/20 History coenzyme Q10 [CoQ-10] 100 mg PO DAILY 11/15/19 11/27/20 History docusate sodium 100 mg PO BID PRN #60 cap 08/13/20 11/27/20 Rx glipizide 10 mg PO DAILY 11/02/20 11/27/20 History venlafaxine [Effexor XR] 75 mg PO DAILY 11/02/20 11/27/20 History melatonin 3 mg PO HS #30 tab 11/15/20 11/27/20 Rx polyethylene glycol 3350 [Miralax] 17 g PO DAILY PRN #30 ea 11/15/20 11/27/20 Rx propranolol 10 mg PO BID 30 Days #60 tab 11/15/20 11/27/20 Rx atorvastatin 40 mg PO QPM 11/27/20 11/27/20 History buspirone 5 mg PO BID 11/27/20 11/27/20 History cholecalciferol (vitamin D3) 50 mcg PO Q OTHER DAY 11/27/20 11/27/20 History [Vitamin D3] cranberry 400 mg PO Q OTHER DAY 11/27/20 11/27/20 History lorazepam [Ativan] 0.5 mg PO BID PRN 11/27/20 11/27/20 History venlafaxine [Effexor XR] 37.5 mg PO DAILY 11/27/20 11/27/20 History Past Med/Surg History Medical History Anxiety Depression Diabetes mellitus, type II Dyslipidemia Hepatitis C, chronic History of CVA (cerebrovascular accident) LBBB (left bundle branch block) Surgical History H/O cataract removal with insertion of prosthetic lens History of back surgery History of cholecystectomy History of hysterectomy History of tubal ligation Family History Father Pancreatic cancer Social History Smoking Status: Never smoker Second Hand Exposure: No; Hx Alcohol Use: No Hx Substance Use: Yes Preferred Language: Libyan Communication Ability: Effective Web Content Developer Required: No Beliefs That Will Affect Care: Taoism marital status: Current Living Situation: Alone Current Living Situation Comment: CAREGIVER DURING THE DAY Feels Safe at Home: Yes and No Is there a partner from a previous relationship who is making you feel unsafe now?: No Safety Concerns: Afraid for Self Assistive Devices: Denture - Upper, Glasses and Walker Review of Systems Review of Systems: All systems reviewed & are unremarkable except as noted in HPI & below Physical Exam Physical Exam: Constitutional: Thin, petite, female, lying in left lateral decubitus position, appears older than stated age, vitals as above, NAD, answers questions appropriate Head: Normocephalic, Atraumatic Eyes: PERRL, conjunctivae normal, anicteric sclerae ENMT: external ear and nose normal, auditory ear canal without cerumen impaction, TMs white with normal anatomic landmarks. Oropharynx normal Neck: trachea midline, no thyromegaly normal visual inspection Respiratory: normal respiratory effort, lungs clear to auscultation, no wheeze, rales, rhonchi. Normal insp/exp effort, no accessory muscle use Cardiovascular: RRR, 2/6 ELEAZAR noted RUSB,, no edema Vessels: no JVD or carotid bruit Chest: normal inspection of chest Abdomen: normal bowel sounds, soft, nontender, no hepatosplenomegaly Musculoskeletal: no cyanosis or clubbing, extremities motor strength 5/5, left upper and lower extremity 4/5 Skin: no rashes, warm and dry normal turgor Neurologic: PERRL, EOMI, accommodation nl, no face palsy, no dysarthria CN's II-XI intact bilaterally and moves all extremities Psychiatric: A+Ox3, euthymic affect Lymphatic: no cervical or axillary lymphadenopathy : deferred Results & Data Results & Data ([facility]) Vital Signs (Past 12 Hours) Vital Signs Temp Pulse Pulse Resp BP BP Pulse Ox 11/27/20 16:28 74 16 141/52 H 97 11/27/20 14:01 87 22 132/53 L 96 11/27/20 14:00 84 20 11/27/20 13:42 87 15 98 11/27/20 13:04 94 11/27/20 13:00 36.8 C 94 H 18 148/87 H [address]: FINDINGS: No acute intracranial hemorrhage, midline shift or mass effect is present. The ventricular system is unremarkable. White matter hypodensities are unchanged and suggest small vessel disease. The basal cisterns are patent. No extra-axial collections are present. There are no findings to suggest acute dural sinus thrombosis or acute territorial infarct. No significant calvarial abnormalities are present. Visualized portions of the sinuses and mastoid air cells are clear. IMPRESSION: No acute intracranial findings. CXR: IMPRESSION: No acute process. CT abd/pelvis: IMPRESSION: 1. No urinary calculi or hydronephrosis. 2. No acute process within the abdomen or pelvis. However, exam compromised given lack of contrast and motion artifact. 2. No bowel obstruction. 4. Cirrhosis. Medications Administered Discontinued Medications Sodium Chloride (Nss) 500 mls @ 999 mls/hr IV .Q31M STEFANO Stop: 11/27/20 13:45 Last Infusion: 11/27/20 14:11 Dose: 0 mls/hr Documented by: [id number] Admin: 11/27/20 13:40 Dose: 999 mls/hr Documented by: [id number] Promethazine HCl (Phenergan) 6.25 mg in 50.25 mls @ 201 mls/hr IV NOW STA Stop: 11/27/20 15:31 Last Admin: 11/27/20 15:38 Dose: 201 mls/hr Documented by: [id number] Ketorolac Tromethamine (Ketorolac Tromethamine 10 Mg Tablet) 10 mg PO NOW STA Stop: 11/27/20 15:18 Last Admin: 11/27/20 15:38 Dose: 10 mg Documented by: [id number] Ondansetron HCl (Ondansetron Inj 2 Mg/Ml 2 Ml Vial) 4 mg IV NOW STA Stop: 11/27/20 14:51 Last Admin: 11/27/20 14:56 Dose: 4 mg Documented by: [id number] ECG Rate (beats per minute): 83 Rhythm: normal sinus Findings: + LBBB and + prolonged QT (549) COVID-19 Results Results COVID-19 Lab Results: RBC 4.64 M/uL (4.2-5.4) 11/27/20 WBC 6.59 K/uL (4.8-10.8) 11/27/20 Hgb 12.9 g/dL (12.0-16.0) 11/27/20 Hct 38.4 % (37-47) 11/27/20 Plt Count 185 K/uL (130-400) 11/27/20 Neutrophils (%) (Auto) 63.7 % 11/27/20 Lymphocytes (%) (Auto) 23.4 % 11/27/20 Monocytes # (Auto) 0.71 K/uL (0.11-0.59) H 11/27/20 Eosinophils # (Auto) 0.11 K/uL (0-0.5) 11/27/20 Immature Granulocyte % (Auto) 0.2 % 11/27/20 Neutrophils # (Auto) 4.21 K/uL (1.4-6.5) 11/27/20 Lymphocytes # (Auto) 1.54 K/uL (1.2-3.4) 11/27/20 Monocytes # (Auto) 0.71 K/uL (0.11-0.59) H 11/27/20 Eosinophils # (Auto) 0.11 K/uL (0-0.5) 11/27/20 Basophils # (Auto) 0.01 K/uL (0-0.2) 11/27/20 Immature Granulocyte # (Auto) 0.01 K/uL (0.00-0.02) 11/27/20 Na 141 mmol/L (136-145) 11/27/20 K 4.2 mmol/L (3.5-5.1) 11/27/20 Cl 109 mmol/L (98-107) H 11/27/20 CO2 26 mmol/L (21-32) 11/27/20 Anion Gap 6.0 (3-11) 11/27/20 BUN 16 mg/dl (7-18) 11/27/20 Creatinine 0.50 mg/dl (0.6-1.2) L 11/27/20 BUN/Creatinine Ratio 30.8 (10-20) H 11/27/20 Glucose Level 166 mg/dl (70-99) H 11/27/20 Ca 9.5 mg/dl (8.5-10.1) 11/27/20 Total Bilirubin 0.7 mg/dl (0.2-1) 11/27/20 AST/SGOT 26 U/L (15-37) 11/27/20 ALT/SGPT 44 U/L (12-78) 11/27/20 Alkaline Phosphatase 86 U/L (45-117) 11/27/20 Total Protein 6.9 gm/dl (6.4-8.2) 11/27/20 Albumin 3.5 gm/dl (3.4-5.0) 11/27/20 Globulin 3.4 gm/dl (2.5-4.0) 11/27/20 Albumin/Globulin Ratio 1.0 (0.9-2) 11/27/20 Troponin I < 0.015 ng/ml (0-0.045) 11/27/20 CRP < 0.29 mg/dl (0-0.29) 11/27/20 PTT 23.1 Seconds (21.0-31.0) 11/27/20 INR 1.1 (0.9-1.1) 11/27/20 SARS-CoV-2, RNA, NAAT NEGATIVE (NEGATIVE) 11/27/20 Chest X-Ray 11/27/20 Code Status & VTE Plan Code Status Full Code VTE Prophylaxis Plan VTE Prophylaxis will be ordered: Yes Supervising Physician Co-Signing Physician Notes I have seen and examined the patient and have discussed the case with the marilou salguero above. I agree with the assessment and plan as stated. 70 yo F with a h/o frequent UTIs presents to the ER after caregiver noted some transient confusion at home. She has also reported some difficulty urinating and some painful urination. UA with straight cathed sample was negative for infection. She does report a recent addition of Buspar to her regimen of Effexor, and initially symptoms were thought possibly secondary to urinary retention or to adverse drug reaction or polypharmacy effect. Physical exam also revealed a frail elderly-appearing female in NAD who was hiding her face under the blanket to apparently get away from the light. She had significant lower abdominal discomfort to palpation and right CVA tenderness to palpation. She was otherwise moving all extremities equally, and had no clear cranial nerve deficits. Her headache resolved with phenergan in the ER. She continued to demonstrate no evidence of acute urinary retention on bladder scans performed by nursing and no Tariq catheter was placed. Cont to monitor overnight and bladder scan q6h and after every void to ensure no PVR present. Monitor symptom progression in am. DO Иван (1) Depression Depression Type: unspecified Qualified Code(s): F32.9 - Major depressive d isorder, single episode, unspecified (2) Headache Headache chronicity pattern: unspecified pattern Headache type: unspecified Intractability: not intractable Qualified Code(s): R51.9 - Headache, unspecified (3) Abdominal pain Abdominal location: lower abdomen, unspecified Qualified Code(s): R10.30 - Lower abdominal pain, unspecified
[2020-11-27] MEDS ORDERED: GLUCOSE 10 TABS/TUBE PO PRN (19:35)
[2020-11-27] MEDS ORDERED: SODIUM CHLORIDE 0.9% 1000ML 1,000 ML IV SCH (19:35)
[2020-11-27] MEDS ORDERED: DEXTROSE 50% 50 ML SYRINGE IV PRN (19:35)
[2020-11-27] MEDS ORDERED: CARBOHYDRATES FOR HYPOGLYCEMIA PO PRN (19:35)
[2020-11-27] MEDS ORDERED: POLYETHYLENE (MIRALAX) 17 GM PACK PO PRN (19:35)
[2020-11-27] MEDS ORDERED: GLUCOSE 40% GEL 15 GM TUBE PO PRN (19:35)
[2020-11-27] MEDS ORDERED: GLUCAGON FOR INJ 1 MG VIAL SQ PRN (19:35)
[2020-11-27] MEDS ORDERED: MAGNESIUM HYDROXIDE SUSP 30 ML UDC PO PRN (19:35)
[2020-11-27] MEDS: INSULIN ASPART 100 UNITS/ML 3 ML PEN SC SCH (21:22)
[2020-11-27] MEDS: INSULIN GLARGINE SOLOSTAR 100 UNITS/ML 3 ML PEN SC SCH (21:22)
[2020-11-27] MEDS: ENOXAPARIN INJ 40 MG/0.4 ML SYR SQ SCH (21:23)
[2020-11-27] MEDS: PROPRANOLOL HCL 10 MG TAB PO SCH (21:23)
[2020-11-27] MEDS: busPIRone 5 MG TAB PO SCH (21:24)
[2020-11-27] MEDS: MELATONIN 3 MG TAB PO SCH (21:24)
[2020-11-27] MEDS: POLYETHYLENE (MIRALAX) 17 GM PACK PO SCH (22:13)
[2020-11-28 06:36] LABS: Hematocrit (blood only) 35.7 % (37-47); Hemoglobin 11.4 g/dL (12.0-16.0); Mean Corpuscular Hemoglobin 26.9 pg (25-34); Mean Corpuscular Hgb Conc 31.9 g/dL (32-36); Mean Corpuscular Volume 84.2 fL (80-100); Mean Platelet Volume 10.9 fL (7.4-10.4); Platelet Count 147 K/uL (130-400); RDW Coefficient of Variation 13.7 % (11.5-14.5); RDW Standard Deviation 41.7 fL (36.4-46.3); Red Blood Count 4.24 M/uL (4.2-5.4); White Blood Count 4.96 K/uL (4.8-10.8)
[2020-11-28 07:02] LABS: BUN Creatinine Ratio 25.3 (10-20); Calcium 8.4 mg/dl (8.5-10.1); Creatinine Clr Calc Pharmacy 77.6 ml/min; Est GFR (Non-African American) 93.2; Potassium 3.7 mmol/L (3.5-5.1)
[2020-11-28] MEDS: PROPRANOLOL HCL 10 MG TAB PO SCH ×2 (08:16→21:04)
[2020-11-28] MEDS: ASPIRIN 81 MG ECTAB PO SCH (08:16)
[2020-11-28] MEDS: VENLAFAXINE HCL XR 75 MG CAPXR PO SCH (08:16)
[2020-11-28] MEDS: busPIRone 5 MG TAB PO SCH ×2 (08:16→21:05)
[2020-11-28] MEDS: VENLAFAXINE HCL XR 37.5 MG CAPXR PO SCH (08:16)
[2020-11-28] MEDS: CHOLECALCIFEROL 1,000 UNITS 25 MCG TAB PO SCH (08:17)
[2020-11-28] MEDS: INSULIN GLARGINE SOLOSTAR 100 UNITS/ML 3 ML PEN SC SCH ×2 (08:19→21:23)
[2020-11-28] MEDS: INSULIN ASPART 100 UNITS/ML 3 ML PEN SC SCH ×4 (08:21→21:23)
[2020-11-28] MEDS: POLYETHYLENE (MIRALAX) 17 GM PACK PO SCH (08:22)
[2020-11-28] MEDS: PROMETHAZINE HCL 6.25 MG in SODIUM CHLORIDE 0.9% 50 ML IV PRN ×2 (08:41→15:17)
[2020-11-28] MEDS ORDERED: NON-FORMULARY MEDICATION (Coenzyme Q10 [Coq-10] 100 mg Capsule) PO SCH (09:00)
[2020-11-28] MEDS ORDERED: KETOROLAC TROMETHAMINE 15 MG/ML VIAL IV ONE (10:27)
--- NOTE | 2020-11-28 15:26 | Electroencephalogram ---
EEG Procedure Note Date of Service November 28, 2020 Start / End Times Start Time: 1200 End Time: 1220 Referring Physician Sohail Nunez MD History Brief duration confusion with headache question seizure. History of remote CVA Home Medication List Medication Instructions Recorded Confirmed Type aspirin 81 mg PO DAILY 09/06/18 11/27/20 History milk thistle 175 mg PO 2XWK 09/06/18 11/27/20 History vitamin B complex 1 tab PO .OCCASIONALLY 09/06/18 11/27/20 History Tradjenta 5 mg PO DAILY 11/15/19 11/27/20 History coenzyme Q10 [CoQ-10] 100 mg PO DAILY 11/15/19 11/27/20 History docusate sodium 100 mg PO BID PRN #60 cap 08/13/20 11/27/20 Rx glipizide 10 mg PO DAILY 11/02/20 11/27/20 History venlafaxine [Effexor XR] 75 mg PO DAILY 11/02/20 11/27/20 History melatonin 3 mg PO HS #30 tab 11/15/20 11/27/20 Rx polyethylene glycol 3350 [Miralax] 17 g PO DAILY PRN #30 ea 11/15/20 11/27/20 Rx propranolol 10 mg PO BID 30 Days #60 tab 11/15/20 11/27/20 Rx atorvastatin 40 mg PO QPM 11/27/20 11/27/20 History buspirone 5 mg PO BID 11/27/20 11/27/20 History cholecalciferol (vitamin D3) 50 mcg PO Q OTHER DAY 11/27/20 11/27/20 History [Vitamin D3] cranberry 400 mg PO Q OTHER DAY 11/27/20 11/27/20 History lorazepam [Ativan] 0.5 mg PO BID PRN 11/27/20 11/27/20 History venlafaxine [Effexor XR] 37.5 mg PO DAILY 11/27/20 11/27/20 History Inpatient Medication List Aspirin (Aspirin 81 Mg Ectab) 81 mg PO DAILY STEFANO Stop: 12/28/20 08:59 Last Admin: 11/28/20 08:16 Dose: 81 mg Documented by: [id number] Buspirone HCl (Buspirone 5 Mg Tab) 5 mg PO BID STEFANO Stop: 12/27/20 20:59 Last Admin: 11/28/20 08:16 Dose: 5 mg Documented by: [id number] Admin: 11/27/20 21:24 Dose: 5 mg Documented by: [id number] Enoxaparin Sodium (Enoxaparin Inj 40 Mg/0.4 Ml Syr) 40 mg SQ Q24H STEFANO Stop: 12/27/20 21:59 Last Admin: 11/27/20 21:23 Dose: 40 mg Documented by: [id number] Promethazine HCl 6.25 mg/ (Sodium Chloride) 50.25 mls @ 201 mls/hr IV Q6H PRN PRN Reason: Nausea And Vomiting Stop: 12/27/20 19:34 Last Admin: 11/28/20 15:17 Dose: 201 mls/hr Documented by: [id number] Infusion: 11/28/20 08:57 Dose: 0 mls/hr Documented by: [id number] Admin: 11/28/20 08:41 Dose: 201 mls/hr Documented by: [id number] Insulin Aspart (Insulin Aspart 100 Units/Ml 3 Ml Pen) 0 units SC ACHS STEFANO Stop: 12/27/20 20:59 Last Admin: 11/28/20 12:39 Dose: 2 units Documented by: [id number] Cosigned by: [id number] Admin: 11/28/20 08:21 Dose: Not Given Documented by: [id number] Cosigned by: [id number] Admin: 11/27/20 21:22 Dose: Not Given Documented by: [id number] Insulin Glargine (Insulin Glargine Solostar 100 Units/Ml 3 Ml Pen) 0 - 6 units SC BID STEFANO Stop: 12/27/20 20:59 Last Admin: 11/28/20 08:19 Dose: 3 units Documented by: [id number] Cosigned by: [id number] Admin: 11/27/20 21:22 Dose: Not Given Documented by: [id number] Melatonin (Melatonin 3 Mg Tab) 3 mg PO HS [facility] Stop: 12/27/20 20:59 Last Admin: 11/27/20 21:24 Dose: 3 mg Documented by: [id number] Polyethylene Glycol (Polyethylene (Miralax) 17 Gm Pack) 17 gm PO DAILY STEFANO Stop: 12/27/20 19:34 Last Admin: 11/28/20 08:22 Dose: Not Given Documented by: [id number] Admin: 11/27/20 22:13 Dose: 17 gm Documented by: [id number] Propranolol HCl (Propranolol Hcl 10 Mg Tab) 10 mg PO BID STEFANO Stop: 12/27/20 20:59 Last Admin: 11/28/20 08:16 Dose: 10 mg Documented by: [id number] Admin: 11/27/20 21:23 Dose: 10 mg Documented by: [id number] Venlafaxine HCl (Venlafaxine Hcl Xr 37.5 Mg Capxr) 37.5 mg PO DAILY STEFANO Stop: 12/28/20 08:59 Last Admin: 11/28/20 08:16 Dose: 37.5 mg Documented by: [id number] Venlafaxine HCl (Venlafaxine Hcl Xr 75 Mg Capxr) 75 mg PO DAILY STEFANO Stop: 12/28/20 08:59 Last Admin: 11/28/20 08:16 Dose: 75 mg Documented by: [id number] Vitamin D (Cholecalciferol 1,000 Units 25 Mcg Tab) 2,000 units PO Q2D STEFANO Stop: 12/28/20 08:59 Last Admin: 11/28/20 08:17 Dose: 2,000 units Documented by: [id number] Discontinued Medications Sodium Chloride (Nss) 500 mls @ 999 mls/hr IV .Q31M STEFANO Stop: 11/27/20 13:45 Last Infusion: 11/27/20 14:11 Dose: 0 mls/hr Documented by: [id number] Admin: 11/27/20 13:40 Dose: 999 mls/hr Documented by: [id number] Promethazine HCl (Phenergan) 6.25 mg in 50.25 mls @ 201 mls/hr IV NOW STA Stop: 11/27/20 15:31 Last Infusion: 11/27/20 20:03 Dose: 0 mls/hr Documented by: [id number] Admin: 11/27/20 15:38 Dose: 201 mls/hr Documented by: [id number] Sodium Chloride (Nss 1000ml) 1,000 mls @ 80 mls/hr IV .[id number] STEFANO Stop: 11/28/20 08:04 Last Infusion: 11/28/20 10:13 Dose: 0 mls/hr Documented by: [id number] Admin: 11/27/20 21:27 Dose: 80 mls/hr Documented by: [id number] Ketorolac Tromethamine (Ketorolac Tromethamine 10 Mg Tablet) 10 mg PO NOW STA Stop: 11/27/20 15:18 Last Admin: 11/27/20 15:38 Dose: 10 mg Documented by: [id number] Ketorolac Tromethamine (Ketorolac Tromethamine 15 Mg/Ml Vial) 15 mg IV NOW ONE Stop: 11/28/20 10:28 Last Admin: 11/28/20 10:36 Dose: 15 mg Documented by: [id number] Ondansetron HCl (Ondansetron Inj 2 Mg/Ml 2 Ml Vial) 4 mg IV NOW STA Stop: 11/27/20 14:51 Last Admin: 11/27/20 14:56 Dose: 4 mg Documented by: [id number] Description This is a 21 electrode EEG with a single channel dedicated to limited EKG. The electrodes were placed in accordance with the International 10-20 system. This EEG is characterized during wakefulness by the presence of a very well- developed background rhythm in the alpha range of up to 10 Hz maximum frequency and up to 30 V maximum amplitude which is maximum posterior head regions and bilaterally symmetrical. Polymorphic mid frequency modest voltage theta activity of theta is seen symmetrically primarily over the central regions. Beta activity seen symmetrically bifrontally Photic stimulation provokes a modest driving response without a photo myogenic or photoparoxysmal component Drowsiness/sleep not recorded At no time during the waking tracing is there evidence for potentially epileptogenic activity Interpretation This is a normal EEG during wakefulness Clinical Correlation Is a normal EEG without evidence for focal or generalized encephalopathy without evidence specifically for potentially epileptogenic activity which was one of the primary points of the differential diagnosis Sohail Nunez MD
--- NOTE | 2020-11-28 15:46 | Neurology Consultation ---
Date of Consultation November 28, 2020 Assessment & Plan (1) Headache: 1. hydration for headache non narcotic prn medication 2. if double vision persists out patient ophthalmology 3. no MRI at this time Present on Admission?: Yes (2) Tremor: 1. would not treat at this time Present on Admission?: Yes (3) Anxiety: 1. multiple medication changes 2. would consult psychiatry - appears to be medication related agitation Present on Admission?: Yes Supervising Physician Co-Signing Physician Notes I have seen and discussed above patient with Dr Sohail Nunez, neurology I know this woman from multiple prior admissions and actually just saw her with Katherin Pritchard over the holidays when she was admitted for a presumptive urinary tract infection and increased tremulousness of her left arm and leg which has been present for years and my opinion is due to a true vascular parkinsonism as she does have a small deep infarction in the right basal ganglia area and a tremor has been present ever since with fluctuations that often are related to stress infections etc. She is now back in the hospital in an agitated state complaining of headache diplopia increased tremor that has no fever, imaging studies showed nothing new although is limited to a CT scan and for change she does not have evidence for urinary tract infection although was apparently empirically placed on Macrobid on an outpatient basis several days ago One of the issues here as we really do not have a good handle on her medications and how compliant she has been with them and how many changes have been made She was readmitted to the psychiatry unit after her discharge from our hospital then was in [facility] and was seen by her primary care as recently as last week She is on a mixture of benzodiazepines, higher doses of Effexor than she has been on in the past apparently, is off her trazodone, is on BuSpar, but not clear how compliant she has been and the chart is a little vague on exact doses At this point I would suggest we treat her headache with analgesics of nonnarcotic type, hydrate her and have psychiatry evaluate her her least try to review her medications and outline a more consistent plan Exam is little changed. She again has the tremor of the left arm and leg which is parkinsonian in character is associated with rigidity and today she did complain of diplopia and had a transient intorsion of the left eye probably due to convergence spasm but otherwise has normal eye movements facial motility and strength but unfortunate is very agitated tangential speech pattern and her history is virtually impossible to obtain. 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 Complicated Migraine Requesting Physician: Carter Parker MD Attending Physician: Carter Parker MD History of Present Illness Abigail is a 70 year old female PMH- DM2, CVA with residual left-sided weakness, essential tremor/mild hemiparkinsonism, depression with anxiety, history of HCV, HLD, stress incontinence, recurrent UTI, R breast mass who presents to ED with acute episode of confusion x 40 minutes; headache and nausea x1 day. Previous hospitalized 11/04 to 11/15/2020 secondary to left-sided weakness and fall. She was treated for E. coli UTI with IV Rocephin and transition to oral cefdinir. Neurology was consulted and she had a stroke work-up. Symptoms were felt to be secondary to recent addition of trazodone and this was therefore discontinued and has a mild hemiparkinsonism. She was at [facility] for acute rehab and was discharged on 11/23/2019. She woke with a right-sided frontal headache which radiated to the base of her neck, would come and go, associated with diplopia and photosensitivity. Caregiver at bedside was concerned because for approximately 40 minutes prior to EMS arrival she was having difficulty remembering name or who she was. She also complained of nausea and suprapubic abdominal pain. She has had poor oral intake. Currently she is very agitated and upset. she still is complaining of headache and sensativity to bright lights. no nausea or vomiting Allergies Allergy/AdvReac Type Severity Reaction Status Date / Time Iodinated Contrast Media Allergy Severe HEAD TO Verified 11/27/20 16:52 TOE HIVES morphine Allergy Severe hives Verified 11/27/20 16:52 oxycodone Allergy Intermediate Hives Verified 11/27/20 16:52 clavulanic acid Allergy Unknown FROM Verified 11/27/20 16:52 AUGMENTIN Penicillins Allergy Unknown FROM Verified 11/27/20 16:52 AUGMENTIN amitriptyline AdvReac Severe INCREASES Verified 11/27/20 16:52 HEART RATE clarithromycin AdvReac Intermediate LIGHT Verified 11/27/20 16:52 HEADED, FAINTY FEELING acetaminophen AdvReac Unknown NOT ABLE Verified 11/27/20 16:52 TO TAKE DUE TO HX HEPATITIS Cephalosporins AdvReac Unknown CEFTIN--GI Verified 11/27/20 16:52 UPSET Home Medications Medication Instructions Recorded Confirmed Type aspirin 81 mg PO DAILY 09/06/18 11/27/20 History milk thistle 175 mg PO 2XWK 09/06/18 11/27/20 History vitamin B complex 1 tab PO .OCCASIONALLY 09/06/18 11/27/20 History Tradjenta 5 mg PO DAILY 11/15/19 11/27/20 History coenzyme Q10 [CoQ-10] 100 mg PO DAILY 11/15/19 11/27/20 History docusate sodium 100 mg PO BID PRN #60 cap 08/13/20 11/27/20 Rx glipizide 10 mg PO DAILY 11/02/20 11/27/20 History venlafaxine [Effexor XR] 75 mg PO DAILY 11/02/20 11/27/20 History melatonin 3 mg PO HS #30 tab 11/15/20 11/27/20 Rx polyethylene glycol 3350 [Miralax] 17 g PO DAILY PRN #30 ea 11/15/20 11/27/20 Rx propranolol 10 mg PO BID 30 Days #60 tab 11/15/20 11/27/20 Rx atorvastatin 40 mg PO QPM 11/27/20 11/27/20 History buspirone 5 mg PO BID 11/27/20 11/27/20 History cholecalciferol (vitamin D3) 50 mcg PO Q OTHER DAY 11/27/20 11/27/20 History [Vitamin D3] cranberry 400 mg PO Q OTHER DAY 11/27/20 11/27/20 History lorazepam [Ativan] 0.5 mg PO BID PRN 11/27/20 11/27/20 History venlafaxine [Effexor XR] 37.5 mg PO DAILY 11/27/20 11/27/20 History Patient History Medical History Anxiety Depression Diabetes mellitus, type II Dyslipidemia Hepatitis C, chronic History of CVA (cerebrovascular accident) LBBB (left bundle branch block) Surgical History H/O cataract removal with insertion of prosthetic lens History of back surgery History of cholecystectomy History of hysterectomy History of tubal ligation Family History Father Pancreatic cancer Social History Smoking Status: Never smoker Second Hand Exposure: No; Hx Alcohol Use: No Hx Substance Use: Yes Preferred Language: Macedonian Communication Ability: Effective Supervising Fire Marshal Required: No Beliefs That Will Affect Care: Church marital status: Current Living Situation: Alone Current Living Situation Comment: [facility] Feels Safe at Home: Yes and No Is there a partner from a previous relationship who is making you feel unsafe now?: No Safety Concerns: Afraid for Self Assistive Devices: None Review of Systems Review of Systems: All systems reviewed & are unremarkable except as noted in HPI & below and All systems reviewed & are unremarkable except as noted in Subjective Physical Exam Physical Exam: Physical Exam: Constitutional: appearance agitated and crying Ears, Nose, Mouth and Throat: mucous membranes moist, no injection and skin normal, eyes normal Cardiovascular: normal S-1 and S-2 and regular rate and rhythm Respiratory: course breath sounds Musculoskeletal: no peripheral edema and good distal pulses Skin: no stigmata of neurocutaneous disease noted and normal and intact Eyes: extraocular muscles intact (EOMI) and pupils equal, round and reactive to light (PERRL) NEUROLOGIC EXAMINATION: Mental status: Alert and interactive Oriented to person Speech fluent with no evidence of aphasia Cranial Nerves facial symmetry sensory: no deficit to light touch Gait/Stance: Posture lying in bed Motor: moving all extremities Strength: mild left sided weakness. UE/LE Results & Data ([facility]) Vital Signs (Past 12 Hours) Vital Signs Temp Pulse Pulse Resp BP Pulse Ox 11/28/20 15:20 36.6 C 85 18 141/72 H 96 11/28/20 15:06 81 11/28/20 12:11 76 11/28/20 11:40 36.7 C 61 20 158/64 H 94 11/28/20 06:56 36.6 C 88 18 158/73 H 95 11/28/20 04:35 36.7 C 80 20 119/60 95 Laboratory Results Abnormal lab results 11/27/20 11/28/20 11/28/20 Range/Units 21:21 06:18 06:18 Hgb 11.4 L (12.0-16.0) g/dL Hct 35.7 L (37-47) % MCHC 31.9 L (32-36) g/dL MPV 10.9 H (7.4-10.4) fL Chloride 109 H (98-107) mmol/L Creatinine 0.56 L (0.6-1.2) mg/dl BUN/Creatinine Ratio 25.3 H (10-20) Glucose 148 H (70-99) mg/dl POC Glucose 103 H (70-99) mg/dl Calcium 8.4 L (8.5-10.1) mg/dl 11/28/20 11/28/20 Range/Units 07:28 11:38 Hgb (12.0-16.0) g/dL Hct (37-47) % MCHC (32-36) g/dL MPV (7.4-10.4) fL Chloride (98-107) mmol/L Creatinine (0.6-1.2) mg/dl BUN/Creatinine Ratio (10-20) Glucose (70-99) mg/dl POC Glucose 146 H 173 H (70-99) mg/dl Calcium (8.5-10.1) mg/dl Diagnostic Findings Is a normal EEG without evidence for focal or generalized encephalopathy without evidence specifically for potentially epileptogenic activity which was one of the primary points of the differential diagnosis CT head-No acute intracranial hemorrhage, midline shift or mass effect is present. The ventricular system is unremarkable. White matter hypodensities are unchanged and suggest small vessel disease. The basal cisterns are patent. No extra-axial collections are present. There are no findings to suggest acute dural sinus thrombosis or acute territorial infarct. No significant calvarial abnormalities are present. Visualized portions of the sinuses and mastoid air cells are clear. (1) Headache Headache chronicity pattern: unspecified pattern Headache type: unspecified Intractability: not intractable Qualified Code(s): R51.9 - Headache, unspecified
--- NOTE | 2020-11-28 17:28 | Hospitalist Progress Note ---
Date of Service November 28, 2020 Assessment & Plan (1) Headache: (2) Diplopia: (3) Abdominal pain: Patient is a 70 yr female with H/O DM II, H/O CVA CVA with residual left-sided weakness, essential tremor/mild hemiparkinsonism, depression with anxiety, history of HCV, HLD, stress incontinence, recurrent UTI, R breast mass who presents to ED secondary to acute episode of confusion x40 minutes; headache and nausea x1 day. Patient with recent hospitalization 11/04 to 11/15/2020 for E. c heriberto UTI, stroke work-up and adjustment of psychiatric medications. Headache, diplopia Abdominal pain Diplopia chronic/intermittent as per family -CT head:No acute intracranial findings. -CT ABD: No urinary calculi or hydronephrosis. No acute process within the abdomen or pelvis. However, exam compromised given lack of contrast and motion artifact. No bowel obstruction. Cirrhosis. -Recent EEG normal as per Neurology -Attention seeking /possible malingering as per patient's Daughter (patient anxious about not having much help at night as per patient's daughter) -Psychiatric issues probably contributing as well -Will benefit from outpatient ophthalmology evaluation -Appreciate neurology input -Case management to help with discharge planning -Avoid narcotics as able -Continue propranolol -We will also need follow-up with psychiatry () as outpatient -Gentle IV fluids as needed -Patient daughter understands, agrees with current management (4) History of CVA (cerebrovascular accident): With residual left-sided weakness Continue ASA and statin (5) Diabetes mellitus, type II: Last A1c 7.1 11/03/2020 Hold glipizide and Tradjenta Lantus/NovoLog per protocol Monitor (6) Depression: (7) Anxiety: Follows Dr. Molina psych with [facility] Recently had hospitalization at [facility] Recent med adjustments include increase of Effexor to 112 mg daily, addition of BuSpar 5 mg twice daily and she continues on as needed lorazepam Monitor closely - OTC: 549ms Likely benefit from follow-up with psychiatry upon discharge (8) Dyslipidemia: continue statin Right breast mass As per records Needs follow up with biopsy as outpatient (9) Prolonged Q-T interval on ECG: Avoid QTC prolonging agents as able (10) DVT prophylaxis: SQ Lovenox Disposition: PT/OT prior to discharge Follow up: PCP Dr. Quinones upon discharge Admission and Anticipated Discharge Date Admission Date: November 27, 2020 Subjective Patient is seen and examined at bedside Reports headache associated with dizziness, abdominal discomfort and double vision Discussed with patient's daughter over the phone in detail Denies chest pain, dyspnea, nausea, vomiting Offers no other complaints Review of Systems Review of Systems: All systems reviewed & are unremarkable except as noted in HPI & below Physical Exam Physical Exam: Physical Exam: Vitals signs as noted above General Appearance:Moderately built and nourished, no apparent distress Head: normocephalic, Atraumatic Eyes: normal inspection, EOMI Neck: supple, Trachea midline Respiratory/Chest: Normal breath sounds, CTA Cardiovascular: S1, S2, No murmur Abdomen/GI:Soft, Non tender, Bowel sounds present Extremities/Musculoskelatal:normal inspection, no edema Neurologic/Psych:AAOX3, chronic left-sided weakness 4/5, left-sided tremor--chronic, Reports double vision -chronic as per family Skin: normal color, warm Results & Data Results & Data ([facility]) Vital Signs (Past 12 Hours) Vital Signs Temp Pulse Pulse Resp BP Pulse Ox 11/28/20 15:20 36.6 C 85 18 141/72 H 96 11/28/20 15:06 81 11/28/20 12:11 76 11/28/20 11:40 36.7 C 61 20 158/64 H 94 11/28/20 06:56 36.6 C 88 18 158/73 H 95 Laboratory Results Short CBC 11/28/20 Range/Units 06:18 WBC 4.96 (4.8-10.8) K/uL Hgb 11.4 L (12.0-16.0) g/dL Hct 35.7 L (37-47) % Plt Count 147 (130-400) K/uL BMP 11/28/20 06:18 Sodium 141 Potassium 3.7 Chloride 109 H Carbon Dioxide 28 BUN 14 Creatinine 0.56 L Glucose 148 H Calcium 8.4 L (1) Headache Headache chronicity pattern: unspecified pattern Headache type: unspecified Intractability: not intractable Qualified Code(s): R51.9 - Headache, unspecified (2) Abdominal pain Abdominal location: lower abdomen, unspecified Qualified Code(s): R10.30 - Lower abdominal pain, unspecified (3) Depression Depression Type: unspecified Qualified Code(s): F32.9 - Major depressive disorder, single episode, unspecified
[2020-11-28] MEDS: MELATONIN 3 MG TAB PO SCH (21:03)
[2020-11-28] MEDS: LORazepam 0.5 MG TAB PO PRN (21:03)
[2020-11-28] MEDS: ATORVASTATIN 40 MG TAB PO SCH (21:05)
[2020-11-28] MEDS: ENOXAPARIN INJ 40 MG/0.4 ML SYR SQ SCH (21:25)
[2020-11-29] MEDS: ASPIRIN 81 MG ECTAB PO SCH (08:09)
[2020-11-29] MEDS: busPIRone 5 MG TAB PO SCH ×2 (08:11→20:44)
[2020-11-29] MEDS: PROPRANOLOL HCL 10 MG TAB PO SCH ×2 (08:11→20:45)
[2020-11-29] MEDS: VENLAFAXINE HCL XR 75 MG CAPXR PO SCH (08:12)
[2020-11-29] MEDS: VENLAFAXINE HCL XR 37.5 MG CAPXR PO SCH (08:12)
[2020-11-29] MEDS: INSULIN GLARGINE SOLOSTAR 100 UNITS/ML 3 ML PEN SC SCH ×2 (08:12→20:45)
[2020-11-29] MEDS: INSULIN ASPART 100 UNITS/ML 3 ML PEN SC SCH ×4 (08:13→20:46)
[2020-11-29] MEDS: POLYETHYLENE (MIRALAX) 17 GM PACK PO SCH (08:28)
[2020-11-29] MEDS: LORazepam 0.5 MG TAB PO PRN ×2 (09:22→20:52)
--- NOTE | 2020-11-29 13:21 | Psychiatric Consultation ---
Date of Consultation November 29, 2020 Impression / Recommendations Impression Dr. Ann Johnson was directly involved in review and discussion of the patient's case and participated in medical decision making regarding treatment recommendations. RECOMMENDATIONS: 11/29 - Psychiatric consultation requested by our hospitalist service to evaluate patient for depression and anxiety. Pt was seen recently on our consult service for similar presentation on 11/08/2020 - and was subsequently discharged to [facility] for physical rehab. - Pt does endorse continued anxiety, much of which seems to be related to continued situational stress. Pt perceives that she has very limited support and is struggling to decide whether it is best for her to return home or to be placed at a rehab once again. Pt seems to be desiring meaningful conversations with her family to assist with this decision and admits she is scared to make the wrong choice. Added to this is the fact that the patient was informed today that her mother had a stroke and is now also hospitalized. Pt was able to tolerate the news, and agreed to continued check-in's with our psychiatric nurse liaisons for any continued support she may need related to this. - In regard to patient's current medication regimen - patient does seem to be appropriately reporting recent changes to her psychotropic medication regimen. Pt repeatedly states that her concerns for weakness, tremors, and muscle spasms predate the changes to these medications, and she is declining adjustments. This does seem to be appropriate at this time, as it is questioned if the frequent adjustments to her medication regimen may be clouding her clinical picture. There is no current reason to presume that her physical symptoms are directly related to her current psychotropic medication regimen - but we will continue to follow the patient's case and provide recommendations as indicated. - We will attempt to confirm follow-up appointments with Dr. Harvey and progress on reported referral for individual therapy. - Please reach out to our service with any additional questions or updates. Risk Factors Assessment Do You Have Access To A Gun?: No Psych History Identifying Data 70-year-old female admitted medically on 11/27/2020 after presenting to the ED following an episode of acute confusion with additional reports of headache and nausea. Psychiatric consultation was requested to evaluate patient for depression and anxiety. Chief Complaint "I'm so tired. They gave me Ativan to try to get me to rest. I was very distraught this morning." History of Present Illness Abigail Gonzalez is a 70-year-old female admitted medically on 11/27/2020 after presenting to the ED with an acute episode of confusion and reports of headache and nausea. PHM is significant for history of CVA with residual left-sided weakness, TIAs, T2DM, HLD, hepatitis C, LBBB, and episodes of prolonged QTc. Pt also has diagnoses of depression and anxiety for which she was hospitalized at [facility] in 09/2020. Psychiatric consultation was requested to evaluate the patient for depression and anxiety. She was seen two weeks ago on our consult service for similar presentation with a few minor medication recommendations being suggested. From review of medical records, the patient was discharged from our facility on venlafaxine 75mg, clonazepam 0.25mg BID for anxiety, and melatonin for sleep. It appears that buspirone was started while the patient was at [facility]. Since returning home, patient met with her outpatient psychiatrist who titrated her venlafaxine to 112.5mg, continued buspirone, and re-started as needed use of lorazepam for anxiety (though patient reports she had not taken the medication prior to coming to this hospital). It appears that patient had been seen for an outpatient psychiatry appointment only 1-2 days before this current admission. The patient is cooperative with psychiatric assessment, though is admittedly anxious. She continues to report that she is struggling with feeling as though she is losing her supports. Pt shares that she was acutely anxious this morning after a conversation with her daughter, where her perception was that she was being told if she decided to return to a physical rehab facility she would lose her home health aid. Pt states that at present she does not feel safe to return home without additional supports during the evening hours, but she also does not want to risk losing her home health aid by choosing to go to a rehab facility. The patient states that she is noticing her strength improving, but she continues to struggle with full body tremors and reports muscle spasms. Pt states "I've been through anxiety, and this is not like anxiety I've ever felt before. I don't think that's what's happening." Pt admits she is frustrated, as "no one is talking to me about things. No one is talking about what medications are changing, they are all talking to my family." Despite this perception, patient is able to give a seemingly accurate report of her current medication regimen and recent changes. Pt states that she had been feeling unwell before her outpatient psychiatry appointment, and she does not feel the recent adjustments have worsened her tremor or contributed to her current physical symptoms. Pt endorses anxiety and intermittent feelings of hopelessness, but denies SI or acute safety concerns related to her mental health. She states she is frustrated with the frequent medication changes and is hoping to not make any additional changes at this time as "I do feel like the Effexor is working for my mood." Unfortunately, during this provider's visit, the patient was informed that her mother had presented to the ED with a stroke and was being admitted. Pt became appropriately tearful and shared stories about her mother. Pt states she had been very close to her mother, but had not seen her in 2 months due to COVID-19 and interference related to their physical health. Pt states she has been frustrated as it seems the family support has been utilized to care for her mother, which leaves her siblings too tired to support the patient with her needs. This provider stayed with the patient for a while to process the news, and then the patient requested to try to get some rest. This provider offered for our liaison nurses to round as needed. Past Psychiatric History Outpatient Services: Psychiatrist - Dr. Harvey - [facility] (Pt had previously been working with Dr. Hartley; there are also prescriptions sent as recently as 08/2020 by [facility] psychiatrist, Dr. Rebollar.) Therapist - Shabnam Gamboa - [facility] (patient states she has been looking for a regular therapist) Previous Psych Admissions: [facility]: 09/26/2020 - 10/04/2020 for worsening depression and anxiety. Pt states she was hospitalized medically at age 16 for "a nervous breakdown", but states "before [facility] I was never institutionalized" Do You Have Access To A Gun?: No History of Previous Suicide Attempt: No Past Medication Trials: 1. Lexapro 2. Ativan 3. Effexor 4. Trazodone 5. Melatonin Allergies Allergy/AdvReac Type Severity Reaction Status Date / Time Iodinated Contrast Media Allergy Severe HEAD TO Verified 11/27/20 16:52 TOE HIVES morphine Allergy Severe hives Verified 11/27/20 16:52 oxycodone Allergy Intermediate Hives Verified 11/27/20 16:52 clavulanic acid Allergy Unknown FROM Verified 11/27/20 16:52 AUGMENTIN Penicillins Allergy Unknown FROM Verified 11/27/20 16:52 AUGMENTIN amitriptyline AdvReac Severe INCREASES Verified 11/27/20 16:52 HEART RATE clarithromycin AdvReac Intermediate LIGHT Verified 11/27/20 16:52 HEADED, FAINTY FEELING acetaminophen AdvReac Unknown NOT ABLE Verified 11/27/20 16:52 TO TAKE DUE TO HX HEPATITIS Cephalosporins AdvReac Unknown CEFTIN--GI Verified 11/27/20 16:52 UPSET Home Medications Medication Instructions Recorded Confirmed Type aspirin 81 mg PO DAILY 09/06/18 11/27/20 History milk thistle 175 mg PO 2XWK 09/06/18 11/27/20 History vitamin B complex 1 tab PO .OCCASIONALLY 09/06/18 11/27/20 History Tradjenta 5 mg PO DAILY 11/15/19 11/27/20 History coenzyme Q10 [CoQ-10] 100 mg PO DAILY 11/15/19 11/27/20 History docusate sodium 100 mg PO BID PRN #60 cap 08/13/20 11/27/20 Rx glipizide 10 mg PO DAILY 11/02/20 11/27/20 History venlafaxine [Effexor XR] 75 mg PO DAILY 11/02/20 11/27/20 History melatonin 3 mg PO HS #30 tab 11/15/20 11/27/20 Rx polyethylene glycol 3350 [Miralax] 17 g PO DAILY PRN #30 ea 11/15/20 11/27/20 Rx propranolol 10 mg PO BID 30 Days #60 tab 11/15/20 11/27/20 Rx atorvastatin 40 mg PO QPM 11/27/20 11/27/20 History buspirone 5 mg PO BID 11/27/20 11/27/20 History cholecalciferol (vitamin D3) 50 mcg PO Q OTHER DAY 11/27/20 11/27/20 History [Vitamin D3] cranberry 400 mg PO Q OTHER DAY 11/27/20 11/27/20 History lorazepam [Ativan] 0.5 mg PO BID PRN 11/27/20 11/27/20 History venlafaxine [Effexor XR] 37.5 mg PO DAILY 11/27/20 11/27/20 History Family History t reports daughter with depression, and sister/nieces with anxiety. Pt states alcoholism is prevalent on her mother's side of the family. She also acknowledges that her brother attempted suicide. Substance Abuse History Denies significant alcohol or tobacco use. Denies use of illicit substances. Personal History Living Arrangements: Home (recently discharged home from [facility]) Highest Grade Completed: High School Graduate Employment Status: Retired Number Of Children: 3 adult children Beliefs That Will Affect Care: Anabaptism (Jainism) Psychological Trauma History Comment: Denied, though [facility] records report a diagnosis of "posttraumatic stress disorder, in remission" Patient History Medical History Anxiety Depression Diabetes mellitus, type II Dyslipidemia Hepatitis C, chronic History of CVA (cerebrovascular accident) LBBB (left bundle branch block) Surgical History H/O cataract removal with insertion of prosthetic lens History of back surgery History of cholecystectomy History of hysterectomy History of tubal ligation Family History Father Pancreatic cancer Social History Smoking Status: Never smoker Second Hand Exposure: No; Hx Alcohol Use: No Hx Substance Use: Yes Preferred Language: Sinhala Communication Ability: Effective Commercial Insurance Underwriter Required: No Beliefs That Will Affect Care: Anabaptism marital status: Current Living Situation: Alone Current Living Situation Comment: [employer] Feels Safe at Home: Yes and No Is there a partner from a previous relationship who is making you feel unsafe now?: No Safety Concerns: Afraid for Self Physical Exam Psychiatric: Orientation: alert, oriented x 3 and cooperative Apperance: appropriately dressed, appropriately groomed and appeared stated age Thin appearing female, laying in bed appearing anxious and uncomfortable. Pt is appropriately dressed in hospital gown. Level of grooming is decent. Pt is laying on her side, grasping onto her bed rail and displaying tremor most significant in her arms, back, and upper legs. Eye Contact: + fair eye contact Motor Behavior: + tremor observed while laying in bed Speech: normal rate/rhythm/volume of speech Affect: + anxious affect and + constricted affect Mood: + depressed mood and + anxious mood Thought Process: + perseveration and + concrete thought process Thought Content: + hopelessness (intermittently ) and + loneliness; not paranoid and no delusions Suicidal Thoughts: denies suicidal thoughts and denies suicidal intent Homicidal Thoughts: denies homicidal thoughts Hallucinations: no auditory hallucinations and no visual hallucinations Cognition: attention grossly intact and language grossly intact Estimated Intelligence: consistent with education level Insight: + fair insight Judgement: + fair judgement Vital Signs (Past 24 Hours): Last Vital Signs Temp 36.4 C L 11/29/20 11:48 Pulse 66 11/29/20 11:48 Resp 18 11/29/20 11:48 BP 128/67 11/29/20 11:48 Pulse Ox 96 11/29/20 11:48 Review of Systems Constitutional: reports fatigue and weakness (though improving) Cardiovascular: denied Respiratory: denied Gastrointestinal: denied Neurological: reports tremor Musculoskeletal: reports intermittent muscle spasms in neck and shoulder Psychiatric: denies symptoms other than stated above Total of at least 10 systems reviewed, pertinent positives as above and in HPI. Results & Data (PSY) Medications Administered Aspirin (Aspirin 81 Mg Ectab) 81 mg PO DAILY STEFANO Stop: 12/28/20 08:59 Last Admin: 11/29/20 08:09 Dose: 81 mg Documented by: [id number] Admin: 11/28/20 08:16 Dose: 81 mg Documented by: [id number] Atorvastatin Calcium (Atorvastatin 40 Mg Tab) 40 mg PO QPM STEFANO Stop: 12/28/20 20:59 Last Admin: 11/28/20 21:05 Dose: 40 mg Documented by: [id number] Buspirone HCl (Buspirone 5 Mg Tab) 5 mg PO BID STEFANO Stop: 12/27/20 20:59 Last Admin: 11/29/20 08:11 Dose: 5 mg Documented by: [id number] Admin: 11/28/20 21:05 Dose: 5 mg Documented by: [id number] Admin: 11/28/20 08:16 Dose: 5 mg Documented by: [id number] Admin: 11/27/20 21:24 Dose: 5 mg Documented by: [id number] Enoxaparin Sodium (Enoxaparin Inj 40 Mg/0.4 Ml Syr) 40 mg SQ Q24H STEFANO Stop: 12/27/20 21:59 Last Admin: 11/28/20 21:25 Dose: 40 mg Documented by: [id number] Admin: 11/27/20 21:23 Dose: 40 mg Documented by: [id number] Promethazine HCl 6.25 mg/ (Sodium Chloride) 50.25 mls @ 201 mls/hr IV Q6H PRN PRN Reason: Nausea And Vomiting Stop: 12/27/20 19:34 Last Infusion: 11/28/20 15:35 Dose: 0 mls/hr Documented by: [id number] Admin: 11/28/20 15:17 Dose: 201 mls/hr Documented by: [id number] Infusion: 11/28/20 08:57 Dose: 0 mls/hr Documented by: [id number] Admin: 11/28/20 08:41 Dose: 201 mls/hr Documented by: [id number] Insulin Aspart (Insulin Aspart 100 Units/Ml 3 Ml Pen) 0 units SC ACHS [facility] Stop: 12/27/20 20:59 Last Admin: 11/29/20 13:05 Dose: Not Given Documented by: [id number] Cosigned by: [id number] Admin: 11/29/20 08:13 Dose: 4 units Documented by: [id number] Cosigned by: [id number] Admin: 11/28/20 21:23 Dose: 1 units Documented by: [id number] Cosigned by: [id number] Admin: 11/28/20 17:03 Dose: 1 units Documented by: [id number] Cosigned by: [id number] Admin: 11/28/20 12:39 Dose: 2 units Documented by: [id number] Cosigned by: [id number] Admin: 11/28/20 08:21 Dose: Not Given Documented by: [id number] Cosigned by: [id number] Admin: 11/27/20 21:22 Dose: Not Given Documented by: [id number] Insulin Glargine (Insulin Glargine Solostar 100 Units/Ml 3 Ml Pen) 0 - 6 units SC BID [facility] Stop: 12/27/20 20:59 Last Admin: 11/29/20 08:12 Dose: 6 units Documented by: [id number] Cosigned by: [id number] Admin: 11/28/20 21:23 Dose: 6 units Documented by: [id number] Cosigned by: [id number] Admin: 11/28/20 08:19 Dose: 3 units Documented by: [id number] Cosigned by: [id number] Admin: 11/27/20 21:22 Dose: Not Given Documented by: [id number] Lorazepam (Lorazepam 0.5 Mg Tab) 0.5 mg PO BID PRN PRN Reason: Anxiety Stop: 12/27/20 19:34 Last Admin: 11/29/20 09:22 Dose: 0.5 mg Documented by: [id number] Admin: 11/28/20 21:03 Dose: 0.5 mg Documented by: [id number] Melatonin (Melatonin 3 Mg Tab) 3 mg PO HS STEFANO Stop: 12/27/20 20:59 Last Admin: 11/28/20 21:03 Dose: 3 mg Documented by: [id number] Admin: 11/27/20 21:24 Dose: 3 mg Documented by: [id number] Polyethylene Glycol (Polyethylene (Miralax) 17 Gm Pack) 17 gm PO DAILY STEFANO Stop: 12/27/20 19:34 Last Admin: 11/29/20 08:28 Dose: Not Given Documented by: [id number] Admin: 11/28/20 08:22 Dose: Not Given Documented by: [id number] Admin: 11/27/20 22:13 Dose: 17 gm Documented by: [id number] Propranolol HCl (Propranolol Hcl 10 Mg Tab) 10 mg PO BID STEFANO Stop: 12/27/20 20:59 Last Admin: 11/29/20 08:11 Dose: 10 mg Documented by: [id number] Admin: 11/28/20 21:04 Dose: 10 mg Documented by: [id number] Admin: 11/28/20 08:16 Dose: 10 mg Documented by: [id number] Admin: 11/27/20 21:23 Dose: 10 mg Documented by: [id number] Venlafaxine HCl (Venlafaxine Hcl Xr 37.5 Mg Capxr) 37.5 mg PO DAILY STEFANO Stop: 12/28/20 08:59 Last Admin: 11/29/20 08:12 Dose: 37.5 mg Documented by: [id number] Admin: 11/28/20 08:16 Dose: 37.5 mg Documented by: [id number] Venlafaxine HCl (Venlafaxine Hcl Xr 75 Mg Capxr) 75 mg PO DAILY STEFANO Stop: 12/28/20 08:59 Last Admin: 11/29/20 08:12 Dose: 75 mg Documented by: [id number] Admin: 11/28/20 08:16 Dose: 75 mg Documented by: [id number] Vitamin D (Cholecalciferol 1,000 Units 25 Mcg Tab) 2,000 units PO Q2D STEFANO Stop: 12/28/20 08:59 Last Admin: 11/28/20 08:17 Dose: 2,000 units Documented by: [id number] Coding Level of Care Code 66819 [facility] Intl Hosp Care Lvl 3 Comment >50% of visit spent with supportive counseling - assisting with processing anxiety
--- NOTE | 2020-11-29 16:15 | Communication Note ---
Date of Service: November 29, 2020 I saw Abigail today reviewed the initial psychiatric evaluation and find her to be much less anxious and agitated although still having some of this today and being upset about the fact her mother had a stroke and is in the hospital She has the intermittent tremor of the left arm and left leg which has a parkinsonian flavor and to my opinion probably is due to the old vascular lesion deep in the right hemisphere Our records suggest that she has had this type of movement disorder ever since the stroke but has never been severe enough to treat and does periodically flareup with urinary tract infections and other stressors I suspect that the confusional episode that precipitated admission may have been part of an anxiety issue as we do have nothing on EEG to suggest potentially epileptogenic activity and the history is somewhat vague and certainly not really consistent with a seizure Whether this might have been a transient global amnestic equivalent is an academic question as that diagnosis would not change her treatment at this point In terms of movement disorder I continue to feel that she does not need treatment with Sinemet but will address this when she returns to see us in January I believe there has been quite a number of changes in her psychiatric medications over the past 6 weeks and frankly would favor someone coming up with a consistent program and sticking to it Neurology is going to sign off at this point I am not sure where she is going to be post discharge. She is talking about another psychiatric admission or perhaps a rehabilitation admission We will reassess her in our office as scheduled in January and are recommending medication as directed at the tremor/vascular parkinsonism Sohail Nunez MD
--- NOTE | 2020-11-29 16:45 | Hospitalist Progress Note ---
Date of Service November 29, 2020 Assessment & Plan (1) Headache: (2) Diplopia: (3) Abdominal pain: Patient is a 70 yr female with H/O DM II, H/O CVA CVA with residual left-sided weakness, essential tremor/mild hemiparkinsonism, depression with anxiety, history of HCV, HLD, stress incontinence, recurrent UTI, R breast mass who presents to ED secondary to acute episode of confusion x40 minutes; headache and nausea x1 day. Patient with recent hospitalization 11/04 to 11/15/2020 for E. c heriberto UTI, stroke work-up and adjustment of psychiatric medications. Headache, diplopia Abdominal pain Diplopia chronic/intermittent as per family Symptoms likely secondary to anxiety issues -CT head:No acute intracranial findings. -CT ABD: No urinary calculi or hydronephrosis. No acute process within the abdomen or pelvis. However, exam compromised given lack of contrast and motion artifact. No bowel obstruction. Cirrhosis. -Recent EEG normal as per Neurology -Attention seeking /possible malingering as per patient's Daughter (patient anxious about not having much help at night as per patient's daughter) and patient agrees that she is scared to be alone. -Will benefit from outpatient ophthalmology evaluation -Appreciate neurology input -Avoid narcotics as able -Continue propranolol -Follows with psychiatry as outpatient -Received gentle IV fluids -Appreciate psychiatry input -Case management to help with discharge planning -Needs follow-up with neurology as outpatient Movement disorder Intermittent tremor of the left upper and lower extremity ? due to old vascular lesion in the right hemisphere DD: Parkinson's No current medications indicated as per neurology Needs follow-up with neurology as outpatient (4) History of CVA (cerebrovascular accident): With residual left-sided weakness Continue ASA and statin (5) Diabetes mellitus, type II: Last A1c 7.1 11/03/2020 Hold glipizide and Tradjenta Lantus/NovoLog per protocol Monitor (6) Depression: (7) Anxiety: [facility] at [facility] Recent med adjustments include increase of Effexor to 112 mg daily, addition of BuSpar 5 mg twice daily and she continues on as needed lorazepam Monitor closely - OTC: 549ms Appreciate psychiatry input Patient currently not interested in medication adjustment as per psychiatry (8) Dyslipidemia: continue statin Right breast mass As per records Needs follow up with biopsy as outpatient (9) Prolonged Q-T interval on ECG: Avoid QTC prolonging agents as able (10) DVT prophylaxis: SQ Lovenox Disposition: PT/OT prior to discharge Follow up: PCP Dr. Quinones upon discharge Follow-up with psychiatry Neurology follow-up with Dr. Nunez Admission and Anticipated Discharge Date Admission Date: November 29, 2020 Subjective Patient is seen and examined at bedside Very anxious earlier this morning but later improved States that her anxiety is related to living conditions at home Denies headache, dizziness, double vision, abdominal pain today Appreciate psychiatry, neurology input Also denies chest pain, dyspnea, nausea, vomiting Review of Systems Review of Systems: All systems reviewed & are unremarkable except as noted in HPI & below Physical Exam Physical Exam: Physical Exam: Vitals signs as noted above General Appearance:Moderately built and nourished, no apparent distress Head: normocephalic, Atraumatic Eyes: normal inspection, EOMI Neck: supple, Trachea midline Respiratory/Chest: Normal breath sounds, CTA Cardiovascular: S1, S2, No murmur Abdomen/GI:Soft, Non tender, Bowel sounds present Extremities/Musculoskelatal:normal inspection, no edema Neurologic/Psych:AAOX3, chronic left-sided weakness 4/5, left-sided tremor--chronic, Reports double vision -chronic as per family Skin: normal color, warm Results & Data Results & Data ([facility]) Vital Signs (Past 12 Hours) Vital Signs Temp Pulse Pulse Resp BP Pulse Ox 11/29/20 16:00 85 11/29/20 15:36 36.9 C 88 18 103/68 95 11/29/20 11:48 36.4 C L 66 18 128/67 96 11/29/20 07:52 61 11/29/20 07:42 36.6 C 83 18 133/68 97 (1) Headache Headache chronicity pattern: unspecified pattern Headache type: unspecified Intractability: not intractable Qualified Code(s): R51.9 - Headache, unspecified (2) Abdominal pain Abdominal location: lower abdomen, unspecified Qualified Code(s): R10.30 - Lower abdominal pain, unspecified (3) Depression Depression Type: unspecified Qualified Code(s): F32.9 - Major depressive disorder, single episode, unspecified
[2020-11-29] MEDS: ATORVASTATIN 40 MG TAB PO SCH (20:45)
[2020-11-29] MEDS: MELATONIN 3 MG TAB PO SCH (20:45)
[2020-11-29] MEDS: ENOXAPARIN INJ 40 MG/0.4 ML SYR SQ SCH (22:10)
[2020-11-30 07:03] LABS: BUN Creatinine Ratio 23.3 (10-20); Creatinine Clr Calc Pharmacy 75.9 ml/min; Est GFR (African American) 109.9; Est GFR (Non-African American) 94.9; Potassium 3.9 mmol/L (3.5-5.1)
[2020-11-30] MEDS: VENLAFAXINE HCL XR 75 MG CAPXR PO SCH (08:05)
[2020-11-30] MEDS: CHOLECALCIFEROL 1,000 UNITS 25 MCG TAB PO SCH (08:05)
[2020-11-30] MEDS: ASPIRIN 81 MG ECTAB PO SCH (08:05)
[2020-11-30] MEDS: INSULIN ASPART 100 UNITS/ML 3 ML PEN SC SCH ×4 (08:06→21:20)
[2020-11-30] MEDS: VENLAFAXINE HCL XR 37.5 MG CAPXR PO SCH (08:06)
[2020-11-30] MEDS: PROPRANOLOL HCL 10 MG TAB PO SCH ×2 (08:06→21:20)
[2020-11-30] MEDS: busPIRone 5 MG TAB PO SCH ×2 (08:06→21:18)
[2020-11-30] MEDS: INSULIN GLARGINE SOLOSTAR 100 UNITS/ML 3 ML PEN SC SCH ×2 (08:08→21:18)
[2020-11-30] MEDS: POLYETHYLENE (MIRALAX) 17 GM PACK PO SCH (08:09)
[2020-11-30] MEDS: LORazepam 0.5 MG TAB PO PRN (08:48)
--- NOTE | 2020-11-30 13:27 | Electrocardiogram Report ---
Test Reason : Blood Pressure : / mmHG Vent. Rate : 074 BPM Atrial Rate : 074 BPM P-R Int : 168 ms QRS Dur : 132 ms QT Int : 448 ms P-R-T Axes : 075 025 080 degrees QTc Int : 497 ms Normal sinus rhythm Left bundle branch block Abnormal ECG When compared with ECG of 27-NOV-2020 13:02, Premature ventricular complexes are no longer Present Confirmed by Steven Vences ([id number]) on 11/30/2020 1:27:12 PM Referred By: REFERRED SELF Confirmed By:Steven Vences
--- NOTE | 2020-11-30 17:27 | Hospitalist Progress Note ---
Date of Service November 30, 2020 Assessment & Plan (1) Headache: (2) Diplopia: (3) Abdominal pain: Patient is a 70 yr female with H/O DM II, H/O CVA CVA with residual left-sided weakness, essential tremor/mild hemiparkinsonism, depression with anxiety, history of HCV, HLD, stress incontinence, recurrent UTI, R breast mass who presents to ED secondary to acute episode of confusion x40 minutes; headache and nausea x1 day. Patient with recent hospitalization 11/04 to 11/15/2020 for E. c heriberto UTI, stroke work-up and adjustment of psychiatric medications. Headache, diplopia Abdominal pain Diplopia chronic/intermittent as per family Symptoms likely secondary to anxiety issues -CT head:No acute intracranial findings. -CT ABD: No urinary calculi or hydronephrosis. No acute process within the abdomen or pelvis. However, exam compromised given lack of contrast and motion artifact. No bowel obstruction. Cirrhosis. -Recent EEG normal as per Neurology -Attention seeking /possible malingering as per patient's Daughter (patient anxious about not having much help at night as per patient's daughter) and patient agrees that she is scared to be alone. -Will benefit from outpatient ophthalmology evaluation -Appreciate neurology input -Avoid narcotics as able -Continue propranolol -Follows with psychiatry as outpatient -Received gentle IV fluids -Appreciate psychiatry input -Case management to help with discharge planning -Needs follow-up with neurology as outpatient -Symptoms resolved Movement disorder Intermittent tremor of the left upper and lower extremity ? due to old vascular lesion in the right hemisphere DD: Parkinson's No current medications indicated as per neurology Needs follow-up with neurology as outpatient (4) History of CVA (cerebrovascular accident): With residual left-sided weakness Continue ASA and statin (5) Diabetes mellitus, type II: Last A1c 7.1 11/03/2020 Hold glipizide and Tradjenta Lantus/NovoLog per protocol Monitor (6) Depression: (7) Anxiety: [facility] Recently had hospitalization at [facility] Recent med adjustments include increase of Effexor to 112 mg daily, addition of BuSpar 5 mg twice daily and she continues on as needed lorazepam Monitor closely - OTC: 549ms Appreciate psychiatry input Patient currently not interested in medication adjustment as per psychiatry Currently does not meet inpatient criteria for psychiatric treatment as per Psych (8) Dyslipidemia: continue statin Right breast mass As per records Needs follow up with biopsy as outpatient (9) Prolonged Q-T interval on ECG: Avoid QTC prolonging agents as able (10) DVT prophylaxis: SQ Lovenox Disposition: To discharge to rehab facility as able Follow up: PCP Dr. Quinones upon discharge Follow-up with psychiatry Neurology follow-up with Dr. Nunez Admission and Anticipated Discharge Date Admission Date: November 29, 2020 Subjective Patient is seen and examined at bedside Reports feeling depressed and anxious as her mother was hospitalized as well " I feel Shaky" Patient currently interested in being getting admitted to inpatient psych Discussed with psychiatry, currently does not meet criteria for inpatient Denies chest pain, dyspnea, nausea, vomiting, abd pain Review of Systems Review of Systems: All systems reviewed & are unremarkable except as noted in HPI & below Physical Exam Physical Exam: Physical Exam: Vitals signs as noted above General Appearance:Moderately built and nourished, no apparent distress Head: normocephalic, Atraumatic Eyes: normal inspection, EOMI Neck: supple, Trachea midline Respiratory/Chest: Normal breath sounds, CTA Cardiovascular: S1, S2, No murmur Abdomen/GI:Soft, Non tender, Bowel sounds present Extremities/Musculoskelatal:normal inspection, no edema Neurologic/Psych:AAOX3, chronic left-sided weakness 4/5, left-sided tremor--chronic, Reports double vision -chronic as per family Skin: normal color, warm Results & Data Results & Data ([facility]) Vital Signs (Past 12 Hours) Vital Signs Temp Pulse Pulse Resp BP Pulse Ox 11/30/20 15:31 37 C 77 18 103/64 95 11/30/20 08:16 36.5 C 80 20 117/80 99 11/30/20 07:25 73 Laboratory Results [facility] 11/30/20 05:53 Sodium 139 Potassium 3.9 Chloride 106 Carbon Dioxide 30 BUN 12 Creatinine 0.53 L Glucose 147 H Calcium 9.0 (1) Headache Headache chronicity pattern: unspecified pattern Headache type: unspecified Intractability: not intractable Qualified Code(s): R51.9 - Headache, unspecified (2) Abdominal pain Abdominal location: lower abdomen, unspecified Qualified Code(s): R10.30 - Lower abdominal pain, unspecified (3) Depression Depression Type: unspecified Qualified Code(s): F32.9 - Major depressive disorder, single episode, unspecified
[2020-11-30] MEDS: ATORVASTATIN 40 MG TAB PO SCH (21:18)
[2020-11-30] MEDS: MELATONIN 3 MG TAB PO SCH (21:18)
[2020-11-30] MEDS: ENOXAPARIN INJ 40 MG/0.4 ML SYR SQ SCH (21:19)
[2020-12-01] MEDS: ASPIRIN 81 MG ECTAB PO SCH (08:24)
[2020-12-01] MEDS: VENLAFAXINE HCL XR 37.5 MG CAPXR PO SCH (08:24)
[2020-12-01] MEDS: PROPRANOLOL HCL 10 MG TAB PO SCH ×2 (08:24→20:46)
[2020-12-01] MEDS: VENLAFAXINE HCL XR 75 MG CAPXR PO SCH (08:25)
[2020-12-01] MEDS: busPIRone 5 MG TAB PO SCH ×2 (08:25→20:46)
[2020-12-01] MEDS: INSULIN ASPART 100 UNITS/ML 3 ML PEN SC SCH ×4 (08:26→20:47)
[2020-12-01] MEDS: INSULIN GLARGINE SOLOSTAR 100 UNITS/ML 3 ML PEN SC SCH ×2 (08:26→20:47)
[2020-12-01] MEDS: POLYETHYLENE (MIRALAX) 17 GM PACK PO SCH (08:32)
[2020-12-01] MEDS: LORazepam 0.5 MG TAB PO PRN ×2 (10:26→21:25)
--- NOTE | 2020-12-01 15:57 | Hospitalist Progress Note ---
Date of Service December 01, 2020 Assessment & Plan (1) Headache: (2) Diplopia: (3) Abdominal pain: Patient is a 70 yr female with H/O DM II, H/O CVA CVA with residual left-sided weakness, essential tremor/mild hemiparkinsonism, depression with anxiety, history of HCV, HLD, stress incontinence, recurrent UTI, R breast mass who presents to ED secondary to acute episode of confusion x40 minutes; headache and nausea x1 day. Patient with recent hospitalization 11/04 to 11/15/2020 for E. c heriberto UTI, stroke work-up and adjustment of psychiatric medications. Headache, diplopia Abdominal pain Diplopia chronic/intermittent as per family Symptoms likely secondary to anxiety issues -CT head:No acute intracranial findings. -CT ABD: No urinary calculi or hydronephrosis. No acute process within the abdomen or pelvis. However, exam compromised given lack of contrast and motion artifact. No bowel obstruction. Cirrhosis. -Recent EEG normal as per Neurology -Attention seeking /possible malingering as per patient's Daughter (patient anxious about not having much help at night as per patient's daughter) and patient agrees that she is scared to be alone. -Will benefit from outpatient ophthalmology evaluation -Appreciate neurology input -Avoid narcotics as able -Continue propranolol -Follows with psychiatry as outpatient -Received gentle IV fluids -Appreciate psychiatry input -Case management to help with discharge planning -Needs follow-up with neurology as outpatient -Symptoms resolved -waiting for rehab placement Movement disorder Intermittent tremor of the left upper and lower extremity ? due to old vascular lesion in the right hemisphere DD: Parkinson's No current medications indicated as per neurology Needs follow-up with neurology as outpatient (4) History of CVA (cerebrovascular accident): With residual left-sided weakness Continue ASA and statin (5) Diabetes mellitus, type II: Last A1c 7.1 11/03/2020 Hold glipizide and Tradjenta Lantus/NovoLog per protocol Monitor (6) Depression: (7) Anxiety: Follows Dr. Harvey psych with [facility] Recently had hospitalization at [facility] Recent med adjustments include increase of Effexor to 112 mg daily, addition of BuSpar 5 mg twice daily and she continues on as needed lorazepam Monitor closely - OTC: 549ms Appreciate psychiatry input Patient currently not interested in medication adjustment as per psychiatry Currently does not meet inpatient criteria for psychiatric treatment as per Psych (8) Dyslipidemia: continue statin Right breast mass As per records Needs follow up with biopsy as outpatient (9) Prolonged Q-T interval on ECG: Avoid QTC prolonging agents as able (10) DVT prophylaxis: SQ Lovenox Disposition: To discharge to rehab facility as able Follow up: PCP Dr. Quinones upon discharge Follow-up with psychiatry Neurology follow-up with Dr. Nunez Admission and Anticipated Discharge Date Admission Date: November 29, 2020 Subjective Patient is seen and examined at bedside Lying in bed comfortably this morning " I head feels shaky " No other complaints Denies chest pain, dyspnea, nausea, vomiting, abd pain Waiting for Rehab placement Review of Systems Review of Systems: All systems reviewed & are unremarkable except as noted in HPI & below Physical Exam Physical Exam: Physical Exam: Vitals signs as noted above General Appearance:Moderately built and nourished, no apparent distress Head: normocephalic, Atraumatic Eyes: normal inspection, EOMI Neck: supple, Trachea midline Respiratory/Chest: Normal breath sounds, CTA Cardiovascular: S1, S2, No murmur Abdomen/GI:Soft, Non tender, Bowel sounds present Extremities/Musculoskelatal:normal inspection, no edema Neurologic/Psych:AAOX3, chronic left-sided weakness 4/5, left-sided tremor--chronic intermittent double vision Skin: normal color, warm Results & Data Results & Data ([facility]) Vital Signs (Past 12 Hours) Vital Signs Temp Pulse Pulse Resp BP Pulse Ox 12/01/20 14:59 36.7 C 92 H 16 101/64 95 12/01/20 11:15 36.8 C 76 20 125/70 96 12/01/20 08:00 75 12/01/20 07:10 36.7 C 82 18 105/69 97 (1) Headache Headache chronicity pattern: unspecified pattern Headache type: unspecified Intractability: not intractable Qualified Code(s): R51.9 - Headache, unspecified (2) Abdominal pain Abdominal location: lower abdomen, unspecified Qualified Code(s): R10.30 - Lower abdominal pain, unspecified (3) Depression Depression Type: unspecified Qualified Code(s): F32.9 - Major depressive disorder, single episode, unspecified
[2020-12-01] MEDS: MELATONIN 3 MG TAB PO SCH (20:46)
[2020-12-01] MEDS: ATORVASTATIN 40 MG TAB PO SCH (20:46)
[2020-12-01] MEDS: ENOXAPARIN INJ 40 MG/0.4 ML SYR SQ SCH (21:25)
[2020-12-02] MEDS: LORazepam 0.5 MG TAB PO PRN ×2 (08:06→21:15)
[2020-12-02] MEDS: busPIRone 5 MG TAB PO SCH ×2 (08:07→21:12)
[2020-12-02] MEDS: CHOLECALCIFEROL 1,000 UNITS 25 MCG TAB PO SCH (08:07)
[2020-12-02] MEDS: ASPIRIN 81 MG ECTAB PO SCH (08:07)
[2020-12-02] MEDS: PROPRANOLOL HCL 10 MG TAB PO SCH ×2 (08:08→21:12)
[2020-12-02] MEDS: VENLAFAXINE HCL XR 75 MG CAPXR PO SCH (08:08)
[2020-12-02] MEDS: VENLAFAXINE HCL XR 37.5 MG CAPXR PO SCH (08:08)
[2020-12-02] MEDS: INSULIN GLARGINE SOLOSTAR 100 UNITS/ML 3 ML PEN SC SCH ×2 (08:10→21:12)
[2020-12-02] MEDS: POLYETHYLENE (MIRALAX) 17 GM PACK PO SCH (08:10)
[2020-12-02] MEDS: INSULIN ASPART 100 UNITS/ML 3 ML PEN SC SCH ×4 (08:11→21:12)
--- NOTE | 2020-12-02 15:40 | Hospitalist Progress Note ---
Date of Service December 02, 2020 Assessment & Plan (1) Headache: (2) Diplopia: (3) Abdominal pain: Patient is a 70 yr female with H/O DM II, H/O CVA CVA with residual left-sided weakness, essential tremor/mild hemiparkinsonism, depression with anxiety, history of HCV, HLD, stress incontinence, recurrent UTI, R breast mass who presents to ED secondary to acute episode of confusion x40 minutes; headache and nausea x1 day. Patient with recent hospitalization 11/04 to 11/15/2020 for E. c heriberto UTI, stroke work-up and adjustment of psychiatric medications. Headache, diplopia Abdominal pain Diplopia chronic/intermittent as per family Symptoms likely secondary to anxiety issues -CT head:No acute intracranial findings. -CT ABD: No urinary calculi or hydronephrosis. No acute process within the abdomen or pelvis. However, exam compromised given lack of contrast and motion artifact. No bowel obstruction. Cirrhosis. -Recent EEG normal as per Neurology -Attention seeking /possible malingering as per patient's Daughter (patient anxious about not having much help at night as per patient's daughter) and patient agrees that she is scared to be alone. -Will benefit from outpatient ophthalmology evaluation -Appreciate neurology input -Avoid narcotics as able -Continue propranolol -Follows with psychiatry as outpatient -Received gentle IV fluids -Appreciate psychiatry input -Case management to help with discharge planning -Needs follow-up with neurology as outpatient -waiting for rehab placement -Continue current management Movement disorder Intermittent tremor of the left upper and lower extremity ? due to old vascular lesion in the right hemisphere DD: Parkinson's No current medications indicated as per neurology Needs follow-up with neurology as outpatient (4) History of CVA (cerebrovascular accident): With residual left-sided weakness Continue ASA and statin (5) Diabetes mellitus, type II: Last A1c 7.1 11/03/2020 Hold glipizide and Tradjenta Lantus/NovoLog per protocol Monitor (6) Depression: (7) Anxiety: Follows Dr. Harvey psych with [facility] Recently had hospitalization at [facility] Recent med adjustments include increase of Effexor to 112 mg daily, addition of BuSpar 5 mg twice daily and she continues on as needed lorazepam Monitor closely - OTC: 549ms Appreciate psychiatry input Patient currently not interested in medication adjustment as per psychiatry Currently does not meet inpatient criteria for psychiatric treatment as per Psych Needs follow-up with psychiatry, psychotherapist as outpatient (8) Dyslipidemia: Dyslipidemia continue statin Right breast mass As per records Needs follow up with biopsy as outpatient (9) Prolonged Q-T interval on ECG: Avoid QTC prolonging agents as able (10) DVT prophylaxis: SQ Lovenox Disposition: To discharge to rehab facility as able Follow up: PCP Dr. Quinones upon discharge Follow-up with psychiatry Neurology follow-up with Dr. Nunez Admission and Anticipated Discharge Date Admission Date: November 29, 2020 Subjective Patient is seen and examined at bedside Reports being anxious earlier today Sleeping comfortably during my encounter Updated patient's daughter over the phone Waiting for rehab placement Denies chest pain, dyspnea, nausea, vomiting, abd pain Waiting for Rehab placement Review of Systems Review of Systems: All systems reviewed & are unremarkable except as noted in HPI & below Physical Exam Physical Exam: Physical Exam: Vitals signs as noted above General Appearance:Moderately built and nourished, no apparent distress Head: normocephalic, Atraumatic Eyes: normal inspection, EOMI Neck: supple, Trachea midline Respiratory/Chest: Normal breath sounds, CTA Cardiovascular: S1, S2, No murmur Abdomen/GI:Soft, Non tender, Bowel sounds present Extremities/Musculoskelatal:normal inspection, no edema Neurologic/Psych:AAOX3, chronic left-sided weakness 4/5, left-sided tremor--chronic intermittent double vision Skin: normal color, warm Results & Data Results & Data ([facility]) Vital Signs (Past 12 Hours) Vital Signs Temp Pulse Pulse Resp BP Pulse Ox 12/02/20 15:33 36.6 C 88 16 120/75 97 12/02/20 15:23 72 12/02/20 11:28 36.5 C 70 16 133/72 97 12/02/20 07:42 68 12/02/20 06:35 36.9 C 84 18 114/66 96 12/02/20 04:31 36.6 C 80 20 100/53 L 97 (1) Headache Headache chronicity pattern: unspecified pattern Headache type: unspecified Intractability: not intractable Qualified Code(s): R51.9 - Headache, unspecified (2) Abdominal pain Abdominal location: lower abdomen, unspecified Qualified Code(s): R10.30 - Lower abdominal pain, unspecified (3) Depression Depression Type: unspecified Qualified Code(s): F32.9 - Major depressive disorder, single episode, unspecified
[2020-12-02] MEDS: ATORVASTATIN 40 MG TAB PO SCH (21:12)
[2020-12-02] MEDS: ENOXAPARIN INJ 40 MG/0.4 ML SYR SQ SCH (21:12)
[2020-12-02] MEDS: MELATONIN 3 MG TAB PO SCH (21:15)
[2020-12-03] MEDS: PROPRANOLOL HCL 10 MG TAB PO SCH ×2 (07:46→20:26)
[2020-12-03] MEDS: VENLAFAXINE HCL XR 37.5 MG CAPXR PO SCH (07:46)
[2020-12-03] MEDS: ASPIRIN 81 MG ECTAB PO SCH (07:46)
[2020-12-03] MEDS: POLYETHYLENE (MIRALAX) 17 GM PACK PO SCH (07:46)
[2020-12-03] MEDS: busPIRone 5 MG TAB PO SCH ×2 (07:47→20:29)
[2020-12-03] MEDS: VENLAFAXINE HCL XR 75 MG CAPXR PO SCH (07:47)
[2020-12-03] MEDS: INSULIN ASPART 100 UNITS/ML 3 ML PEN SC SCH ×4 (08:04→21:45)
[2020-12-03] MEDS: INSULIN GLARGINE SOLOSTAR 100 UNITS/ML 3 ML PEN SC SCH ×2 (08:05→21:45)
[2020-12-03] MEDS: LORazepam 0.5 MG TAB PO PRN ×2 (09:49→19:41)
--- NOTE | 2020-12-03 16:34 | Hospitalist Progress Note ---
Date of Service December 03, 2020 Assessment & Plan (1) Headache: (2) Diplopia: (3) Abdominal pain: Patient is a 70 yr female with H/O DM II, H/O CVA CVA with residual left-sided weakness, essential tremor/mild hemiparkinsonism, depression with anxiety, history of HCV, HLD, stress incontinence, recurrent UTI, R breast mass who presents to ED secondary to acute episode of confusion x40 minutes; headache and nausea x1 day. Patient with recent hospitalization 11/04 to 11/15/2020 for E. c heriberto UTI, stroke work-up and adjustment of psychiatric medications. Headache, diplopia Abdominal pain Diplopia chronic/intermittent as per family Symptoms likely secondary to anxiety issues -CT head:No acute intracranial findings. -CT ABD: No urinary calculi or hydronephrosis. No acute process within the abdomen or pelvis. However, exam compromised given lack of contrast and motion artifact. No bowel obstruction. Cirrhosis. -Recent EEG normal as per Neurology -Attention seeking /possible malingering as per patient's Daughter (patient anxious about not having much help at night as per patient's daughter) and patient agrees that she is scared to be alone. -Will benefit from outpatient ophthalmology evaluation -Appreciate neurology input -Avoid narcotics as able -Continue propranolol -Follows with psychiatry as outpatient -Received gentle IV fluids -Appreciate psychiatry input -Case management to help with discharge planning -Needs follow-up with neurology as outpatient Plan to discharge when rahab arranged Movement disorder Intermittent tremor of the left upper and lower extremity ? due to old vascular lesion in the right hemisphere DD: Parkinson's No current medications indicated as per neurology Needs follow-up with neurology as outpatient Continue current medications (4) History of CVA (cerebrovascular accident): With residual left-sided weakness Continue ASA and statin (5) Diabetes mellitus, type II: Last A1c 7.1 11/03/2020 Hold glipizide and Tradjenta Lantus/NovoLog per protocol Monitor (6) Depression: (7) Anxiety: Follows Dr. Harvey psych with [facility] Recently had hospitalization at [facility] Recent med adjustments include increase of Effexor to 112 mg daily, addition of BuSpar 5 mg twice daily and she continues on as needed lorazepam Monitor closely - OTC: 549ms Appreciate psychiatry input Patient currently not interested in medication adjustment as per psychiatry Currently does not meet inpatient criteria for psychiatric treatment as per Psych Needs follow-up with psychiatry, psychotherapist as outpatient (8) Dyslipidemia: Dyslipidemia continue statin Right breast mass As per records Needs follow up with biopsy as outpatient (9) Prolonged Q-T interval on ECG: Avoid QTC prolonging agents as able (10) DVT prophylaxis: SQ Lovenox Disposition: To discharge to rehab facility as able Follow up: PCP Dr. Quinones upon discharge Follow-up with psychiatry Neurology follow-up with Dr. Nunez Admission and Anticipated Discharge Date Admission Date: November 29, 2020 Subjective Patient is seen and examined at bedside Clinically no significant change from yesterday Persistent anxiety Denies headache, dizziness, change in vision Waiting for rehab placement Also denies chest pain, dyspnea, nausea, vomiting, abd pain Review of Systems Review of Systems: All systems reviewed & are unremarkable except as noted in HPI & below Physical Exam Physical Exam: Physical Exam: Vitals signs as noted above General Appearance:Moderately built and nourished, no apparent distress Head: normocephalic, Atraumatic Eyes: normal inspection, EOMI Neck: supple, Trachea midline Respiratory/Chest: Normal breath sounds, CTA Cardiovascular: S1, S2, No murmur Abdomen/GI:Soft, Non tender, Bowel sounds present Extremities/Musculoskelatal:normal inspection, no edema Neurologic/Psych:AAOX3, chronic left-sided weakness 4/5, left-sided tremor--chronic intermittent double vision Skin: normal color, warm Results & Data Results & Data ([place]) Vital Signs (Past 12 Hours) Vital Signs Temp Pulse Pulse Resp BP Pulse Ox 12/03/20 15:50 36.7 C 83 18 118/53 L 97 12/03/20 14:54 71 12/03/20 11:31 36.4 C L 81 16 107/65 97 12/03/20 09:10 65 12/03/20 07:20 36.4 C L 82 16 128/79 99 (1) Headache Headache chronicity pattern: unspecified pattern Headache type: unspecified Intractability: not intractable Qualified Code(s): R51.9 - Headache, unspecified (2) Abdominal pain Abdominal location: lower abdomen, unspecified Qualified Code(s): R10.30 - Lower abdominal pain, unspecified (3) Depression Depression Type: unspecified Qualified Code(s): F32.9 - Major depressive disorder, single episode, unspecified
[2020-12-03] MEDS: MELATONIN 3 MG TAB PO SCH (20:28)
[2020-12-03] MEDS: ENOXAPARIN INJ 40 MG/0.4 ML SYR SQ SCH (20:28)
[2020-12-03] MEDS: ATORVASTATIN 40 MG TAB PO SCH (20:28)
[2020-12-04] MEDS: VENLAFAXINE HCL XR 37.5 MG CAPXR PO SCH (07:48)
[2020-12-04] MEDS: LORazepam 0.5 MG TAB PO PRN (07:48)
[2020-12-04] MEDS: VENLAFAXINE HCL XR 75 MG CAPXR PO SCH (07:49)
[2020-12-04] MEDS: busPIRone 5 MG TAB PO SCH ×2 (07:49→21:15)
[2020-12-04] MEDS: CHOLECALCIFEROL 1,000 UNITS 25 MCG TAB PO SCH (07:49)
[2020-12-04] MEDS: PROPRANOLOL HCL 10 MG TAB PO SCH ×2 (07:50→21:14)
[2020-12-04] MEDS: POLYETHYLENE (MIRALAX) 17 GM PACK PO SCH (07:50)
[2020-12-04] MEDS: ASPIRIN 81 MG ECTAB PO SCH (07:51)
[2020-12-04] MEDS: INSULIN GLARGINE SOLOSTAR 100 UNITS/ML 3 ML PEN SC SCH ×2 (08:43→21:15)
[2020-12-04] MEDS: INSULIN ASPART 100 UNITS/ML 3 ML PEN SC SCH ×4 (08:44→21:16)
[2020-12-04] MEDS: PROMETHAZINE HCL 6.25 MG in SODIUM CHLORIDE 0.9% 50 ML IV PRN (09:34)
[2020-12-04] MEDS: ALUMINUM/MAGNESIUM SUSP 30 ML UDC PO PRN (10:26)
--- NOTE | 2020-12-04 16:41 | Hospitalist Progress Note ---
Date of Service December 04, 2020 Assessment & Plan (1) Headache: (2) Diplopia: (3) Abdominal pain: Patient is a 70 yr female with H/O DM II, H/O CVA CVA with residual left-sided weakness, essential tremor/mild hemiparkinsonism, depression with anxiety, history of HCV, HLD, stress incontinence, recurrent UTI, R breast mass who presents to ED secondary to acute episode of confusion x40 minutes; headache and nausea x1 day. Patient with recent hospitalization 11/04 to 11/15/2020 for E. c heriberto UTI, stroke work-up and adjustment of psychiatric medications. Headache, diplopia Abdominal pain Diplopia chronic/intermittent as per family Symptoms likely secondary to anxiety issues -CT head:No acute intracranial findings. -CT ABD: No urinary calculi or hydronephrosis. No acute process within the abdomen or pelvis. However, exam compromised given lack of contrast and motion artifact. No bowel obstruction. Cirrhosis. -Recent EEG normal as per Neurology -Attention seeking /possible malingering as per patient's Daughter (patient anxious about not having much help at night as per patient's daughter) and patient agrees that she is scared to be alone. -Will benefit from outpatient ophthalmology evaluation -Appreciate neurology input -Avoid narcotics as able -Continue propranolol -Follows with psychiatry as outpatient -Received gentle IV fluids -Appreciate psychiatry input -Symptoms resolved -Case management to help with discharge planning -Needs follow-up with neurology as outpatient Movement disorder Intermittent tremor of the left upper and lower extremity ? due to old vascular lesion in the right hemisphere DD: Parkinson's No current medications indicated as per neurology Needs follow-up with neurology as outpatient (4) History of CVA (cerebrovascular accident): With residual left-sided weakness Continue ASA and statin (5) Diabetes mellitus, type II: Last A1c 7.1 11/03/2020 Hold glipizide and Tradjenta Lantus/NovoLog per protocol Monitor (6) Depression: (7) Anxiety: Follows Dr. Harvey psych with [facility] Recently had hospitalization at [facility] Recent med adjustments include increase of Effexor to 112 mg daily, addition of BuSpar 5 mg twice daily and she continues on as needed lorazepam Monitor closely - OTC: 549ms Appreciate psychiatry input Patient currently not interested in medication adjustment as per psychiatry Currently does not meet inpatient criteria for psychiatric treatment as per Psych Needs follow-up with psychiatry, psychotherapist as outpatient (8) Dyslipidemia: Dyslipidemia continue statin Right breast mass As per records Needs follow up with biopsy as outpatient (9) Prolonged Q-T interval on ECG: Avoid QTC prolonging agents as able (10) DVT prophylaxis: SQ Lovenox Disposition: Follow up: PCP Dr. Quinones upon discharge Follow-up with psychiatry Neurology follow-up with Dr. Nunez Admission and Anticipated Discharge Date Admission Date: November 29, 2020 Subjective Patient is seen and examined at bedside Reports nausea, anxiety this morning Offers no other complaints Denies chest pain, dyspnea, dizziness, abdominal pain, vomiting Discussed with case management regarding discharge planning Review of Systems Review of Systems: All systems reviewed & are unremarkable except as noted in HPI & below Physical Exam Physical Exam: Physical Exam: Vitals signs as noted above General Appearance:Moderately built and nourished, no apparent distress Head: normocephalic, Atraumatic Eyes: normal inspection, EOMI Neck: supple, Trachea midline Respiratory/Chest: Normal breath sounds, CTA Cardiovascular: S1, S2, No murmur Abdomen/GI:Soft, Non tender, Bowel sounds present Extremities/Musculoskelatal:normal inspection, no edema Neurologic/Psych:AAOX3, chronic left-sided weakness 4/5, left-sided tremor--chronic intermittent double vision Skin: normal color, warm Results & Data Results & Data ([facility]) Vital Signs (Past 12 Hours) Vital Signs Temp Pulse Pulse Resp BP Pulse Ox 12/04/20 15:45 84 12/04/20 15:39 36.6 C 101 H 18 113/69 97 12/04/20 11:32 36.4 C L 80 16 103/50 L 98 12/04/20 07:44 36.5 C 94 H 16 106/66 96 (1) Headache Headache chronicity pattern: unspecified pattern Headache type: unspecified Intractability: not intractable Qualified Code(s): R51.9 - Headache, unspecified (2) Abdominal pain Abdominal location: lower abdomen, unspecified Qualified Code(s): R10.30 - Lower abdominal pain, unspecified (3) Depression Depression Type: unspecified Qualified Code(s): F32.9 - Major depressive disorder, single episode, unspecified
[2020-12-04] MEDS: ATORVASTATIN 40 MG TAB PO SCH (21:14)
[2020-12-04] MEDS: MELATONIN 3 MG TAB PO SCH (21:15)
[2020-12-04] MEDS: ENOXAPARIN INJ 40 MG/0.4 ML SYR SQ SCH (21:16)
[2020-12-05] MEDS: VENLAFAXINE HCL XR 37.5 MG CAPXR PO SCH (08:13)
[2020-12-05] MEDS: busPIRone 5 MG TAB PO SCH ×2 (08:13→21:01)
[2020-12-05] MEDS: LORazepam 0.5 MG TAB PO PRN (08:13)
[2020-12-05] MEDS: ASPIRIN 81 MG ECTAB PO SCH (08:13)
[2020-12-05] MEDS: VENLAFAXINE HCL XR 75 MG CAPXR PO SCH (08:14)
[2020-12-05] MEDS: PROPRANOLOL HCL 10 MG TAB PO SCH ×2 (08:14→21:01)
[2020-12-05] MEDS: INSULIN GLARGINE SOLOSTAR 100 UNITS/ML 3 ML PEN SC SCH ×2 (08:15→21:03)
[2020-12-05] MEDS: INSULIN ASPART 100 UNITS/ML 3 ML PEN SC SCH ×4 (08:18→21:03)
[2020-12-05] MEDS: POLYETHYLENE (MIRALAX) 17 GM PACK PO SCH (09:26)
[2020-12-05] MEDS: ALUMINUM/MAGNESIUM SUSP 30 ML UDC PO PRN (10:02)
[2020-12-05] MEDS ORDERED: traZODone HCL 50 MG TAB PO PRN (16:26)
--- NOTE | 2020-12-05 17:21 | Hospitalist Progress Note ---
Date of Service December 05, 2020 Assessment & Plan (1) Headache: (2) Diplopia: (3) Abdominal pain: Patient is a 70 yr female with H/O DM II, H/O CVA CVA with residual left-sided weakness, essential tremor/mild hemiparkinsonism, depression with anxiety, history of HCV, HLD, stress incontinence, recurrent UTI, R breast mass who presents to ED secondary to acute episode of confusion x40 minutes; headache and nausea x1 day. Patient with recent hospitalization 11/04 to 11/15/2020 for E. c heriberto UTI, stroke work-up and adjustment of psychiatric medications. Headache, diplopia Abdominal pain Diplopia chronic/intermittent as per family Symptoms likely secondary to anxiety issues -CT head:No acute intracranial findings. -CT ABD: No urinary calculi or hydronephrosis. No acute process within the abdomen or pelvis. However, exam compromised given lack of contrast and motion artifact. No bowel obstruction. Cirrhosis. -Recent EEG normal as per Neurology -Attention seeking /possible malingering as per patient's Daughter (patient anxious about not having much help at night as per patient's daughter) and patient agrees that she is scared to be alone. -Will benefit from outpatient ophthalmology evaluation -Appreciate neurology input -Avoid narcotics as able -Continue propranolol -Follows with psychiatry as outpatient -Received IV fluids -Appreciate psychiatry input -Needs follow-up with neurology as outpatient -Plan to discharge when services arranged Movement disorder Intermittent tremor of the left upper and lower extremity ? due to old vascular lesion in the right hemisphere DD: Parkinson's No current medications indicated as per neurology Needs follow-up with neurology as outpatient (4) History of CVA (cerebrovascular accident): With residual left-sided weakness Continue ASA and statin (5) Diabetes mellitus, type II: Last A1c 7.1 11/03/2020 Hold glipizide and Tradjenta Lantus/NovoLog per protocol Monitor (6) Depression: (7) Anxiety: Follows Dr. Harvey psych with [facility] Recently had hospitalization at [facility] Recent med adjustments include increase of Effexor to 112 mg daily, addition of BuSpar 5 mg twice daily and she continues on as needed lorazepam Monitor closely - OTC: 549ms Appreciate psychiatry input Patient currently not interested in medication adjustment as per psychiatry Currently does not meet inpatient criteria for psychiatric treatment as per Psych Needs follow-up with psychiatry, psychotherapist as outpatient (8) Dyslipidemia: Dyslipidemia continue statin Right breast mass As per records Needs follow up with biopsy as outpatient (9) Prolonged Q-T interval on ECG: Avoid QTC prolonging agents as able (10) DVT prophylaxis: SQ Lovenox Disposition: Patient management to help with discharge planning. Follow up: PCP Dr. Quinones upon discharge Follow-up with psychiatry Neurology follow-up with Dr. Nunez Admission and Anticipated Discharge Date Admission Date: November 29, 2020 Subjective Patient is seen and examined at bedside Slept poorly overnight States having anxiety associated with nausea No other complaints Denies chest pain, dyspnea, dizziness, abdominal pain, vomiting Review of Systems Review of Systems: All systems reviewed & are unremarkable except as noted in HPI & below Physical Exam Physical Exam: Physical Exam: Vitals signs as noted above General Appearance:Moderately built and nourished, no apparent distress Head: normocephalic, Atraumatic Eyes: normal inspection, EOMI Neck: supple, Trachea midline Respiratory/Chest: Normal breath sounds, CTA Cardiovascular: S1, S2, No murmur Abdomen/GI:Soft, Non tender, Bowel sounds present Extremities/Musculoskelatal:normal inspection, no edema Neurologic/Psych:AAOX3, chronic left-sided weakness 4/5, left-sided tremor--chronic intermittent double vision Skin: normal color, warm Results & Data Results & Data ([facility]) Vital Signs (Past 12 Hours) Vital Signs Temp Pulse Pulse Resp BP Pulse Ox 12/05/20 16:06 36.9 C 84 18 110/52 L 97 12/05/20 11:47 36.5 C 86 16 112/68 95 12/05/20 07:43 71 12/05/20 07:13 36.5 C 79 16 111/52 L 97 (1) Headache Headache chronicity pattern: unspecified pattern Headache type: unspecified Intractability: not intractable Qualified Code(s): R51.9 - Headache, unspecified (2) Abdominal pain Abdominal location: lower abdomen, unspecified Qualified Code(s): R10.30 - Lower abdominal pain, unspecified (3) Depression Depression Type: unspecified Qualified Code(s): F32.9 - Major depressive disorder, single episode, unspecified
[2020-12-05] MEDS: ZOLPIDEM TARTRATE 5 MG TAB PO PRN (21:00)
[2020-12-05] MEDS: ATORVASTATIN 40 MG TAB PO SCH (21:01)
[2020-12-05] MEDS: ENOXAPARIN INJ 40 MG/0.4 ML SYR SQ SCH (21:02)
[2020-12-05] MEDS: MELATONIN 3 MG TAB PO SCH (21:09)
[2020-12-06] MEDS: busPIRone 5 MG TAB PO SCH ×2 (08:30→21:19)
[2020-12-06] MEDS: CHOLECALCIFEROL 1,000 UNITS 25 MCG TAB PO SCH (08:30)
[2020-12-06] MEDS: ASPIRIN 81 MG ECTAB PO SCH (08:30)
[2020-12-06] MEDS: PROPRANOLOL HCL 10 MG TAB PO SCH ×2 (08:30→21:19)
[2020-12-06] MEDS: VENLAFAXINE HCL XR 37.5 MG CAPXR PO SCH (08:31)
[2020-12-06] MEDS: VENLAFAXINE HCL XR 75 MG CAPXR PO SCH (08:31)
[2020-12-06] MEDS: INSULIN GLARGINE SOLOSTAR 100 UNITS/ML 3 ML PEN SC SCH ×2 (08:32→21:16)
[2020-12-06] MEDS: INSULIN ASPART 100 UNITS/ML 3 ML PEN SC SCH ×4 (08:40→21:18)
[2020-12-06] MEDS: ALUMINUM/MAGNESIUM SUSP 30 ML UDC PO PRN ×2 (08:43→17:51)
[2020-12-06] MEDS: POLYETHYLENE (MIRALAX) 17 GM PACK PO SCH (09:58)
[2020-12-06] MEDS: LORazepam 0.5 MG TAB PO PRN (11:02)
--- NOTE | 2020-12-06 13:53 | Communication Note ---
Date of Service: December 06, 2020 Patient's case has been reviewed daily during morning report with psychiatric nurse liaison and supervising psychiatrist. It has been reported that the patient continues to verbalize anxiety about discharge options. As previously discussed with the patient - consideration could be given to titration of buspirone to target anxiety. Pt was agreeable with this medication change today, so will increase to 10mg BID. Patient's anxiety continues to be almost entirely related to her discomfort with discharge plans - not wanting a rehab referral (also not likely eligible for this level of care), but also verbalizing concern about returning home without what she perceives to be adequate supervision/companionship. It remains the recommendation from our team that efforts be made to work with the patient and her family on feeling more comfortable with an appropriate discharge plan. It may be beneficial to have a larger family meeting to include the patient and her supports in a call to discuss these detail and promote patient's confidence in her discharge plan.
--- NOTE | 2020-12-06 14:08 | Hospitalist Progress Note ---
Date of Service December 06, 2020 Assessment & Plan (1) Headache: (2) Diplopia: (3) Abdominal pain: Patient is a 70 yr female with H/O DM II, H/O CVA CVA with residual left-sided weakness, essential tremor/mild hemiparkinsonism, depression with anxiety, history of HCV, HLD, stress incontinence, recurrent UTI, R breast mass who presents to ED secondary to acute episode of confusion x40 minutes; headache and nausea x1 day. Patient with recent hospitalization 11/04 to 11/15/2020 for E. c heriberto UTI, stroke work-up and adjustment of psychiatric medications. Headache, diplopia Abdominal pain Diplopia chronic/intermittent as per family Symptoms likely secondary to anxiety issues -CT head:No acute intracranial findings. -CT ABD: No urinary calculi or hydronephrosis. No acute process within the abdomen or pelvis. However, exam compromised given lack of contrast and motion artifact. No bowel obstruction. Cirrhosis. -Recent EEG normal as per Neurology -Attention seeking /possible malingering as per patient's Daughter (patient anxious about not having much help at night as per patient's daughter) and patient agrees that she is scared to be alone. -Will benefit from outpatient ophthalmology evaluation -Appreciate neurology input -Avoid narcotics as able -Continue propranolol -Follows with psychiatry as outpatient -Received IV fluids -Appreciate psychiatry input -Needs follow-up with neurology as outpatient -Plan to discharge when services arranged -Monitor BMP Movement disorder Intermittent tremor of the left upper and lower extremity ? due to old vascular lesion in the right hemisphere DD: Parkinson's No current medications indicated as per neurology Needs follow-up with neurology as outpatient (4) History of CVA (cerebrovascular accident): With residual left-sided weakness Continue ASA and statin (5) Diabetes mellitus, type II: Last A1c 7.1 11/03/2020 Hold glipizide and Tradjenta Lantus/NovoLog per protocol Monitor (6) Depression: (7) Anxiety: Follows Dr. Harvey psych with [facility] Recently had hospitalization at [facility] Recent med adjustments include increase of Effexor to 112 mg daily, addition of BuSpar 5 mg twice daily and she continues on as needed lorazepam Monitor closely - OTC: 549ms Appreciate psychiatry input Patient currently not interested in medication adjustment as per psychiatry Currently does not meet inpatient criteria for psychiatric treatment as per Psych Needs follow-up with psychiatry, psychotherapist as outpatient (8) Dyslipidemia: Dyslipidemia continue statin Right breast mass As per records Needs follow up with biopsy as outpatient (9) Prolonged Q-T interval on ECG: Avoid QTC prolonging agents as able (10) DVT prophylaxis: SQ Lovenox Disposition: Patient management to help with discharge planning. Follow up: PCP Dr. Quinones upon discharge Follow-up with psychiatry Neurology follow-up with Dr. Nunez Admission and Anticipated Discharge Date Admission Date: November 29, 2020 Subjective Patient is seen and examined at bedside Lying comfortably in bed Reports nausea, anxiety this morning No new complaints Denies chest pain, dyspnea, dizziness, abdominal pain, vomiting Review of Systems Review of Systems: All systems reviewed & are unremarkable except as noted in HPI & below Physical Exam Physical Exam: Physical Exam: Vitals signs as noted above General Appearance:Moderately built and nourished, no apparent distress Head: normocephalic, Atraumatic Eyes: normal inspection, EOMI Neck: supple, Trachea midline Respiratory/Chest: Normal breath sounds, CTA Cardiovascular: S1, S2, No murmur Abdomen/GI:Soft, Non tender, Bowel sounds present Extremities/Musculoskelatal:normal inspection, no edema Neurologic/Psych:AAOX3, chronic left-sided weakness 4/5, left-sided tremor--chronic intermittent double vision Skin: normal color, warm Results & Data Results & Data ([facility]) Vital Signs (Past 12 Hours) Vital Signs Temp Pulse Resp BP Pulse Ox 12/06/20 07:14 36.5 C 84 16 104/62 97 (1) Headache Headache chronicity pattern: unspecified pattern Headache type: unspecified Intractability: not intractable Qualified Code(s): R51.9 - Headache, un specified (2) Abdominal pain Abdominal location: lower abdomen, unspecified Qualified Code(s): R10.30 - Lower abdominal pain, unspecified (3) Depression Depression Type: unspecified Qualified Code(s): F32.9 - Major depressive disorder, single episode, unspecified
[2020-12-06] MEDS: ZOLPIDEM TARTRATE 5 MG TAB PO PRN (21:19)
[2020-12-06] MEDS: ATORVASTATIN 40 MG TAB PO SCH (21:19)
[2020-12-06] MEDS: ENOXAPARIN INJ 40 MG/0.4 ML SYR SQ SCH (21:20)
[2020-12-06] MEDS: MELATONIN 3 MG TAB PO SCH (21:22)
[2020-12-07] MEDS: busPIRone 5 MG TAB PO SCH ×2 (07:53→21:16)
[2020-12-07] MEDS: ASPIRIN 81 MG ECTAB PO SCH (07:54)
[2020-12-07] MEDS: VENLAFAXINE HCL XR 37.5 MG CAPXR PO SCH (07:54)
[2020-12-07] MEDS: PROPRANOLOL HCL 10 MG TAB PO SCH ×2 (07:54→21:17)
[2020-12-07] MEDS: VENLAFAXINE HCL XR 75 MG CAPXR PO SCH (07:55)
[2020-12-07] MEDS: INSULIN GLARGINE SOLOSTAR 100 UNITS/ML 3 ML PEN SC SCH ×2 (07:55→21:18)
[2020-12-07] MEDS: POLYETHYLENE (MIRALAX) 17 GM PACK PO SCH (08:02)
[2020-12-07] MEDS: INSULIN ASPART 100 UNITS/ML 3 ML PEN SC SCH ×4 (08:04→21:21)
[2020-12-07] MEDS ORDERED: SODIUM CHLORIDE 0.9% 1000ML 1,000 ML IV ONE (08:15)
[2020-12-07] MEDS: LORazepam 0.5 MG TAB PO PRN (09:53)
[2020-12-07] MEDS: ALUMINUM/MAGNESIUM SUSP 30 ML UDC PO PRN (11:15)
[2020-12-07] MEDS ORDERED: IBUPROFEN 200 MG TAB PO ONE (14:10)
--- NOTE | 2020-12-07 14:41 | Hospitalist Progress Note ---
Date of Service December 07, 2020 Assessment & Plan (1) Headache: (2) Diplopia: (3) Abdominal pain: Patient is a 70 yr female with H/O DM II, H/O CVA CVA with residual left-sided weakness, essential tremor/mild hemiparkinsonism, depression with anxiety, history of HCV, HLD, stress incontinence, recurrent UTI, R breast mass who presents to ED secondary to acute episode of confusion x40 minutes; headache and nausea x1 day. Patient with recent hospitalization 11/04 to 11/15/2020 for E. c heriberto UTI, stroke work-up and adjustment of psychiatric medications. Headache, diplopia Abdominal pain Diplopia chronic/intermittent as per family Symptoms likely secondary to anxiety issues -CT head:No acute intracranial findings. -CT ABD: No urinary calculi or hydronephrosis. No acute process within the abdomen or pelvis. However, exam compromised given lack of contrast and motion artifact. No bowel obstruction. Cirrhosis. -Recent EEG normal as per Neurology -Attention seeking /possible malingering as per patient's Daughter (patient anxious about not having much help at night as per patient's daughter) and patient agrees that she is scared to be alone. -Will benefit from outpatient ophthalmology evaluation -Appreciate neurology input -Avoid narcotics as able -Continue propranolol -Follows with psychiatry as outpatient -Appreciate psychiatry input -Needs follow-up with neurology and Psychiatry as outpatient -Plan to discharge when services arranged Movement disorder Intermittent tremor of the left upper and lower extremity ? due to old vascular lesion in the right hemisphere DD: Parkinson's No current medications indicated as per neurology Needs follow-up with neurology as outpatient Persistent chronic nausea No vomiting CT abdomen negative as above Consider GI evaluation if needed Inpatient Vs Outpatient (4) History of CVA (cerebrovascular accident): With residual left-sided weakness Continue ASA and statin (5) Diabetes mellitus, type II: Last A1c 7.1 11/03/2020 Hold glipizide and Tradjenta Lantus/NovoLog per protocol Monitor (6) Depression: (7) Anxiety: Follows Dr. Harvey psych with [facility] Recently had hospitalization at [facility] Recent med adjustments include increase of Effexor to 112 mg daily, addition of BuSpar 5 mg twice daily and she continues on as needed lorazepam Monitor closely - OTC: 549ms Appreciate psychiatry input Patient currently not interested in medication adjustment as per psychiatry Currently does not meet inpatient criteria for psychiatric treatment as per Psych Needs follow-up with psychiatry, psychotherapist as outpatient (8) Dyslipidemia: Dyslipidemia continue statin Right breast mass As per records Needs follow up with biopsy as outpatient (9) Prolonged Q-T interval on ECG: Avoid QTC prolonging agents as able (10) DVT prophylaxis: SQ Lovenox Disposition: Patient management to help with discharge planning. Follow up: PCP Dr. Quinones upon discharge Follow-up with psychiatry Neurology follow-up with Dr. Nunez Admission and Anticipated Discharge Date Admission Date: November 29, 2020 Subjective Patient is seen and examined at bedside Reports nausea, anxiety-unchanged Also reports headache today BP relatively low Denies chest pain, dyspnea, dizziness, abdominal pain, vomiting Review of Systems Review of Systems: All systems reviewed & are unremarkable except as noted in HPI & below Physical Exam Physical Exam: Physical Exam: Vitals signs as noted above General Appearance:Moderately built and nourished, no apparent distress Head: normocephalic, Atraumatic Eyes: normal inspection, EOMI Neck: supple, Trachea midline Respiratory/Chest: Normal breath sounds, CTA Cardiovascular: S1, S2, No murmur Abdomen/GI:Soft, Non tender, Bowel sounds present Extremities/Musculoskelatal:normal inspection, no edema Neurologic/Psych:AAOX3, chronic left-sided weakness 4/5, left-sided tremor--chronic intermittent double vision Skin: normal color, warm Results & Data Results & Data ([facility]) Vital Signs (Past 12 Hours) Vital Signs Temp Pulse Resp BP Pulse Ox 12/07/20 07:38 36.4 C L 94 H 16 93/53 L 97 (1) Headache Headache chronicity pattern: unspecified pattern Headache type: unspecified Intractability: not intractable Qualified Code(s): R51.9 - Headache, unspecified (2) Abdominal pain Abdominal location: lower abdomen, unspecified Qualified Code(s): R10.30 - Lower abdominal pain, unspecified (3) Depression Depression Type: unspecified Qualified Code(s): F32.9 - Major depressive di sorder, single episode, unspecified
[2020-12-07] MEDS: ATORVASTATIN 40 MG TAB PO SCH (21:17)
[2020-12-07] MEDS: ZOLPIDEM TARTRATE 5 MG TAB PO PRN (21:17)
[2020-12-07] MEDS: MELATONIN 3 MG TAB PO SCH (21:17)
[2020-12-07] MEDS: FAMOTIDINE 20 MG TAB PO SCH (21:19)
[2020-12-07] MEDS: ENOXAPARIN INJ 40 MG/0.4 ML SYR SQ SCH (21:19)
[2020-12-08 06:58] LABS: Hematocrit (blood only) 36.6 % (37-47); Mean Corpuscular Hemoglobin 27.3 pg (25-34); Mean Corpuscular Hgb Conc 32.8 g/dL (32-36); Mean Corpuscular Volume 83.4 fL (80-100); Platelet Count 154 K/uL (130-400); RDW Coefficient of Variation 13.6 % (11.5-14.5); RDW Standard Deviation 41.1 fL (36.4-46.3); Red Blood Count 4.39 M/uL (4.2-5.4); White Blood Count 5.35 K/uL (4.8-10.8)
[2020-12-08 07:31] LABS: BUN Creatinine Ratio 21.9 (10-20); Calcium 8.9 mg/dl (8.5-10.1); Creatinine Clr Calc Pharmacy 63.8 ml/min; Est GFR (African American) 103.9; Est GFR (Non-African American) 89.6; Potassium 4.1 mmol/L (3.5-5.1)
[2020-12-08] MEDS: VENLAFAXINE HCL XR 37.5 MG CAPXR PO SCH (07:39)
[2020-12-08] MEDS: PROPRANOLOL HCL 10 MG TAB PO SCH ×2 (07:39→20:25)
[2020-12-08] MEDS: VENLAFAXINE HCL XR 75 MG CAPXR PO SCH (07:39)
[2020-12-08] MEDS: CHOLECALCIFEROL 1,000 UNITS 25 MCG TAB PO SCH (07:40)
[2020-12-08] MEDS: busPIRone 5 MG TAB PO SCH ×2 (07:40→20:25)
[2020-12-08] MEDS: ASPIRIN 81 MG ECTAB PO SCH (07:40)
[2020-12-08] MEDS: POLYETHYLENE (MIRALAX) 17 GM PACK PO SCH (07:40)
[2020-12-08] MEDS: INSULIN GLARGINE SOLOSTAR 100 UNITS/ML 3 ML PEN SC SCH ×2 (07:41→20:34)
[2020-12-08] MEDS: INSULIN ASPART 100 UNITS/ML 3 ML PEN SC SCH ×4 (07:43→20:33)
[2020-12-08] MEDS: ALUMINUM/MAGNESIUM SUSP 30 ML UDC PO PRN (08:48)
--- NOTE | 2020-12-08 16:06 | Hospitalist Progress Note ---
Date of Service December 08, 2020 Assessment & Plan (1) Anxiety: Has severe anxiety disorder Follows Dr. Harvey psych with [facility] Recently had hospitalization at [facility] Recent med adjustments include increase of Effexor to 112 mg daily, addition of BuSpar 5 mg twice daily and she continues on as needed lorazepam Appreciate psychiatry input and recommendation Currently does not meet inpatient criteria for psychiatric treatment as per Psych Attention seeking /possible malingering as per patient's Daughter (patient anxious about not having much help at night as per patient's daughter) and patient agrees that she is scared to be alone. Needs follow-up with psychiatry, psychotherapist as outpatient Disposition Very worried about going home and not being cared by the family members while at home Especially very worried about the nighttime when she will be alone She does not want to go to any facility does not qualify for inpatient psychiatric care May need to have a meeting with the family members and the rehabilitation caseworker to find a common ground before discharging her She will be discharged home tomorrow and the daughter will pick her up as per rehabilitation caseworker (2) Depression: (3) Abdominal pain: Patient is a 70 yr female with H/O DM II, H/O CVA CVA with residual left-sided weakness, essential tremor/mild hemiparkinsonism, depression with anxiety, history of HCV, HLD, stress incontinence, recurrent UTI, R breast mass who presents to ED secondary to acute episode of confusion x40 minutes; headache and nausea x1 day. Patient with recent hospitalization 11/04 to 11/15/2020 for E. coli UTI, stroke work-up and adjustment of psychiatric medications. -CT ABD: No urinary calculi or hydronephrosis. No acute process within the abdomen or pelvis. However, exam compromised given lack of contrast and motion artifact. No bowel obstruction. Cirrhosis. Movement disorder Intermittent tremor of the left upper and lower extremity ? due to old vascular lesion in the right hemisphere DD: Parkinson's No current medications indicated as per neurology Needs follow-up with neurology as outpatient Persistent chronic nausea No vomiting CT abdomen negative as above Consider GI evaluation if needed Inpatient Vs Outpatient Denies any more nausea and or vomiting (4) Headache: Headache with diplopia Diplopia chronic/intermittent as per family Symptoms likely secondary to anxiety issues CT head:No acute intracranial findings. Recent EEG normal as per Neurology (5) Diplopia: As above -Will benefit from outpatient ophthalmology evaluation (6) History of CVA (cerebrovascular accident): With residual left-sided weakness Continue ASA and statin Appreciate neurology input and recommendation (7) Diabetes mellitus, type II: Last A1c 7.1 11/03/2020 Hold glipizide and Tradjenta Lantus/NovoLog per protocol Monitor (8) Dyslipidemia: Dyslipidemia continue statin Right breast mass As per records Needs follow up with biopsy as outpatient (9) Prolonged Q-T interval on ECG: Avoid QTC prolonging agents as able (10) DVT prophylaxis: SQ Lovenox Disposition: Patient management to help with discharge planning. Follow up: PCP Dr. Quinones upon discharge Follow-up with psychiatry Neurology follow-up with Dr. Nunez Admission and Anticipated Discharge Date Admission Date: November 29, 2020 Subjective 12/08/2020 The patient was seen and examined in medical telemetry unit She has severe anxiety disorder with depression but has been feeling better since this morning Denies any significant symptoms Review of Systems Review of Systems: All systems reviewed and are unremarkable except as noted below Neurologic: + tremor(s) Physical Exam Physical Exam: Lying in bed with anxiety Constitutional: well developed and well nourished; no acute distress and not ill appearing Eyes: PERRL, conjunctivae normal, anicteric sclerae ENMT: external ear and nose normal, oropharynx normal Neck: trachea midline, no thyromegaly Respiratory: no respiratory distress Auscultation: lungs clear to auscultation bilaterally; no diminished lung sounds Cardiovascular: Rate/Rhythm: regular rate and regular rhythm Heart Sounds: no murmur Extremities: no edema Gastrointestinal (Abdomen): Inspection/Auscultation: abdomen not distended Percussion/Palpation: abdomen soft; abdomen nontender Musculoskeletal: No acute arthritis in any joint Neurologic: Alert, awake and oriented x3. No focal sensory and motor deficit appreciated Psychiatric: Orientation: alert and oriented x 3 Affect: + anxious affect Mood: + anxious mood Insight: good insight Lymphatic: no cervical or axillary lymphadenopathy Results & Data Results & Data ([facility]) Vital Signs (Past 12 Hours) Vital Signs Temp Pulse Resp BP Pulse Ox 12/08/20 15:08 36.5 C 88 16 132/56 L 96 12/08/20 07:50 36.4 C L 79 16 101/59 L 96 Laboratory Results Short CBC 12/08/20 Range/Units 06:37 WBC 5.35 (4.8-10.8) K/uL Hgb 12.0 (12.0-16.0) g/dL Hct 36.6 L (37-47) % Plt Count 154 (130-400) K/uL BMP 12/08/20 06:37 Sodium 142 Potassium 4.1 Chloride 110 H Carbon Dioxide 28 BUN 14 Creatinine 0.63 Glucose 159 H Calcium 8.9 Medications Administered Current Inpatient Medications Al Hydrox/Mg Hydrox/Simethicone (Aluminum/Magnesium Susp 30 Ml Udc) 15 ml PO Q4H PRN PRN Reason: Dyspepsia Stop: 12/27/20 19:34 Last Admin: 12/08/20 08:48 Dose: 15 ml Documented by: Aspirin (Aspirin 81 Mg Ectab) 81 mg PO DAILY STEFANO Stop: 12/28/20 08:59 Last Admin: 12/08/20 07:40 Dose: 81 mg Documented by: Atorvastatin Calcium (Atorvastatin 40 Mg Tab) 40 mg PO QPM STEFANO Stop: 12/28/20 20:59 Last Admin: 12/07/20 21:17 Dose: 40 mg Documented by: Buspirone HCl (Buspirone 5 Mg Tab) 10 mg PO BID STEFANO Stop: 01/05/21 20:59 Last Admin: 12/08/20 07:40 Dose: 10 mg Documented by: Dextrose (Dextrose 50% 50 Ml Syringe) 25 - 50 ml IV UD PRN; Protocol PRN Reason: Hypoglycemia Protocol Stop: 12/27/20 19:34 Enoxaparin Sodium (Enoxaparin Inj 40 Mg/0.4 Ml Syr) 40 mg SQ Q24H STEFANO Stop: 12/27/20 21:59 Last Admin: 12/07/20 21:19 Dose: 40 mg Documented by: Famotidine (Famotidine 20 Mg Tab) 20 mg PO HS STEFANO Stop: 01/06/21 20:59 Last Admin: 12/07/20 21:19 Dose: 20 mg Documented by: Glucagon (Glucagon For Inj 1 Mg Vial) 1 mg SQ UD PRN; Protocol PRN Reason: Hypoglycemia Protocol Stop: 12/27/20 19:34 Glucose (Glucose 10 Tabs/Tube) 4 - 8 tabs PO UD PRN; Protocol PRN Reason: Hypoglycemia Protocol Stop: 12/27/20 19:34 Glucose (Glucose 40% Gel 15 Gm Tube) 15 - 30 gm PO UD PRN; Protocol PRN Reason: Hypoglycemia Protocol Stop: 12/27/20 19:34 Promethazine HCl 6.25 mg/ (Sodium Chloride) 50.25 mls @ 201 mls/hr IV Q6H PRN PRN Reason: Nausea And Vomiting Stop: 12/27/20 19:34 Last Infusion: 12/04/20 10:23 Dose: Infused Documented by: Insulin Aspart (Insulin Aspart 100 Units/Ml 3 Ml Pen) 0 units SC ACHS STEFANO Stop: 12/27/20 20:59 Last Admin: 12/08/20 12:41 Dose: 3 units Documented by: Insulin Glargine (Insulin Glargine Solostar 100 Units/Ml 3 Ml Pen) 0 - 6 units SC BID STEFANO Stop: 12/27/20 20:59 Last Admin: 12/08/20 07:41 Dose: 6 units Documented by: Lorazepam (Lorazepam 0.5 Mg Tab) 0.5 mg PO BID PRN PRN Reason: Anxiety Stop: 12/27/20 19:34 Last Admin: 12/07/20 09:53 Dose: 0.5 mg Documented by: Magnesium Hydroxide (Magnesium Hydroxide Susp 30 Ml Udc) 30 ml PO Q12H PRN PRN Reason: Constipation Stop: 12/27/20 19:34 Melatonin (Melatonin 3 Mg Tab) 3 mg PO HS [facility] Stop: 12/27/20 20:59 Last Admin: 12/07/20 21:17 Dose: 3 mg Documented by: Miscellaneous (Carbohydrates For Hypoglycemia ) 15 - 30 gm PO UD PRN PRN Reason: Hypoglycemia Protocol Stop: 12/27/20 19:34 Polyethylene Glycol (Polyethylene (Miralax) 17 Gm Pack) 17 gm PO DAILY PRN PRN Reason: Constipation Stop: 12/27/20 19:34 Polyethylene Glycol (Polyethylene (Miralax) 17 Gm Pack) 17 gm PO DAILY STEFANO Stop: 12/27/20 19:34 Last Admin: 12/08/20 07:40 Dose: Not Given Documented by: Propranolol HCl (Propranolol Hcl 10 Mg Tab) 10 mg PO BID STEFANO Stop: 12/27/20 20:59 Last Admin: 12/08/20 07:39 Dose: 10 mg Documented by: Venlafaxine HCl (Venlafaxine Hcl Xr 37.5 Mg Capxr) 37.5 mg PO DAILY STEFANO Stop: 12/28/20 08:59 Last Admin: 12/08/20 07:39 Dose: 37.5 mg Documented by: Venlafaxine HCl (Venlafaxine Hcl Xr 75 Mg Capxr) 75 mg PO DAILY STEFANO Stop: 12/28/20 08:59 Last Admin: 12/08/20 07:39 Dose: 75 mg Documented by: Vitamin D (Cholecalciferol 1,000 Units 25 Mcg Tab) 2,000 units PO Q2D STEFANO Stop: 12/28/20 08:59 Last Admin: 12/08/20 07:40 Dose: 2,000 units Documented by: Zolpidem Tartrate (Zolpidem Tartrate 5 Mg Tab) 5 mg PO HS PRN PRN Reason: Sleep Stop: 01/04/21 17:18 Last Admin: 12/07/20 21:17 Dose: 5 mg Documented by: (1) Headache Headache chronicity pattern: unspecified pattern Headache type: unspecified Intractability: not intractable Qualified Code(s): R51.9 - Headache, unspecified (2) Abdominal pain Abdominal location: lower abdomen, unspecified Qualified Code(s): R10.30 - Lower abdominal pain, unspecified (3) Depression Depression Type: unspecified Qualified Code(s): F32.9 - Major depressive disorder, single episode, unspecified
[2020-12-08] MEDS: ATORVASTATIN 40 MG TAB PO SCH (20:25)
[2020-12-08] MEDS: FAMOTIDINE 20 MG TAB PO SCH (20:27)
[2020-12-08] MEDS: MELATONIN 3 MG TAB PO SCH (20:28)
[2020-12-08] MEDS: ZOLPIDEM TARTRATE 5 MG TAB PO PRN (20:30)
[2020-12-08] MEDS: ENOXAPARIN INJ 40 MG/0.4 ML SYR SQ SCH (20:34)
[2020-12-09] MEDS: busPIRone 5 MG TAB PO SCH (07:41)
[2020-12-09] MEDS: VENLAFAXINE HCL XR 75 MG CAPXR PO SCH (07:42)
[2020-12-09] MEDS: VENLAFAXINE HCL XR 37.5 MG CAPXR PO SCH (07:42)
[2020-12-09] MEDS: PROPRANOLOL HCL 10 MG TAB PO SCH (07:42)
[2020-12-09] MEDS: ASPIRIN 81 MG ECTAB PO SCH (07:42)
[2020-12-09] MEDS: POLYETHYLENE (MIRALAX) 17 GM PACK PO SCH (07:42)
[2020-12-09] MEDS: INSULIN GLARGINE SOLOSTAR 100 UNITS/ML 3 ML PEN SC SCH (07:44)
[2020-12-09] MEDS: INSULIN ASPART 100 UNITS/ML 3 ML PEN SC SCH (07:45)
[2020-12-09] MEDS: ALUMINUM/MAGNESIUM SUSP 30 ML UDC PO PRN (08:44)
--- NOTE | 2020-12-09 09:24 | Hospitalist Progress Note ---
Date of Service December 09, 2020 Assessment & Plan (1) Anxiety: Has severe anxiety disorder Follows Dr. Harvey psych with [facility] Recently had hospitalization at [facility] Recent med adjustments include increase of Effexor to 112 mg daily, addition of BuSpar 5 mg twice daily and she continues on as needed lorazepam Appreciate psychiatry input and recommendation Currently does not meet inpatient criteria for psychiatric treatment as per Psych Attention seeking /possible malingering as per patient's Daughter (patient anxious about not having much help at night as per patient's daughter) and patient agrees that she is scared to be alone. Needs follow-up with psychiatry, psychotherapist as outpatient Remains stable without any significant symptoms She will be discharged home this morning Disposition: internal control manager has been working on this. Very worried about going home and not being cared by the family members while at home Especially very worried about the nighttime when she will be alone She does not want to go to any facility does not qualify for inpatient psychiatric care May need to have a meeting with the family members and the rn case mgr to find a common ground before discharging her She will be discharged home today and the daughter will pick her up as per rn case mgr (2) Depression: (3) Abdominal pain: Patient is a 70 yr female with H/O DM II, H/O CVA CVA with residual left-sided weakness, essential tremor/mild hemiparkinsonism, depression with anxiety, history of HCV, HLD, stress incontinence, recurrent UTI, R breast mass who presents to ED secondary to acute episode of confusion x40 minutes; headache and nausea x1 day. Patient with recent hospitalization 11/04 to 11/15/2020 for E. coli UTI, stroke work-up and adjustment of psychiatric medications. -CT ABD: No urinary calculi or hydronephrosis. No acute process within the abdomen or pelvis. However, exam compromised given lack of contrast and motion artifact. No bowel obstruction. Cirrhosis. Movement disorder Intermittent tremor of the left upper and lower extremity ? due to old vascular lesion in the right hemisphere DD: Parkinson's No current medications indicated as per neurology Needs follow-up with neurology as outpatient Persistent chronic nausea No vomiting CT abdomen negative as above Consider GI evaluation if needed Inpatient Vs Outpatient Has had nausea this morning without any vomiting and/or diarrhea (4) Headache: Headache with diplopia Diplopia chronic/intermittent as per family Symptoms likely secondary to anxiety issues CT head:No acute intracranial findings. Recent EEG normal as per Neurology Headache is controlled (5) Diplopia: As above -Will benefit from outpatient ophthalmology evaluation (6) History of CVA (cerebrovascular accident): With residual left-sided weakness Continue ASA and statin Appreciate neurology input and recommendation (7) Diabetes mellitus, type II: Last A1c 7.1 11/03/2020 Hold glipizide and Tradjenta Lantus/NovoLog per protocol Monitor (8) Dyslipidemia: Dyslipidemia continue statin Right breast mass As per records Needs follow up with biopsy as outpatient (9) Prolonged Q-T interval on ECG: Avoid QTC prolonging agents as able (10) DVT prophylaxis: SQ Lovenox Disposition: Patient management to help with discharge planning. Follow up: PCP Dr. Quinones upon discharge Follow-up with psychiatry Neurology follow-up with Dr. Nunez Admission and Anticipated Discharge Date Admission Date: November 29, 2020 Subjective 12/08/2020 The patient was seen and examined in medical telemetry unit She has severe anxiety disorder with depression but has been feeling better since this morning Denies any significant symptoms 12/05/2020 The patient was seen and examined in medical telemetry unit She complains today of some epigastric discomfort but denies any other symptoms, no nausea and/or vomiting and no diarrhea Review of Systems Review of Systems: All systems reviewed and are unremarkable except as noted below Gastrointestinal: + nausea; no vomiting Neurologic: + tremor(s) Physical Exam Physical Exam: Lying in bed with anxiety otherwise no acute distress Constitutional: well developed and well nourished; no acute distress and not ill appearing Eyes: PERRL, conjunctivae normal, anicteric sclerae ENMT: external ear and nose normal, oropharynx normal Neck: trachea midline, no thyromegaly Respiratory: no respiratory distress Auscultation: lungs clear to auscultation bilaterally Cardiovascular: Rate/Rhythm: regular rate and regular rhythm Heart Sounds: + murmur (1/6 to 2/6 systolic murmur over precordium) Extremities: no edema Gastrointestinal (Abdomen): Inspection/Auscultation: abdomen not distended Percussion/Palpation: abdomen soft; abdomen nontender Musculoskeletal: No acute arthritis in any joint Neurologic: Alert, awake and oriented x3. No focal sensory no motor deficit appreciated Psychiatric: Orientation: alert and oriented x 3 Affect: + anxious affect Mood: + anxious mood Insight: good insight Lymphatic: no cervical or axillary lymphadenopathy Results & Data Results & Data ([facility]) Vital Signs (Past 12 Hours) Vital Signs Temp Pulse Resp BP Pulse Ox 12/09/20 07:59 37.3 C 79 16 112/69 96 12/08/20 23:59 36.5 C 73 16 116/62 95 Medications Administered Current Inpatient Medications Al Hydrox/Mg Hydrox/Simethicone (Aluminum/Magnesium Susp 30 Ml Udc) 15 ml PO Q4H PRN PRN Reason: Dyspepsia Stop: 12/27/20 19:34 Last Admin: 12/09/20 08:44 Dose: 15 ml Documented by: Aspirin (Aspirin 81 Mg Ectab) 81 mg PO DAILY STEFANO Stop: 12/28/20 08:59 Last Admin: 12/09/20 07:42 Dose: 81 mg Documented by: Atorvastatin Calcium (Atorvastatin 40 Mg Tab) 40 mg PO QPM STEFANO Stop: 12/28/20 20:59 Last Admin: 12/08/20 20:25 Dose: 40 mg Documented by: Buspirone HCl (Buspirone 5 Mg Tab) 10 mg PO BID STEFANO Stop: 01/05/21 20:59 Last Admin: 12/09/20 07:41 Dose: 10 mg Documented by: Dextrose (Dextrose 50% 50 Ml Syringe) 25 - 50 ml IV UD PRN; Protocol PRN Reason: Hypoglycemia Protocol Stop: 12/27/20 19:34 Enoxaparin Sodium (Enoxaparin Inj 40 Mg/0.4 Ml Syr) 40 mg SQ Q24H STEFANO Stop: 12/27/20 21:59 Last Admin: 12/08/20 20:34 Dose: 40 mg Documented by: Famotidine (Famotidine 20 Mg Tab) 20 mg PO HS STEFANO Stop: 01/06/21 20:59 Last Admin: 12/08/20 20:27 Dose: 20 mg Documented by: Glucagon (Glucagon For Inj 1 Mg Vial) 1 mg SQ UD PRN; Protocol PRN Reason: Hypoglycemia Protocol Stop: 12/27/20 19:34 Glucose (Glucose 10 Tabs/Tube) 4 - 8 tabs PO UD PRN; Protocol PRN Reason: Hypoglycemia Protocol Stop: 12/27/20 19:34 Glucose (Glucose 40% Gel 15 Gm Tube) 15 - 30 gm PO UD PRN; Protocol PRN Reason: Hypoglycemia Protocol Stop: 12/27/20 19:34 Promethazine HCl 6.25 mg/ (Sodium Chloride) 50.25 mls @ 201 mls/hr IV Q6H PRN PRN Reason: Nausea And Vomiting Stop: 12/27/20 19:34 Last Infusion: 12/04/20 10:23 Dose: Infused Documented by: Insulin Aspart (Insulin Aspart 100 Units/Ml 3 Ml Pen) 0 units SC ACHS STEFANO Stop: 12/27/20 20:59 Last Admin: 12/09/20 07:45 Dose: 3 units Documented by: Insulin Glargine (Insulin Glargine Solostar 100 Units/Ml 3 Ml Pen) 0 - 6 units SC BID STEFANO Stop: 12/27/20 20:59 Last Admin: 12/09/20 07:44 Dose: 6 units Documented by: Lorazepam (Lorazepam 0.5 Mg Tab) 0.5 mg PO BID PRN PRN Reason: Anxiety Stop: 12/27/20 19:34 Last Admin: 12/07/20 09:53 Dose: 0.5 mg Documented by: Magnesium Hydroxide (Magnesium Hydroxide Susp 30 Ml Udc) 30 ml PO Q12H PRN PRN Reason: Constipation Stop: 12/27/20 19:34 Melatonin (Melatonin 3 Mg Tab) 3 mg PO HS [facility] Stop: 12/27/20 20:59 Last Admin: 12/08/20 20:28 Dose: 3 mg Documented by: Miscellaneous (Carbohydrates For Hypoglycemia ) 15 - 30 gm PO UD PRN PRN Reason: Hypoglycemia Protocol Stop: 12/27/20 19:34 Polyethylene Glycol (Polyethylene (Miralax) 17 Gm Pack) 17 gm PO DAILY PRN PRN Reason: Constipation Stop: 12/27/20 19:34 Polyethylene Glycol (Polyethylene (Miralax) 17 Gm Pack) 17 gm PO DAILY STEFANO Stop: 12/27/20 19:34 Last Admin: 12/09/20 07:42 Dose: Not Given Documented by: Propranolol HCl (Propranolol Hcl 10 Mg Tab) 10 mg PO BID STEFANO Stop: 12/27/20 20:59 Last Admin: 12/09/20 07:42 Dose: 10 mg Documented by: Venlafaxine HCl (Venlafaxine Hcl Xr 37.5 Mg Capxr) 37.5 mg PO DAILY STEFANO Stop: 12/28/20 08:59 Last Admin: 12/09/20 07:42 Dose: 37.5 mg Documented by: Venlafaxine HCl (Venlafaxine Hcl Xr 75 Mg Capxr) 75 mg PO DAILY STEFANO Stop: 12/28/20 08:59 Last Admin: 12/09/20 07:42 Dose: 75 mg Documented by: Vitamin D (Cholecalciferol 1,000 Units 25 Mcg Tab) 2,000 units PO Q2D STEFANO Stop: 12/28/20 08:59 Last Admin: 12/08/20 07:40 Dose: 2,000 units Documented by: Zolpidem Tartrate (Zolpidem Tartrate 5 Mg Tab) 5 mg PO HS PRN PRN Reason: Sleep Stop: 01/04/21 17:18 Last Admin: 12/08/20 20:30 Dose: 5 mg Documented by: (1) Depression Depression Type: unspecified Qualified Code(s): F32.9 - Major depressive disorder, single episode, unspecified (2) Abdominal pain Abdominal location: lower abdomen, unspecified Qualified Code(s): R10.30 - Lower abdominal pain, unspecified (3) Headache Headache chronicity pattern: unspecified pattern Headache type: unspecified Intractability: not intractable Qualified Code(s): R51.9 - Headache, unspecified
[2020-12-09] MEDS: LORazepam 0.5 MG TAB PO PRN (09:46)
--- NOTE | 2020-12-09 11:47 | Discharge Summary ---
Date of Service December 09, 2020 Admission HPI Per Admitting Provider This is a 70-year-old female who has a significant past medical history of T2DM, history of CVA with residual left-sided weakness, essential tremor/mild hemiparkinsonism, depression with anxiety, history of HCV, HLD, stress incontinence, recurrent UTI, R breast mass who presents to ED secondary to acute episode of confusion x40 minutes; headache and nausea x1 day. Caregiver is at bedside. Of significance patient recently hospitalized 11/04 to 11/15/2020 secondary to left-sided weakness and fall. She was treated for E. coli UTI with IV Rocephin and transition to oral cefdinir. She was also seen and evaluated by neurology and had a stroke work-up due to concern for weakness. Symptoms were felt to be secondary to recent addition of trazodone and this was therefore discontinued. Per neurology she is felt to have a mild hemiparkinsonism. [facility] and was discharged on 11/23/2019. Since being home she had been doing okay until today. She woke up with a significant right-sided frontal headache which radiated to the base of her neck, would come and go, associated with diplopia and photosensitivity. She has never experienced this in the past. Caregiver at bedside was concerned because for approximately 40 minutes prior to EMS arrival she was having difficulty remembering name or who she was. When EMS arrived discontinued but slowly resolved. She also complained of nausea and suprapubic abdominal pain. There was concern maybe she had additional UTI. Since being home she had overall poor p.o. intake and appetite. She has not been eating or drinking well. Denies fever, chills, sweats, lightheadedness, syncope, shortness of breath, cough, hemoptysis, emesis, diarrhea, melena, hematochezia. Her last BM was yesterday. She feels slightly constipated. She has been having significant difficulty urinating and has appointment to see urology in January. Caregiver at bedside is very concerned and feels too long. She was told she had prolapse of bladder and this is the reason for frequent UTIs. In ED she underwent thorough with head CT, chest x-ray and CT abdomen pelvis. No acute abnormalities identified. No signs or symptoms of acute infection. She was treated in ED with migraine cocktail which has resolved headache but continues to have mild suprapubic pressure. Also of note patient does suffer from depression with anxiety and has had recent medication adjustments. Prior to her hospitalization in October she was hospitalized at [facility] for psychiatric care. She did see her psychiatrist at [facility] yesterday, Dr. Rivera. Her Effexor was increased to 112.5 mg daily. BuSpar was also added while she was in rehab, 5 mg twice daily. Admission Exam Per Admitting Provider Physical Exam: Constitutional: Thin, petite, female, lying in left lateral decubitus position, appears older than stated age, vitals as above, NAD, answers questions appropriate Head: Normocephalic, Atraumatic Eyes: PERRL, conjunctivae normal, anicteric sclerae ENMT: external ear and nose normal, auditory ear canal without cerumen impaction, TMs white with normal anatomic landmarks. Oropharynx normal Neck: trachea midline, no thyromegaly normal visual inspection Respiratory: normal respiratory effort, lungs clear to auscultation, no wheeze, rales, rhonchi. Normal insp/exp effort, no accessory muscle use Cardiovascular: RRR, 2/6 ELEAZAR noted RUSB,, no edema Vessels: no JVD or carotid bruit Chest: normal inspection of chest Abdomen: normal bowel sounds, soft, nontender, no hepatosplenomegaly Musculoskeletal: no cyanosis or clubbing, extremities motor strength 5/5, left upper and lower extremity 4/5 Skin: no rashes, warm and dry normal turgor Neurologic: PERRL, EOMI, accommodation nl, no face palsy, no dysarthria CN's II-XI intact bilaterally and moves all extremities Psychiatric: A+Ox3, euthymic affect Lymphatic: no cervical or axillary lymphadenopathy : deferred Principal Diagnosis Generalized anxiety disorder with depression, intermittent tremors of the left arm and left leg, history of stroke, type 2 diabetes Discharge Exam Constitutional well developed and well nourished; no acute distress and not ill appearing Eyes PERRL, conjunctivae normal, anicteric sclerae ENMT external ear and nose normal, oropharynx normal Neck trachea midline, no thyromegaly Respiratory no respiratory distress Auscultation: lungs clear to auscultation bilaterally Cardiovascular Rate/Rhythm: regular rate and regular rhythm Heart Sounds: + murmur (1/6 to 2/6 systolic murmur over precordium) Extremities: no edema Gastrointestinal (Abdomen) Inspection/Auscultation: abdomen not distended Percussion/Palpation: abdomen soft; abdomen nontender Psychiatric Orientation: alert and oriented x 3 Affect: + anxious affect Mood: + anxious mood Insight: good insight Lymphatic no cervical or axillary lymphadenopathy Discharge Data Allergies Allergy/AdvReac Type Severity Reaction Status Date / Time Iodinated Contrast Media Allergy Severe HEAD TO Verified 11/27/20 16:52 TOE HIVES morphine Allergy Severe hives Verified 11/27/20 16:52 oxycodone Allergy Intermediate Hives Verified 11/27/20 16:52 clavulanic acid Allergy Unknown FROM Verified 11/27/20 16:52 AUGMENTIN Penicillins Allergy Unknown FROM Verified 11/27/20 16:52 AUGMENTIN amitriptyline AdvReac Severe INCREASES Verified 11/27/20 16:52 HEART RATE clarithromycin AdvReac Intermediate LIGHT Verified 11/27/20 16:52 HEADED, FAINTY FEELING acetaminophen AdvReac Unknown NOT ABLE Verified 11/27/20 16:52 TO TAKE DUE TO HX HEPATITIS Cephalosporins AdvReac Unknown CEFTIN--GI Verified 11/27/20 16:52 UPSET Consultations 11/27/20 15:26 ED Decision to Admit Stat 11/27/20 19:35 Consult Case Management - Discharge Planning Routine 11/28/20 10:46 Consult Neurology Routine 11/29/20 09:31 Consult Psychiatry Routine Ordered Studies 11/27/20 13:04 CT abd pelvis wo con Stat CT head/brain wo con Stat Hospital Course (1) Anxiety: Has severe anxiety disorder Follows Dr. Harvey psych with [facility] Recently had hospitalization at [facility] Recent med adjustments include increase of Effexor to 112 mg daily, addition of BuSpar 5 mg twice daily and she continues on as needed lorazepam Appreciate psychiatry input and recommendation Currently does not meet inpatient criteria for psychiatric treatment as per Psych Attention seeking /possible malingering as per patient's Daughter (patient anxious about not having much help at night as per patient's daughter) and patient agrees that she is scared to be alone. Needs follow-up with psychiatry, psychotherapist as outpatient Remains stable without any significant symptoms She will be discharged home this morning Right breast mass As per records Needs follow up with biopsy as outpatient Disposition: event planning manager has been working on this. Very worried about going home and not being cared by the family members while at home Especially very worried about the nighttime when she will be alone She does not want to go to any facility does not qualify for inpatient psychiatric care May need to have a meeting with the family members and the disease case manager to find a common ground before discharging her She will be discharged home today and the daughter will pick her up as per disease case manager (2) Depression: (3) Abdominal pain: Patient is a 70 yr female with H/O DM II, H/O CVA CVA with residual left-sided weakness, essential tremor/mild hemiparkinsonism, depression with anxiety, history of HCV, HLD, stress incontinence, recurrent UTI, R breast mass who presents to ED secondary to acute episode of confusion x40 minutes; headache and nausea x1 day. Patient with recent hospitalization 11/04 to 11/15/2020 for E. coli UTI, stroke work-up and adjustment of psychiatric medications. -CT ABD: No urinary calculi or hydronephrosis. No acute process within the abdomen or pelvis. However, exam compromised given lack of contrast and motion artifact. No bowel obstruction. Cirrhosis. Movement disorder Intermittent tremor of the left upper and lower extremity ? due to old vascular lesion in the right hemisphere DD: Parkinson's No current medications indicated as per neurology Needs follow-up with neurology as outpatient Persistent chronic nausea No vomiting CT abdomen negative as above Consider GI evaluation if needed Inpatient Vs Outpatient Has had nausea this morning without any vomiting and/or diarrhea (4) Headache: Headache with diplopia Diplopia chronic/intermittent as per family Symptoms likely secondary to anxiety issues CT head:No acute intracranial findings. Recent EEG normal as per Neurology Headache is controlled (5) Diplopia: As above -Will benefit from outpatient ophthalmology evaluation (6) History of CVA (cerebrovascular accident): With residual left-sided weakness Continue ASA and statin Appreciate neurology input and recommendation (7) Diabetes mellitus, type II: Last A1c 7.1 11/03/2020 Hold glipizide and Tradjenta Lantus/NovoLog per protocol Monitor (8) Dyslipidemia: Dyslipidemia continue statin (9) Prolonged Q-T interval on ECG: Avoid QTC prolonging agents as able (10) DVT prophylaxis: SQ Lovenox Disposition: Patient management to help with discharge planning. Follow up: PCP Dr. Quinones upon discharge Follow-up with psychiatry Neurology follow-up with Dr. Nunez Total Time Total Time Spent Total Time Spent (In Minutes): 35 minutes Total Time Includes: Examination of the Patient, Discharge Planning, Medication Reconciliation and Communication With Other Providers Discharge Plan Discharge Items Patient Disposition: Home - Home Health Services Reason For Visit: CHEST PAIN, INTERMITTENT CONFUSION Discharge Diagnosis: Generalized anxiety disorder with depression, intermittent tremors of the left arm and left leg, history of stroke, type 2 diabetes Condition on Discharge: Good Activity: Resume your previous activity Non-emergency contact: Primary Care Provider Call non-emergency contact if: you have any medication questions and your symptoms worsen Follow-up/Referrals: [facility] [Other] - 12/11/20 3:00 pm (Therapy referral) Sohail Nunez MD [Physician] - 12/18/20 1:00 pm (Date & Time 12/18/2020 1:00 PM Provider Sohail Nunez MD Department Neurology [facility] ) Chaitanya Quinones DO [Primary Care Provider] - 12/12/20 11:20 am (Date & Time 12/12/2020 11:20 AM Provider Chaitanya Quinones DO Department General Internal Medicine [facility] ) Daisy Rebollar DO [Outside Practitioners] - 12/10/20 8:00 am (Date & Time 12/10/2020 8:00 AM Provider [facility] Diet: Carb Consistent or DM2 and Heart Healthy Addtl Attending Provider Instructions: Please take precautions to avoid falls Please keep your appointment with assigned providers Pending Studies at Discharge: No Stand-Alone Forms: My [facility] [employer] / [email or web address], Smoking Cessation Medications and DC Order Prescriptions: New famotidine 20 mg Tablet 20 mg PO HS 30 Days Qty: 30 RF: 0 Continued milk thistle 175 mg Tablet 175 mg PO 2XWK RF: 0 aspirin 81 mg Tablet,Delayed Release (Dr/Ec) 81 mg PO DAILY RF: 0 vitamin B complex Tablet 1 tab PO .OCCASIONALLY RF: 0 docusate sodium 100 mg Capsule 100 mg PO BID PRN (Reason: Constipation) Qty: 60 RF: 0 venlafaxine [Effexor XR] 75 mg capsule,extended release 24hr 75 mg PO DAILY RF: 0 glipizide 10 mg tablet extended release 24hr 10 mg PO DAILY RF: 0 melatonin 3 mg Tablet 3 mg PO HS Qty: 30 RF: 0 propranolol 10 mg Tablet 10 mg PO BID 30 Days Qty: 60 RF: 0 polyethylene glycol 3350 [Miralax] 17 gram Powder In Packet 17 g PO DAILY PRN (Reason: constipation) Qty: 30 RF: 0 venlafaxine [Effexor XR] 37.5 mg capsule,extended release 24hr 37.5 mg PO DAILY RF: 0 lorazepam [Ativan] 0.5 mg tablet 0.5 mg PO BID PRN (Reason: Anxiety) RF: 0 cranberry 400 mg Capsule 400 mg PO Q OTHER DAY RF: 0 cholecalciferol (vitamin D3) [Vitamin D3] 25 mcg (1,000 unit) Tablet 50 mcg PO Q OTHER DAY RF: 0 atorvastatin 40 mg tablet 40 mg PO QPM RF: 0 coenzyme Q10 [CoQ-10] 100 mg Capsule 100 mg PO DAILY RF: 0 Tradjenta 5 mg Tablet 5 mg PO DAILY RF: 0 Changed buspirone 5 mg tablet 10 mg PO BID 30 Days Qty: 120 RF: 0 Discharge Orders: Discharge Order (Routine); Ordered 12/09/20 Ordered By: Bushra Dutta Admission Data Admit Date/Time: 11/29/20 07:59 Attending Provider: Bushra Dutta Admit Provider: Izzy Oates Primary Care Provider: Chaitanya Quinones Other Providers: [facility] ; Izzy Oates ; Sohail Nunez ; Chip Cueva ; Carter Parker Other Interventions: Discharge Summary Assessment (RN) Last Done: 12/09/20 10:01
== END 2020-12-09 11:23 | disposition home health service (06) | DRG 103 ==
LOC: 2W 12:48 → ED 12:48 → SUATTDRO 15:50 → 2W 18:42 → SUATTDRO 11-29 07:59 → 2W 12-04 19:30

== ENCOUNTER 2021-01-22 12:07 | Inpatient (IN) ==
[2021-01-22] MEDS ORDERED: diphenhydrAMINE 50 MG/ML VIAL IV STA (12:36)
[2021-01-22] MEDS ORDERED: methylPREDNISolone 125 MG/2 ML VIAL IV STA (12:36)
--- NOTE | 2021-01-22 12:36 | Emergency Department Note ---
History of Present Illness General Chief complaint: Syncope Stated complaint: Illness UTI Abx not working Time Seen by Provider: 01/22/21 12:09 Source: patient Mode of arrival: EMS Limitations: no limitations History of Present Illness Provider complaint: Dizziness, syncope Onset (ago): day(s) 4 Location: head Severity: moderate Pain Consistency: + intermittent Maximum Pain Intensity: 5 Relieved By: + rest Exacerbated By: + movement Associated symptoms: + headaches, + loss of appetite, + malaise, + nausea/vomiting, + syncope and + weakness; no chest pain, no cough, no fever/chills and no shortness of breath This is a 70-year-old female who presents from home via EMS after a syncopal event earlier this morning. Patient states she began not feeling well 4 days ago with increased weakness, poor appetite, intermittent posterior headaches, and worsening weakness and dizziness. Patient states she feels lightheaded and off-balance, denies a sense of spinning. No prior history of vertigo. Patient denies any prior history of headaches, states the headaches of the last 4 days are dull, posterior, and intermittent. Patient denies any accompanying neck pain or vision changes. Patient states she was recently being treated for a UTI. She took Bactrim for 1 week, and then her doctor changed her to a different medication. Per medication list accompanying her, she was started on Macrobid next and this had a total of 3 doses of that thus far. Patient states today she noticed some mild low back pain. She states she has not had any low back pain accompanying, denies any prior history of pyelonephritis. Patient denies any accompanying abdominal pain. States she has been nauseated however no vomiting, and feels the nausea is most related to the dizziness and not her pain. Patient states her urine has been dark but she has not noted any blood. Patient denies any change of stools. Upon the arrival of the home nurse who is been coming to help her, the nurse describes that while the patient was sitting up eating breakfast, she passed out. States her head did not strike the table but hit her arm first. States she was out for approximately 30 seconds. No seizure-like activity was noted. No other color change or diaphoresis. Nurse called 911 and began attempting to wake the patient up. States she came to, did not have any obvious deficits. Patient does have some chronic left upper and left lower extremity weakness secondary to a prior stroke. Patient takes aspirin only, no other anticoagulation. Patient states she is at this time she feels that her weakness is at its baseline. Patient states the dizziness and weakness feels worse when she is sitting or attempting to stand. She states she feels the point where things start to become dark and blurry as though she might pass out. Patient also states that they were recently changing her medications for anxiety. States that they increased her Effexor from 75 to 150 mg and that is when she began feeling worse with increased dizziness and tremors. She states since then they have taken her Effexor back down and have started another new medication for anxiety. She does feel her anxiety is improving since this change. Pt seen during a time of high acuity and national emergency pandemic while wearing PPE. Home Medications Medication Instructions Recorded Confirmed Type aspirin 81 mg PO QAM 09/06/18 01/22/21 History milk thistle 175 mg PO DAILY PRN 09/06/18 01/22/21 History vitamin B complex 1 tab PO DAILY 09/06/18 01/22/21 History Tradjenta 5 mg PO QAM 11/15/19 01/22/21 History coenzyme Q10 [CoQ-10] 100 mg PO QAM 11/15/19 01/22/21 History glipizide 10 mg PO BID 11/02/20 01/22/21 History venlafaxine [Effexor XR] 75 mg PO QAM 11/02/20 01/22/21 History melatonin 3 mg PO HS #30 tab 11/15/20 01/22/21 Rx polyethylene glycol 3350 [Miralax] 17 g PO DAILY PRN #30 ea 11/15/20 01/22/21 Rx atorvastatin 40 mg PO HS 11/27/20 01/22/21 History cholecalciferol (vitamin D3) 50 mcg PO Q OTHER DAY 11/27/20 01/22/21 History [Vitamin D3] cranberry 200 mg PO DAILY PRN 11/27/20 01/22/21 History lorazepam [Ativan] 0.5 mg PO PM PRN 11/27/20 01/22/21 History buspirone 15 mg PO BID 01/13/21 01/22/21 History empagliflozin [Jardiance] 10 mg PO QAM 01/13/21 01/22/21 History propranolol 20 mg PO BID 01/13/21 01/22/21 History nitrofurantoin monohyd/m-cryst 100 mg PO BID 01/22/21 01/22/21 History sertraline 25 mg PO QAM 01/22/21 01/22/21 History Allergies Allergy/AdvReac Type Severity Reaction Status Date / Time Iodinated Contrast Media Allergy Severe HEAD TO Verified 01/22/21 13:05 TOE HIVES morphine Allergy Severe hives Verified 01/22/21 13:05 oxycodone Allergy Intermediate Hives Verified 01/22/21 13:05 clavulanic acid Allergy Unknown FROM Verified 01/22/21 13:05 AUGMENTIN Penicillins Allergy Unknown FROM Verified 01/22/21 13:05 AUGMENTIN amitriptyline AdvReac Severe INCREASES Verified 01/22/21 13:05 HEART RATE clarithromycin AdvReac Intermediate LIGHT Verified 01/22/21 13:05 HEADED, FAINTY FEELING acetaminophen AdvReac Unknown NOT ABLE Verified 01/22/21 13:05 TO TAKE DUE TO HX HEPATITIS Cephalosporins AdvReac Unknown CEFTIN--GI Verified 01/22/21 13:05 UPSET Past Med/Surg History Medical History Anxiety Depression Diabetes mellitus, type II Dyslipidemia Hepatitis C, chronic History of CVA (cerebrovascular accident) LBBB (left bundle branch block) Surgical History H/O cataract removal with insertion of prosthetic lens History of back surgery History of cholecystectomy History of hysterectomy History of tubal ligation Family History Father Pancreatic cancer Social History Smoking Status: Never smoker Second Hand Exposure: No; Hx Alcohol Use: No Hx Substance Use: No Preferred Language: Vietnamese Communication Ability: Effective Parole Hearing Officer Required: No Beliefs That Will Affect Care: Anabaptism (Anabaptist) marital status: Current Living Situation: Alone Current Living Situation Comment: caregiver during the day, thursday-thursday Other Information That Helps Us Care for You: No Feels Safe at Home: Yes Safety Concerns: Feels Safe At This Time Assistive Devices: Glasses Review of Systems See HPI for pertinent positives & negatives. and A total of 10 systems reviewed and were otherwise negative Physical Exam Vital Signs Vital Signs - 24 hr 01/22/21 15:14 01/22/21 15:15 01/22/21 15:17 Pulse Rate - Lying 75 Pulse Rate - Sitting 82 Pulse Rate - Standing 86 Pulse Rate 76 83 Pulse Rate [Apical] Pulse Rate from SpO2 Sensor 75 83 Pulse Rhythm [Apical] Respiratory Rate 13 22 Respiratory Effort / Characteristics Respiratory Depth Blood Pressure - Lying 151/56 H Blood Pressure - Sitting 132/102 H Blood Pressure- Standing 100/65 Blood Pressure 151/56 H 132/102 H Blood Pressure [Right Arm] Blood Pressure Mean 87 112 Blood Pressure Mean [Right Arm] Pulse Oximetry 96 99 Oxygen Delivery Method 01/22/21 15:18 01/22/21 16:21 01/22/21 16:22 Pulse Rate - Lying Pulse Rate - Sitting Pulse Rate - Standing Pulse Rate 87 79 Pulse Rate [Apical] 78 Pulse Rate from SpO2 Sensor 89 79 Pulse Rhythm [Apical] Regular Respiratory Rate 22 16 15 Respiratory Effort / Characteristics Non-Labored Respiratory Depth Normal Blood Pressure - Lying Blood Pressure - Sitting Blood Pressure- Standing Blood Pressure 100/65 129/48 L Blood Pressure [Right Arm] 129/48 L Blood Pressure Mean 76 75 Blood Pressure Mean [Right Arm] 75 Pulse Oximetry 97 97 99 Oxygen Delivery Method Room Air 01/22/21 16:30 01/22/21 16:47 01/22/21 17:00 Pulse Rate - Lying Pulse Rate - Sitting Pulse Rate - Standing Pulse Rate 77 80 74 Pulse Rate [Apical] Pulse Rate from SpO2 Sensor 78 80 74 Pulse Rhythm [Apical] Respiratory Rate 20 13 20 Respiratory Effort / Characteristics Respiratory Depth Blood Pressure - Lying Blood Pressure - Sitting Blood Pressure- Standing Blood Pressure 129/55 L 129/48 L 126/51 L Blood Pressure [Right Arm] Blood Pressure Mean 79 75 76 Blood Pressure Mean [Right Arm] Pulse Oximetry 97 96 95 Oxygen Delivery Method GENERAL: alert, ill appearing, well nourished, mild distress, non-toxic, anxious EYE EXAM: normal conjunctiva, PERRL and EOM's grossly intact, no nystagmus OROPHARYNX: no exudate, no erythema, lips, buccal mucosa, and tongue normal and mucous membranes are moist NECK: supple, no nuchal rigidity, no adenopathy, non-tender LUNGS: Clear to auscultation. Normal chest wall mechanics, no w/r/r HEART: no murmurs, S1 normal and S2 normal ABDOMEN: abdomen soft, non-tender, normo-active bowel sounds, no masses, no rebound or guarding. BACK: Back is symmetrical on inspection and there is no deformity, no midline tenderness, no CVA tenderness. SKIN: no rashes and no bruising UPPER EXTREMITIES: upper extremities are grossly normal. FROM, nml pulses b/l. LOWER EXTREMITIES: No pitting edema. FROM, nml pulses b/l. NEURO EXAM: Normal sensorium, cranial nerves II-XII grossly intact, normal speech, no facial droop, no gross weakness of arms, no gross weakness of legs however left upper extremity and left lower extremity slightly weaker on strength testing compared to right with mild ataxia noted to left lower extremity. Gross sensation intact. Course Course 1245: Patient updated on recent culture results of E.coli. Patient was given a dose of Rocephin via IV here during her last admission 5 days ago. Patient did have a CT of the abdomen and pelvis at that time. 1450: Patient updated on results thus far. 1640: Patient unable to get to a bedside commode, still symptomatic even trying to sit up in bed, discussed need for either inpatient management or inpatient rehab. Administered Medications Aspirin (Aspirin 81 Mg Ectab) 81 mg PO QAM [facility] Stop: 02/22/21 08:59 Last Admin: 01/23/21 08:11 Dose: 81 mg Documented by: [id number] Atorvastatin Calcium (Atorvastatin 40 Mg Tab) 40 mg PO HS [facility] Stop: 02/21/21 20:59 Last Admin: 01/22/21 22:09 Dose: 40 mg Documented by: [id number] Buspirone HCl (Buspirone 15 Mg Tab) 15 mg PO BID [facility] Stop: 02/21/21 20:59 Last Admin: 01/23/21 08:11 Dose: 15 mg Documented by: [id number] Admin: 01/22/21 22:08 Dose: 15 mg Documented by: [id number] Enoxaparin Sodium (Enoxaparin Inj 40 Mg/0.4 Ml Syr) 40 mg SQ QAM [facility] Stop: 02/22/21 08:59 Last Admin: 01/23/21 08:10 Dose: 40 mg Documented by: [id number] Sodium Chloride (Nss 1000ml) 1,000 mls @ 125 mls/hr IV .Q8H STEFANO Stop: 01/23/21 20:30 Last Admin: 01/23/21 13:36 Dose: 125 mls/hr Documented by: [id number] Infusion: 01/23/21 13:35 Dose: 0 mls/hr Documented by: [id number] Admin: 01/23/21 05:30 Dose: 125 mls/hr Documented by: [id number] Infusion: 01/23/21 05:30 Dose: 125 mls/hr Documented by: [id number] Admin: 01/22/21 21:30 Dose: 125 mls/hr Documented by: [id number] Insulin Aspart (Insulin Aspart 100 Units/Ml 3 Ml Pen) 0 units SC ACHS ST[facility]ANO Stop: 02/21/21 20:59 Last Admin: 01/23/21 12:12 Dose: Not Given Documented by: [id number] Cosigned by: [id number] Admin: 01/23/21 07:57 Dose: Not Given Documented by: [id number] Cosigned by: [id number] Admin: 01/22/21 22:14 Dose: Not Given Documented by: [id number] Cosigned by: [id number] Lorazepam (Lorazepam 0.5 Mg Tab) 0.5 mg PO PM PRN PRN Reason: Anxiety Stop: 02/21/21 20:30 Last Admin: 01/23/21 12:54 Dose: 0.5 mg Documented by: [id number] Admin: 01/23/21 01:10 Dose: 0.5 mg Documented by: [id number] Meclizine HCl (Meclizine Hcl 25 Mg Tab) 25 mg PO Q6H PRN PRN Reason: dizziness Stop: 02/21/21 18:09 Last Admin: 01/22/21 22:28 Dose: 25 mg Documented by: [id number] Melatonin (Melatonin 3 Mg Tab) 3 mg PO HS STEFANO Stop: 02/21/21 20:59 Last Admin: 01/22/21 22:11 Dose: 3 mg Documented by: [id number] Miscellaneous (Carbohydrates For Hypoglycemia ) 15 - 30 gm PO UD PRN PRN Reason: Hypoglycemia Protocol Stop: 02/21/21 20:30 Last Admin: 01/23/21 08:09 Dose: 15 gm Documented by: [id number] Nitrofurantoin Macrocrystals (Nitrofurantoin Monohydrate 100 Mg Cap) 100 mg PO BID [facility] Stop: 01/25/21 20:59 Last Admin: 01/23/21 08:11 Dose: 100 mg Documented by: [id number] Admin: 01/22/21 22:08 Dose: 100 mg Documented by: [id number] Ondansetron HCl (Ondansetron Inj 2 Mg/Ml 2 Ml Vial) 4 mg IV Q4H PRN PRN Reason: Nausea And Vomiting Stop: 02/21/21 20:30 Last Admin: 01/23/21 08:49 Dose: 4 mg Documented by: [id number] Propranolol HCl (Propranolol Hcl 20 Mg Tab) 20 mg PO BID [facility] Stop: 02/21/21 20:59 Last Admin: 01/23/21 08:11 Dose: 20 mg Documented by: [id number] Admin: 01/22/21 22:05 Dose: Not Given Documented by: [id number] Sertraline HCl (Sertraline Hcl 50 Mg Tablet) 25 mg PO QAM [facility] Stop: 02/22/21 08:59 Last Admin: 01/23/21 08:10 Dose: 25 mg Documented by: [id number] Venlafaxine HCl (Venlafaxine Hcl Xr 37.5 Mg Capxr) [facility] Stop: 02/22/21 08:59 Last Admin: 01/23/21 08:11 Dose: 37.5 mg Documented by: [id number] Venlafaxine HCl (Venlafaxine Hcl Xr 75 Mg Capxr) 75 mg PO QAM [facility] Stop: 02/22/21 08:59 Last Admin: 01/23/21 08:11 Dose: 75 mg Documented by: [id number] Vitamin B Complex (Vitamin B Complex Tab) 1 tab PO DAILY [facility] Stop: 02/22/21 08:59 Last Admin: 01/23/21 08:10 Dose: 1 tab Documented by: [id number] Discontinued Medications Diphenhydramine HCl (Diphenhydramine 50 Mg/Ml Vial) 25 mg IV NOW STA Stop: 01/22/21 12:37 Last Admin: 01/22/21 12:54 Dose: 25 mg Documented by: [id number] Diphenhydramine HCl (Diphenhydramine Capsule 25 Mg Cap) 25 mg PO NOW ONE Stop: 01/23/21 03:01 Last Admin: 01/23/21 03:05 Dose: 25 mg Documented by: [id number] Diphenhydramine HCl (Diphenhydramine Capsule 25 Mg Cap) Confirm Administered Dose 25 mg .ROUTE .STK-MED ONE Stop: 01/23/21 03:04 Last Admin: 01/23/21 03:05 Dose: 25 mg Documented by: [id number] Sodium Chloride (Nss 1000ml) 1,000 mls @ 250 mls/hr IV .Q4H [facility] Stop: 02/21/21 12:29 Last Admin: 01/22/21 21:16 Dose: Not Given Documented by: [id number] Admin: 01/22/21 21:16 Dose: Not Given Documented by: [id number] Infusion: 01/22/21 16:17 Dose: 0 mls/hr Documented by: [id number] Admin: 01/22/21 12:54 Dose: 250 mls/hr Documented by: [id number] Sodium Chloride (Nss) 500 mls @ 999 mls/hr IV .Q31M ONE Stop: 01/22/21 16:39 Last Infusion: 01/22/21 16:48 Dose: 0 mls/hr Documented by: [id number] Admin: 01/22/21 16:17 Dose: 999 mls/hr Documented by: [id number] Promethazine HCl 6.25 mg/ (Sodium Chloride) 50.25 mls @ 201 mls/hr IV 1845 ONE Stop: 01/22/21 18:59 Last Admin: 01/22/21 19:05 Dose: Not Given Documented by: [id number] Ioversol (Optiray 320 125ml) 119 ml IV ONCE ONE Stop: 01/22/21 14:06 Last Admin: 01/22/21 14:05 Dose: 119 ml Documented by: [id number] Meclizine HCl (Meclizine Hcl 25 Mg Tab) 25 mg PO NOW STA Stop: 01/22/21 18:38 Last Admin: 01/22/21 19:04 Dose: Not Given Documented by: [id number] Meclizine HCl (Meclizine Hcl 25 Mg Tab) Confirm Administered Dose 25 mg PO .STK- MED ONE Stop: 01/22/21 18:22 Last Admin: 01/22/21 18:23 Dose: 25 mg Documented by: [id number] Methylprednisolone (Methylprednisolone 125 Mg/2 Ml Vial) 60 mg IV NOW STA Stop: 01/22/21 12:37 Last Admin: 01/22/21 12:54 Dose: 60 mg Documented by: [id number] Promethazine HCl (Promethazine 6.25 Mg/50.25 Ml Nss) Confirm Administered Dose 6.25 mg IV .STK-MED ONE Stop: 01/22/21 18:22 Last Admin: 01/22/21 18:23 Dose: 6.25 mg Documented by: [id number] Medical Decision Making Differential Diagnosis Differential diagnosis includes etiologies such as benign positional vertigo, dehydration, hypovolemia, anemia, tumor, infection, hypoglycemia, electrolyte abnormalities, cardiac sources, intracerebral event, toxicologic, neurologic, as well as others were entertained. Medical Records Attestation: I reviewed the patient's medical records. Home Medications Current Medication List: was personally reviewed by me Laboratory Data Attestation: I reviewed the patient's lab results. Result diagrams: 01/23/21 05:28 01/23/21 05:28 Lab Results 01/22/21 01/22/21 01/22/21 Range/Units 12:23 12:23 12:23 WBC 7.91 (4.8-10.8) K/uL RBC 4.59 (4.2-5.4) M/uL Hgb 12.8 (12.0-16.0) g/dL Hct 38.0 (37-47) % MCV 82.8 (80-100) fL MCH 27.9 (25-34) pg MCHC 33.7 (32-36) g/dL RDW Std Deviation 42.3 (36.4-46.3) fL RDW Coeff of Farida 14.2 (11.5-14.5) % Plt Count 205 (130-400) K/uL MPV 11.0 H (7.4-10.4) fL Immature Gran % (Auto) 0.1 % Neut % (Auto) 60.8 % Lymph % (Auto) 28.7 % [place] % (Auto) 8.7 % Eos % (Auto) 1.6 % Baso % (Auto) 0.1 % Neut # (Auto) 4.80 (1.4-6.5) K/uL Lymph # (Auto) 2.27 (1.2-3.4) K/uL [place] # (Auto) 0.69 H (0.11-0.59) K/uL Eos # (Auto) 0.13 (0-0.5) K/uL Baso # (Auto) 0.01 (0-0.2) K/uL Immature Gran # (Auto) 0.01 (0.00-0.02) K/uL PT 11.1 (9.0-12.0) Seconds INR 1.1 (0.9-1.1) Sodium 140 (136-145) mmol/L Potassium 3.9 (3.5-5.1) mmol/L Chloride 109 H (98-107) mmol/L Carbon Dioxide 26 (21-32) mmol/L Anion Gap 5.0 (3-11) BUN 20 H (7-18) mg/dl Creatinine 0.61 (0.6-1.2) mg/dl Est Cr Clr Drug Dosing 65.4 ml/min Est GFR ( Amer) 105.0 Est GFR (Non-Af Amer) 90.6 BUN/Creatinine Ratio 33.1 H (10-20) Glucose 104 H (70-99) mg/dl Lactate (0.4-2.0) mmol/L Calcium 9.0 (8.5-10.1) mg/dl Magnesium 2.2 (1.8-2.4) mg/dl Total Bilirubin 0.6 (0.2-1) mg/dl AST 29 (15-37) U/L ALT 37 (12-78) U/L Alkaline Phosphatase 86 (45-117) U/L Troponin I < 0.015 (0-0.045) ng/ml NT-Pro-B Natriuret Pep 138 (0-900) pg/ml Total Protein 7.1 (6.4-8.2) gm/dl Albumin 3.5 (3.4-5.0) gm/dl Globulin 3.6 (2.5-4.0) gm/dl Albumin/Globulin Ratio 1.0 (0.9-2) Lipase 167 (73-393) U/L TSH 0.912 (0.300-4.500) uIu/ml Urine Color Urine Appearance (Clear) Urine pH (4.5-7.5) Ur Specific Nem[place] (1.000-1.030) Urine Protein (Negative) Urine Glucose (UA) (Negative) Urine Ketones (Negative) Urine Blood (Negative) Urine Nitrite (Negative) Urine Bilirubin (Negative) Urine Urobilinogen (Negative) Ur Leukocyte Esterase (Negative) 01/22/21 01/22/21 01/22/21 Range/Units 12:23 13:06 15:30 WBC (4.8-10.8) K/uL RBC (4.2-5.4) M/uL Hgb (12.0-16.0) g/dL Hct (37-47) % MCV (80-100) fL MCH (25-34) pg MCHC (32-36) g/dL RDW Std Deviation (36.4-46.3) fL RDW Coeff of Farida (11.5-14.5) % Plt Count (130-400) K/uL MPV (7.4-10.4) fL Immature Gran % (Auto) % Neut % (Auto) % Lymph % (Auto) % [place] % (Auto) % Eos % (Auto) % Baso % (Auto) % Neut # (Auto) (1.4-6.5) K/uL Lymph # (Auto) (1.2-3.4) K/uL [place] # (Auto) (0.11-0.59) K/uL Eos # (Auto) (0-0.5) K/uL Baso # (Auto) (0-0.2) K/uL Immature Gran # (Auto) (0.00-0.02) K/uL PT (9.0-12.0) Seconds INR (0.9-1.1) Sodium (136-145) mmol/L Potassium (3.5-5.1) mmol/L Chloride (98-107) mmol/L Carbon Dioxide (21-32) mmol/L Anion Gap (3-11) BUN (7-18) mg/dl Creatinine (0.6-1.2) mg/dl Est Cr Clr Drug Dosing ml/min Est GFR ( Amer) Est GFR (Non-Af Amer) BUN/Creatinine Ratio (10-20) Glucose (70-99) mg/dl Lactate 1.5 (0.4-2.0) mmol/L Calcium (8.5-10.1) mg/dl Magnesium (1.8-2.4) mg/dl Total Bilirubin (0.2-1) mg/dl AST (15-37) U/L ALT (12-78) U/L Alkaline Phosphatase (45-117) U/L Troponin I < 0.015 (0-0.045) ng/ml NT-Pro-B Natriuret Pep (0-900) pg/ml Total Protein (6.4-8.2) gm/dl Albumin (3.4-5.0) gm/dl Globulin (2.5-4.0) gm/dl Albumin/Globulin Ratio (0.9-2) Lipase (73-393) U/L TSH (0.300-4.500) uIu/ml Urine Color Dark Yellow Urine Appearance Clear (Clear) Urine pH 5.5 (4.5-7.5) Ur Specific [place] 1.040 H (1.000-1.030) Urine Protein Negative (Negative) Urine Glucose (UA) 3+ H (Negative) Urine Ketones 1+ H (Negative) Urine Blood Negative (Negative) Urine Nitrite Negative (Negative) Urine Bilirubin Negative (Negative) Urine Urobilinogen Negative (Negative) Ur Leukocyte Esterase Negative (Negative) Imaging Data Radiologist's Impression: XR chest 1V portable HISTORY: 70 years-old Female syncope acute syncope COMPARISON: Chest radiograph 01/17/2021 TECHNIQUE: Portable AP view of the chest FINDINGS: Cardiomediastinal and hilar silhouettes are within normal limits. No pneumothorax, pleural effusion, airspace consolidation or overt pulmonary edema. Bones of the chest appear grossly intact. IMPRESSION: No acute process. ACT 112: Negative or not required by law. The above report was generated using voice recognition software. It may contain grammatical, syntax or spelling errors. Electronically signed by: Donald Cooney M.D. 01/22/2021 12:[address] head/brain wo con CLINICAL HISTORY: syncope COMPARISON STUDY: 01/17/2021 TECHNIQUE: Axial CT of the brain is performed from the vertex to the skull base. IV contrast was not administered for this examination. A dose lowering technique was utilized adhering to the principles of ALARA. CT DOSE: 967.49 mGy.cm FINDINGS: No intra or extra-axial mass lesions are visualized. There is no CT evidence of acute cortical infarction. There is no evidence of midline shift. There is no acute hemorrhage. No calvarial fractures are visualized. There are patchy white matter hypodensities likely on a small vessel basis. There is an old left basal ganglia and external capsule infarct. There is no evidence of pathologic ventricular dilatation. There is no evidence of acute sinusitis IMPRESSION: No acute intracranial findings ACT 112: Negative or not required by law. Electronically signed by: Juan Nj M.D. 01/22/2021 2:[address] angio neck with con, CT angio head w con CLINICAL HISTORY: 70 years-old Female with dizzy, posterior giles, syncope. Acute dizziness with syncope and headache COMPARISON STUDY: Head CT of same day and also 01/17/2021 TECHNIQUE: Following the IV administration of 119 mL of Optiray 320, CT angiogram of the head and neck was performed from the aortic arch to the skull apex. Images are reviewed in the axial, sagittal, and coronal planes. 3-D MIPS images are created and assessed. IV contrast was administered without complication. All measurements were calculated based on NASCET criteria. A dose lowering technique was utilized adhering to the principles of ALARA. FINDINGS: Three-vessel morphology of the thoracic aortic arch. Patency of the innominate and imaged subclavian arteries. The common and and internal carotid arteries are patent. Mild atheromatous plaque of the left distal common artery and left carotid bulb without significant stenosis. There is suggestion of a small web involving the distal cervical segment of the left ICA on image 22 series 5. The middle and right anterior cerebral artery are normal and patent. The left A1 segment is not visualized and is likely developmentally hypoplastic. The vertebral arteries are codominant and widely patent. There is no aneurysm, dis section, high-grade stenosis or proximal branch occlusion. The basilar and posterior cerebral arteries are patent. Cerebral venous sinuses are also patent. There is no abnormal intracranial enhancement. Lung apices are clear without pneumothorax. Unremarkable thyroid. There is no adenopathy. Multilevel degenerative changes of the cervical spine. IMPRESSION: No aneurysm, dissection, high-grade stenosis or arterial occlusion identified. ACT 112: Negative or not required by law. The above report was generated using voice recognition software. It may contain grammatical, syntax or spelling errors. Electronically signed by: Donald Cooney M.D. 01/22/2021 2:23 PM ECG Data Attestation: I personally reviewed and interpreted this ECG as follows: Indication: + weakness Rate (beats per minute): 71 Rhythm: + normal sinus ECG Intervals/blocks: + Left bundle branch block ECG ST segments: + Nonspecific ST abnormalities MDM Narrative This is an ill-appearing 70-year-old who presents due to weakness, orthostatic symptoms. Patient was recently treated for urinary tract infection I did review her culture, and she is currently on an appropriate antibiotic. This was reviewed with pharmacy also. Patient started on IV fluids, labs drawn and sent, patient sent for CT imaging as precaution to rule out other [employer] pathology regarding her dizziness. No ectopy or dysrhythmia noted on telemetry. No evidence of persistent infection, acute kidney injury, or other acute electrol yte derangement. Neuro imaging reassuring. Patient with a nonfocal neuro exam at bedside. Patient was hydrated and still had persistent symptoms of dizziness and weakness with attempting to sit up. Patient unable to even get to a bedside commode with nursing assistance. In light of her current symptoms and disabilities, I did not feel was safe for patient to try and return home as she lives alone. Discussed options for disposition with patient as well as case management, and case discussed with hospitalist for inpatient management at this time. Patient was hemodynamically stable throughout despite persistent symptoms. Symptoms do not seem to be classically vertiginous as patient does not describe acute spinning. No other accompanying symptoms to suggest occult cardiac etiology. I do not suspect acute vascular or infectious etiology at this time. An order was placed for continuous cardiac monitoring. The monitor shows a rate of _88_ with normal sinus__ rhythm. Impression & Plan Weakness, Dizziness, Acute dehydration Discharge Plan Visit Data Chief Complaint: Syncope Stated Complaint: Illness UTI Abx not working ED Provider: Leatha Jones Discharge Problem: Weakness, Dizziness, Acute dehydration Patient Disposition: Admitted As Inpatient Discharge Instructions Interventions: ED Discharge Assessment Last Done: 01/22/21 20:37
[2021-01-22 12:42] LABS: Basophils # (auto) 0.01 K/uL (0-0.2); Basophils % (auto) 0.1 %; Eosinophils # (auto) 0.13 K/uL (0-0.5); Eosinophils % (auto) 1.6 %; Hemoglobin 12.8 g/dL (12.0-16.0); Immature Granulocytes # (auto) 0.01 K/uL (0.00-0.02); Immature Granulocytes % (auto) 0.1 %; Lymphocytes # (auto) 2.27 K/uL (1.2-3.4); Lymphocytes % (auto) 28.7 %; Mean Corpuscular Hemoglobin 27.9 pg (25-34); Mean Corpuscular Hgb Conc 33.7 g/dL (32-36); Mean Corpuscular Volume 82.8 fL (80-100); Monocytes # (auto) 0.69 K/uL (0.11-0.59); Monocytes % (auto) 8.7 %; Neutrophils % (auto) 60.8 %; Platelet Count 205 K/uL (130-400); RDW Coefficient of Variation 14.2 % (11.5-14.5); RDW Standard Deviation 42.3 fL (36.4-46.3); Red Blood Count 4.59 M/uL (4.2-5.4); White Blood Count 7.91 K/uL (4.8-10.8)
--- NOTE | 2021-01-22 12:45 | XRay Report ---
XR chest 1V portable HISTORY: 70 years-old Female syncope acute syncope COMPARISON: Chest radiograph 01/17/2021 TECHNIQUE: Portable AP view of the chest FINDINGS: Cardiomediastinal and hilar silhouettes are within normal limits. No pneumothorax, pleural effusion, airspace consolidation or overt pulmonary edema. Bones of the chest appear grossly intact. IMPRESSION: No acute process. ACT 112: Negative or not required by law. The above report was generated using voice recognition software. It may contain grammatical, syntax o r spelling errors. Electronically signed by: Donald Cooney M.D. 01/22/2021 12:44 PM
[2021-01-22 12:51] LABS: INR 1.1 (0.9-1.1); Prothrombin Time 11.1 Seconds (9.0-12.0)
[2021-01-22 12:52] LABS: Albumin Level 3.5 gm/dl (3.4-5.0); BUN Creatinine Ratio 33.1 (10-20); Blood Urea Nitrogen 20 mg/dl (7-18); Carbon Dioxide 26 mmol/L (21-32); Chloride 109 mmol/L (98-107); Creatinine Clr Calc Pharmacy 65.4 ml/min; Est GFR (Non-African American) 90.6; Glucose 104 mg/dl (70-99); Lipase 167 U/L (73-393); Magnesium 2.2 mg/dl (1.8-2.4); Potassium 3.9 mmol/L (3.5-5.1); Sodium 140 mmol/L (136-145)
[2021-01-22] MEDS: SODIUM CHLORIDE 0.9% 1000ML 1,000 ML IV SCH ×3 (12:54→21:30)
[2021-01-22 13:03] LABS: Alanine Aminotransferase 37 U/L (12-78); Alkaline Phosphatase 86 U/L (45-117); Aspartate Aminotransferase 29 U/L (15-37); Bilirubin,Total 0.6 mg/dl (0.2-1); Globulin 3.6 gm/dl (2.5-4.0); NT Pro B Type Natriuretic Pept 138 pg/ml (0-900); Thyroid Stimulating Hormone 0.912 uIu/ml (0.300-4.500); Total Protein 7.1 gm/dl (6.4-8.2); Troponin I < 0.015 ng/ml (0-0.045)
[2021-01-22 13:21] LABS: Appearance Urine Clear (Clear); Bilirubin Urine Negative (Negative); Blood Urine Negative (Negative); Color Urine Dark Yellow; Glucose Urine UA 3+ (Negative); Ketones Urine 1+ (Negative); Leukocyte Esterase Urine Negative (Negative); Nitrite Urine Negative (Negative); Protein Urine Negative (Negative); Urobilinogen Urine Negative (Negative); pH Urine 5.5 (4.5-7.5)
[2021-01-22] MEDS ORDERED: OPTIRAY 320 125ml IV ONE (14:05)
--- NOTE | 2021-01-22 14:17 | CT Scan Report ---
CT head/brain wo con CLINICAL HISTORY: syncope COMPARISON STUDY: 01/17/2021 TECHNIQUE: Axial CT of the brain is performed from the vertex to the skull base. IV contrast was not administered for this examination. A dose lowering technique was utilized adhering to the principles of ALARA. CT DOSE: 967.49 mGy.cm FINDINGS: No intra or extra-axial mass lesions are visualized. There is no CT evidence of acute cortical infarc tion. There is no evidence of midline shift. There is no acute hemorrhage. No calvarial fractures ar e visualized. There are patchy white matter hypodensities likely on a small vessel basis. There is an old left basa l ganglia and external capsule infarct. There is no evidence of pathologic ventricular dilatation. There is no evidence of acute sinusitis IMPRESSION: No acute intracranial findings ACT 112: Negative or not required by law. Electronically signed by: Juan Nj M.D. 01/22/2021 2:16 PM
--- NOTE | 2021-01-22 14:25 | CT Scan Report ---
CT angio neck with con, CT angio head w con CLINICAL HISTORY: 70 years-old Female with dizzy, posterior giles, syncope. Acute dizziness with sync ope and headache COMPARISON STUDY: Head CT of same day and also 01/17/2021 TECHNIQUE: Following the IV administration of 119 mL of Optiray 320, CT angiogram of the head and nec k was performed from the aortic arch to the skull apex. Images are reviewed in the axial, sagittal, a nd coronal planes. 3-D MIPS images are created and assessed. IV contrast was administered without com plication. All measurements were calculated based on NASCET criteria. A dose lowering technique was utilized adhering to the principles of ALARA. FINDINGS: Three-vessel morphology of the thoracic aortic arch. Patency of the innominate and imaged subclavian arteries. The common and and internal carotid arteries are patent. Mild atheromatous plaque of the le ft distal common artery and left carotid bulb without significant stenosis. There is suggestion of a small web involving the distal cervical segment of the left ICA on image 22 series 5. The middle and right anterior cerebral artery are normal and patent. The left A1 segment is not visualized and is li lorrie developmentally hypoplastic. The vertebral arteries are codominant and widely patent. There is n o aneurysm, dissection, high-grade stenosis or proximal branch occlusion. The basilar and posterior c erebral arteries are patent. Cerebral venous sinuses are also patent. There is no abnormal intracrani al enhancement. Lung apices are clear without pneumothorax. Unremarkable thyroid. There is no adenopathy. Multilevel degenerative changes of the cervical spine. IMPRESSION: No aneurysm, dissection, high-grade stenosis or arterial occlusion identified. ACT 112: Negative or not required by law. The above report was generated using voice recognition software. It may contain grammatical, syntax o r spelling errors. Electronically signed by: Donald Cooney M.D. 01/22/2021 2:23 PM
[2021-01-22] MEDS ORDERED: SODIUM CHLORIDE 0.9% 500 ML IV ONE (16:09)
--- NOTE | 2021-01-22 16:28 | Electrocardiogram Report ---
Test Reason : Blood Pressure : / mmHG Vent. Rate : 071 BPM Atrial Rate : 071 BPM P-R Int : 156 ms QRS Dur : 120 ms QT Int : 448 ms P-R-T Axes : 063 007 167 degrees QTc Int : 486 ms Poor data quality, interpretation may be adversely affected Normal sinus rhythm Left bundle branch block Abnormal ECG When compared with ECG of 17-JAN-2021 09:42, No significant change Confirmed by Steven Vences ([id number]) on 01/22/2021 4:27:53 PM Referred By: REFERRED SELF Confirmed By:Steven Vences
--- NOTE | 2021-01-22 17:28 | History & Physical Report ---
Date of Service January 22, 2021 Assessment & Plan (1) Syncope: - Admit to [facility] with tele on obs - Possibly due to recent titration of Effexor down, started Zoloft 25 mg on Thursday, versus dehydration secondary to recent UTI and antibiotic use with nausea/vomiting and poor PO intake. Unlikely sepsis as appears UTI with e.coli was sensitive to macrobid, currently finishing antibiotic course - Dizziness and nausea - treat sx with prn zofran, phenergan, and meclizine - Check 2D echo - Follow orthostatics- were positive in the ER- BP stable currently lying down - CTA head and neck completed which are negative - S/p 2 L NSS, will continue 125 mL/h x 1 day - Follow troponin x2 more sets, initial was negative - Afebrile, no white count - Tox screen is negative - UA appears to be negative for acute infection, follow cultures ensure infection has resolved (2) LBBB (left bundle branch block): - Chronic, noted on EKG - Follows with cardiology as an outpt, Dr. Matthews - Consider cardiology consult pending echo results (3) History of CVA (cerebrovascular accident): -Remote history of such, continue baby aspirin daily, statin therapy (4) Diabetes mellitus, type II: - Hold [employer] Jardiance, glipizide, Tradjenta and will switch to ISS with Accu-Cheks AC at bedtime - A1c 7.1 in October 2020 (5) Hepatitis C, chronic: -History of such, stable, LFTs WNL (6) Dyslipidemia: -Continue atorvastatin 40 mg HS (7) Anxiety: -Following with psychiatry as an outpatient, recently has had adjustments made in Zoloft and Effexor-concerned that reduction in Effexor has caused withdrawal-like effects. We will need to discuss with her outpatient provider, Daisy Harrison, who she follows with at [facility]. We will consult inpatient psych during her hospital stay regarding recommendations for Effexor and Zoloft. Patient reports her anxiety is very well controlled with the initiation of Zoloft and is hesitant to change this medication due to good results. -Continue propranolol for anxiety, propranolol also use for fine resting tremor (8) Depression: -As above (9) DVT prophylaxis: - teds, Lovenox subcu CODE: Full code Dispo: From home, likely to remain in the hospital x 1-2 days History of Present Illness Primary Care Provider: Chaitanya Quinones DO This is a 70-year-old female with PMHx of diastolic CHF, chronic left bundle branch block, DM type II, hepatic cirrhosis due to chronic hep C infection, major depressive disorder, anxiety, history of CVA, who was recently treated for a UTI E. coli which was resistant to Bactrim found at the end of December 2020. She was evaluated approximately 5 days ago by ER on 01/17 and given an IV dose of Rocephin and sent home with a PO antibiotic. Her PCP transitioned her to oral Macrobid x 7 days which she is still taking. On Thursday, 01/19 the patient started a new prescription for Zoloft at 25 mg daily, and decreased her Effexor from 112 mg daily to 75 mg daily. Patient follows with Daisy Harrison outpatient psychiatry, via telemedicine due to Covid pandemic. Since this adjustment has been made the patient's anxiety has been very well controlled. Also on Thursday is when the patient developed her chief complaints of weakness, dizziness exacerbated with standing or movement, nausea and dry heaves. She presented to the ER this morning after her caregiver witnessed a syncopal episode at the breakfast table where she had eaten half of her breakfast, taken her morning medications, had her blood glucose checked which was in the 150s, and when the caregiver had turned around the patient had fallen forward and her face was on the table. It took her 30 seconds to come to. Patient lives at home alone and has visiting nurses in her home M-F from 8a-3p, who assists with the history at bedside. The patient's daughter, Lindsey, is POA and available for questions or concerns. Allergies Allergy/AdvReac Type Severity Reaction Status Date / Time Iodinated Contrast Media Allergy Severe HEAD TO Verified 01/22/21 13:05 TOE HIVES morphine Allergy Severe hives Verified 01/22/21 13:05 oxycodone Allergy Intermediate Hives Verified 01/22/21 13:05 clavulanic acid Allergy Unknown FROM Verified 01/22/21 13:05 AUGMENTIN Penicillins Allergy Unknown FROM Verified 01/22/21 13:05 AUGMENTIN amitriptyline AdvReac Severe INCREASES Verified 01/22/21 13:05 HEART RATE clarithromycin AdvReac Intermediate LIGHT Verified 01/22/21 13:05 HEADED, FAINTY FEELING acetaminophen AdvReac Unknown NOT ABLE Verified 01/22/21 13:05 TO TAKE DUE TO HX HEPATITIS Cephalosporins AdvReac Unknown CEFTIN--GI Verified 01/22/21 13:05 UPSET Home Medications Medication Instructions Recorded Confirmed Type aspirin 81 mg PO QAM 09/06/18 01/22/21 History milk thistle 175 mg PO DAILY PRN 09/06/18 01/22/21 History vitamin B complex 1 tab PO DAILY 09/06/18 01/22/21 History Tradjenta 5 mg PO QAM 11/15/19 01/22/21 History coenzyme Q10 [CoQ-10] 100 mg PO QAM 11/15/19 01/22/21 History glipizide 10 mg PO BID 11/02/20 01/22/21 History venlafaxine [Effexor XR] 75 mg PO QAM 11/02/20 01/22/21 History melatonin 3 mg PO HS #30 tab 11/15/20 01/22/21 Rx polyethylene glycol 3350 [Miralax] 17 g PO DAILY PRN #30 ea 11/15/20 01/22/21 Rx atorvastatin 40 mg PO HS 11/27/20 01/22/21 History cholecalciferol (vitamin D3) 50 mcg PO Q OTHER DAY 11/27/20 01/22/21 History [Vitamin D3] cranberry 200 mg PO DAILY PRN 11/27/20 01/22/21 History lorazepam [Ativan] 0.5 mg PO PM PRN 11/27/20 01/22/21 History buspirone 15 mg PO BID 01/13/21 01/22/21 History empagliflozin [Jardiance] 10 mg PO QAM 01/13/21 01/22/21 History propranolol 20 mg PO BID 01/13/21 01/22/21 History nitrofurantoin monohyd/m-cryst 100 mg PO BID 01/22/21 01/22/21 History sertraline 25 mg PO QAM 01/22/21 01/22/21 History Past Med/Surg History Medical History Anxiety Depression Diabetes mellitus, type II Dyslipidemia Hepatitis C, chronic History of CVA (cerebrovascular accident) LBBB (left bundle branch block) Surgical History H/O cataract removal with insertion of prosthetic lens History of back surgery History of cholecystectomy History of hysterectomy History of tubal ligation Family History Father Pancreatic cancer Social History Smoking Status: Never smoker Second Hand Exposure: No; Hx Alcohol Use: No Hx Substance Use: No Preferred Language: Portuguese Communication Ability: Effective Rn Wellness Required: No Beliefs That Will Affect Care: None marital status: / Current Living Situation: Alone Current Living Situation Comment: caregiver during the day, thursday-thursday Other Information That Helps Us Care for You: No Feels Safe at Home: Yes Safety Concerns: Feels Safe At This Time Assistive Devices: Denture - Upper, Glasses and Walker Review of Systems Review of Systems: Constitutional: No fever, sweats or chills, + dizziness, + room spinning Eyes: No diplopia, no worsening or blurred vision ENT: normal hearing, no trouble swallowing, + dry mouth Respiratory: No cough, sputum, dyspnea at rest or on exertion Cardiovascular: No chest pain, tightness or palpitations Abdomen: + Nausea worsened with movement or standing upright, no pain, vomiting, diarrhea or constipation, last bowel movement 1 day ago. Musculoskeletal: No joint pain, calf pain, swelling Neurologic: + Generalized weakness, no numbness/tingling, or balance problems, + uses a walker for ambulation assistance Psychiatric: + Significant anxiety and depression, on oral SSRI and SNRI Skin: No rash or itch Physical Exam Physical Exam: General: awake, alert, no apparent distress, + thin, + lying on her left side unable to sit up due to dizziness but is able to roll from side to side in bed for exam Head: Normocephalic, atraumatic ENT: PERRL, EOMI, no pharyngeal exudate, mucous membranes slightly dry, + upper denture plate Chest: Clear to auscultation, on room air, no adventitious breath sounds Cardiac: Regular rate and rhythm, + mild ELEAZAR, no JVD, normal peripheral pulses, good capillary refill Abdominal: NABS x 4 quadrants, soft, nondistended, nontender to palpation, no rebound or guarding Extremities: Normal inspection, no peripheral edema or erythema, calfs nontender to palpation Psych: Normal mood, slightly anxious affect Neuro: AAO x 3, strength intact bilaterally and rated 5/5, no motor deficits, speech is clear, no peripheral sensory deficits, + fine tremor BLE Results & Data Results & Data ([facility]) Vital Signs (Past 12 Hours) Vital Signs Temp Pulse Pulse Resp BP BP Pulse Ox 01/22/21 16:21 78 16 129/48 L 97 01/22/21 15:18 87 22 100/65 97 01/22/21 15:17 83 22 132/102 H 99 01/22/21 15:14 76 13 151/56 H 96 01/22/21 14:30 70 20 132/48 L 99 01/22/21 14:28 72 16 122/78 100 01/22/21 14:26 72 19 122/48 L 100 01/22/21 14:17 72 18 127/46 L 100 01/22/21 14:00 68 18 151/54 H 99 01/22/21 13:30 66 21 136/57 L 99 01/22/21 13:01 72 14 120/68 99 01/22/21 12:43 75 17 154/54 H 100 01/22/21 12:15 36.7 C 70 18 103/[address] head/brain wo con CLINICAL HISTORY: syncope COMPARISON STUDY: 01/17/2021 TECHNIQUE: Axial CT of the brain is performed from the vertex to the skull base. IV contrast was not administered for this examination. A dose lowering technique was utilized adhering to the principles of ALARA. CT DOSE: 967.49 mGy.cm FINDINGS: No intra or extra-axial mass lesions are visualized. There is no CT evidence of acute cortical infarction. There is no evidence of midline shift. There is no acute hemorrhage. No calvarial fractures are visualized. There are patchy white matter hypodensities likely on a small vessel basis. There is an old left basal ganglia and external capsule infarct. There is no evidence of pathologic ventricular dilatation. There is no evidence of acute sinusitis IMPRESSION: No acute intracranial findings CT angio neck with con, CT angio head w con CLINICAL HISTORY: 70 years-old Female with dizzy, posterior giles, syncope. Acute dizziness with syncope and headache COMPARISON STUDY: Head CT of same day and also 01/17/2021 TECHNIQUE: Following the IV administration of 119 mL of Optiray 320, CT angiogram of the head and neck was performed from the aortic arch to the skull apex. Images are reviewed in the axial, sagittal, and coronal planes. 3-D MIPS images are created and assessed. IV contrast was administered without complication. All measurements were calculated based on NASCET criteria. A dose lowering technique was utilized adhering to the principles of ALARA. FINDINGS: Three-vessel morphology of the thoracic aortic arch. Patency of the innominate and imaged subclavian arteries. The common and and internal carotid arteries are patent. Mild atheromatous plaque of the left distal common artery and left carotid bulb without significant stenosis. There is suggestion of a small web involving the distal cervical segment of the left ICA on image 22 series 5. The middle and right anterior cerebral artery are normal and patent. The left A1 segment is not visualized and is likely developmentally hypoplastic. The vertebral arteries are codominant and widely patent. There is no aneurysm, dissection, high-grade stenosis or proximal branch occlusion. The basilar and posterior cerebral arteries are patent. Cerebral venous sinuses are also patent. There is no abnormal intracranial enhancement. Lung apices are clear without pneumothorax. Unremarkable thyroid. There is no adenopathy. Multilevel degenerative changes of the cervical spine. IMPRESSION: No aneurysm, dissection, high-grade stenosis or arterial occlusion identified. XR chest 1V portable HISTORY: 70 years-old Female syncope acute syncope COMPARISON: Chest radiograph 01/17/2021 TECHNIQUE: Portable AP view of the chest FINDINGS: Cardiomediastinal and hilar silhouettes are within normal limits. No pneumothorax, pleural effusion, airspace consolidation or overt pulmonary edema. Bones of the chest appear grossly intact. IMPRESSION: No acute process. ECG Additional Comments: Vent. Rate : 071 BPM Atrial Rate : 071 BPM P-R Int : 156 ms QRS Dur : 120 ms QT Int : 448 ms P-R-T Axes : 063 007 167 degrees QTc Int : 486 ms Poor data quality, interpretation may be adversely affected Normal sinus rhythm Left bundle branch block Abnormal ECG When compared with ECG of 17-JAN-2021 09:42, No significant change Code Status & VTE Plan Code Status Full code-discussed with the patient at bedside Supervising Physician Co-Signing Physician Notes pt seen and examined continues to complain of dizzy spell nausea has improved after getting IV fluid BP was in low 90's after getting fluid bolus SBP improved to 110 cont IV fluids prn Meclizine ordered Pt 's antidepressant med Effexor dose reduced recently( to add Zoloft ) possible causing with withdrawal effect with severe dizzy spell , nausea ? cont on Effexor 75 mg daily ( was on 100 mg daily ) Psych consult requested Irma Barros MD (1) Depression Depression Type: unspecified Qualified Code(s): F32.9 - Major depressive disorder, single episode, unspecified
[2021-01-22] MEDS ORDERED: PROMETHAZINE HCL 6.25 MG in SODIUM CHLORIDE 0.9% 50 ML IV PRN (18:10)
[2021-01-22] MEDS ORDERED: PROMETHAZINE 6.25 MG/50.25 ML NSS IV ONE (18:21)
[2021-01-22] MEDS ORDERED: MECLIZINE HCL 25 MG TAB PO ONE (18:21)
[2021-01-22] MEDS ORDERED: MECLIZINE HCL 25 MG TAB PO STA (18:37)
[2021-01-22] MEDS ORDERED: PROMETHAZINE HCL 6.25 MG in SODIUM CHLORIDE 0.9% 50 ML IV ONE (18:45)
[2021-01-22] MEDS ORDERED: DEXTROSE 50% 50 ML SYRINGE IV PRN (20:31)
[2021-01-22] MEDS ORDERED: CARBOHYDRATES FOR HYPOGLYCEMIA PO PRN (20:31)
[2021-01-22] MEDS ORDERED: GLUCOSE 10 TABS/TUBE PO PRN (20:31)
[2021-01-22] MEDS ORDERED: GLUCAGON FOR INJ 1 MG VIAL SQ PRN (20:31)
[2021-01-22] MEDS ORDERED: GLUCOSE 40% GEL 15 GM TUBE PO PRN (20:31)
[2021-01-22] MEDS ORDERED: MILK THISTLE 175 MG PO PRN (20:31)
[2021-01-22] MEDS: PROPRANOLOL HCL 20 MG TAB PO SCH (22:05)
[2021-01-22] MEDS: NITROFURANTOIN MONOHYDRATE 100 MG CAP PO SCH (22:08)
[2021-01-22] MEDS: busPIRone 15 MG TAB PO SCH (22:08)
[2021-01-22] MEDS: ATORVASTATIN 40 MG TAB PO SCH (22:09)
[2021-01-22] MEDS: MELATONIN 3 MG TAB PO SCH (22:11)
[2021-01-22] MEDS: INSULIN ASPART 100 UNITS/ML 3 ML PEN SC SCH (22:14)
[2021-01-22] MEDS: MECLIZINE HCL 25 MG TAB PO PRN (22:28)
[2021-01-23] MEDS: LORazepam 0.5 MG TAB PO PRN ×2 (01:10→12:54)
[2021-01-23] MEDS ORDERED: diphenhydrAMINE Capsule 25 MG CAP PO ONE (03:00)
[2021-01-23] MEDS ORDERED: diphenhydrAMINE Capsule 25 MG CAP ONE (03:03)
[2021-01-23] MEDS: SODIUM CHLORIDE 0.9% 1000ML 1,000 ML IV SCH ×2 (05:30→13:36)
[2021-01-23 06:01] LABS: Hematocrit (blood only) 33.3 % (37-47); Hemoglobin 11.2 g/dL (12.0-16.0); Mean Corpuscular Hemoglobin 27.7 pg (25-34); Mean Corpuscular Hgb Conc 33.6 g/dL (32-36); Mean Corpuscular Volume 82.2 fL (80-100); Platelet Count 183 K/uL (130-400); RDW Standard Deviation 42.5 fL (36.4-46.3); Red Blood Count 4.05 M/uL (4.2-5.4); White Blood Count 8.75 K/uL (4.8-10.8)
[2021-01-23 06:34] LABS: Aspartate Aminotransferase 22 U/L (15-37); Blood Urea Nitrogen 19 mg/dl (7-18); Calcium 8.2 mg/dl (8.5-10.1); Carbon Dioxide 23 mmol/L (21-32); Chloride 112 mmol/L (98-107); Creatinine Clr Calc Pharmacy 81.6 ml/min; Est GFR (African American) 114.4; Est GFR (Non-African American) 98.7; Glucose 97 mg/dl (70-99); Magnesium 2.2 mg/dl (1.8-2.4); Phosphorus 4.1 mg/dl (2.5-4.9); Potassium 3.8 mmol/L (3.5-5.1); Sodium 141 mmol/L (136-145)
[2021-01-23 06:40] LABS: Alanine Aminotransferase 30 U/L (12-78); Alkaline Phosphatase 76 U/L (45-117); Bilirubin,Total 0.4 mg/dl (0.2-1); Globulin 3.1 gm/dl (2.5-4.0); Total Protein 6.1 gm/dl (6.4-8.2); Troponin I < 0.015 ng/ml (0-0.045)
[2021-01-23] MEDS: INSULIN ASPART 100 UNITS/ML 3 ML PEN SC SCH ×4 (07:57→20:11)
[2021-01-23] MEDS: SERTRALINE HCL 50 MG TABLET PO SCH (08:10)
[2021-01-23] MEDS: ENOXAPARIN INJ 40 MG/0.4 ML SYR SQ SCH (08:10)
[2021-01-23] MEDS: VITAMIN B COMPLEX TAB PO SCH (08:10)
[2021-01-23] MEDS: NITROFURANTOIN MONOHYDRATE 100 MG CAP PO SCH ×2 (08:11→21:30)
[2021-01-23] MEDS: VENLAFAXINE HCL XR 75 MG CAPXR PO SCH (08:11)
[2021-01-23] MEDS: busPIRone 15 MG TAB PO SCH ×2 (08:11→21:30)
[2021-01-23] MEDS: ASPIRIN 81 MG ECTAB PO SCH (08:11)
[2021-01-23] MEDS: PROPRANOLOL HCL 20 MG TAB PO SCH ×2 (08:11→21:29)
[2021-01-23] MEDS: ONDANSETRON INJ 2 MG/ML 2 ML VIAL IV PRN (08:49)
[2021-01-23] MEDS ORDERED: NON-FORMULARY MEDICATION (Coenzyme Q10 [Coq-10] 100 mg Capsule) PO SCH (09:00)
[2021-01-23] MEDS ORDERED: VENLAFAXINE HCL XR 37.5 MG CAPXR PO SCH (09:00)
--- NOTE | 2021-01-23 11:02 | Psychiatric Consultation ---
Date of Consultation January 23, 2021 Impression / Recommendations Impression Dr. Ann Johnson was directly involved in review and discussion of the patient's case and participated in medical decision making regarding treatment recommendations. RECOMMENDATIONS: 01/23 - Psychiatric consultation requested to assess patient given recent medication changes - concern for possible discontinuation syndrome symptoms. Pt is reportedly being cross-tapered from venlafaxine to sertraline with her outpatient psychiatrist. - It seems very unlikely that the patient's syncopal episode and symptoms of nausea, dizziness, and weakness are solely related to her psychiatric medication adjustments. Not only was the patient's reduction of venlafaxine dosage very minimal, but she has also experienced larger dose reductions in the past without symptoms of discontinuation syndrome. Would encourage continuing patient's at the dosage of venlafaxine suggested by her psychiatrist. Additionally, it is unlikely that the addition of low-dose sertraline would be causing side effects to this severity. Cross-taper schedule provided by outpatient psychiatrist was reviewed and seems appropriate for someone discontinuing venlafaxine. - Additionally, patient reports a rather dramatic improvement in anxiety symptoms within the last week - so it does seem appropriate to continue the cross-taper as outlined by the patient's psychiatrist. We did request an HARSHA from the patient, to allow us to access outpatient records for further review and to assist with discharge planning. She does feel that increased frequency of therapy sessions would be beneficial, and would consider referrals to alternative therapists if her current provider is unable to accommodate this schedule. - Pt denies SI/HI, SIB, as well as any acute mood or safety concerns. No indication for inpatient psychiatric treatment at this time. Appreciate the opportunity to participate in the care of this patient. Please reach out to our service with any additional questions or updates. Risk Factors Assessment Do You Have Access To A Gun?: No Psych History Identifying Data 70-year-old female admitted medically on 01/22/21 after presenting to the ED s/p syncopal episode. Pt has reportedly been experiencing various physical symptoms for the past 4 days - weakness, decreased appetite, headaches, vertigo, and feeling "off-balance" per ED reports. Psychiatric consultation was requested by the hospitalist service to evaluate the patient given recent reduction of her dose of venlafaxine - outpatient cross-taper from venlafaxine to sertraline being conducted with her outpatient psychiatrist. Chief Complaint "I don't feel good." History of Present Illness Abigail Gonzalez is a 70-year-old female admitted medically on 01/22/21 after presenting to the ED accompanied by her home health aid for reported syncopal event at home. PMH is significant for CHF, LBBB, T2DM, hepatic cirrhosis/hepatitis C, MDD, anxiety, and history of CVA. Pt had been reporting symptoms of nausea, dizziness, and weakness since 01/19/2021. Pt was being treated for a recent UTI and did reportedly have medication adjustments made to her psychiatric regimen recently. Psychiatric consultation was requested to evaluate patient to determine if adjustments to her antidepressant medication may be contributing to current presentation. According to H&P, the patient was to be on a cross-taper from venlafaxine 112.5 mg to sertraline - venlafaxine reduced to 75mg and sertraline being initiated at 25mg. Pt was to make a dose adjustment every two weeks per external medication history. Pt was observed to be laying in bed in the position, admitting "I don't feel good." The patient reports she is willing to meet with this provider, though engagement is somewhat limited. Pt does state that she has not been feeling well since Friday 01/19. She states "I went to bed on Thursday, expecting that would help, but then I felt even worse on Thursday." Pt states she is still feeling rather weak and dizzy - only able to sit upright for 30 minutes this morning before feeling she had to lay down again. The patient does admit that despite these physical concerns, her anxiety has been much improved in the last week since beginning these medication adjustments. She is hopeful to continue the changes as discussed with her outpatient psychiatrist. Pt denies significant mood concerns presently. She denies SI/HI and other safety concerns. Pt does express desire for more frequent therapy sessions, but otherwise denies additional needs at this time. Past Psychiatric History Previous Psych History: Pt has a history of past outpatient psychiatric treatment (Dr. Hartley, Dr. Jeffries, Dr. Harvey), as well as previous therapy through [facility]. Outpatient Services: Psychiatrist: Dr. Mervin Oliveros Psychiatry Therapist: Mariana Webb Previous Psych Admissions: [facility]: 09/26/2020 - 10/04/2020 for worsening depression, anxiety, and inability to function Also admits to being medically hospitalized at 16y/o due to "a nervous breakdown", but no psychiatric admission. Do You Have Access To A Gun?: No History of Previous Suicide Attempt: No Past Medication Trials: 1. Lexapro 2. Ativan 3. Effexor 4. Trazodone 5. Melatonin 6. Zoloft 7. BuSpar Allergies Allergy/AdvReac Type Severity Reaction Status Date / Time Iodinated Contrast Media Allergy Severe HEAD TO Verified 01/22/21 13:05 TOE HIVES morphine Allergy Severe hives Verified 01/22/21 13:05 oxycodone Allergy Intermediate Hives Verified 01/22/21 13:05 clavulanic acid Allergy Unknown FROM Verified 01/22/21 13:05 AUGMENTIN Penicillins Allergy Unknown FROM Verified 01/22/21 13:05 AUGMENTIN amitriptyline AdvReac Severe INCREASES Verified 01/22/21 13:05 HEART RATE clarithromycin AdvReac Intermediate LIGHT Verified 01/22/21 13:05 HEADED, FAINTY FEELING acetaminophen AdvReac Unknown NOT ABLE Verified 01/22/21 13:05 TO TAKE DUE TO HX HEPATITIS Cephalosporins AdvReac Unknown CEFTIN--GI Verified 01/22/21 13:05 UPSET Home Medications Medication Instructions Recorded Confirmed Type aspirin 81 mg PO QAM 09/06/18 01/22/21 History milk thistle 175 mg PO DAILY PRN 09/06/18 01/22/21 History vitamin B complex 1 tab PO DAILY 09/06/18 01/22/21 History Tradjenta 5 mg PO QAM 11/15/19 01/22/21 History coenzyme Q10 [CoQ-10] 100 mg PO QAM 11/15/19 01/22/21 History glipizide 10 mg PO BID 11/02/20 01/22/21 History venlafaxine [Effexor XR] 75 mg PO QAM 11/02/20 01/22/21 History melatonin 3 mg PO HS #30 tab 11/15/20 01/22/21 Rx polyethylene glycol 3350 [Miralax] 17 g PO DAILY PRN #30 ea 11/15/20 01/22/21 Rx atorvastatin 40 mg PO HS 11/27/20 01/22/21 History cholecalciferol (vitamin D3) 50 mcg PO Q OTHER DAY 11/27/20 01/22/21 History [Vitamin D3] cranberry 200 mg PO DAILY PRN 11/27/20 01/22/21 History lorazepam [Ativan] 0.5 mg PO PM PRN 11/27/20 01/22/21 History buspirone 15 mg PO BID 01/13/21 01/22/21 History empagliflozin [Jardiance] 10 mg PO QAM 01/13/21 01/22/21 History propranolol 20 mg PO BID 01/13/21 01/22/21 History nitrofurantoin monohyd/m-cryst 100 mg PO BID 01/22/21 01/22/21 History sertraline 25 mg PO QAM 01/22/21 01/22/21 History Family History Daughter with depression, sister/nieces with anxiety. Alcoholism prevalent on maternal side of family. Brother had reportedly attempted suicide. Substance Abuse History Denies significant alcohol or tobacco use. Denies use of illicit substances. Personal History Living Arrangements: Home (with home health aid during the week) Highest Grade Completed: High School Graduate Employment Status: Retired Number Of Children: 3 adult children - one daughter is particularly supportive Beliefs That Will Affect Care: Hindu (Church) History of Legal Problems: Denied Psychological Trauma History Comment: Pt had denied during past assessments; though documentation from [facility] suggested a PTSD diagnosis. Patient History Medical History Anxiety Depression Diabetes mellitus, type II Dyslipidemia Hepatitis C, chronic History of CVA (cerebrovascular accident) LBBB (left bundle branch block) Surgical History H/O cataract removal with insertion of prosthetic lens History of back surgery History of cholecystectomy History of hysterectomy History of tubal ligation Family History Father Pancreatic cancer Social History Smoking Status: Never smoker Second Hand Exposure: No; Hx Alcohol Use: No Hx Substance Use: No Preferred Language: Yakut Communication Ability: Effective Vacuum Tester Cans Required: No Beliefs That Will Affect Care: Hindu (Church) marital status: Current Living Situation: Alone Current Living Situation Comment: caregiver during the day, thursday-thursday Other Information That Helps Us Care for You: No Feels Safe at Home: Yes Safety Concerns: Feels Safe At This Time Assistive Devices: Glasses Physical Exam Psychiatric: Orientation: alert and oriented x 3 Apperance: appropriately dressed, appropriately groomed and appeared stated age Thin-appearing female, laying in the position in bed - appearing physical uncomfortable. Pt is appropriately dressed for clinical setting, wearing a hospital gown. Short, wavy white hair appears clean but is flattened in areas pressed against the pillow. Level of hygiene appears adequate. Eye Contact: + poor eye contact (keeps eyes closed for most of our conversation d/t feeling dizzy) Motor Behavior: no abnormal motor movements (observed while laying in bed) Speech: normal rate/rhythm/volume of speech Affect: + blunted affect (appearing subdued, does appear physically unwell) Mood: no depressed mood and no anxious mood ("my anxiety has been much better") Thought Process: goal directed thought process Thought Content: reality based without delusions; no hopelessness and no worthlessness Suicidal Thoughts: denies suicidal thoughts and denies suicidal intent Homicidal Thoughts: denies homicidal thoughts Hallucinations: no auditory hallucinations and no visual hallucinations Cognition: attention grossly intact and language grossly intact Estimated Intelligence: consistent with education level Insight: + fair insight Judgement: + fair judgement Vital Signs (Past 24 Hours): Last Vital Signs Temp 36.7 C 01/23/21 08:08 Pulse 97 H 01/23/21 10:44 Resp 18 01/23/21 10:44 BP 119/56 L 01/23/21 10:44 Pulse Ox 95 01/23/21 10:44 Review of Systems Constitutional: reports weakness, dizziness, fatigue Cardiovascular: denied Respiratory: denied Gastrointestinal: reports nausea Neurological: denied Psychiatric: denies symptoms other than stated above Total of at least 10 systems reviewed, pertinent positives as above and in HPI. Results & Data (PSY) Medications Administered Aspirin (Aspirin 81 Mg Ectab) [facility] [place] Stop: 02/22/21 08:59 Last Admin: 01/23/21 08:11 Dose: 81 mg Documented by: [id number] Atorvastatin Calcium (Atorvastatin 40 Mg Tab) 40 mg PO [facility] Stop: 02/21/21 20:59 Last Admin: 01/22/21 22:09 Dose: 40 mg Documented by: [id number] Buspirone HCl (Buspirone 15 Mg Tab) 15 mg PO BID [facility] Stop: 02/21/21 20:59 Last Admin: 01/23/21 08:11 Dose: 15 mg Documented by: [id number] Admin: 01/22/21 22:08 Dose: 15 mg Documented by: [id number] Enoxaparin Sodium (Enoxaparin Inj 40 Mg/0.4 Ml Syr) 40 mg SQ QAM [facility] Stop: 02/22/21 08:59 Last Admin: 01/23/21 08:10 Dose: 40 mg Documented by: [id number] Sodium Chloride (Nss 1000ml) 1,000 mls @ 125 mls/hr IV .Q8H [facility] Stop: 01/23/21 20:30 Last Admin: 01/23/21 05:30 Dose: 125 mls/hr Documented by: [id number] Infusion: 01/23/21 05:30 Dose: 125 mls/hr Documented by: [id number] Admin: 01/22/21 21:30 Dose: 125 mls/hr Documented by: [id number] Insulin Aspart (Insulin Aspart 100 Units/Ml 3 Ml Pen) 0 units SC ACHS [facility] Stop: 02/21/21 20:59 Last Admin: 01/23/21 07:57 Dose: Not Given Documented by: [id number] Cosigned by: [id number] Admin: 01/22/21 22:14 Dose: Not Given Documented by: [id number] Cosigned by: [id number] Lorazepam (Lorazepam 0.5 Mg Tab) 0.5 mg PO PM PRN PRN Reason: Anxiety Stop: 02/21/21 20:30 Last Admin: 01/23/21 01:10 Dose: 0.5 mg Documented by: [id number] Meclizine HCl (Meclizine Hcl 25 Mg Tab) 25 mg PO Q6H PRN PRN Reason: dizziness Stop: 02/21/21 18:09 Last Admin: 01/22/21 22:28 Dose: 25 mg Documented by: [id number] Melatonin (Melatonin 3 Mg Tab) 3 mg PO HS [facility] Stop: 02/21/21 20:59 Last Admin: 01/22/21 22:11 Dose: 3 mg Documented by: [id number] Miscellaneous (Carbohydrates For Hypoglycemia ) 15 - 30 gm PO UD PRN PRN Reason: Hypoglycemia Protocol Stop: 02/21/21 20:30 Last Admin: 01/23/21 08:09 Dose: 15 gm Documented by: [id number] Nitrofurantoin Macrocrystals (Nitrofurantoin Monohydrate 100 Mg Cap) 100 mg PO BID [facility] Stop: 01/25/21 20:59 Last Admin: 01/23/21 08:11 Dose: 100 mg Documented by: [id number] Admin: 01/22/21 22:08 Dose: 100 mg Documented by: [id number] Ondansetron HCl (Ondansetron Inj 2 Mg/Ml 2 Ml Vial) 4 mg IV Q4H PRN PRN Reason: Nausea And Vomiting Stop: 02/21/21 20:30 Last Admin: 01/23/21 08:49 Dose: 4 mg Documented by: [id number] Propranolol HCl (Propranolol Hcl 20 Mg Tab) 20 mg PO BID [facility] Stop: 02/21/21 20:59 Last Admin: 01/23/21 08:11 Dose: 20 mg Documented by: [id number] Admin: 01/22/21 22:05 Dose: Not Given Documented by: [id number] Sertraline HCl (Sertraline Hcl 50 Mg Tablet) 25 mg PO QAM [facility] Stop: 02/22/21 08:59 Last Admin: 01/23/21 08:10 Dose: 25 mg Documented by: [id number] Venlafaxine HCl (Venlafaxine Hcl Xr 37.5 Mg Capxr) 37.5 mg PO QAM [facility] Stop: 02/22/21 08:59 Last Admin: 01/23/21 08:11 Dose: 37.5 mg Documented by: [id number] Venlafaxine HCl (Venlafaxine Hcl Xr 75 Mg Capxr) 75 mg PO QAM [facility] Stop: 02/22/21 08:59 Last Admin: 01/23/21 08:11 Dose: 75 mg Documented by: [id number] Vitamin B Complex (Vitamin B Complex Tab) 1 tab PO DAILY [facility] Stop: 02/22/21 08:59 Last Admin: 01/23/21 08:10 Dose: 1 tab Documented by: [id number] Coding Level of Care Code 82582 [facility] Lvl 2
[2021-01-23] MEDS: MECLIZINE HCL 25 MG TAB PO PRN (16:05)
--- NOTE | 2021-01-23 18:27 | Hospitalist Progress Note ---
Date of Service January 23, 2021 Assessment & Plan (1) Syncope: secondary to Orthostasis , Dehydration per Dr. Barros's notes: - Admit to medsurg with tele on obs - Possibly due to recent titration of Effexor down, started Zoloft 25 mg on Thursday, versus dehydration secondary to recent UTI and antibiotic use with nausea/vomiting and poor PO intake. Unlikely sepsis as appears UTI with e.coli was sensitive to macrobid, currently finishing antibiotic course - Dizziness and nausea - treat sx with prn zofran, phenergan, and meclizine - Check 2D echo - Follow orthostatics- were positive in the ER- BP stable currently lying down - CTA head and neck completed which are negative - S/p 2 L NSS, will continue 125 mL/h x 1 day - Follow troponin x2 more sets, initial was negative - Afebrile, no white count - Tox screen is negative - UA appears to be negative for acute infection, follow cultures ensure infection has resolved 01/23 continue IV fluids monitor Orthostatic VS (2) LBBB (left bundle branch block): - Chronic, noted on EKG - Follows with cardiology as an outpt, Dr. Matthews - Echo ordered: unrevealing (3) History of CVA (cerebrovascular accident): -Remote history of such, continue baby aspirin daily, statin therapy (4) Diabetes mellitus, type II: - Hold BUSINESS LAW INSTRUCTOR Jardiance, glipizide, Tradjenta and will switch to ISS with Accu-Cheks AC at bedtime - A1c 7.1 in October 2020 (5) Hepatitis C, chronic: -History of such, stable, LFTs WNL (6) Dyslipidemia: -Continue atorvastatin 40 mg HS (7) Anxiety: per Dr. Barros: -Following with psychiatry as an outpatient, recently has had adjustments made in Zoloft and Effexor-concerned that reduction in Effexor has caused withdrawal- like effects. We will need to discuss with her outpatient provider, Daisy Harrison, who she follows with at [facility]. We will consult inpatient psych during her hospital stay regarding recommendations for Effexor and Zoloft. Patient reports her anxiety is very well controlled with the initiation of Zoloft and is hesitant to change this medication due to good results. -Continue propranolol for anxiety, propranolol also use for fine resting tremor / Psych consulted (8) Depression: -As above (9) DVT prophylaxis: - Se monteirohamida subcu CODE: Full code Dispo: PT/OT eval Admission and Anticipated Discharge Date Admission Date: January 22, 2021 Subjective ff up for syncope, etc seen resting in chair oriented, answers all questions appropriately states she still feels lightheaded admits to drinking only 8-12 oz of water per day denies focal weakness/numbness no chest pain, dyspnea, palpitations, dizziness no other symptoms Review of Systems Review of Systems: All systems reviewed & are unremarkable except as noted in Subjective Physical Exam Physical Exam: General- oriented x 2, not in distress, speaks in sentences with no effort or accessory muscle use Head- atraumatic Eyes- PERRL, EOMI, anicteric ENT- oropharynx clear dry oral mucosa Neck- supple, no JVD, no adenopathy, no thyromegaly; carotids +2/2, no bruits appreciated Lungs- clear to auscultation bilaterally, no rales/wheezes Heart- normal rate, regular rhythm; no murmur, no gallop, no rub appreciated Abdomen- normal bowel sounds, nondistended, soft, nontender, no masses or hepatosplenomegaly Extremities- no pretibial edema, no calf tenderness; peripheral pulses intact Neuro- alert, oriented x 2; CN 2-12 grossly intact; motor 5/5 bilaterally;sensation 100% on all extremities; no other gross focal neurologic deficits Skin- warm & dry Results & Data Results & Data ([facility]) Vital Signs (Past 12 Hours) Vital Signs Temp Pulse Pulse Resp BP Pulse Ox 01/23/21 17:01 36.6 C 72 18 129/56 L 96 01/23/21 15:42 72 01/23/21 10:44 97 H 18 119/56 L 95 01/23/21 08:08 36.7 C 80 18 111/65 98 Laboratory Results Laboratory Results - last 24 hr 01/22/21 01/22/21 01/23/21 20:34 21:03 05:28 WBC 8.75 RBC 4.05 L Hgb 11.2 L Hct 33.3 L MCV 82.2 MCH 27.7 MCHC 33.6 RDW Std Deviation 42.5 RDW Coeff of Farida 14.0 Plt Count 183 MPV 11.0 H Sodium Potassium Chloride Carbon Dioxide Anion Gap BUN Creatinine Est Cr Clr Drug Dosing Est GFR ( Amer) Est GFR (Non-Af Amer) BUN/Creatinine Ratio Glucose POC Glucose 142 H Calcium Phosphorus Magnesium Total Bilirubin AST ALT Alkaline Phosphatase Troponin I < 0.015 Total Protein Albumin Globulin Albumin/Globulin Ratio 01/23/21 01/23/21 01/23/21 05:28 05:28 07:46 WBC RBC Hgb Hct MCV MCH MCHC RDW Std Deviation RDW Coeff of Farida Plt Count MPV Sodium Cancelled 141 Potassium Cancelled 3.8 Chloride Cancelled 112 H Carbon Dioxide Cancelled 23 Anion Gap Cancelled 6.0 BUN Cancelled 19 H Creatinine Cancelled 0.47 L Est Cr Clr Drug Dosing Cancelled 81.6 Est GFR ( Amer) Cancelled 114.4 Est GFR (Non-Af Amer) Cancelled 98.7 BUN/Creatinine Ratio Cancelled 40.0 H Glucose Cancelled 97 POC Glucose 69 L* Calcium Cancelled 8.2 L Phosphorus Cancelled 4.1 Magnesium Cancelled 2.2 Total Bilirubin Cancelled 0.4 AST Cancelled 22 ALT Cancelled 30 Alkaline Phosphatase Cancelled 76 Troponin I < 0.015 Total Protein Cancelled 6.1 L Albumin Cancelled 3.0 L Globulin Cancelled 3.1 Albumin/Globulin Ratio Cancelled 1.0 01/23/21 01/23/21 01/23/21 07:47 08:17 10:37 WBC RBC Hgb Hct MCV MCH MCHC RDW Std Deviation RDW Coeff of Farida Plt Count MPV Sodium Potassium Chloride Carbon Dioxide Anion Gap BUN Creatinine Est Cr Clr Drug Dosing Est GFR ( Amer) Est GFR (Non-Af Amer) BUN/Creatinine Ratio Glucose POC Glucose 69 L* 104 H 137 H Calcium Phosphorus Magnesium Total Bilirubin AST ALT Alkaline Phosphatase Troponin I Total Protein Albumin Globulin Albumin/Globulin Ratio 01/23/21 01/23/21 11:13 16:44 WBC RBC Hgb Hct MCV MCH MCHC RDW Std Deviation RDW Coeff of Farida Plt Count MPV Sodium Potassium Chloride Carbon Dioxide Anion Gap BUN Creatinine Est Cr Clr Drug Dosing Est GFR ( Amer) Est GFR (Non-Af Amer) BUN/Creatinine Ratio Glucose POC Glucose 129 H 92 Calcium Phosphorus Magnesium Total Bilirubin AST ALT Alkaline Phosphatase Troponin I Total Protein Albumin Globulin Albumin/Globulin Ratio (1) Depression Depression Type: unspecified Qualified Code(s): F32.9 - Major depressive disorder, single episode, unspecified
[2021-01-23] MEDS: ATORVASTATIN 40 MG TAB PO SCH (21:29)
[2021-01-23] MEDS: MELATONIN 3 MG TAB PO SCH (21:29)
[2021-01-24 07:40] LABS: Hematocrit (blood only) 34.8 % (37-47); Hemoglobin 11.4 g/dL (12.0-16.0); Mean Corpuscular Hemoglobin 27.5 pg (25-34); Mean Corpuscular Hgb Conc 32.8 g/dL (32-36); Mean Corpuscular Volume 84.1 fL (80-100); Mean Platelet Volume 11.3 fL (7.4-10.4); Platelet Count 163 K/uL (130-400); RDW Coefficient of Variation 14.4 % (11.5-14.5); RDW Standard Deviation 44.2 fL (36.4-46.3); Red Blood Count 4.14 M/uL (4.2-5.4); White Blood Count 8.61 K/uL (4.8-10.8)
[2021-01-24] MEDS: ONDANSETRON INJ 2 MG/ML 2 ML VIAL IV PRN (07:44)
[2021-01-24] MEDS: ASPIRIN 81 MG ECTAB PO SCH (07:46)
[2021-01-24] MEDS: SERTRALINE HCL 50 MG TABLET PO SCH (07:47)
[2021-01-24] MEDS: CHOLECALCIFEROL 1,000 UNITS 25 MCG TAB PO SCH (07:49)
[2021-01-24] MEDS: PROPRANOLOL HCL 20 MG TAB PO SCH ×2 (07:49→20:15)
[2021-01-24] MEDS: NITROFURANTOIN MONOHYDRATE 100 MG CAP PO SCH ×2 (07:50→20:15)
[2021-01-24] MEDS: VITAMIN B COMPLEX TAB PO SCH (07:50)
[2021-01-24] MEDS: VENLAFAXINE HCL XR 75 MG CAPXR PO SCH (07:50)
[2021-01-24] MEDS: busPIRone 15 MG TAB PO SCH ×2 (07:50→20:16)
[2021-01-24] MEDS: ENOXAPARIN INJ 40 MG/0.4 ML SYR SQ SCH (07:51)
[2021-01-24] MEDS: INSULIN ASPART 100 UNITS/ML 3 ML PEN SC SCH ×4 (07:54→22:38)
[2021-01-24 08:22] LABS: Albumin Level 3.1 gm/dl (3.4-5.0); BUN Creatinine Ratio 21.9 (10-20); Bilirubin,Total 0.5 mg/dl (0.2-1); Calcium 8.9 mg/dl (8.5-10.1); Creatinine Clr Calc Pharmacy 79.9 ml/min; Est GFR (African American) 113.6; Globulin 3.1 gm/dl (2.5-4.0); Potassium 3.8 mmol/L (3.5-5.1); Total Protein 6.2 gm/dl (6.4-8.2)
[2021-01-24] MEDS: MECLIZINE HCL 25 MG TAB PO PRN (08:41)
[2021-01-24] MEDS ORDERED: hydrOXYzine HCl 10 MG TAB PO ONE (15:41)
--- NOTE | 2021-01-24 18:59 | Hospitalist Progress Note ---
Date of Service January 24, 2021 Assessment & Plan (1) Syncope: secondary to Orthostasis , Dehydration per Dr. Barros's notes: - Admit to medsurg with tele on obs - Possibly due to recent titration of Effexor down, started Zoloft 25 mg on Thursday, versus dehydration secondary to recent UTI and antibiotic use with nausea/vomiting and poor PO intake. Unlikely sepsis as appears UTI with e.coli was sensitive to macrobid, currently finishing antibiotic course - Dizziness and nausea - treat sx with prn zofran, phenergan, and meclizine - Check 2D echo - Follow orthostatics- were positive in the ER- BP stable currently lying down - CTA head and neck completed which are negative - S/p 2 L NSS, will continue 125 mL/h x 1 day - Follow troponin x2 more sets, initial was negative - Afebrile, no white count - Tox screen is negative - UA appears to be negative for acute infection, follow cultures ensure infection has resolved 01/24 Orthostatic BP resolved d/c IV fluids encouraged to increase PO fluid intake Echo: unrevealing continue PT/OT evaluation (2) LBBB (left bundle branch block): - Chronic, noted on EKG - Follows with cardiology as an outpt, Dr. Matthews - Echo ordered: unrevealing (3) History of CVA (cerebrovascular accident): -Remote history of such, continue baby aspirin daily, statin therapy (4) Diabetes mellitus, type II: - Hold HOMICIDE SQUAD CAPTAIN Jardiance, glipizide, Tradjenta and will switch to ISS with Accu-Cheks AC at bedtime - A1c 7.1 in October 2020 (5) Hepatitis C, chronic: -History of such, stable, LFTs WNL (6) Dyslipidemia: -Continue atorvastatin 40 mg HS (7) Anxiety: per Dr. Barros: -Following with psychiatry as an outpatient, recently has had adjustments made in Zoloft and Effexor-concerned that reduction in Effexor has caused withdrawal- like effects. We will need to discuss with her outpatient provider, Daisy Harrison, who she follows with at [facility]. We will consult inpatient psych during her hospital stay regarding recommendations for Effexor and Zoloft. Patient reports her anxiety is very well controlled with the initiation of Zoloft and is hesitant to change this medication due to good results. -Continue propranolol for anxiety, propranolol also use for fine resting tremor 01/24 Psych consulted recommendations noted continue presente Psych meds (8) Depression: -As above (9) DVT prophylaxis: - [place] monteiro subcu CODE: Full code Dispo: PT/OT eval may need SNF/Rehab Admission and Anticipated Discharge Date Admission Date: January 23, 2021 Subjective ff up for syncope seen resting in bed, sitting up having dinner in good spirits oriented, answers all questions appropriately states she feels improved today less dizziness no headache, chest pain, dyspnea, palpitations, abd pain ,n/v no other symptoms Review of Systems Review of Systems: All systems reviewed & are unremarkable except as noted in Subjective Physical Exam Physical Exam: General- oriented x 2, not in distress, speaks in sentences with no effort or accessory muscle use Eyes- anicteric Neck- no JVD Lungs- clear BS BL Heart- normal rate, regular rhythm; no murmurs Abdomen- normal bowel sounds, nondistended, soft, nontender Extremities- no pretibial edema, no calf tenderness Neuro- alert, oriented x 2; no gross focal neurologic deficits Skin- warm & dry Results & Data Results & Data ([facility]) Vital Signs (Past 12 Hours) Vital Signs Temp Pulse Pulse Resp BP Pulse Ox 01/24/21 16:00 68 01/24/21 14:36 36.6 C 77 18 119/68 98 01/24/21 11:10 36.3 C L 73 18 121/54 L 94 01/24/21 07:30 36.6 C 83 18 129/77 95 all noted and reviewed including below Laboratory Results - last 24 hr 01/23/21 01/24/21 01/24/21 19:57 07:11 07:11 WBC 8.61 RBC 4.14 L Hgb 11.4 L Hct 34.8 L MCV 84.1 MCH 27.5 MCHC 32.8 RDW Std Deviation 44.2 RDW Coeff of Farida 14.4 Plt Count 163 MPV 11.3 H Sodium 142 Potassium 3.8 Chloride 110 H Carbon Dioxide 26 Anion Gap 6.0 BUN 10 D Creatinine 0.48 L Est Cr Clr Drug Dosing 79.9 Est GFR ( Amer) 113.6 Est GFR (Non-Af Amer) 98.0 BUN/Creatinine Ratio 21.9 H Glucose 112 H POC Glucose 137 H Calcium 8.9 Total Bilirubin 0.5 AST 22 ALT 30 Alkaline Phosphatase 76 Total Protein 6.2 L Albumin 3.1 L Globulin 3.1 Albumin/Globulin Ratio 1.0 01/24/21 01/24/21 01/24/21 07:14 11:30 16:36 WBC RBC Hgb Hct MCV MCH MCHC RDW Std Deviation RDW Coeff of Farida Plt Count MPV Sodium Potassium Chloride Carbon Dioxide Anion Gap BUN Creatinine Est Cr Clr Drug Dosing Est GFR ( Amer) Est GFR (Non-Af Amer) BUN/Creatinine Ratio Glucose POC Glucose 115 H 140 H 150 H Calcium Total Bilirubin AST ALT Alkaline Phosphatase Total Protein Albumin Globulin Albumin/Globulin Ratio (1) Depression Depression Type: unspecified Qualified Code(s): F32.9 - Major depressive disorder, single episode, unspecified
[2021-01-24] MEDS: LORazepam 0.5 MG TAB PO PRN (20:14)
[2021-01-24] MEDS: MELATONIN 3 MG TAB PO SCH (20:15)
[2021-01-24] MEDS: ATORVASTATIN 40 MG TAB PO SCH (20:17)
[2021-01-25 07:27] LABS: Hematocrit (blood only) 37.6 % (37-47); Hemoglobin 12.4 g/dL (12.0-16.0); Mean Corpuscular Hemoglobin 27.7 pg (25-34); Mean Corpuscular Volume 84.1 fL (80-100); Mean Platelet Volume 10.6 fL (7.4-10.4); Platelet Count 156 K/uL (130-400); RDW Coefficient of Variation 14.1 % (11.5-14.5); RDW Standard Deviation 43.3 fL (36.4-46.3); Red Blood Count 4.47 M/uL (4.2-5.4); White Blood Count 6.27 K/uL (4.8-10.8)
[2021-01-25 07:59] LABS: Albumin Level 3.2 gm/dl (3.4-5.0); BUN Creatinine Ratio 22.7 (10-20); Calcium 9.1 mg/dl (8.5-10.1); Creatinine Clr Calc Pharmacy 72.4 ml/min; Est GFR (African American) 109.9; Est GFR (Non-African American) 94.9
[2021-01-25] MEDS: busPIRone 15 MG TAB PO SCH ×2 (08:01→21:34)
[2021-01-25] MEDS: ASPIRIN 81 MG ECTAB PO SCH (08:01)
[2021-01-25 08:02] LABS: Albumin Globulin Ratio 0.9 (0.9-2); Bilirubin,Total 0.6 mg/dl (0.2-1); Globulin 3.5 gm/dl (2.5-4.0); Total Protein 6.7 gm/dl (6.4-8.2)
[2021-01-25] MEDS: VENLAFAXINE HCL XR 75 MG CAPXR PO SCH (08:02)
[2021-01-25] MEDS: NITROFURANTOIN MONOHYDRATE 100 MG CAP PO SCH (08:02)
[2021-01-25] MEDS: VITAMIN B COMPLEX TAB PO SCH (08:02)
[2021-01-25] MEDS: SERTRALINE HCL 50 MG TABLET PO SCH (08:02)
[2021-01-25] MEDS: PROPRANOLOL HCL 20 MG TAB PO SCH ×2 (08:03→21:34)
[2021-01-25] MEDS: ENOXAPARIN INJ 40 MG/0.4 ML SYR SQ SCH (08:03)
[2021-01-25] MEDS: INSULIN ASPART 100 UNITS/ML 3 ML PEN SC SCH ×4 (08:13→22:07)
[2021-01-25] MEDS: hydrOXYzine HCl 10 MG TAB PO PRN (11:12)
[2021-01-25] MEDS: MECLIZINE HCL 25 MG TAB PO PRN (12:05)
--- NOTE | 2021-01-25 12:05 | Hospitalist Progress Note ---
Date of Service January 25, 2021 Assessment & Plan (1) Syncope: secondary to Orthostasis , Dehydration per Dr. Barros's notes: - Admit to medsurg with tele on obs - Possibly due to recent titration of Effexor down, started Zoloft 25 mg on Thursday, versus dehydration secondary to recent UTI and antibiotic use with nausea/vomiting and poor PO intake. Unlikely sepsis as appears UTI with e.coli was sensitive to macrobid, currently finishing antibiotic course - Dizziness and nausea - treat sx with prn zofran, phenergan, and meclizine - Check 2D echo - Follow orthostatics- were positive in the ER- BP stable currently lying down - CTA head and neck completed which are negative - S/p 2 L NSS, will continue 125 mL/h x 1 day - Follow troponin x2 more sets, initial was negative - Afebrile, no white count - Tox screen is negative - UA appears to be negative for acute infection, follow cultures ensure infection has resolved 01/25 Orthostatic BP resolved d/c IV fluids encouraged to increase PO fluid intake can benefit from MAMIE barbosa Echo: unrevealing PT/OT recommending transtioning to SNF for inpatient PT (2) LBBB (left bundle branch block): - Chronic, noted on EKG - Follows with cardiology as an outpt, Dr. Matthews - Echo ordered: unrevealing (3) History of CVA (cerebrovascular accident): -Remote history of such, continue baby aspirin daily, statin therapy (4) Diabetes mellitus, type II: - Hold DEVELOPING MACHINE OPERATOR Jardiance, glipizide, Tradjenta and will switch to ISS with Accu-Cheks AC at bedtime - A1c 7.1 in October 2020 (5) Hepatitis C, chronic: -History of such, stable, LFTs WNL (6) Dyslipidemia: -Continue atorvastatin 40 mg HS (7) Anxiety: per Dr. Barros: -Following with psychiatry as an outpatient, recently has had adjustments made in Zoloft and Effexor-concerned that reduction in Effexor has caused withdrawal-like effects. We will need to discuss with her outpatient provider, Daisy Harrison, who she follows with at [facility]. We will consult inpatient psych during her hospital stay regarding recommendations for Effexor and Zoloft. Patient reports her anxiety is very well controlled with the initiation of Zoloft and is hesitant to change this medication due to good results. -Continue propranolol for anxiety, propranolol also use for fine resting tremor 01/25 Psych consulted recommendations noted continue present Psych meds reports intermittent anxiety PRN Vistaril ordered Psych Liaison evaluating patient (8) Depression: -As above (9) DVT prophylaxis: - [place] monteiro subcu CODE: Full code Dispo:PT recommends inpatient Rehab via SNF Admission and Anticipated Discharge Date Admission Date: January 23, 2021 Subjective ff up for syncope resting in bed, comfortable awake, alert states she continues to feel improved sat up in chair for about 45 minutes got tired/ "woozy" towards the end denies headache, chest pain, dyspnea, palpitations, abdominal pain, problems with urination or BM states she feels anxious- mostly happens when she is by herself and no one to talk to no other symptoms Review of Systems Review of Systems: All systems reviewed & are unremarkable except as noted in Subjective Physical Exam Physical Exam: General- oriented x 2, not in distress, speaks in sentences with no effort or accessory muscle use Eyes- anicteric Neck- no JVD Lungs- clear breath sounds bilaterally Heart- normal rate, regular rhythm; no murmurs Abdomen- normal bowel sounds, nondistended, soft, nontender Extremities- no pretibial edema, no calf tenderness Neuro- alert, oriented x 2; no gross focal neurologic deficits Skin- warm & dry Results & Data Results & Data ([facility]) Vital Signs (Past 12 Hours) Vital Signs Temp Pulse Pulse Resp BP Pulse Ox 01/25/21 09:25 71 01/25/21 07:38 36.5 C 20 95 01/25/21 03:34 36.5 C 69 18 135/78 96 01/24/21 23:59 63 all noted and reviewed including below Laboratory Results Laboratory Results - last 24 hr 01/24/21 01/24/21 01/25/21 16:36 20:34 07:10 WBC 6.27 RBC 4.47 Hgb 12.4 Hct 37.6 MCV 84.1 MCH 27.7 MCHC 33.0 RDW Std Deviation 43.3 RDW Coeff of Farida 14.1 Plt Count 156 MPV 10.6 H Sodium Potassium Chloride Carbon Dioxide Anion Gap BUN Creatinine Est Cr Clr Drug Dosing Est GFR ( Amer) Est GFR (Non-Af Amer) BUN/Creatinine Ratio Glucose POC Glucose 150 H 135 H Calcium Total Bilirubin AST ALT Alkaline Phosphatase Total Protein Albumin Globulin Albumin/Globulin Ratio 01/25/21 01/25/21 01/25/21 07:10 07:26 11:10 WBC RBC Hgb Hct MCV MCH MCHC RDW Std Deviation RDW Coeff of Farida Plt Count MPV Sodium 139 Potassium 4.0 Chloride 106 Carbon Dioxide 28 Anion Gap 5.0 BUN 12 Creatinine 0.53 L Est Cr Clr Drug Dosing 72.4 Est GFR ( Amer) 109.9 Est GFR (Non-Af Amer) 94.9 BUN/Creatinine Ratio 22.7 H Glucose 131 H POC Glucose 125 H 139 H Calcium 9.1 Total Bilirubin 0.6 AST 19 ALT 30 Alkaline Phosphatase 79 Total Protein 6.7 Albumin 3.2 L Globulin 3.5 Albumin/Globulin Ratio 0.9 (1) Depression Depression Type: unspecified Qualified Code(s): F32.9 - Major depressive disorder, single episode, unspecified
[2021-01-25] MEDS: IBUPROFEN 200 MG TAB PO PRN (12:06)
[2021-01-25] MEDS: LORazepam 0.5 MG TAB PO PRN (21:30)
[2021-01-25] MEDS: MELATONIN 3 MG TAB PO SCH (21:34)
[2021-01-25] MEDS: ATORVASTATIN 40 MG TAB PO SCH (21:34)
[2021-01-26] MEDS: CHOLECALCIFEROL 1,000 UNITS 25 MCG TAB PO SCH (08:25)
[2021-01-26] MEDS: VENLAFAXINE HCL XR 75 MG CAPXR PO SCH (08:25)
[2021-01-26] MEDS: ASPIRIN 81 MG ECTAB PO SCH (08:25)
[2021-01-26] MEDS: SERTRALINE HCL 50 MG TABLET PO SCH (08:25)
[2021-01-26] MEDS: PROPRANOLOL HCL 20 MG TAB PO SCH (08:25)
[2021-01-26] MEDS: busPIRone 15 MG TAB PO SCH ×2 (08:25→21:06)
[2021-01-26] MEDS: INSULIN ASPART 100 UNITS/ML 3 ML PEN SC SCH ×4 (08:26→20:24)
[2021-01-26] MEDS: VITAMIN B COMPLEX TAB PO SCH (08:26)
[2021-01-26] MEDS: ENOXAPARIN INJ 40 MG/0.4 ML SYR SQ SCH (08:26)
[2021-01-26] MEDS: POLYETHYLENE (MIRALAX) 17 GM PACK PO PRN (08:33)
[2021-01-26] MEDS: SODIUM CHLORIDE 0.9% 1000ML 1,000 ML IV SCH ×2 (10:18→21:12)
[2021-01-26] MEDS: hydrOXYzine HCl 10 MG TAB PO PRN ×2 (10:19→18:59)
--- NOTE | 2021-01-26 20:17 | Hospitalist Progress Note ---
Date of Service January 26, 2021 Assessment & Plan (1) Syncope: secondary to Orthostasis , Dehydration per Dr. Barros's notes: - Admit to medsurg with tele on obs - Possibly due to recent titration of Effexor down, started Zoloft 25 mg on Thursday, versus dehydration secondary to recent UTI and antibiotic use with nausea/vomiting and poor PO intake. Unlikely sepsis as appears UTI with e.coli was sensitive to macrobid, currently finishing antibiotic course - Dizziness and nausea - treat sx with prn zofran, phenergan, and meclizine - Check 2D echo - Follow orthostatics- were positive in the ER- BP stable currently lying down - CTA head and neck completed which are negative - S/p 2 L NSS, will continue 125 mL/h x 1 day - Follow troponin x2 more sets, initial was negative - Afebrile, no white count - Tox screen is negative - UA appears to be negative for acute infection, follow cultures ensure infection has resolved 01/26/21 BP on the lower side again restart IV fluids encouraged to increase PO fluid intake start MAMIE hoses Propranolol decreased from 20 to 10mg BID monitor orthstatic BP Echo: unrevealing PT/OT recommending transtioning to SNF for inpatient PT (2) LBBB (left bundle branch block): - Chronic, noted on EKG - Follows with cardiology as an outpt, Dr. Matthews - Echo ordered: unrevealing (3) History of CVA (cerebrovascular accident): -Remote history of such, continue baby aspirin daily, statin therapy (4) Diabetes mellitus, type II: - Hold MUSEUM EDUCATOR Jardiance, glipizide, Tradjenta and will switch to ISS with Accu-Cheks AC at bedtime - A1c 7.1 in October 2020 (5) Hepatitis C, chronic: -History of such, stable, LFTs WNL (6) Dyslipidemia: -Continue atorvastatin 40 mg HS (7) Anxiety: per Dr. Barros: -Following with psychiatry as an outpatient, recently has had adjustments made in Zoloft and Effexor-concerned that reduction in Effexor has caused withdrawal- like effects. We will need to discuss with her outpatient provider, Daisy Harrison, who she follows with at [facility]. We will consult inpatient psych during her hospital stay regarding recommendations for Effexor and Zoloft. Patient reports her anxiety is very well controlled with the initiation of Zoloft and is hesitant to change this medication due to good results. -Continue propranolol for anxiety, propranolol also use for fine resting tremor 01/26 Psych consulted recommendations noted continue present Psych meds reports intermittent anxiety PRN Vistaril ordered Psych Liaison evaluating patient (8) Depression: -As above (9) DVT prophylaxis: - [place] monteiro subcu CODE: Full code Dispo:PT recommends inpatient Rehab via SNF Admission and Anticipated Discharge Date Admission Date: January 23, 2021 Subjective ff up for syncope seen resting , sitting up in chair states she feels improved today sat up in chair earlier for an hour, got "woozy" towards the end- but less severe no chest pain, dizziness, palpitations appetite is good anxiety under control today no other symptoms Review of Systems Review of Systems: All systems reviewed & are unremarkable except as noted in Subjective Physical Exam Physical Exam: General- oriented x2, not in distress, speaks in sentences with no effort or accessory muscle use Eyes- anicteric Neck- no JVD Lungs- clear breath sounds bilaterally Heart- normal rate, regular rhythm; no murmurs Abdomen- normal bowel sounds, nondistended, soft, nontender Extremities- no pretibial edema, no calf tenderness Neuro- alert, oriented x 3; no gross focal neurologic deficits Skin- warm & dry Results & Data Results & Data ([facility]) Vital Signs (Past 12 Hours) Vital Signs Temp Pulse Pulse Resp BP BP Pulse Ox 01/26/21 19:12 36.6 C 83 18 101/69 99 01/26/21 15:07 68 01/26/21 14:31 36.8 C 75 16 114/57 L 97 01/26/21 11:00 36.7 C 87 16 114/69 100 01/26/21 08:24 84 92/57 L all noted and reviewed including below Laboratory Results Laboratory Results - last 24 hr 01/26/21 01/26/21 01/26/21 07:33 12:06 16:45 POC Glucose 135 H 137 H 122 H 01/26/21 20:03 POC Glucose 142 H (1) Depression Depression Type: unspecified Qualified Code(s): F32.9 - Major depressive disorder, single episode, unspecified
[2021-01-26] MEDS: MELATONIN 3 MG TAB PO SCH (21:06)
[2021-01-26] MEDS: PROPRANOLOL HCL 10 MG TAB PO SCH (21:06)
[2021-01-26] MEDS: LORazepam 0.5 MG TAB PO PRN (21:06)
[2021-01-26] MEDS: ATORVASTATIN 40 MG TAB PO SCH (21:06)
[2021-01-27] MEDS: VENLAFAXINE HCL XR 75 MG CAPXR PO SCH (07:57)
[2021-01-27] MEDS: SERTRALINE HCL 50 MG TABLET PO SCH (07:57)
[2021-01-27] MEDS: ENOXAPARIN INJ 40 MG/0.4 ML SYR SQ SCH (07:58)
[2021-01-27] MEDS: busPIRone 15 MG TAB PO SCH ×2 (07:58→21:06)
[2021-01-27] MEDS: PROPRANOLOL HCL 10 MG TAB PO SCH ×2 (07:58→21:06)
[2021-01-27] MEDS: ASPIRIN 81 MG ECTAB PO SCH (07:58)
[2021-01-27] MEDS: VITAMIN B COMPLEX TAB PO SCH (07:58)
[2021-01-27] MEDS: INSULIN ASPART 100 UNITS/ML 3 ML PEN SC SCH ×4 (07:59→21:12)
[2021-01-27] MEDS: POLYETHYLENE (MIRALAX) 17 GM PACK PO PRN (08:07)
[2021-01-27] MEDS: hydrOXYzine HCl 10 MG TAB PO PRN ×2 (08:38→19:46)
[2021-01-27] MEDS: SODIUM CHLORIDE 0.9% 1000ML 1,000 ML IV SCH (08:53)
[2021-01-27] MEDS: IBUPROFEN 200 MG TAB PO PRN ×2 (12:09→19:46)
--- NOTE | 2021-01-27 16:25 | Hospitalist Progress Note ---
Date of Service January 27, 2021 Assessment & Plan (1) Syncope: (1) Syncope: secondary to Orthostasis , Dehydration per Dr. Barros's notes: - Admit to medsurg with tele on obs - Possibly due to recent titration of Effexor down, started Zoloft 25 mg on Thursday, versus dehydration secondary to recent UTI and antibiotic use with nausea/vomiting and poor PO intake. Unlikely sepsis as appears UTI with e.coli was sensitive to macrobid, currently finishing antibiotic course - Dizziness and nausea - treat sx with prn zofran, phenergan, and meclizine - Check 2D echo - Follow orthostatics- were positive in the ER- BP stable currently lying down - CTA head and neck completed which are negative - S/p 2 L NSS, will continue 125 mL/h x 1 day - Follow troponin x2 more sets, initial was negative - Afebrile, no white count - Tox screen is negative - UA appears to be negative for acute infection, follow cultures ensure infection has resolved 01/27/21 BP improving maintain gentle IV fluids encouraged to increase PO fluid intake start MAMIE hoses Propranolol decreased from 20 to 10mg BID monitor orthstatic BP Echo: unrevealing PT/OT recommending transtioning to SNF for inpatient PT (2) LBBB (left bundle branch block): - Chronic, noted on EKG - Follows with cardiology as an outpt, Dr. Matthews - Echo ordered: unrevealing (3) History of CVA (cerebrovascular accident): -Remote history of such, continue baby aspirin daily, statin therapy (4) Diabetes mellitus, type II: - Hold BOW REPAIRER CUSTOM Jardiance, glipizide, Tradjenta and will switch to ISS with Accu-Cheks AC at bedtime - A1c 7.1 in October 2020 (5) Hepatitis C, chronic: -History of such, stable, LFTs WNL (6) Dyslipidemia: -Continue atorvastatin 40 mg HS (7) Anxiety: per Dr. Barros: -Following with psychiatry as an outpatient, recently has had adjustments made in Zoloft and Effexor-concerned that reduction in Effexor has caused withdrawal- like effects. We will need to discuss with her outpatient provider, Daisy Harrison, who she follows with at [facility]. We will consult inpatient psych during her hospital stay regarding recommendations for Effexor and Zoloft. Patient reports her anxiety is very well controlled with the initiation of Zoloft and is hesitant to change this medication due to good results. -Continue propranolol for anxiety, propranolol also use for fine resting tremor 01/27 Psych consulted recommendations noted continue present Psych meds increase Zoloft and reduce Effexor 02/01 reports intermittent anxiety PRN Vistaril ordered Psych Liaison evaluating patient (8) Depression: -As above (9) DVT prophylaxis: - [place] monteiro subcu CODE: Full code Dispo:PT recommends inpatient Rehab via SNF Admission and Anticipated Discharge Date Admission Date: January 23, 2021 Subjective ff up for syncope, etc seen resting in bed, comfortable in good spirits states she feels improved today less dizziness no chest pain, palpitations, dizziness states mood is good no other symptoms Review of Systems Review of Systems: All systems reviewed & are unremarkable except as noted in Subjective Physical Exam Physical Exam: General- oriented x 2, not in distress, speaks in sentences with no effort or accessory muscle use Eyes- anicteric Neck- no JVD Lungs- clear BS BL Heart- normal rate, regular rhythm; no murmurs Abdomen- normal bowel sounds, nondistended, soft, nontender Extremities- no pretibial edema, no calf tenderness Neuro- alert, oriented x 2; no gross focal neurologic deficits Skin- warm & dry Results & Data Results & Data ([facility]) Vital Signs (Past 12 Hours) Vital Signs Temp Pulse Pulse Resp BP Pulse Ox 01/27/21 14:00 36.7 C 82 16 138/70 99 01/27/21 11:00 36.6 C 77 16 152/75 H 99 01/27/21 07:45 65 01/27/21 07:00 36.7 C 83 18 113/55 L 96 all noted and reviewed including below Laboratory Results Laboratory Results - last 24 hr 01/26/21 01/26/21 01/27/21 16:45 20:03 07:28 POC Glucose 122 H 142 H 136 H 01/27/21 11:52 POC Glucose 160 H
[2021-01-27] MEDS: ATORVASTATIN 40 MG TAB PO SCH (21:09)
[2021-01-27] MEDS: MELATONIN 3 MG TAB PO SCH (21:09)
[2021-01-27] MEDS: LORazepam 0.5 MG TAB PO PRN (21:10)
[2021-01-28] MEDS: SODIUM CHLORIDE 0.9% 1000ML 1,000 ML IV SCH (00:12)
[2021-01-28] MEDS: INSULIN ASPART 100 UNITS/ML 3 ML PEN SC SCH ×4 (07:57→21:02)
[2021-01-28] MEDS: ENOXAPARIN INJ 40 MG/0.4 ML SYR SQ SCH (07:59)
[2021-01-28] MEDS: SERTRALINE HCL 50 MG TABLET PO SCH (07:59)
[2021-01-28] MEDS: ASPIRIN 81 MG ECTAB PO SCH (08:00)
[2021-01-28] MEDS: VITAMIN B COMPLEX TAB PO SCH (08:00)
[2021-01-28] MEDS: VENLAFAXINE HCL XR 75 MG CAPXR PO SCH (08:00)
[2021-01-28] MEDS: CHOLECALCIFEROL 1,000 UNITS 25 MCG TAB PO SCH (08:01)
[2021-01-28] MEDS: PROPRANOLOL HCL 10 MG TAB PO SCH ×2 (08:01→20:41)
[2021-01-28] MEDS: hydrOXYzine HCl 10 MG TAB PO PRN (08:01)
[2021-01-28] MEDS: busPIRone 15 MG TAB PO SCH ×2 (08:01→20:41)
[2021-01-28] MEDS ORDERED: LORazepam 0.5 MG TAB PO SCH (10:00)
--- NOTE | 2021-01-28 12:16 | Magnetic Resonance Report ---
MRI OF THE BRAIN WITHOUT IV CONTRAST CLINICAL HISTORY: Dizziness. COMPARISON STUDY: CT of the brain dated 01/22/2021. TECHNIQUE: MRI of the brain was performed utilizing various T1 and T2-weighted sequences in the axial , sagittal, and coronal planes. IV contrast was not administered for this examination. FINDINGS: Brain parenchyma: There is age-related involutional change noting moderate subcortical and periventri cular microangiopathic disease. There is no hemorrhage or mass effect. There is no restricted diffusi on to suggest acute ischemia. There are small chronic lacunar infarcts present in both thalami. Anne- white matter differentiation is preserved. No extra-axial fluid collection is seen. The cerebellar to nsils are normal in configuration. Ventricles, sulci, and cisterns: Prominent secondary to involutional change. Pituitary and sella: Unremarkable. Intracranial vasculature: Normal flow voids are maintained at the skull base. Orbits: The bony orbits are grossly intact. Orbital contents are normal in appearance noting bilatera l ocular lens implants. Sinuses and mastoids: A subcentimeter retention cyst is noted in the left maxillary antrum. The sinus es and mastoids are otherwise clear. Calvarium: Unremarkable. Cervical cord: Partially visualized cervical spinal cord is normal in morphology and signal intensity . IMPRESSION: No acute intracranial abnormality. ACT 112: Negative or not required by law. Electronically signed by: Paulino May M.D. 01/28/2021 12:14 PM
--- NOTE | 2021-01-28 18:29 | Hospitalist Progress Note ---
Date of Service January 28, 2021 Assessment & Plan (1) Syncope: (1) Syncope: secondary to Orthostasis , Dehydration per Dr. Barros's notes: - Admit to medsurg with tele on obs - Possibly due to recent titration of Effexor down, started Zoloft 25 mg on Thursday, versus dehydration secondary to recent UTI and antibiotic use with nausea/vomiting and poor PO intake. Unlikely sepsis as appears UTI with e.coli was sensitive to macrobid, currently finishing antibiotic course - Dizziness and nausea - treat sx with prn zofran, phenergan, and meclizine - Check 2D echo - Follow orthostatics- were positive in the ER- BP stable currently lying down - CTA head and neck completed which are negative - S/p 2 L NSS, will continue 125 mL/h x 1 day - Follow troponin x2 more sets, initial was negative - Afebrile, no white count - Tox screen is negative - UA negative for acute infection 01/28/21 BP improving, now on the higher side D/C fluids has been ncouraged to increase PO fluid intake MAMIE hoses ordered Propranolol decreased from 20 to 10mg BID monitor orthstatic BP Echo: unrevealing Brain MRI: no acute CVA PT/OT recommending transtioning to SNF for inpatient PT (2) LBBB (left bundle branch block): - Chronic, noted on EKG - Follows with cardiology as an outpt, Dr. Matthews - Echo ordered: unrevealing (3) History of CVA (cerebrovascular accident): -Remote history of such, continue baby aspirin daily, statin therapy (4) Diabetes mellitus, type II: - Hold TRIM MOUNTER Jardiance, glipizide, Tradjent--> ISS with Accu-Cheks AC at bedtime - A1c 7.1 in October 2020 (5) Hepatitis C, chronic: -History of such, stable, LFTs WNL (6) Dyslipidemia: -Continue atorvastatin 40 mg HS (7) Anxiety: per Dr. Barros: -Following with psychiatry as an outpatient, recently has had adjustments made in Zoloft and Effexor-concerned that reduction in Effexor has caused withdrawal- like effects. We will need to discuss with her outpatient provider, Daisy Harrison, who she follows with at [facility]. We will consult inpatient psych during her hospital stay regarding recommendations for Effexor and Zoloft. Patient reports her anxiety is very well controlled with the initiation of Zoloft and is hesitant to change this medication due to good results. -Continue propranolol for anxiety, propranolol also use for fine resting tremor 01/27 Psych consulted recommendations noted continue present Psych meds increase Zoloft to 50mg daily and reduce Effexor by 25mg as part of taper process 02/01 reports intermittent anxiety PRN Vistaril ordered Psych Liaison evaluating patient (8) Depression: -As above (9) DVT prophylaxis: - [place] monteiro subcu CODE: Full code Dispo:PT recommends inpatient Rehab via SNF Admission and Anticipated Discharge Date Admission Date: January 23, 2021 Subjective ff up for syncope, etc seen resting in bed, eyes mostly closed states she felt dizzy after sitting up in the chair for about 45 mins states she has not been sleeping well for the past 2 nights feels anxious this morning no other new symptoms Review of Systems Review of Systems: All systems reviewed & are unremarkable except as noted in Subjective Physical Exam Physical Exam: General- oriented x 3, not in distress, speaks in sentences with no effort or accessory muscle use Eyes- anicteric Neck- no JVD Lungs- clear BS BL no rales no wheezing Heart- normal rate, regular rhythm; no murmurs Abdomen- normal bowel sounds, nondistended, soft, nontender Extremities- no pretibial edema, no calf tenderness Neuro- alert, oriented x 3; no gross focal neurologic deficits Skin- warm & dry Results & Data Results & Data ([facility]) Vital Signs (Past 12 Hours) Vital Signs Temp Pulse Pulse Resp BP BP Pulse Ox 01/28/21 15:16 36.8 C 92 H 18 133/67 99 01/28/21 07:55 36.8 C 87 16 148/63 H 95 01/28/21 07:44 67 all noted and reviewed including below Laboratory Results Laboratory Results - last 24 hr 01/27/21 01/28/21 01/28/21 20:14 07:46 12:39 POC Glucose 151 H 142 H 153 H 01/28/21 16:20 POC Glucose 163 H
[2021-01-28] MEDS: ATORVASTATIN 40 MG TAB PO SCH (20:41)
[2021-01-28] MEDS: diphenhydrAMINE Capsule 25 MG CAP PO PRN (21:07)
[2021-01-28] MEDS: MELATONIN 3 MG TAB PO SCH (21:07)
[2021-01-29] MEDS: LORazepam 0.5 MG TAB PO PRN ×2 (00:36→21:16)
[2021-01-29] MEDS: PROPRANOLOL HCL 10 MG TAB PO SCH (08:52)
[2021-01-29] MEDS: ASPIRIN 81 MG ECTAB PO SCH (08:52)
[2021-01-29] MEDS: SERTRALINE HCL 50 MG TABLET PO SCH (08:52)
[2021-01-29] MEDS: hydrOXYzine HCl 10 MG TAB PO PRN (08:52)
[2021-01-29] MEDS: busPIRone 15 MG TAB PO SCH ×2 (08:52→21:12)
[2021-01-29] MEDS: VITAMIN B COMPLEX TAB PO SCH (08:52)
[2021-01-29] MEDS: ENOXAPARIN INJ 40 MG/0.4 ML SYR SQ SCH (08:53)
[2021-01-29] MEDS: INSULIN ASPART 100 UNITS/ML 3 ML PEN SC SCH ×4 (08:54→21:13)
[2021-01-29] MEDS: VENLAFAXINE HCL XR 75 MG CAPXR PO SCH (09:27)
[2021-01-29] MEDS ORDERED: PROPRANOLOL HCL 10 MG TAB PO STA (10:30)
[2021-01-29] MEDS ORDERED: MECLIZINE HCL 25 MG TAB PO STA (10:30)
[2021-01-29] MEDS ORDERED: ACETAMINOPHEN 500 MG TAB PO PRN (10:31)
[2021-01-29] MEDS: MECLIZINE 12.5 MG TAB PO PRN (16:58)
--- NOTE | 2021-01-29 18:16 | Hospitalist Progress Note ---
Date of Service January 29, 2021 Assessment & Plan (1) Syncope: (1) Syncope: secondary to Orthostasis , Dehydration per Dr. Barros's notes: - Admit to medsurg with tele on obs - Possibly due to recent titration of Effexor down, started Zoloft 25 mg on Thursday, versus dehydration secondary to recent UTI and antibiotic use with nausea/vomiting and poor PO intake. Unlikely sepsis as appears UTI with e.coli was sensitive to macrobid, currently finishing antibiotic course - Dizziness and nausea - treat sx with prn zofran, phenergan, and meclizine - Check 2D echo - Follow orthostatics- were positive in the ER- BP stable currently lying down - CTA head and neck completed which are negative - S/p 2 L NSS, will continue 125 mL/h x 1 day - Follow troponin x2 more sets, initial was negative - Afebrile, no white count - Tox screen is negative - UA negative for acute infection 01/29/21 Orthostasis improved with IV fluids and reducing Propranolol to 10mg BID today, patient requested for Propranolol to be increased again to 20mg BID due to her tremors (+) Orthostatic BP noted again this afternoon follows with Neurology, will consult Dr. Nunez for recommendations MAMIE barbosa ordered Echo: unrevealing Brain MRI: no acute CVA PT/OT recommending transitioning to SNF for inpatient PT (2) LBBB (left bundle branch block): - Chronic, noted on EKG - Follows with cardiology as an outpt, Dr. Matthews - Echo ordered: unrevealing (3) History of CVA (cerebrovascular accident): -Remote history of such, continue baby aspirin daily, statin therapy (4) Diabetes mellitus, type II: - Hold CONTENT SPECIALIST Jardiance, glipizide, Tradjent--> ISS with Accu-Cheks AC at bedtime - A1c 7.1 in October 2020 (5) Hepatitis C, chronic: -History of such, stable, LFTs WNL (6) Dyslipidemia: -Continue atorvastatin 40 mg HS (7) Anxiety: per Dr. Barros: -Following with psychiatry as an outpatient, recently has had adjustments made in Zoloft and Effexor-concerned that reduction in Effexor has caused withdrawal- like effects. We will need to discuss with her outpatient provider, Daisy Harrison, who she follows with at [facility]. We will consult inpatient psych during her hospital stay regarding recommendations for Effexor and Zoloft. Patient reports her anxiety is very well controlled with the initiation of Zoloft and is hesitant to change this medication due to good results. -Continue propranolol for anxiety, propranolol also use for fine resting tremor 01/29 Inpatient Psych consulted recommendations noted continue present Psych meds increase Zoloft to 50mg daily and reduce Effexor by 25mg on 02/01 (as part of taper process to transition from Effexor to Zpoloft) reports intermittent anxiety PRN Vistaril ordered requested Psych service for recommendations regarding insomnia- awaiting input (8) Depression: -As above (9) DVT prophylaxis: - [place] monteiro subcu CODE: Full code Dispo: awaiting acceptance to SNF plan of care discussed with patient in detail and at length all questions answered she is understanding, agreeable, comfortable with the plan of care Admission and Anticipated Discharge Date Admission Date: January 23, 2021 Subjective ff up for syncope etc seen resting in bed, comfortable but seemed upset because she was not able to fall asleep again last night despite receiving Benadryl and Ativan states she feels anxious this morning tremors seem to be coming back dizziness mostly improved, patient now reports it mostly happens when she tilts her head up and down no other symptoms Review of Systems Review of Systems: All systems reviewed & are unremarkable except as noted in Subjective Physical Exam Physical Exam: General- oriented x 3, not in distress, speaks in sentences with no effort or accessory muscle use Eyes- anicteric Neck- no JVD Lungs- clear breath sounds bilaterally Heart- normal rate, regular rhythm; no murmurs Abdomen- normal bowel sounds, nondistended, soft, nontender Extremities- no pretibial edema, no calf tenderness mild tremors of the left hand and leg Neuro- alert, oriented x 3; no gross focal neurologic deficits Skin- warm & dry Results & Data Results & Data ([facility]) Vital Signs (Past 12 Hours) Vital Signs Temp Pulse Pulse Resp BP Pulse Ox 01/29/21 15:18 36.6 C 75 18 148/63 H 98 01/29/21 15:00 87 01/29/21 11:07 36.4 C L 78 18 145/71 H 96 01/29/21 07:40 36.5 C 103 H 20 147/70 H 94 01/29/21 07:36 74 all noted and reviewed including below Laboratory Results Laboratory Results - last 24 hr 01/28/21 01/29/21 01/29/21 21:00 07:35 11:30 POC Glucose 175 H 160 H 195 H 01/29/21 16:41 POC Glucose 136 H
[2021-01-29] MEDS: ATORVASTATIN 40 MG TAB PO SCH (21:11)
[2021-01-29] MEDS: PROPRANOLOL HCL 20 MG TAB PO SCH (21:13)
[2021-01-29] MEDS: MELATONIN 3 MG TAB PO SCH (21:16)
[2021-01-30] MEDS: INSULIN ASPART 100 UNITS/ML 3 ML PEN SC SCH ×4 (08:19→20:27)
[2021-01-30] MEDS: VITAMIN B COMPLEX TAB PO SCH (08:20)
[2021-01-30] MEDS: PROPRANOLOL HCL 20 MG TAB PO SCH ×2 (08:20→21:17)
[2021-01-30] MEDS: VENLAFAXINE HCL XR 75 MG CAPXR PO SCH (08:20)
[2021-01-30] MEDS: ASPIRIN 81 MG ECTAB PO SCH (08:20)
[2021-01-30] MEDS: CHOLECALCIFEROL 1,000 UNITS 25 MCG TAB PO SCH (08:21)
[2021-01-30] MEDS: ENOXAPARIN INJ 40 MG/0.4 ML SYR SQ SCH (08:21)
[2021-01-30] MEDS: busPIRone 15 MG TAB PO SCH ×2 (08:21→21:14)
[2021-01-30] MEDS: SERTRALINE HCL 50 MG TABLET PO SCH (08:21)
[2021-01-30 09:20] LABS: Basophils # (auto) 0.01 K/uL (0-0.2); Basophils % (auto) 0.2 %; Eosinophils # (auto) 0.12 K/uL (0-0.5); Eosinophils % (auto) 2.1 %; Hematocrit (blood only) 39.7 % (37-47); Immature Granulocytes # (auto) 0.01 K/uL (0.00-0.02); Immature Granulocytes % (auto) 0.2 %; Lymphocytes # (auto) 1.39 K/uL (1.2-3.4); Mean Corpuscular Hgb Conc 32.7 g/dL (32-36); Mean Corpuscular Volume 85.4 fL (80-100); Mean Platelet Volume 10.8 fL (7.4-10.4); Monocytes # (auto) 0.55 K/uL (0.11-0.59); Monocytes % (auto) 9.5 %; Platelet Count 188 K/uL (130-400); RDW Coefficient of Variation 14.3 % (11.5-14.5); RDW Standard Deviation 44.1 fL (36.4-46.3); Red Blood Count 4.65 M/uL (4.2-5.4); White Blood Count 5.78 K/uL (4.8-10.8)
[2021-01-30 09:41] LABS: BUN Creatinine Ratio 17.7 (10-20); Calcium 9.4 mg/dl (8.5-10.1); Est GFR (African American) 103.3; Est GFR (Non-African American) 89.2; Magnesium 2.1 mg/dl (1.8-2.4); Phosphorus 3.3 mg/dl (2.5-4.9); Potassium 3.9 mmol/L (3.5-5.1)
[2021-01-30] MEDS: MECLIZINE 12.5 MG TAB PO PRN (10:32)
[2021-01-30 11:59] LABS: Appearance Urine Clear (Clear); Bacteria Urine Automated Negative (Negative); Bilirubin Urine Negative (Negative); Blood Urine Negative (Negative); Color Urine Yellow; Epithelial Cell Urine Auto 20-30 /lpf (0-5); Glucose Urine UA 1+ (Negative); Ketones Urine Negative (Negative); Leukocyte Esterase Urine 1+ (Negative); Nitrite Urine Negative (Negative); Protein Urine Negative (Negative); RBC Urine Automated 0-4 /hpf (0-4); Specific Gravity Urine 1.009 (1.000-1.030); Urobilinogen Urine Negative (Negative)
[2021-01-30] MEDS: POLYETHYLENE (MIRALAX) 17 GM PACK PO PRN (12:21)
--- NOTE | 2021-01-30 15:08 | Neurology Consultation ---
Date of Consultation January 30, 2021 Assessment & Plan (1) Dizziness: 1. PT for terrance maneuver for vertigo 2. orthostatic blood pressures continue 3. keep well hydrated Present on Admission?: Yes (2) Syncope: 1. decrease propranolol to 10 mg twice x 5 days then 10 mg x 3 days then stop Present on Admission?: Yes (3) Weakness: 1. post UTI treatment 2. PT/OT for discharge needs 3. may need increased support at home or placement in personal care facility 4. psychiatry for further management of medication 5. follow up with neurology Present on Admission?: Yes Supervising Physician Co-Signing Physician Notes I have seen and discussed above patient with Dr Sohail Nunez, neurology I know Abigail very well from multiple prior consultations in her case. 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 and treatment for essential tremor is not going to alter this and the severity is never been sufficient for me to try her on Sinemet or amantadine as am not sure it would respond as the basis is vascular rather than dopamine deficiency and she is on a host of other medications that might compete with She is here now for a syncopal event and for what sounds like elements of benign positional vertigo and has orthostatic hypotension Exam does not show anything different other than the 4 to 6 cps left arm and leg tremor and with head rotation a subjective sense of vertigo without accompanying nystagmus and mild degree of left hemiparesis all which is old with the exception of the head movement induced vertigo She is already had 1 round of physical therapy with some improvement in the positional component of her vertigo and probably should continue to have vestibular exercises and therapy given I concur with stopping the Inderal as I do not think it is doing anything for the tremor and probably is at least contributing to some degree to the hypotension. The drug might be serving as a week antianxiety agent but other agents can be used to accomplish the same and without inducing bradycardia or hypotension Beyond this neurology does not have a lot more suggestions we will check back with her periodically. Again I am very reluctant to prescribe Sinemet and amantadine a dopamine agonist etc. for the reasons outlined above i.e. 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 coli which was resistant to Bactrim found at the end of December 2020. She was seen in the ER on 01/17 and given an IV dose of Rocephin and sent home with a PO antibiotic. She was transitioned to Macrobid x 7 days. On Thursday, 01/19 the patient started a new prescription for Zoloft at 25 mg daily, and decreased her Effexor from 112 mg daily to 75 mg daily. Daisy Harrison outpatient psychiatry, saw her via telemedicine due to Covid pandemic. This adjustment has made the patient's anxiety well controlled. She also developed weakness, dizziness exacerbated with standing or movement, nausea and dry heaves. Her caregiver witnessed a syncopal episode at the breakfast table where she had eaten half of her breakfast, taken her morning medications, had her blood glucose checked which was in the 150s, and when the caregiver had turned around the patient had fallen forward and her face was on the table. Currently she is complaining she is tired and when she turns her head she sees double sometimes. denies CP, SOB abdominal pain, current N, V. +dizziness, intermittent double vision Allergies Allergy/AdvReac Type Severity Reaction Status Date / Time Iodinated Contrast Media Allergy Severe HEAD TO Verified 01/22/21 13:05 TOE HIVES morphine Allergy Severe hives Verified 01/22/21 13:05 oxycodone Allergy Intermediate Hives Verified 01/22/21 13:05 clavulanic acid Allergy Unknown FROM Verified 01/22/21 13:05 AUGMENTIN Penicillins Allergy Unknown FROM Verified 01/22/21 13:05 AUGMENTIN amitriptyline AdvReac Severe INCREASES Verified 01/22/21 13:05 HEART RATE clarithromycin AdvReac Intermediate LIGHT Verified 01/22/21 13:05 HEADED, FAINTY FEELING acetaminophen AdvReac Unknown NOT ABLE Verified 01/22/21 13:05 TO TAKE DUE TO HX HEPATITIS Cephalosporins AdvReac Unknown CEFTIN--GI Verified 01/22/21 13:05 UPSET Home Medications Medication Instructions Recorded Confirmed Type aspirin 81 mg PO QAM 09/06/18 01/22/21 History milk thistle 175 mg PO DAILY PRN 09/06/18 01/22/21 History vitamin B complex 1 tab PO DAILY 09/06/18 01/22/21 History Tradjenta 5 mg PO QAM 11/15/19 01/22/21 History coenzyme Q10 [CoQ-10] 100 mg PO QAM 11/15/19 01/22/21 History glipizide 10 mg PO BID 11/02/20 01/22/21 History venlafaxine [Effexor XR] 75 mg PO QAM 11/02/20 01/22/21 History melatonin 3 mg PO HS #30 tab 11/15/20 01/22/21 Rx polyethylene glycol 3350 [Miralax] 17 g PO DAILY PRN #30 ea 11/15/20 01/22/21 Rx atorvastatin 40 mg PO HS 11/27/20 01/22/21 History cholecalciferol (vitamin D3) 50 mcg PO Q OTHER DAY 11/27/20 01/22/21 History [Vitamin D3] cranberry 200 mg PO DAILY PRN 11/27/20 01/22/21 History lorazepam [Ativan] 0.5 mg PO PM PRN 11/27/20 01/22/21 History buspirone 15 mg PO BID 01/13/21 01/22/21 History empagliflozin [Jardiance] 10 mg PO QAM 01/13/21 01/22/21 History propranolol 20 mg PO BID 01/13/21 01/22/21 History nitrofurantoin monohyd/m-cryst 100 mg PO BID 01/22/21 01/22/21 History sertraline 25 mg PO QAM 01/22/21 01/22/21 History Patient History Medical History Anxiety Depression Diabetes mellitus, type II Dyslipidemia Hepatitis C, chronic History of CVA (cerebrovascular accident) LBBB (left bundle branch block) Surgical History H/O cataract removal with insertion of prosthetic lens History of back surgery History of cholecystectomy History of hysterectomy History of tubal ligation Family History Father Pancreatic cancer Social History Smoking Status: Never smoker Second Hand Exposure: No; Hx Alcohol Use: No Hx Substance Use: No Preferred Language: Micronesian Communication Ability: Effective Spotlight Operator Required: No Beliefs That Will Affect Care: Baptist (Pentecostalism) marital status: Current Living Situation: Alone Current Living Situation Comment: caregiver during the day, thursday-thursday Other Information That Helps Us Care for You: No Feels Safe at Home: Yes Safety Concerns: Feels Safe At This Time Assistive Devices: Glasses and Walker Review of Systems Review of Systems: All systems reviewed & are unremarkable except as noted in HPI & below Physical Exam Physical Exam: Physical Exam: Constitutional: appearance nourished, thin frail Ears, Nose, Mouth and Throat: mucous membranes moist, no injection and skin normal, eyes normal Cardiovascular: normal S-1 and S-2 and regular rate and rhythm Respiratory: course breath sounds Musculoskeletal: no peripheral edema and good distal pulses Skin: no stigmata of neurocutaneous disease noted and normal and intact Eyes: extraocular muscles intact (EOMI) and pupils equal, round and reactive to light (PERRL) NEUROLOGIC EXAMINATION: Mental status: Alert and interactive Oriented to person Speech fluent with no evidence of aphasia Cranial Nerves slight left flattening of nasolabial fold Reflexes: Deep tendon reflexes were symmetrical and graded 2/5. Sensory: light cool touch Coordination: finger to nose slight dysmetric on left, LLE rhythmic taping of foot Gait/Stance: Posture lying in bed Motor: slight pronator drift on left Strength: hand golf coach biceps triceps right 5/5, left 4+/5, hip flex right 5/5, left 4+/5 Results & Data ([facility]) Vital Signs (Past 12 Hours) Vital Signs Temp Pulse Pulse Resp BP Pulse Ox 01/30/21 14:52 36.4 C L 80 18 97 01/30/21 10:40 84 100/53 L 01/30/21 10:39 75 134/71 01/30/21 07:59 36.8 C 77 20 118/58 L 95 01/30/21 07:32 86 01/30/21 03:21 36.3 C L 75 16 98/56 L 97 Laboratory Results Abnormal lab results 01/29/21 01/29/21 01/30/21 Range/Units 16:41 20:33 07:23 MPV (7.4-10.4) fL Sodium (136-145) mmol/L Glucose (70-99) mg/dl POC Glucose 136 H 135 H 155 H (70-99) mg/dl Urine Glucose (UA) (Negative) Ur Leukocyte Esterase (Negative) Urine WBC (Auto) (0-5) /hpf U Epithel Cells (Auto) (0-5) /lpf 01/30/21 01/30/21 01/30/21 Range/Units 09:01 09:01 11:28 MPV 10.8 H (7.4-10.4) fL Sodium 135 L (136-145) mmol/L Glucose 232 H (70-99) mg/dl POC Glucose 197 H (70-99) mg/dl Urine Glucose (UA) (Negative) Ur Leukocyte Esterase (Negative) Urine WBC (Auto) (0-5) /hpf U Epithel Cells (Auto) (0-5) /lpf 01/30/21 Range/Units 11:30 MPV (7.4-10.4) fL Sodium (136-145) mmol/L Glucose (70-99) mg/dl POC Glucose (70-99) mg/dl Urine Glucose (UA) 1+ H (Negative) Ur Leukocyte Esterase 1+ H (Negative) Urine WBC (Auto) 10-30 H (0-5) /hpf U Epithel Cells (Auto) 20-30 H (0-5) /lpf Diagnostic Findings CTA head/ neck-No aneurysm, dissection, high-grade stenosis or arterial occlusion identified. MRI brain no acute findings.
--- NOTE | 2021-01-30 15:57 | Hospitalist Progress Note ---
Date of Service January 30, 2021 Assessment & Plan (1) Syncope: (1) Syncope: Secondary to Orthostasis , Dehydration Orthostatic vitals on 01/30/2021: Lying blood pressure 139/62 and pulse 68, sitting blood pressure 134/71 and pulse 75 and is landing blood pressure 100 and bowels 84. Has been trying to drink water and take more salt Could be contributed by use of propranolol UTI with e.coli was sensitive to macrobid, currently finishing antibiotic course No evidence of ACS and echo remains unremarkable MRI of the brain did not show any acute findings Initial improvement of orthostasis with intravenous normal saline Appreciate neurology input and recommendation to wean off propranolol MAMIE barbosa ordered (2) LBBB (left bundle branch block): Chronic, noted on EKG Follows with cardiology as an outpt, Dr. Matthews Echo ordered: unrevealing (3) History of CVA (cerebrovascular accident): Remote history of such, continue baby aspirin daily, statin therapy (4) Diabetes mellitus, type II: Hold PREPARATION SUPERVISOR FREEZING Jardiance, glipizide, Tradjent--> ISS with Accu-Cheks AC at bedtime A1c 7.1 in October 2020 (5) Hepatitis C, chronic: History of such, stable, LFTs WNL (6) Dyslipidemia: Continue atorvastatin 40 mg HS (7) Anxiety: Following with psychiatry as an outpatient, recently has had adjustments made in Zoloft and Effexor-concerned that reduction in Effexor has caused withdrawal- like effects. Inpatient Psych consulted-appreciate input and recommendation Continue present Psych meds Increase Zoloft to 50mg daily and reduce Effexor by 25mg on 02/01 (as part of taper process to transition from Effexor to Zpoloft) LADY Laguna ordered Requested Psych service for recommendations regarding insomnia- awaiting input (8) Depression: -As above (9) DVT prophylaxis: - [place] monteiro subcu CODE: Full code Dispo: PT/OT recommending transitioning to SNF for inpatient PT Awaiting acceptance to SNF Discussed with the patient in detail Admission and Anticipated Discharge Date Admission Date: January 23, 2021 Subjective 01/30/2021 The patient was seen and examined in medical telemetry unit She remains very anxious and complains to have dizziness whenever she is ambulating Her tremor seems to be under control Denies any other significant symptoms Review of Systems Review of Systems: All systems reviewed and are unremarkable except as noted below Physical Exam Physical Exam: Lying in bed very anxious Constitutional: average body habitus Eyes: PERRL, conjunctivae normal, anicteric sclerae ENMT: external ear and nose normal, oropharynx normal Neck: trachea midline, no thyromegaly Respiratory: normal respiratory effort; no respiratory distress Auscultation: lungs clear to auscultation bilaterally Cardiovascular: Rate/Rhythm: regular rate and regular rhythm Heart Sounds: no murmur Extremities: no edema Gastrointestinal (Abdomen): Inspection/Auscultation: normal bowel sounds; abdomen not distended Percussion/Palpation: abdomen soft; abdomen nontender Musculoskeletal: No acute arthritis in any joint Neurologic: Alert, awake and oriented x3 Psychiatric: Mood: + anxious mood Results & Data Results & Data ([facility]) Vital Signs (Past 12 Hours) Vital Signs Temp Pulse Pulse Resp BP Pulse Ox 01/30/21 14:52 36.4 C L 80 18 97 01/30/21 10:40 84 100/53 L 01/30/21 10:39 75 134/71 01/30/21 07:59 36.8 C 77 20 118/58 L 95 01/30/21 07:32 86 Laboratory Results Short CBC 01/30/21 Range/Units 09:01 WBC 5.78 (4.8-10.8) K/uL Hgb 13.0 (12.0-16.0) g/dL Hct 39.7 (37-47) % Plt Count 188 (130-400) K/uL BMP 01/30/21 09:01 Sodium 135 L Potassium 3.9 Chloride 105 Carbon Dioxide 24 BUN 11 Creatinine 0.64 Glucose 232 H Calcium 9.4 Urine 01/30/21 Range/Units 11:30 Urine Color Yellow Urine Appearance Clear (Clear) Urine pH 7.0 (4.5-7.5) Ur Specific [place] 1.009 (1.000-1.030) Urine Protein Negative (Negative) Urine Glucose (UA) 1+ H (Negative) Medications Administered Current Inpatient Medications Acetaminophen (Acetaminophen 500 Mg Tab) 500 mg PO Q6H PRN PRN Reason: Pain Stop: 02/28/21 10:30 Last Admin: 01/29/21 19:24 Dose: 500 mg Documented by: Aspirin (Aspirin 81 Mg Ectab) 81 mg PO QAM [facility] Stop: 02/22/21 08:59 Last Admin: 01/30/21 08:20 Dose: 81 mg Documented by: Atorvastatin Calcium (Atorvastatin 40 Mg Tab) 40 mg PO HS [facility] Stop: 02/21/21 20:59 Last Admin: 01/29/21 21:11 Dose: 40 mg Documented by: Buspirone HCl (Buspirone 15 Mg Tab) 15 mg PO BID STEFANO Stop: 02/21/21 20:59 Last Admin: 01/30/21 08:21 Dose: 15 mg Documented by: Dextrose (Dextrose 50% 50 Ml Syringe) 25 - 50 ml IV UD PRN; Protocol PRN Reason: Hypoglycemia Protocol Stop: 02/21/21 20:30 Diphenhydramine HCl (Diphenhydramine Capsule 25 Mg Cap) 25 mg PO HS PRN PRN Reason: Insomnia Stop: 02/27/21 09:44 Last Admin: 01/28/21 21:07 Dose: 25 mg Documented by: Enoxaparin Sodium (Enoxaparin Inj 40 Mg/0.4 Ml Syr) 40 mg SQ QAM [facility] Stop: 02/22/21 08:59 Last Admin: 01/30/21 08:21 Dose: 40 mg Documented by: Glucagon (Glucagon For Inj 1 Mg Vial) 1 mg SQ UD PRN; Protocol PRN Reason: Hypoglycemia Protocol Stop: 02/21/21 20:30 Glucose (Glucose 10 Tabs/Tube) 4 - 8 tabs PO UD PRN; Protocol PRN Reason: Hypoglycemia Protocol Stop: 02/21/21 20:30 Glucose (Glucose 40% Gel 15 Gm Tube) 15 - 30 gm PO UD PRN; Protocol PRN Reason: Hypoglycemia Protocol Stop: 02/21/21 20:30 Hydroxyzine HCl (Hydroxyzine Hcl 10 Mg Tab) 10 mg PO TID PRN PRN Reason: Anxiety Stop: 02/24/21 10:18 Last Admin: 01/29/21 08:52 Dose: 10 mg Documented by: Promethazine HCl 6.25 mg/ (Sodium Chloride) 50.25 mls @ 201 mls/hr IV Q6H PRN PRN Reason: Nausea And Vomiting Stop: 02/21/21 18:09 Insulin Aspart (Insulin Aspart 100 Units/Ml 3 Ml Pen) 0 units SC ACHS [facility] Stop: 02/21/21 20:59 Last Admin: 01/30/21 12:17 Dose: 1 units Documented by: Lorazepam (Lorazepam 0.5 Mg Tab) 0.5 mg PO PM PRN PRN Reason: Anxiety Stop: 02/21/21 20:30 Last Admin: 01/29/21 21:16 Dose: 0.5 mg Documented by: Meclizine HCl (Meclizine 12.5 Mg Tab) 12.5 mg PO TID PRN PRN Reason: Dizziness or Vertigo Stop: 02/28/21 10:29 Last Admin: 01/30/21 10:32 Dose: 12.5 mg Documented by: Melatonin (Melatonin 3 Mg Tab) 3 mg PO HS [facility] Stop: 02/21/21 20:59 Last Admin: 01/29/21 21:16 Dose: 3 mg Documented by: Miscellaneous (Carbohydrates For Hypoglycemia ) 15 - 30 gm PO UD PRN PRN Reason: Hypoglycemia Protocol Stop: 02/21/21 20:30 Last Admin: 01/23/21 08:09 Dose: 15 gm Documented by: Ondansetron HCl (Ondansetron Inj 2 Mg/Ml 2 Ml Vial) 4 mg IV Q4H PRN PRN Reason: Nausea And Vomiting Stop: 02/21/21 20:30 Last Admin: 01/24/21 07:44 Dose: 4 mg Documented by: Polyethylene Glycol (Polyethylene (Miralax) 17 Gm Pack) 17 gm PO DAILY PRN PRN Reason: constipation Stop: 02/21/21 20:30 Last Admin: 01/30/21 12:21 Dose: 17 gm Documented by: Propranolol HCl (Propranolol Hcl 20 Mg Tab) 20 mg PO BID STEFANO Stop: 02/28/21 20:59 Last Admin: 01/30/21 08:20 Dose: 20 mg Documented by: Sertraline HCl (Sertraline Hcl 50 Mg Tablet) 25 mg PO QAM [facility] Stop: 02/22/21 08:59 Last Admin: 01/30/21 08:21 Dose: 25 mg Documented by: Venlafaxine HCl (Venlafaxine Hcl Xr 75 Mg Capxr) 75 mg PO QAM [facility] Stop: 02/22/21 08:59 Last Admin: 01/30/21 08:20 Dose: 75 mg Documented by: Vitamin B Complex (Vitamin B Complex Tab) 1 tab PO DAILY STEFANO Stop: 02/22/21 08:59 Last Admin: 01/30/21 08:20 Dose: 1 tab Documented by: Vitamin D (Cholecalciferol 1,000 Units 25 Mcg Tab) 2,000 units PO Q48H [facility] Stop: 02/23/21 08:59 Last Admin: 01/30/21 08:21 Dose: 2,000 units Documented by:
[2021-01-30] MEDS: LORazepam 0.5 MG TAB PO PRN (21:12)
[2021-01-30] MEDS: hydrOXYzine HCl 10 MG TAB PO PRN (21:13)
[2021-01-30] MEDS: MELATONIN 3 MG TAB PO SCH (21:13)
[2021-01-30] MEDS: ATORVASTATIN 40 MG TAB PO SCH (21:15)
[2021-01-30] MEDS: diphenhydrAMINE Capsule 25 MG CAP PO PRN (21:19)
[2021-01-31] MEDS: POLYETHYLENE (MIRALAX) 17 GM PACK PO PRN (08:06)
[2021-01-31] MEDS: hydrOXYzine HCl 10 MG TAB PO PRN (08:56)
[2021-01-31] MEDS: INSULIN ASPART 100 UNITS/ML 3 ML PEN SC SCH ×4 (08:59→20:56)
[2021-01-31] MEDS: ENOXAPARIN INJ 40 MG/0.4 ML SYR SQ SCH (09:01)
[2021-01-31] MEDS: ASPIRIN 81 MG ECTAB PO SCH (09:02)
[2021-01-31] MEDS: VENLAFAXINE HCL XR 75 MG CAPXR PO SCH (09:02)
[2021-01-31] MEDS: SERTRALINE HCL 50 MG TABLET PO SCH (09:03)
[2021-01-31] MEDS: PROPRANOLOL HCL 20 MG TAB PO SCH (09:03)
[2021-01-31] MEDS: busPIRone 15 MG TAB PO SCH ×2 (09:03→20:55)
[2021-01-31] MEDS: VITAMIN B COMPLEX TAB PO SCH (09:03)
[2021-01-31] MEDS: MECLIZINE 12.5 MG TAB PO PRN (09:05)
[2021-01-31] MEDS ORDERED: LORazepam 0.5 MG TAB PO ONE (10:55)
--- NOTE | 2021-01-31 13:47 | Psychiatric Progress Note ---
Date of Service January 31, 2021 Impression / Recommendations Impression Dr. Ann Johnson was directly involved in review and discussion of the patient's case and participated in medical decision making regarding treatment recommendations. RECOMMENDATIONS: 01/23 - Psychiatric consultation requested to assess patient given recent medication changes - concern for possible discontinuation syndrome symptoms. Pt is reportedly being cross-tapered from venlafaxine to sertraline with her outpatient psychiatrist. - It seems very unlikely that the patient's syncopal episode and symptoms of nausea, dizziness, and weakness are solely related to her psychiatric medication adjustments. Not only was the patient's reduction of venlafaxine dosage very minimal, but she has also experienced larger dose reductions in the past without symptoms of discontinuation syndrome. Would encourage continuing patient's at the dosage of venlafaxine suggested by her psychiatrist. Additionally, it is unlikely that the addition of low-dose sertraline would be causing side effects to this severity. Cross-taper schedule provided by outpatient psychiatrist was reviewed and seems appropriate for someone discontinuing venlafaxine. - Additionally, patient reports a rather dramatic improvement in anxiety symptoms within the last week - so it does seem appropriate to continue the cross-taper as outlined by the patient's psychiatrist. We did request an HARSHA from the patient, to allow us to access outpatient records for further review and to assist with discharge planning. She does feel that increased frequency of therapy sessions would be beneficial, and would consider referrals to alternative therapists if her current provider is unable to accommodate this schedule. - Pt denies SI/HI, SIB, as well as any acute mood or safety concerns. No indication for inpatient psychiatric treatment at this time. Appreciate the opportunity to participate in the care of this patient. Please reach out to our service with any additional questions or updates. 01/31 - Continue scheduled cross-titration from venlafaxine to sertraline as outlined by outpatient psychiatrist. - Pt requesting medication to assist with sleep, stating low-dose trazodone was beneficial in the pasts. Will resume trazodone 25mg qHS. - Continue to offer encouragement and assist with coping strategies to minimize anxiety. Risk Factors Assessment Do You Have Access To A Gun?: No Interval History Identifying Information 70-year-old female admitted medically on 01/22/21 after presenting to the ED s/p syncopal episode. Pt has reportedly been experiencing various physical symptoms of weakness, decreased appetite, headaches, vertigo, and feeling "off-balance" for 4 days prior to admission. Psychiatric consultation requested for ongoing anxiety in the setting of medication adjustments- seen today for follow-up. Chief Complaint "I'm fine, but I just don't know what to do." Review of Systems Notes Constitutional: reports poor sleep Cardiovascular: denied Respiratory: denied Gastrointestinal: denied Neurological: denied Psychiatric: denies symptoms other than stated above Total of at least 10 systems reviewed, pertinent positives as above and in HPI. Subjective Subjective Patient's case was reviewed and discussed with psychiatric nurse liaison and supervising psychiatrist. Received request from hospitalist service to re- evaluate patient for anxiety. Pt was observed to be in the hallway outside of her room wheeling herself around the hallways. She did agree to meet in her room to follow-up on her progress. Pt admits that physically she is feeling much better. Anxiety is ongoing, but reported to generally be situational. Pt admits that sleep continues to be a concern and requests to resume 25mg of trazodone each evening. Pt inquires of this provider "how do you mend broken relationships." Pt states she has been focused on the lack of communication she has had with supports - both neighbors and family members. Pt states that they are regularly telling her that she is reaching out too often or requesting too much. Pt denied any acute physical concerns at this time and did admit that she will be returning home at discharge rather than going to physical rehab as initially discussed. Pt denied other needs from our service at this time and stated she was appreciative of our conversation. Physical Exam Psychiatric Orientation: alert, oriented x 3 and cooperative Apperance: appropriately dressed and appropriately groomed Thin, frail female. Dressed in hospital gown, sitting in wheelchair. Eye Contact: + fair eye contact Motor Behavior: no abnormal motor movements (observed while sitting in wheelchair) Speech: normal rate/rhythm/volume of speech Affect: + anxious affect Mood: + anxious mood Thought Process: goal directed thought process and + concrete thought process Thought Content: + cognitive distortions (seems to be most prominent when discussing interpersonal relationships) and + loneliness; no hopelessness Suicidal Thoughts: denies suicidal thoughts and denies suicidal intent Homicidal Thoughts: denies homicidal thoughts Hallucinations: no auditory hallucinations and no visual hallucinations Cognition: attention grossly intact and language grossly intact Estimated Intelligence: consistent with education level Insight: + fair insight Judgement: + fair judgement Vital Signs (Past 24 Hours) Last Vital Signs Temp 36.5 C 01/31/21 12:50 Pulse 77 01/31/21 12:50 Resp 18 01/31/21 12:50 BP 117/74 01/31/21 12:50 Pulse Ox 99 01/31/21 12:50 Results & Data ([facility]) Laboratory Results Laboratory Results - last 24 hr 01/30/21 01/30/21 01/31/21 16:32 19:57 07:45 POC Glucose 159 H 188 H 176 H 01/31/21 12:07 POC Glucose 184 H Current Inpatient Medications Current Inpatient Medications: Current Inpatient Medications Acetaminophen (Acetaminophen 500 Mg Tab) 500 mg PO Q6H PRN PRN Reason: Pain Stop: 02/28/21 10:30 Last Admin: 01/29/21 19:24 Dose: 500 mg Documented by: Aspirin (Aspirin 81 Mg Ectab) 81 mg PO QAM [facility] Stop: 02/22/21 08:59 Last Admin: 01/31/21 09:02 Dose: 81 mg Documented by: Atorvastatin Calcium (Atorvastatin 40 Mg Tab) 40 mg PO HS [facility] Stop: 02/21/21 20:59 Last Admin: 01/30/21 21:15 Dose: 40 mg Documented by: Buspirone HCl (Buspirone 15 Mg Tab) 15 mg PO BID [facility] Stop: 02/21/21 20:59 Last Admin: 01/31/21 09:03 Dose: 15 mg Documented by: Dextrose (Dextrose 50% 50 Ml Syringe) 25 - 50 ml IV UD PRN; Protocol PRN Reason: Hypoglycemia Protocol Stop: 02/21/21 20:30 Diphenhydramine HCl (Diphenhydramine Capsule 25 Mg Cap) 25 mg PO HS PRN PRN Reason: Insomnia Stop: 02/27/21 09:44 Last Admin: 01/30/21 21:19 Dose: 25 mg Documented by: Enoxaparin Sodium (Enoxaparin Inj 40 Mg/0.4 Ml Syr) 40 mg SQ QAM [facility] Stop: 02/22/21 08:59 Last Admin: 01/31/21 09:01 Dose: 40 mg Documented by: Glucagon (Glucagon For Inj 1 Mg Vial) 1 mg SQ UD PRN; Protocol PRN Reason: Hypoglycemia Protocol Stop: 02/21/21 20:30 Glucose (Glucose 10 Tabs/Tube) 4 - 8 tabs PO UD PRN; Protocol PRN Reason: Hypoglycemia Protocol Stop: 02/21/21 20:30 Glucose (Glucose 40% Gel 15 Gm Tube) 15 - 30 gm PO UD PRN; Protocol PRN Reason: Hypoglycemia Protocol Stop: 02/21/21 20:30 Hydroxyzine HCl (Hydroxyzine Hcl 10 Mg Tab) 10 mg PO TID PRN PRN Reason: Anxiety Stop: 02/24/21 10:18 Last Admin: 01/31/21 08:56 Dose: 10 mg Documented by: Promethazine HCl 6.25 mg/ (Sodium Chloride) 50.25 mls @ 201 mls/hr IV Q6H PRN PRN Reason: Nausea And Vomiting Stop: 02/21/21 18:09 Insulin Aspart (Insulin Aspart 100 Units/Ml 3 Ml Pen) [address] [facility] Stop: 02/21/21 20:59 Last Admin: 01/31/21 12:23 Dose: 2 units Documented by: Lorazepam (Lorazepam 0.5 Mg Tab) 0.5 mg PO PM PRN PRN Reason: Anxiety Stop: 02/21/21 20:30 Last Admin: 01/30/21 21:12 Dose: 0.5 mg Documented by: Meclizine HCl (Meclizine 12.5 Mg Tab) 12.5 mg PO TID PRN PRN Reason: Dizziness or Vertigo Stop: 02/28/21 10:29 Last Admin: 01/31/21 09:05 Dose: 12.5 mg Documented by: Melatonin (Melatonin 3 Mg Tab) 3 mg PO [facility] Stop: 02/21/21 20:59 Last Admin: 01/30/21 21:13 Dose: 3 mg Documented by: Miscellaneous (Carbohydrates For Hypoglycemia ) 15 - 30 gm PO UD PRN PRN Reason: Hypoglycemia Protocol Stop: 02/21/21 20:30 Last Admin: 01/23/21 08:09 Dose: 15 gm Documented by: Ondansetron HCl (Ondansetron Inj 2 Mg/Ml 2 Ml Vial) 4 mg IV Q4H PRN PRN Reason: Nausea And Vomiting Stop: 02/21/21 20:30 Last Admin: 01/24/21 07:44 Dose: 4 mg Documented by: Polyethylene Glycol (Polyethylene (Miralax) 17 Gm Pack) 17 gm PO DAILY PRN PRN Reason: constipation Stop: 02/21/21 20:30 Last Admin: 01/31/21 08:06 Dose: 17 gm Documented by: Propranolol HCl (Propranolol Hcl 10 Mg Tab) 10 mg PO BID [facility] Stop: 03/02/21 20:59 Sertraline HCl (Sertraline Hcl 50 Mg Tablet) 25 mg PO QAM [facility] Stop: 02/22/21 08:59 Last Admin: 01/31/21 09:03 Dose: 25 mg Documented by: Venlafaxine HCl (Venlafaxine Hcl Xr 75 Mg Capxr) 75 mg PO QAM [facility] Stop: 02/22/21 08:59 Last Admin: 01/31/21 09:02 Dose: 75 mg Documented by: Vitamin B Complex (Vitamin B Complex Tab) 1 tab PO DAILY [facility] Stop: 02/22/21 08:59 Last Admin: 01/31/21 09:03 Dose: 1 tab Documented by: Vitamin D (Cholecalciferol 1,000 Units 25 Mcg Tab) 2,000 units PO Q48H [facility] Stop: 02/23/21 08:59 Last Admin: 01/30/21 08:21 Dose: 2,000 units Documented by: Mental Health & Subst Abuse Tx Psychiatrist Name of Psychiatrist: Dr. Daisy Jeffries @ [facility] Psychiatrist's Date of Appointment with Psychiatrist: 02/01/21 Time of Appointment with Psychiatrist: 09:30 Psychiatric Appointment Comment: tele-health Psychiatrist Release of Information: Obtained, Reviewed and Signed Therapist Name of Therapist: Isabel Levine, therapist @ [facility] Therapist's Date of Therapist Appointment: 02/05/21 Time of Therapist Appointment: 14:15 Therapy Appointment Comment: tele health Therapist Release of Information: Obtained, Reviewed and Signed
--- NOTE | 2021-01-31 16:13 | Hospitalist Progress Note ---
Date of Service January 31, 2021 Assessment & Plan (1) Syncope: (1) Syncope: Secondary to Orthostasis , Dehydration Orthostatic vitals on 01/30/2021: Lying blood pressure 139/62 and pulse 68, sitting blood pressure 134/71 and pulse 75 and is landing blood pressure 100 and bowels 84. Has been trying to drink water and take more salt Could be contributed by use of propranolol UTI with e.coli was sensitive to macrobid, currently finishing antibiotic course No evidence of ACS and echo remains unremarkable MRI of the brain did not show any acute findings Initial improvement of orthostasis with intravenous normal saline Appreciate neurology input and recommendation to wean off propranolol MAMIE barbosa ordered No more significant dizziness in the hospital She will be discharged home tomorrow and propranolol will be weaned off as per neurologist (2) LBBB (left bundle branch block): Chronic, noted on EKG Follows with cardiology as an outpt, Dr. Matthews Echo ordered: unrevealing (3) History of CVA (cerebrovascular accident): Remote history of such, continue baby aspirin daily, statin therapy (4) Diabetes mellitus, type II: Hold AURICULAR THERAPIST Jardiance, glipizide, Tradjent--> ISS with Accu-Cheks AC at bedtime A1c 7.1 in October 2020 (5) Hepatitis C, chronic: History of such, stable, LFTs WNL (6) Dyslipidemia: Continue atorvastatin 40 mg HS (7) Anxiety: Following with psychiatry as an outpatient, recently has had adjustments made in Zoloft and Effexor-concerned that reduction in Effexor has caused withdrawal- like effects. Inpatient Psych consulted-appreciate input and recommendation Continue present Psych meds Increase Zoloft to 50mg daily and reduce Effexor by 25mg on 02/01 (as part of taper process to transition from Effexor to Zpoloft) PRN Vistaril ordered Requested Psych service for recommendations regarding insomnia- awaiting input Noted to be very anxious this morning and after a long discussion with the patient she was given 0.5 mg of Ativan x1 Consulted with psychiatrist and was advised to give her a small dose of trazodone at night for better sleep (8) Depression: -As above (9) DVT prophylaxis: - Aurelia monteironox subcu CODE: Full code Dispo: PT/OT recommending transitioning to SNF for inpatient 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 consult for discharge disposition She will be discharged home tomorrow Admission and Anticipated Discharge Date Admission Date: January 23, 2021 Subjective 01/30/2021 The patient was seen and examined in medical telemetry unit She remains very anxious and complains to have dizziness whenever she is ambulating Her tremor seems to be under control Denies any other significant symptoms 01/31/2021 The patient was seen and examined in medical telemetry unit She was noted to be very very anxious this morning Denies any other significant symptoms of pain, palpitation or shortness of breath Review of Systems Review of Systems: All systems reviewed and are unremarkable except as noted below Physical Exam Physical Exam: Lying in bed very anxious Constitutional: average body habitus Eyes: PERRL, conjunctivae normal, anicteric sclerae ENMT: external ear and nose normal, oropharynx normal Neck: trachea midline, no thyromegaly Respiratory: normal respiratory effort; no respiratory distress Auscultation: lungs clear to auscultation bilaterally Cardiovascular: Rate/Rhythm: regular rate and regular rhythm Heart Sounds: no murmur Extremities: no edema Gastrointestinal (Abdomen): Inspection/Auscultation: normal bowel sounds; abdomen not distended Percussion/Palpation: abdomen soft; abdomen nontender Musculoskeletal: No acute arthritis involving any joint Neurologic: Alert, awake and oriented x3. Generally weak but no focal weakness Psychiatric: Mood: + anxious mood Results & Data Results & Data ([facility]) Vital Signs (Past 12 Hours) Vital Signs Temp Pulse Pulse Resp BP Pulse Ox 01/31/21 15:47 65 01/31/21 15:42 36.5 C 68 16 119/66 99 01/31/21 12:50 36.5 C 77 18 117/74 99 01/31/21 08:02 36.4 C L 79 16 114/71 97 01/31/21 08:00 65 Medications Administered Current Inpatient Medications Acetaminophen (Acetaminophen 500 Mg Tab) 500 mg PO Q6H PRN PRN Reason: Pain Stop: 02/28/21 10:30 Last Admin: 01/29/21 19:24 Dose: 500 mg Documented by: Aspirin (Aspirin 81 Mg Ectab) [facility] Stop: 02/22/21 08:59 Last Admin: 01/31/21 09:02 Dose: 81 mg Documented by: Atorvastatin Calcium (Atorvastatin 40 Mg Tab) 40 mg PO HS [facility] Stop: 02/21/21 20:59 Last Admin: 01/30/21 21:15 Dose: 40 mg Documented by: Buspirone HCl (Buspirone 15 Mg Tab) 15 mg PO BID [facility] Stop: 02/21/21 20:59 Last Admin: 01/31/21 09:03 Dose: 15 mg Documented by: Dextrose (Dextrose 50% 50 Ml Syringe) 25 - 50 ml IV UD PRN; Protocol PRN Reason: Hypoglycemia Protocol Stop: 02/21/21 20:30 Diphenhydramine HCl (Diphenhydramine Capsule 25 Mg Cap) 25 mg PO HS PRN PRN Reason: Insomnia Stop: 02/27/21 09:44 Last Admin: 01/30/21 21:19 Dose: 25 mg Documented by: Enoxaparin Sodium (Enoxaparin Inj 40 Mg/0.4 Ml Syr) 40 mg SQ QAM [facility] Stop: 02/22/21 08:59 Last Admin: 01/31/21 09:01 Dose: 40 mg Documented by: Glucagon (Glucagon For Inj 1 Mg Vial) 1 mg SQ UD PRN; Protocol PRN Reason: Hypoglycemia Protocol Stop: 02/21/21 20:30 Glucose (Glucose 10 Tabs/Tube) 4 - 8 tabs PO UD PRN; Protocol PRN Reason: Hypoglycemia Protocol Stop: 02/21/21 20:30 Glucose (Glucose 40% Gel 15 Gm Tube) 15 - 30 gm PO UD PRN; Protocol PRN Reason: Hypoglycemia Protocol Stop: 02/21/21 20:30 Hydroxyzine HCl (Hydroxyzine Hcl 10 Mg Tab) 10 mg PO TID PRN PRN Reason: Anxiety Stop: 02/24/21 10:18 Last Admin: 01/31/21 08:56 Dose: 10 mg Documented by: Promethazine HCl 6.25 mg/ (Sodium Chloride) 50.25 mls @ 201 mls/hr IV Q6H PRN PRN Reason: Nausea And Vomiting Stop: 02/21/21 18:09 Insulin Aspart (Insulin Aspart 100 Units/Ml 3 Ml Pen) 0 units SC ACHS [facility] Stop: 02/21/21 20:59 Last Admin: 01/31/21 12:23 Dose: 2 units Documented by: Lorazepam (Lorazepam 0.5 Mg Tab) 0.5 mg PO PM PRN PRN Reason: Anxiety Stop: 02/21/21 20:30 Last Admin: 01/30/21 21:12 Dose: 0.5 mg Documented by: Meclizine HCl (Meclizine 12.5 Mg Tab) 12.5 mg PO TID PRN PRN Reason: Dizziness or Vertigo Stop: 02/28/21 10:29 Last Admin: 01/31/21 09:05 Dose: 12.5 mg Documented by: Melatonin (Melatonin 3 Mg Tab) 3 mg PO HS [facility] Stop: 02/21/21 20:59 Last Admin: 01/30/21 21:13 Dose: 3 mg Documented by: Miscellaneous (Carbohydrates For Hypoglycemia ) 15 - 30 gm PO UD PRN PRN Reason: Hypoglycemia Protocol Stop: 02/21/21 20:30 Last Admin: 01/23/21 08:09 Dose: 15 gm Documented by: Ondansetron HCl (Ondansetron Inj 2 Mg/Ml 2 Ml Vial) 4 mg IV Q4H PRN PRN Reason: Nausea And Vomiting Stop: 02/21/21 20:30 Last Admin: 01/24/21 07:44 Dose: 4 mg Documented by: Polyethylene Glycol (Polyethylene (Miralax) 17 Gm Pack) 17 gm PO DAILY PRN PRN Reason: constipation Stop: 02/21/21 20:30 Last Admin: 01/31/21 08:06 Dose: 17 gm Documented by: Propranolol HCl (Propranolol Hcl 10 Mg Tab) 10 mg PO BID [facility] Stop: 03/02/21 20:59 Sertraline HCl (Sertraline Hcl 50 Mg Tablet) 25 mg PO QAM [facility] Stop: 02/22/21 08:59 Last Admin: 01/31/21 09:03 Dose: 25 mg Documented by: Trazodone HCl (Trazodone Hcl 50 Mg Tab) 25 mg PO HS [facility] Stop: 03/02/21 20:59 Venlafaxine HCl (Venlafaxine Hcl Xr 75 Mg Capxr) 75 mg PO QAM [facility] Stop: 02/22/21 08:59 Last Admin: 01/31/21 09:02 Dose: 75 mg Documented by: Vitamin B Complex (Vitamin B Complex Tab) 1 tab PO DAILY [facility] Stop: 02/22/21 08:59 Last Admin: 01/31/21 09:03 Dose: 1 tab Documented by: Vitamin D (Cholecalciferol 1,000 Units 25 Mcg Tab) 2,000 units PO Q48H [facility] Stop: 02/23/21 08:59 Last Admin: 01/30/21 08:21 Dose: 2,000 units Documented by:
--- NOTE | 2021-01-31 16:35 | Communication Note ---
Date of Service: January 31, 2021 Abigail is markedly improved today she is moves her head from side to side does not talk about vertigo does not have much in way of postural imbalance and was seen wheeling herself in the hallway in a chair and had minimal if any tremor of the left arm and leg She is apparently going to be discharged to home tomorrow Her hospital course has been typical i.e. she presents with a urinary tract infection or some other stressor has increased parkinsonian activity in the left arm and leg and then as things calm down she gets back to her baseline which is characterized by minimal left hemiparesis and minimal cyril-Parkinson features that are so mild that no treatment is justified and frankly in light of the Pres pros vascular mechanism is unlikely to respond to any treatment anyway She needs her anxiety is managed and this is being addressed by her primary care group and psychiatry Neurology is going to sign off once again but suspect that we will be called to evaluate her in the future when she is admitted to address her increased tremor Sohail Nunez MD
[2021-01-31] MEDS: MELATONIN 3 MG TAB PO SCH (20:54)
[2021-01-31] MEDS: PROPRANOLOL HCL 10 MG TAB PO SCH (20:54)
[2021-01-31] MEDS: diphenhydrAMINE Capsule 25 MG CAP PO PRN (20:54)
[2021-01-31] MEDS: LORazepam 0.5 MG TAB PO PRN (20:54)
[2021-01-31] MEDS: ATORVASTATIN 40 MG TAB PO SCH (20:55)
[2021-01-31] MEDS ORDERED: traZODone HCL 50 MG TAB PO SCH (21:00)
[2021-02-01] MEDS: hydrOXYzine HCl 10 MG TAB PO PRN (08:44)
[2021-02-01] MEDS: VITAMIN B COMPLEX TAB PO SCH (08:45)
[2021-02-01] MEDS: busPIRone 15 MG TAB PO SCH (08:45)
[2021-02-01] MEDS: CHOLECALCIFEROL 1,000 UNITS 25 MCG TAB PO SCH (08:46)
[2021-02-01] MEDS: ASPIRIN 81 MG ECTAB PO SCH (08:46)
[2021-02-01] MEDS: SERTRALINE HCL 50 MG TABLET PO SCH (08:46)
[2021-02-01] MEDS: VENLAFAXINE HCL XR 75 MG CAPXR PO SCH (08:47)
[2021-02-01] MEDS: PROPRANOLOL HCL 10 MG TAB PO SCH (08:47)
[2021-02-01] MEDS: ENOXAPARIN INJ 40 MG/0.4 ML SYR SQ SCH (08:48)
[2021-02-01] MEDS: INSULIN ASPART 100 UNITS/ML 3 ML PEN SC SCH (08:52)
--- NOTE | 2021-02-01 09:04 | Hospitalist Progress Note ---
Date of Service February 01, 2021 Assessment & Plan (1) Syncope: (1) Syncope: Secondary to Orthostasis , Dehydration Orthostatic vitals on 01/30/2021: Lying blood pressure 139/62 and pulse 68, sitting blood pressure 134/71 and pulse 75 and is landing blood pressure 100 and bowels 84. Has been trying to drink water and take more salt Could be contributed by use of propranolol UTI with e.coli was sensitive to macrobid, currently finishing antibiotic course No evidence of ACS and echo remains unremarkable MRI of the brain did not show any acute findings Initial improvement of orthostasis with intravenous normal saline Appreciate neurology input and recommendation to wean off propranolol MAMIE barbosa ordered No more significant dizziness in the hospital She will be discharged home tomorrow and propranolol will be weaned off as per neurologist Remains reasonably stable this morning to be discharged Strongly advised to take precautions to avoid fall (2) LBBB (left bundle branch block): Chronic, noted on EKG Follows with cardiology as an outpt, Dr. 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 Inpatient Psych consulted-appreciate input and recommendation Continue present Psych meds Increase Zoloft to 50mg daily and reduce Effexor by 25mg on 02/01 (as part of taper process to transition from Effexor to Zpoloft) LADY Laguna ordered Requested Psych service for recommendations regarding insomnia Noted to be very anxious this morning and after a long discussion with the patient she was given 0.5 mg of Ativan x1 Consulted with psychiatrist and was advised to give her a small dose of trazodone at night for better sleep She was strongly advised to keep appointment with her outpatient psychiatrist and psychotherapist (8) Depression: -As above (9) DVT prophylaxis: - Se monteirohamida subcu CODE: Full code Dispo: PT/OT recommending transitioning to SNF for inpatient 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 consult for discharge disposition Discharge home this morning Admission and Anticipated Discharge Date Admission Date: January 23, 2021 Subjective 01/30/2021 The patient was seen and examined in medical telemetry unit She remains very anxious and complains to have dizziness whenever she is ambulating Her tremor seems to be under control Denies any other significant symptoms 01/31/2021 The patient was seen and examined in medical telemetry unit She was noted to be very very anxious this morning Denies any other significant symptoms of pain, palpitation or shortness of breath 02/01/2021 The patient was seen and examined in medical telemetry unit She has been anxious this morning but denies any other symptoms She will be going home sometime this morning Review of Systems Review of Systems: All systems reviewed and are unremarkable except as noted below Neurologic: + dizziness (Still has minimal dizziness while ambulating) Physical Exam Physical Exam: Lying in bed very anxious Constitutional: average body habitus Eyes: PERRL, conjunctivae normal, anicteric sclerae ENMT: external ear and nose normal, oropharynx normal Neck: trachea midline, no thyromegaly Respiratory: normal respiratory effort; no respiratory distress Auscultation: lungs clear to auscultation bilaterally Cardiovascular: Rate/Rhythm: regular rate and regular rhythm Heart Sounds: no murmur Extremities: no edema Gastrointestinal (Abdomen): Inspection/Auscultation: normal bowel sounds; abdomen not distended Percussion/Palpation: abdomen soft; abdomen nontender Musculoskeletal: No acute arthritis in any joint Neurologic: Alert, awake and oriented x3. Very anxious. Generally weak without any focal weakness Psychiatric: Mood: + anxious mood Insight: + limited insight Results & Data Results & Data ([facility]) Vital Signs (Past 12 Hours) Vital Signs Temp Pulse Pulse Resp BP Pulse Ox 02/01/21 08:14 36.6 C 83 18 113/50 L 96 02/01/21 03:09 36.6 C 72 18 97/46 L 95 02/01/21 00:59 67 01/31/21 23:42 36.3 C L 76 18 97/61 L 97 Medications Administered Current Inpatient Medications Acetaminophen (Acetaminophen 500 Mg Tab) 500 mg PO Q6H PRN PRN Reason: Pain Stop: 02/28/21 10:30 Last Admin: 01/29/21 19:24 Dose: 500 mg Documented by: Aspirin (Aspirin 81 Mg Ectab) 81 mg PO QAM [facility] Stop: 02/22/21 08:59 Last Admin: 02/01/21 08:46 Dose: 81 mg Documented by: Atorvastatin Calcium (Atorvastatin 40 Mg Tab) 40 mg PO HS [facility] Stop: 02/21/21 20:59 Last Admin: 01/31/21 20:55 Dose: 40 mg Documented by: Buspirone HCl (Buspirone 15 Mg Tab) 15 mg PO BID [facility] Stop: 02/21/21 20:59 Last Admin: 02/01/21 08:45 Dose: 15 mg Documented by: Dextrose (Dextrose 50% 50 Ml Syringe) 25 - 50 ml IV UD PRN; Protocol PRN Reason: Hypoglycemia Protocol Stop: 02/21/21 20:30 Diphenhydramine HCl (Diphenhydramine Capsule 25 Mg Cap) 25 mg PO HS PRN PRN Reason: Insomnia Stop: 02/27/21 09:44 Last Admin: 01/31/21 20:54 Dose: 25 mg Documented by: Enoxaparin Sodium (Enoxaparin Inj 40 Mg/0.4 Ml Syr) 40 mg SQ QAM [facility] Stop: 02/22/21 08:59 Last Admin: 02/01/21 08:48 Dose: 40 mg Documented by: Glucagon (Glucagon For Inj 1 Mg Vial) 1 mg SQ UD PRN; Protocol PRN Reason: Hypoglycemia Protocol Stop: 02/21/21 20:30 Glucose (Glucose 10 Tabs/Tube) 4 - 8 tabs PO UD PRN; Protocol PRN Reason: Hypoglycemia Protocol Stop: 02/21/21 20:30 Glucose (Glucose 40% Gel 15 Gm Tube) 15 - 30 gm PO UD PRN; Protocol PRN Reason: Hypoglycemia Protocol Stop: 02/21/21 20:30 Hydroxyzine HCl (Hydroxyzine Hcl 10 Mg Tab) 10 mg PO TID PRN PRN Reason: Anxiety Stop: 02/24/21 10:18 Last Admin: 02/01/21 08:44 Dose: 10 mg Documented by: Promethazine HCl 6.25 mg/ (Sodium Chloride) 50.25 mls @ 201 mls/hr IV Q6H PRN PRN Reason: Nausea And Vomiting Stop: 02/21/21 18:09 Insulin Aspart (Insulin Aspart 100 Units/Ml 3 Ml Pen) 0 units SC ACHS [facility] Stop: 02/21/21 20:59 Last Admin: 02/01/21 08:52 Dose: 2 units Documented by: Lorazepam (Lorazepam 0.5 Mg Tab) 0.5 mg PO PM PRN PRN Reason: Anxiety Stop: 02/21/21 20:30 Last Admin: 01/31/21 20:54 Dose: 0.5 mg Documented by: Meclizine HCl (Meclizine 12.5 Mg Tab) 12.5 mg PO TID PRN PRN Reason: Dizziness or Vertigo Stop: 02/28/21 10:29 Last Admin: 01/31/21 09:05 Dose: 12.5 mg Documented by: Melatonin (Melatonin 3 Mg Tab) 3 mg PO [facility] Stop: 02/21/21 20:59 Last Admin: 01/31/21 20:54 Dose: 3 mg Documented by: Miscellaneous (Carbohydrates For Hypoglycemia ) 15 - 30 gm PO UD PRN PRN Reason: Hypoglycemia Protocol Stop: 02/21/21 20:30 Last Admin: 01/23/21 08:09 Dose: 15 gm Documented by: Ondansetron HCl (Ondansetron Inj 2 Mg/Ml 2 Ml Vial) 4 mg IV Q4H PRN PRN Reason: Nausea And Vomiting Stop: 02/21/21 20:30 Last Admin: 01/24/21 07:44 Dose: 4 mg Documented by: Polyethylene Glycol (Polyethylene (Miralax) 17 Gm Pack) 17 gm PO DAILY PRN PRN Reason: constipation Stop: 02/21/21 20:30 Last Admin: 01/31/21 08:06 Dose: 17 gm Documented by: Propranolol HCl (Propranolol Hcl 10 Mg Tab) 10 mg PO BID [facility] Stop: 03/02/21 20:59 Last Admin: 02/01/21 08:47 Dose: 10 mg Documented by: Sertraline HCl (Sertraline Hcl 50 Mg Tablet) 25 mg PO QAM [facility] Stop: 02/22/21 08:59 Last Admin: 02/01/21 08:46 Dose: 25 mg Documented by: Trazodone HCl (Trazodone Hcl 50 Mg Tab) 25 mg PO HS [facility] Stop: 03/02/21 20:59 Last Admin: 01/31/21 20:53 Dose: 25 mg Documented by: Venlafaxine HCl (Venlafaxine Hcl Xr 75 Mg Capxr) 75 mg PO QAM [facility] Stop: 02/22/21 08:59 Last Admin: 02/01/21 08:47 Dose: 75 mg Documented by: Vitamin B Complex (Vitamin B Complex Tab) 1 tab PO DAILY [facility] Stop: 02/22/21 08:59 Last Admin: 02/01/21 08:45 Dose: 1 tab Documented by: Vitamin D (Cholecalciferol 1,000 Units 25 Mcg Tab) 2,000 units PO Q48H [facility] Stop: 02/23/21 08:59 Last Admin: 02/01/21 08:46 Dose: 2,000 units Documented by:
--- NOTE | 2021-02-02 07:32 | Discharge Summary ---
Date of Service February 02, 2021 Admission HPI Per Admitting Provider This is a 70-year-old female with PMHx of diastolic CHF, chronic left bundle branch block, DM type II, hepatic cirrhosis due to chronic hep C infection, major depressive disorder, anxiety, history of CVA, who was recently treated for a UTI E. coli which was resistant to Bactrim found at the end of December 2020. She was evaluated approximately 5 days ago by ER on 01/17 and given an IV dose of Rocephin and sent home with a PO antibiotic. Her PCP transitioned her to oral Macrobid x 7 days which she is still taking. On Thursday, 01/19 the patient started a new prescription for Zoloft at 25 mg daily, and decreased her Effexor from 112 mg daily to 75 mg daily. Patient follows with [facility] outpatient psychiatry, via telemedicine due to Covid pandemic. Since this adjustment has been made the patient's anxiety has been very well controlled. Also on Thursday is when the patient developed her chief complaints of weakness, dizziness exacerbated with standing or movement, nausea and dry heaves. She presented to the ER this morning after her caregiver witnessed a syncopal episode at the breakfast table where she had eaten half of her breakfast, taken her morning medications, had her blood glucose checked which was in the 150s, and when the caregiver had turned around the patient had fallen forward and her face was on the table. It took her 30 seconds to come to. Patient lives at home alone and has visiting nurses in her home M-F from 8a-3p, who assists with the history at bedside. The patient's daughter, Lindsey, is POA and available for questions or concerns. Admission Exam Per Admitting Provider Physical Exam: General: awake, alert, no apparent distress, + thin, + lying on her left side unable to sit up due to dizziness but is able to roll from side to side in bed for exam Head: Normocephalic, atraumatic ENT: PERRL, EOMI, no pharyngeal exudate, mucous membranes slightly dry, + upper denture plate Chest: Clear to auscultation, on room air, no adventitious breath sounds Cardiac: Regular rate and rhythm, + mild ELEAZAR, no JVD, normal peripheral pulses, good capillary refill Abdominal: NABS x 4 quadrants, soft, nondistended, nontender to palpation, no rebound or guarding Extremities: Normal inspection, no peripheral edema or erythema, calfs nontender to palpation Psych: Normal mood, slightly anxious affect Neuro: AAO x 3, strength intact bilaterally and rated 5/5, no motor deficits, speech is clear, no peripheral sensory deficits, + fine tremor BLE Principal Diagnosis Syncope secondary to orthostasis likely due to dehydration, severe anxiety and depression, type 2 diabetes, chronic hepatitis C, history of CVA Discharge Exam Constitutional average body habitus Eyes PERRL, conjunctivae normal, anicteric sclerae ENMT external ear and nose normal, oropharynx normal Neck trachea midline, no thyromegaly Respiratory normal respiratory effort; no respiratory distress Auscultation: lungs clear to auscultation bilaterally Cardiovascular Rate/Rhythm: regular rate and regular rhythm Heart Sounds: no murmur Extremities: no edema Gastrointestinal (Abdomen) Inspection/Auscultation: normal bowel sounds; abdomen not distended Percussion/Palpation: abdomen soft; abdomen nontender Psychiatric Mood: + anxious mood Insight: + limited insight Discharge Data Allergies Allergy/AdvReac Type Severity Reaction Status Date / Time Iodinated Contrast Media Allergy Severe HEAD TO Verified 01/22/21 13:05 TOE HIVES morphine Allergy Severe hives Verified 01/22/21 13:05 oxycodone Allergy Intermediate Hives Verified 01/22/21 13:05 clavulanic acid Allergy Unknown FROM Verified 01/22/21 13:05 AUGMENTIN Penicillins Allergy Unknown FROM Verified 01/22/21 13:05 AUGMENTIN amitriptyline AdvReac Severe INCREASES Verified 01/22/21 13:05 HEART RATE clarithromycin AdvReac Intermediate LIGHT Verified 01/22/21 13:05 HEADED, FAINTY FEELING acetaminophen AdvReac Unknown NOT ABLE Verified 01/22/21 13:05 TO TAKE DUE TO HX HEPATITIS Cephalosporins AdvReac Unknown CEFTIN--GI Verified 01/22/21 13:05 UPSET Consultations 01/22/21 17:06 ED Decision to Admit Stat 01/22/21 18:10 Consult Psychiatry Routine 01/22/21 20:31 Consult Case Management - Discharge Planning Routine 01/29/21 18:18 Consult Neurology Routine Ordered Studies 01/22/21 12:28 CT head/brain wo con Stat 01/22/21 12:29 CT angio head w con Stat CT angio neck with con Stat 01/28/21 09:54 MR brain wo con Routine Hospital Course (1) Syncope: (1) Syncope: Secondary to Orthostasis , Dehydration Orthostatic vitals on 01/30/2021: Lying blood pressure 139/62 and pulse 68, sitting blood pressure 134/71 and pulse 75 and is landing blood pressure 100 and bowels 84. Has been trying to drink water and take more salt Could be contributed by use of propranolol UTI with e.coli was sensitive to macrobid, currently finishing antibiotic course No evidence of ACS and echo remains unremarkable MRI of the brain did not show any acute findings Initial improvement of orthostasis with intravenous normal saline Appreciate neurology input and recommendation to wean off propranolol MAMIE barbosa ordered No more significant dizziness in the hospital She will be discharged home tomorrow and propranolol will be weaned off as per neurologist Remains reasonably stable this morning to be discharged Strongly advised to take precautions to avoid fall (2) LBBB (left bundle branch block): Chronic, noted on EKG Follows with cardiology as an outpt, Dr. 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 Inpatient Psych consulted-appreciate input and recommendation Continue present Psych meds Increase Zoloft to 50mg daily and reduce Effexor by 25mg on 02/01 (as part of taper process to transition from Effexor to Zpoloft) LADY Laguna ordered Requested Psych service for recommendations regarding insomnia Noted to be very anxious this morning and after a long discussion with the patient she was given 0.5 mg of Ativan x1 Consulted with psychiatrist and was advised to give her a small dose of trazodone at night for better sleep She was strongly advised to keep appointment with her outpatient psychiatrist and psychotherapist (8) Depression: -As above (9) DVT prophylaxis: - thania Aureliaherman subcu CODE: Full code Dispo: PT/OT recommending transitioning to SNF for inpatient PT manager of pmo consult for discharge disposition Discharge home this morning Total Time Total Time Spent Total Time Spent (In Minutes): 35 minutes Total Time Includes: Examination of the Patient, Discharge Planning, Medication Reconciliation and Communication With Other Providers Discharge Plan Discharge Items Patient Disposition: Home - Self-Care Reason For Visit: SYNCOPE Discharge Diagnosis: Syncope secondary to orthostasis likely due to dehydration, severe anxiety and depression, type 2 diabetes, chronic hepatitis C, history of CVA Activity: Resume your previous activity Non-emergency contact: Primary Care Provider Call non-emergency contact if: you have any medication questions and your symptoms worsen Follow-up/Referrals: Chaitanya Quinones DO [Primary Care Provider] - (Date & Time 02/05/2021 12:20 PM Provider Tammy Haider MD Department General Internal Medicine [facility] Date & Time 02/05/2021 2:15 PM Provider Mercy Levine PsyD Department Psychology, [facility] Date & Time 04/01/2021 2:00 PM Provider [facility] Diet: Carb Consistent or DM2 Addtl Attending Provider Instructions: Please take extreme precaution to avoid falls Please keep your appointment with your outpatient psychiatrist You will be weaned off your propranolol as advised by the neurologist Your Jardiance has been stopped as it can cause dizziness Pending Studies at Discharge: No Stand-Alone Forms: My [facility] Stitch.es, Smoking Cessation Medications and DC Order Prescriptions: New propranolol 10 mg Tablet 10 mg PO UD Qty: 13 RF: 0 trazodone 50 mg Tablet 25 mg PO HS 30 Days Qty: 15 RF: 0 meclizine 12.5 mg Tablet 12.5 mg PO TID PRN (Reason: dizziness) 10 Days Qty: 30 RF: 0 hydroxyzine HCl 10 mg Tablet 10 mg PO TID PRN (Reason: itching) 15 Days Qty: 30 RF: 0 Continued milk thistle 175 mg Tablet 175 mg PO DAILY PRN (Reason: .) RF: 0 aspirin 81 mg Tablet,Delayed Release (Dr/Ec) 81 mg PO QAM RF: 0 vitamin B complex Tablet 1 tab PO DAILY RF: 0 venlafaxine [Effexor XR] 75 mg capsule,extended release 24hr 75 mg PO QAM RF: 0 glipizide 10 mg tablet extended release 24hr 10 mg PO BID RF: 0 melatonin 3 mg Tablet 3 mg PO HS Qty: 30 RF: 0 polyethylene glycol 3350 [Miralax] 17 gram Powder In Packet 17 g PO DAILY PRN (Reason: constipation) Qty: 30 RF: 0 lorazepam [Ativan] 0.5 mg tablet 0.5 mg PO PM PRN (Reason: Anxiety) RF: 0 cranberry 400 mg Capsule 200 mg PO DAILY PRN (Reason: UTI) RF: 0 cholecalciferol (vitamin D3) [Vitamin D3] 25 mcg (1,000 unit) Tablet 50 mcg PO Q OTHER DAY RF: 0 atorvastatin 40 mg tablet 40 mg PO HS RF: 0 coenzyme Q10 [CoQ-10] 100 mg Capsule 100 mg PO QAM RF: 0 Tradjenta 5 mg Tablet 5 mg PO QAM RF: 0 buspirone 10 mg tablet 15 mg PO BID RF: 0 sertraline 50 mg tablet 25 mg PO QAM RF: 0 nitrofurantoin monohyd/m-cryst 100 mg capsule 100 mg PO BID RF: 0 Discontinued propranolol 20 mg tablet 20 mg PO BID RF: 0 Jardiance 10 mg tablet 10 mg PO QAM RF: 0 Discharge Orders: Discharge Order (Routine); Ordered 02/01/21 Ordered By: Bushra Dutta Admission Data Admit Date/Time: 01/23/21 19:06 Attending Provider: Bushra Dutta Admit Provider: Irma Barros Primary Care Provider: Chaitanya Quinones Other Providers: Irma Barros ; Ann Johnson ; [facility] ; Sohail Nunez ; Eliazar Asif Other Interventions: Discharge Summary Assessment (RN) Last Done: 02/01/21 10:36 PSY Interdisciplinary Discharge Planning Last Done: 01/24/21 14:02
== END 2021-02-01 12:21 | disposition home or self-care (01) | DRG 641 ==
LOC: ED 12:07 → 2W 12:07 → SUATTDRO 17:10 → 2W 19:06 → SUATTDRO 01-23 19:06